=== PATIENT | female | born 1945 | race Caucasian/White ===

== ENCOUNTER 2018-01-14 09:28 | Emergency (ER) | payer OTHER ==
[2018-01-14 09:39] VITALS: BMI 28.1
--- NOTE | 2018-01-14 10:01 | PDOC ---
History of Present Illness - General History Source: Patient, Old Records, Primary Care Provider Exam Limitations: No Limitations - History of Present Illness Initial Comments: 01/14/18 10:46 The patient is a 72 ear old female with history of hypertension, hyperlipidemia , sent to the ED by her PCP for CT of the head r/o vertebral artery dissection. Per the patient's PCP, the patient had an MRA that demonstrated some concerning findings. She was sent for a head CT for further evaluation. Today, the patient denies any physical complaint. She denies headache, blurred vision, or dizziness. No nausea, vomiting, or diarrhea. PCP: Dr. James Reed <Candy Jaffe - Last Filed: 01/14/18 16:54> <Prasad Chery - Last Filed: 01/14/18 17:17> - General Chief Complaint: Revisit,Radiology Variance Stated Complaint: ADMIT, TESTING (PCP SENT) Time Seen by Provider: 01/14/18 10:01 Past History <Candy Jaffe - Last Filed: 01/14/18 16:54> - Past Medical History Cancer: Yes (LUNG) COPD: No - Suicide/Smoking/Psychosocial Hx Smoking History: Current some day smoker Have you smoked in the past 12 months: Yes Information on smoking cessation initiated: No <Prasad Chery - Last Filed: 01/14/18 17:17> - Past Medical History Allergies/Adverse Reactions: Allergies Allergy/AdvReac Type Severity Reaction Status Date / Time No Known Allergies Allergy Verified 01/14/18 09:34 Home Medications: Ambulatory Orders Albuterol Sulfate [Proair Hfa] 8.5 gm IH BID 01/14/18 Amlodipine Besylate 5 mg PO DAILY 01/14/18 Aspirin 81 mg PO DAILY 01/14/18 Atorvastatin Ca [Lipitor] 20 mg PO HS 01/14/18 Levothyroxine [Synthroid -] 50 mcg PO DAILY 01/14/18 Losartan Potassium 100 mg PO DAILY 01/14/18 Metoprolol Succinate [Toprol Xl] 50 mg PO DAILY 01/14/18 Review of Systems - Review of Systems Able to Perform ROS?: Yes Comments:: 01/14/18 11:10 CONSTITUTIONAL: Well-appearing; well-nourished; in no apparent distress HEAD: Normocephalic; atraumatic EYES: PERRL; EOM intact ENMT: External appears normal; normal oropharynx NECK: Supple; non-tender; no cervical lymphadenopathy CARD: Normal S1, S2; no murmurs, rubs, or gallops RESP: Normal chest excursion with respiration; breath sounds clear and equal bilaterally; no wheezes, rhonchi, or rales ABD: Soft, non-distended; non-tender; no palpable organomegaly, no palpable hernias EXT: Normal ROM in all four extremities; non-tender to palpation; distal pulses intact SKIN: Warm, dry, no rash NEURO: No focal neurological deficiencies. <Candy Jaffe - Last Filed: 01/14/18 16:54> *Physical Exam - Vital Signs Last Vital Signs Temp Pulse Resp BP Pulse Ox 98 F 100 H 19 135/52 98 01/14/18 09:34 01/14/18 09:34 01/14/18 09:34 01/14/18 09:34 01/14/18 09:34 <Candy Jaffe - Last Filed: 01/14/18 16:54> - Vital Signs Last Vital Signs Temp Pulse Resp BP Pulse Ox 98 F 100 H 19 135/52 98 01/14/18 09:34 01/14/18 09:34 01/14/18 09:34 01/14/18 09:34 01/14/18 09:34 - Physical Exam Comments: 01/14/18 16:51 EXAMINATION CONSTITUTIONAL: Patient is awake and alert; well-nourished, in no apparent distress HEAD: Normocephalic; atraumatic EYES: PERRL; EOM intact ENMT: External appears normal; normal oropharynx NECK: Supple; non-tender; no cervical lymphadenopathy CARD: Normal S1, S2; no murmurs, rubs, or gallops RESP: Normal chest excursion with respiration; breath sounds clear and equal bilaterally; no wheezes, rhonchi, or rales ABD: Soft, non-distended; non-tender; no palpable organomegaly, no palpable hernias EXT: Normal ROM in all four extremities; non-tender to palpation; distal pulses intact SKIN: Warm, dry, no rash NEURO: Alert and oriented to self only; cranial nerves II through XII grossly intact; no pronation drift; motor is 554; gait is stable. <Prasad Chery - Last Filed: 01/14/18 17:17> Heart Score/ECG Review #1 01/14/18 13:06 EKG obtained 12:28. Normal sinus rhythm at 82 bpm. T wave abnormality, consider inferior ischemia. Abnormal EKG. <Candy Jaffe - Last Filed: 01/14/18 16:54> ED Treatment Course - LABORATORY CBC & Chemistry Diagram: 01/14/18 11:00 01/14/18 11:00 <Candy Jaffe - Last Filed: 01/14/18 16:54> - LABORATORY CBC & Chemistry Diagram: 01/14/18 11:00 01/14/18 11:00 <Prasad Chery - Last Filed: 01/14/18 17:17> Medical Decision Making - Medical Decision Making 01/14/18 16:52 Patient is 72-year-old female who was referred to the ER by neurology for possible vertebral artery dissection that may have been identified on a previous MRA. In the ER, patient is asymptomatic. A discussed the case with neurology who suspect the finding may be an artifact. If the CT is negative for vertebral or basilar artery insufficiency or dissection, Patient can be discharged with outpatient follow-up. 01/14/18 17:10 Brain and neck CTA revealed no evidence of vertebral basilar dissection or significant stenosis. Right apical pleural nodule is noted. Patient's calcium is within normal limit. Patient's been advised of the findings and will be discharged to follow-up as an outpatient. <Prasad Chery - Last Filed: 01/14/18 17:17> *DC/Admit/Observation/Transfer - Attestations Scribe Attestion: 01/14/18 11:10 Documentation prepared by Candy Jaffe, acting as bilingual medical receptionist for Prasad Chery MD. <Candy Jaffe - Last Filed: 01/14/18 16:54> <Prasad Chery - Last Filed: 01/14/18 17:17> Diagnosis at time of Disposition: Dizziness - Discharge Dispostion Disposition: HOME Condition at time of disposition: Stable - Referrals Referrals: James Reed [Non Staff, Medical] - - Patient Instructions Printed Discharge Instructions: DI for Dizziness-Nonvertigo Additional Instructions: your Calcium is 9.4. your ct shows a right lung nodule which requires outpatient follow up.
[2018-01-14 11:12] LABS: BASO % 0.6 % (0-2.0); EOS % 3.3 % (0-4.5); HEMOGLOBIN 12.4 GM/dL (10.7-15.3); LYMPH % 23.1 % (8-40); MCH 29.5 pg (25.7-33.7); MCHC 32.5 g/dl (32.0-36.0); MEAN CELL VOLUME 90.6 fl (80-96); MEAN PLT VOLUME 8.3 fl (7.5-11.1); MONO % 7.6 % (3.8-10.2); NEUT % 65.4 % (42.8-82.8); PLATELET COUNT 255 K/MM3 (134-434); RBC 4.19 M/mm3 (3.60-5.2); RDW 12.3 % (11.6-15.6); WHITE BLOOD COUNT 11.6 K/mm3 (4.0-10.0)
[2018-01-14 11:24] LABS: INR 1.11 (0.82-1.09); PROTHROMBIN TIME (PATIENT) 12.5 SEC (9.98-11.88)
[2018-01-14 11:37] LABS: ALBUMIN 4.1 g/dl (3.4-5.0); ANION GAP 7 (8-16); BILIRUBIN,TOTAL 0.6 mg/dL (0.2-1.0); BLOOD UREA NITROGEN 17 mg/dL (7-18); CALCIUM 9.4 mg/dL (8.5-10.1); CHLORIDE 108 mmol/L (98-107); CO2 22 mmol/L (21-32); CREATININE 0.8 mg/dL (0.55-1.02); GLUCOSE,RANDOM 103 mg/dL (74-106); POTASSIUM 4.3 mmol/L (3.5-5.1); SGOT/AST 15 U/L (15-37); SGPT/ALT 21 U/L (12-78); SODIUM 137 mmol/L (136-145); TOT PROT 7.3 g/dl (6.4-8.2)
[2018-01-14 11:46] LABS: ALK PHOS 73 U/L (45-117)
[2018-01-14 12:01] LABS: URINE APPEARANCE TURBID; URINE BILIRUBIN NEGATIVE (NEGATIVE); URINE BLOOD NEGATIVE (NEGATIVE); URINE COLOR AMBER; URINE GLUCOSE (UA) NEGATIVE (NEGATIVE); URINE KETONE TRACE (NEGATIVE); URINE LEUK ESTERASE TRACE (NEGATIVE); URINE NITRITE NEGATIVE (NEGATIVE); URINE UROBILINOGEN 4.0 E.U/dl mg/dL (0.2-1.0)
[2018-01-14 12:03] LABS: URINE PROTEIN 1+ (NEGATIVE)
[2018-01-14 12:40] LABS: EPI CELLS RARE /HPF (FEW); URINE HYALINE CAST 12 /lpf; URINE MUCUS RARE
[2018-01-14 16:52] VITALS: BP 139/45; PULSE 79; TEMP 98.2
--- NOTE | 2018-01-15 11:43 | EKG ---
Test Reason : Blood Pressure : / mmHG Vent. Rate : 081 BPM Atrial Rate : 081 BPM P-R Int : 120 ms QRS Dur : 096 ms QT Int : 350 ms P-R-T Axes : 057 061 -55 degrees QTc Int : 406 ms POOR DATA QUALITY, INTERPRETATION MAY BE ADVERSELY AFFECTED NORMAL SINUS RHYTHM T WAVE ABNORMALITY, CONSIDER INFERIOR ISCHEMIA ABNORMAL ECG NO PREVIOUS ECGS AVAILABLE Confirmed by LISANDRA WONG, LAURIE ([id number]) on 01/15/2018 11:42:27 AM Referred By: Confirmed By:LAURIE FRY MD
== END 2018-01-14 18:04 | disposition home or self-care (01) ==
LOC: JER 09:28
DX: R42 Dizziness and giddiness (principal); F17.210 Nicotine dependence, cigarettes, uncomplicated; I10 Essential (primary) hypertension; E78.5 Hyperlipidemia, unspecified; Z85.118 Personal history of other malignant neoplasm of bronchus and lung
CPT/HCPCS: 36415; 70496-TC; 70498-TC; 71046-TC-FY; 80053; 81003; 81015; 82330; 83970; 84443; 85025; 85610; 93005; 93010; 99282-25

== ENCOUNTER 2020-08-18 04:32 | Day surgery (SDC) | payer OTHER ==
[2020-08-17 11:59] VITALS: BMI 41.2
--- OUTSIDE RECORDS SUMMARY | 2020-08-18 05:20 | XMS ---
:1945 Author Organization [facility] Care Team Providers Name Role Phone [facility]9 Unavailable Unavailable Johnny Kraus Unavailable [phone] Menla, Gordy Unavailable Unavailable Menla, Gordy Unavailable Unavailable Menla, Gordy Unavailable Unavailable Menla, Gordy Unavailable Unavailable Menla, Gordy Unavailable Unavailable Menla, Gordy Unavailable Unavailable JAMES REED Unavailable Unavailable Sterling, Chelle BACK GRAY CLOTH WASHER Unavailable Unavailable Sterling, Chelle BACK GRAY CLOTH WASHER Unavailable Unavailable Sterling, Chelle BACK GRAY CLOTH WASHER Unavailable Unavailable Sterling, Chelle BACK GRAY CLOTH WASHER Unavailable Unavailable Johnna, Ammir Unavailable [phone] Johnna, Ammir Unavailable [phone] Johnna, Ammir Unavailable [phone] Johnna, Ammir Unavailable [phone] Johnna, Ammir Unavailable [phone] Johnna, Ammir Unavailable [phone] Johnna, Ammir Unavailable [phone] Johnna, Ammir Unavailable [phone] Johnna, Ammir Unavailable [phone] Johnna, Ammir Unavailable [phone] Johnna, Ammir Unavailable [phone] Johnna, Ammir Unavailable [phone] Johnna, Ammir Unavailable [phone] Johnna, Ammir Unavailable [phone] Johnna, Ammir Unavailable [phone] Johnna, Ammir Unavailable [phone] Reed, James Unavailable Unavailable Reed, James Unavailable Unavailable Reed, James Unavailable Unavailable Reed, James Unavailable Unavailable Reed, James Unavailable Unavailable Reed, James Unavailable Unavailable Reed, James Unavailable Unavailable Reed, James Unavailable Unavailable Reed, James Unavailable Unavailable Reed, James Unavailable Unavailable Reed, James Unavailable Unavailable Trace-Perla, Yaneth Unavailable [phone] Trace-Perla, Yaneth Unavailable [phone] TRACE-PERLA XENA, XENA Unavailable Unavailable Re-disclosure Warning The records that you are about to access may contain information from federally- assisted alcohol or drug abuse programs. If such information is present, then the following federally mandated warning applies: This information has been disclosed to you from records protected by federal confidentiality rules (42 CFR part 2). The federal rules prohibit you from making any further disclosure of this information unless further disclosure is expressly permitted by the written consent of the person to whom it pertains or as otherwise permitted by 42 CFR part 2. A general authorization for the release of medical or other information is NOT sufficient for this purpose. The Federal rules restrict any use of the information to criminally investigate or prosecute any alcohol or drug abuse patient.The records that you are about to access may contain highly sensitive health information, the redisclosure of which is protected by Article 27-F of the [facility] Public Health law. If you continue you may haveaccess to information: Regarding HIV / AIDS; Provided by facilities licensed or operated by the [facility] Office of Mental Health; or Provided by the [facility] Office for People With Developmental Disabilities. If such information is present, then the following [facility] mandated warning applies: This information has been disclosed to you from confidential records which are protected by state law. State law prohibits you from making any further disclosure of this information without the specific written consent of the person to whom it pertains, or as otherwise permitted by law. Any unauthorized further disclosure in violation of state law may result in a fine or mcfp sentence or both. A general authorization for the release of medical or other information is NOT sufficient authorization for further disclosure. Allergies and Adverse Reactions Type Description Substance Reaction Status Data Source(s ) Propensity to Propensity to Propensity to NEXTG EN ( adverse reactions adverse reactions adverse reactions [facility] Medical (disorder) (disorder) (disorder) Center) Family History Family Member Family Member Family Member Date of Description Data Source(s) Name Gender Status Status Unknown Female Problem 09/23/2014 NEXTGEN ([facility] (finding) 12:00:[address] [facility] Center) Encounters Encounter Providers Location Date Indications Data Source(s ) Attender: Mental Health 07/29/2020 NEXTGEN ([facility] 02:48:00 PM [facility]) 07/29/2020 02:48:00 PM EDT Attender: James 07/18/2020 MEDGEN ([place] [facility] 12:00:00 AM Medical Servi ce) EDT Office Attender: James Reed 07/18/2020 12:00:00 AM EDT MEDGEN ([facility]) Office Attender: James Reed 07/18/2020 12:00:00 AM EDT MEDGEN ([facility] [place] [facility]) Office Attender: James Reed 07/18/2020 12:00:00 AM EDT MEDGEN ([facility]) Office Attender: James Reed 07/18/2020 12:00:00 AM EDT MEDGEN ([facility]) Office Attender: James Reed 07/18/2020 12:00:00 AM EDT MEDGEN ([facility]) Office Attender: James Reed 07/18/2020 12:00:00 AM EDT MEDGEN ([facility]) Office Attender: James Reed 07/18/2020 12:00:00 AM EDT MEDGEN ([facility]) Office Attender: James Reed 07/18/2020 12:00:00 AM EDT MEDGEN ([facility]) Office Attender: James Reed 07/18/2020 12:00:00 AM EDT MEDGEN ([facility]) Office Attender: James Reed 07/18/2020 12:00:00 AM EDT MEDGEN ([facility]) Office Outpatient Attender: JAMES Salguero 07/15/2020 [facility] WANDERLAdmitter: 09:47:00 AM EDT [facility] JAMES Barrioser: JAMES REED Attender: [facility] 07/07/2020 NE XTGEN ([facility] 01:37:00 PM EDT - Leigh sephs 07/07/2020 Medical 01:37:00 PM EDT Center) OutpatientOFFICE/ Attender: [facility] 07/07/2020 NEXTGEN ([facility] 01:10[facility] PM EDT - Roseline EST 07/07/2020 Medical 01:10:00 PM EDT Center) Outpatient Attender: JAMES Salguero 06/29/2020 [facility] Sandeepitter: 02:00:00 PM EDT [facility] JAMES Barrioser: JAMES REED Attender: Chelle Katz 06/29/2020 [facility]ENT[facility] FRIAS [employer] 12:00:00 AM EDT ([facility]) Office Attender: Chelle Katz NP 06/29/2020 12:00:00 AM EDT MEDGEN ([facility]) Office Attender: Chelle Katz NP 06/29/2020 12:00:00 AM EDT MEDGEN ([facility]) Office Attender: Chelle Katz NP 06/29/2020 12:00:00 AM EDT MEDGEN ([facility]) Office Attender: Chelle Katz NP 06/29/2020 12:00:00 AM EDT MEDGEN ([facility]) Office Attender: Chelle Katz NP 06/29/2020 12:00:00 AM EDT MEDGEN ([facility]) Office Attender: Chelle Katz NP 06/29/2020 12:00:00 AM EDT MEDGEN ([facility]) Office Attender: Chelle Katz NP 06/29/2020 12:00:00 AM EDT MEDGEN ([facility]) Office Attender: Chelle Katz NP 06/29/2020 12:00:00 AM EDT MEDGEN ([facility]) Office Attender: Chelle Katz NP 06/29/2020 12:00:00 AM EDT MEDGEN ([facility]) Office Attender: Chelle Katz NP 06/29/2020 12:00:00 AM EDT MEDGEN ([facility]) Office Attender: James Reed 06/27/2020 12:00:00 AM EDT MEDGEN ([facility]) Office Attender: James Reed 06/27/2020 12:00:00 AM EDT MEDGEN ([facility]) Office Attender: James Reed 06/27/2020 12:00:00 AM EDT MEDGEN ([facility]) Office Attender: James Reed 06/27/2020 12:00:00 AM EDT MEDGEN ([facility]) Office Attender: James Reed 06/27/2020 12:00:00 AM EDT MEDGEN ([facility]) Office Attender: James Reed 06/27/2020 12:00:00 AM EDT MEDGEN ([facility]) Office Attender: James Reed 06/27/2020 12:00:00 AM EDT MEDGEN ([facility]) Office Attender: James Reed 06/27/2020 12:00:00 AM EDT MEDGEN ([facility]) Office Attender: James Reed 06/27/2020 12:00:00 AM EDT MEDGEN ([facility]) Office Attender: James Reed 06/27/2020 12:00:00 AM EDT MEDGEN ([facility]) Office Attender: James Reed 06/27/2020 12:00:00 AM EDT MEDGEN ([facility]) Office Attender: James Reed 06/14/2020 12:00:00 AM EDT MEDGEN ([facility]) Office Attender: James Reed 06/14/2020 12:00:00 AM EDT MEDGEN ([facility]) Office Attender: James Reed 06/14/2020 12:00:00 AM EDT MEDGEN ([facility]) Office Attender: James Reed 06/14/2020 12:00:00 AM EDT MEDGEN ([facility]) Office Attender: James Reed 06/14/2020 12:00:00 AM EDT MEDGEN ([facility]) Office Attender: James Reed 06/14/2020 12:00:00 AM EDT MEDGEN ([facility]) Office Attender: James Reed 06/14/2020 12:00:00 AM EDT MEDGEN ([facility]) Office Attender: James Reed 06/14/2020 12:00:00 AM EDT MEDGEN ([facility]) Office Attender: James Reed 06/14/2020 12:00:00 AM EDT MEDGEN ([facility]) Office Attender: James Reed 06/14/2020 12:00:00 AM EDT MEDGEN ([facility]) Office OutpatientOFFICE/OUTPATIENT Attender: Yaneth Mental 06/09/2020 NEXTGEN VISIT, EST [facility]29[facility] 06/09/2020 Medical 10:29:00 AM Center) EDT OutpatientOFFICE/OUTPATIENT Attender: Yaneth Mental 05/12/2020 NEXTGEN VISIT, EST [facility] 11:22:00 AM [facility] 05/12/2020 Medical 11:22:00 AM Center) EDT OutpatientOFFICE/OUTPATIENT Attender: Yaneth Mental 04/13/2020 NEXTGEN VISIT, EST [facility] 01:11:00 PM [facility] 04/13/2020 Medical 01:11:00 PM Center) EDT OutpatientOFFICE/OUTPATIENT Attender: Yaneth Mental 03/15/2020 NEXTGEN VISIT, EST [facility] 03:08:00 PM ([facility] EDT [facility] 03/15/2020 Medical 03:08:00 PM Center) EDT OutpatientOFFICE/OUTPATIENT Attender: Yaneth Mental 02/11/2020 NEXTGEN VISIT, EST [facility] 09:08:00 AM ([facility] EDT [facility] 02/11/2020 Medical 09:08:00 AM Center) EDT Attender: Yaneth Mental 01/14/2020 NEXTG EN [facility] 12:33:00 PM ([facility] 01/14/2020 Medical 12:33:00 PM Center) EST Outpatient Attender: HV9 01/04/2020 [facility] 01:01:46 PM ([facility]) Patient admitted. OutpatientOFFICE/OUTPATIENT Attender: Mental 12/17/2019 NEXTGEN VISIT, [facility] 11:03:00 AM ([facility] 12/17/2019 Medical 11:03:00 AM Center) EST Outpatient Attender: XENA Salguero 11/19/2019 [facility] 10:05:00 AM Roseline MCCALLUMAdmitter: [facility] XENA OutpatientOFFICE/OUTPATIENT Attender: Mental 11/19/2019 NEXTGEN VISIT, [facility] 10:03:00 AM ([facility] 11/19/2019 Medical 10:03:00 AM Center) EST OutpatientOFFICE/OUTPATIENT Attender: Mental 10/15/2019 NEXTGEN VISIT, [facility] 10:10:00 AM ([facility] 10/15/2019 Medical 10:10:00 AM Center) EST Outpatient Attender: JAMES Salguero 10/07/2019 [facility] JENNIFFERdmitter: 09:06:00 AM [facility] [place] JAMES REED OutpatientOFFICE/OUTPATIENT Attender: Mental 09/16/2019 NEXTGEN VISIT, [facility] 03:29:00 PM ([facility] 09/16/2019 Medical 03:29:00 PM Center) EDT OutpatientOFFICE/OUTPATIENT Attender: Mental 08/19/2019 NEXTGEN VISIT, [facility] 10:40:00 AM ([facility] 08/19/2019 Medical 10:40:00 AM Center) EDT OutpatientOFFICE/OUTPATIENT Attender: Mental 07/22/2019 NEXTGEN VISIT, [facility] 10:05:00 AM ([facility] 07/22/2019 Medical 10:05:00 AM Center) EDT OutpatientOFFICE/OUTPATIENT Attender: Mental 06/15/2019 NEXTGEN VISIT, [facility] 10:35:00 [facility] 06/15/2019 Medical 10:35:00 AM Center) EDT OutpatientOFFICE/OUTPATIENT Attender: Mental 05/18/2019 NEXTGEN VISIT, [facility] 10:22:00 AM [facility] 05/18/2019 Medical 10:22:00 AM Center) EDT OutpatientOFFICE/OUTPATIENT Attender: Mental 04/19/2019 NEXTGEN VISIT, [facility] 11:20:00 AM [facility] 04/19/2019 Medical 11:20:00 AM Center) EDT OutpatientOFFICE/OUTPATIENT Attender: Mental 03/22/2019 NEXTGEN VISIT, [facility] 10:45:00 AM ([facility] 03/22/2019 Medical 10:45:00 AM Center) EDT Outpatient Attender: JAMES Salguero 03/16/2019 [facility] 11:23:00 AM Roseline MENG [facility] Medical VESTAeferrer: Rena REED OutpatientOFFICE/OUTPATIENT Attender: Mental 02/22/2019 NEXTGEN VISIT, [facility] 09:44:00 AM ([facility] 02/22/2019 Medical 09:44:00 AM Center) EDT Outpatient 02/15/2019 LUNG CA [facility] 10:27:00 AM [facility] DIABETIC [facility] LUNG CA NOT DIABETIC OutpatientOFFICE/OUTPATIENT Attender: Yaneth [facility] 01/21/2019 NEXTGEN VISIT, [facility] 01:39:00 PM ([facility] 01/21/2019 Medical 01:39:00 PM Center) EST Outpatient Attender: JAMES Salguero 01/15/2019 [facility] [place]: 11:45:00 AM Roseline MANCIA Medical Kanwalerrer: Rena REED Outpatient Attender: JAMES Salguero 01/14/2019 [facility]: 09:31:00 AM Roseline MANCIA Medical DEVONTEALIDOeferrer: Rena REED OutpatientOFFICE/OUTPATIENT Attender: Yaneth Hayes 12/23/2018 NEXTGEN VISIT, EST [facility] 11:34:00 AM ([facility] 12/23/2018 Medical 11:34:00 AM Center) EST Outpatient Attender: XENA Salguero 12/23/2018 [facility] 10:05:00 AM Roseline MCCALLUMAdmitter: [facility] XENA Attender: Yaneth [facility] 04:[facility] PM ([facility] 11/24/2018 Medical 04:30:00 PM Center) EST Attender: Yaneth [facility]11[facility] 08:05:00 AM ([facility] 12/11/2017 Medical 08:05:00 AM Center) EST Attender: Gordy [address] [place] [address] 04/12/2015 NEXTGEN Menla 02:24:00 PM ([facility] 04/12/2015 Medical 02:24:00 PM Center) EDT OutpatientOFFICE/OUTPATIENT Attender: Johnny[address] 02/27/2015 NEXTGEN VISIT, EST [place] 08:56:00 AM [facility] - Roseline Ammir Johnna 02/27/2015 Medical 08:56:00 AM Center) EDT OutpatientOFFICE/OUTPATIENT Attender: [address] 12/27/2014 NEXTGEN VISIT, EST [place] 10:17:00 AM ( EfraAttender: EST - Roseline Ammir Johnna 12/27/2014 Medical 10:17:00 AM Center) EST OutpatientOFFICE/OUTPATIENT Attender: [address] 12/01/2014 NEXTGEN VISIT, EST [place] 11:12:00 AM ([facility] EfraAttender: EST - Roseline Ammir Johnna 12/01/2014 Medical 11:12:00 AM Center) EST OutpatientOFFICE/OUTPATIENT Attender: [address] 10/21/2014 NEXTGEN VISIT, EST [place] 09:24:00 AM ( EfraAttender: EST - Roseline Ammir Johnna 10/21/2014 Medical 09:24:00 AM Center) EST OutpatientOFFICE/OUTPATIENT Attender: [address] 10/07/2014 NEXTGEN VISIT, EST [place] 09:43:00 AM ([facility]us[facility]ender: EST - Roseline Jonesr Johnna 10/07/2014 Medical 09:43:00 AM Center) EST OutpatientOFFICE/OUTPATIENT Attender: Johnny [facility] 09/23/2014 NEXTGEN VISIT, EST [place] 03:49:00 PM ([facility] KrausAttender: EST - Roseline Jonesr Johnna 09/23/2014 Medical 03:49:00 PM Center) EST OutpatientOFFICE/OUTPATIENT Attender: Johnny [facility] 09/08/2014 NEXTGEN VISIT, NEW [place] 04:23:00 PM ([facility]us[facility]ender: EDT - Roseline Jonesr Johnna 09/08/2014 Medical 04:23:00 PM Center) EDT Immunizations Vaccine Date Status Description Data Source(s) IIV3 07/30/2019 completed MEDGEN ([place] [facility] 12:00:00 AM EDT Medical Serv ice) IIV3 07/30/2019 completed MEDGEN ([place] 12:00:00 AM EDT Medical Serv ice) IIV3 07/30/2019 completed MEDGEN ([place] 12:00:00 AM EDT Medical Serv ice) IIV3 07/30/2019 completed MEDGEN ([place] 12:00:00 AM EDT Medical Serv ice) Pneumococcal conjugate 07/03/2018 completed MEDGE N ([facility] PCV 13 12:00:00 AM EDT Medical Serv ice) Pneumococcal conjugate 07/03/2018 completed MEDGE N ([place] PCV 13 12:00:00 AM EDT Medical Serv ice) Pneumococcal conjugate 07/03/2018 completed MEDGE N ([place] PCV 13 12:00:00 AM EDT Medical Serv ice) Pneumococcal conjugate 07/03/2018 completed MEDGE N ([place] PCV 13 12:00:00 AM EDT Medical Serv ice) Tdap 09/08/2014 completed Tdap NEXTGEN ([facility] 12:00:00 AM EDT [facility]) Source: New Immunization Record pneumococcal 09/08/2014 completed Pneumo (2 yrs or NEXTGEN (Sa int polysaccharide PPV23 12:00:00 AM EDT older)(PPV) Leonel [facility]) Source: New Immunization Record Medications Medication Brand Start Product Dose Route Administrative Pharmacy St at Indications Reaction Description Data Name Date Form Instructions Instructions Source(s) Clonazepam Klonop ORAL active clonazep am NEXTGEN 0.5 MG Oral in 0.5 2019 {tabl 0.5 MG Ora l ([facility] Tablet mg 12:00: et} Tablet Roseline [K[facility]] [facility] [place] 0.5 mg tablet 24 HR Seroqu 07/29/ active 24 HR NEXTGEN quetiapine el XR 2020 quetiapine (S aint 200 MG 200 mg 12:00: 200 MG Roseline Extended tablet 00 AM Extended Medi taiwo Release ,exten EDT Release Oral Ce nter) Oral Tablet ded Tablet [Seroquel] releas [Seroquel] Seroquel XR e 200 mg tablet,exte nded release Escitalopra Lexapr ORAL active escital opram NEXTGEN m 10 MG o 10 2019 {tabl 10 MG Oral (Noel t Oral Tablet mg 12:00: et} Tablet Leonel phs [Lexapro] tablet 00 AM [Lexapro] Hi dical [facility] [place] mg tablet 24 HR Seroqu 07/07/ complet 24 HR NEXTGE N quetiapine el XR 2019 ed quetiapine (S aint 200 MG 200 mg 12:00: 200 MG Roseline Extended tablet 00 AM Extended Medi taiwo Release ,exten EDT Release Oral Ce nter) Oral Tablet ded Tablet [Seroquel] releas [Seroquel] Seroquel XR e 200 mg tablet,exte nded release Clonazepam Klonop ORAL complet clonaze terrie NEXTGEN 0.5 MG Oral in 0.5 2019 {tabl ed 0.5 MG Ora l ([facility] Tablet mg 12:00: et} Tablet Roseline [Klonopin] tablet 00 [facility] [place] 0.5 mg tablet Escitalopra Lexapr ORAL complet escita lopram NEXTGEN m 10 MG o 10 2019 {tabl ed 10 MG Oral (Noel t Oral Tablet mg 12:00: et} Tablet Leonel phs [Lexapro] tablet 00 AM [Lexapro] Hi dical [facility] [place] mg tablet 200 ACTUAT VENTOL 06/27/ 1 complet VENT RODOLFO HFA MEDGEN Albuterol IN 2019 ed ([facility] 0.09 HFA:74 12:00: Medical MG/ACTUAT 5679 00 AM Service) Metered EDT Dose Inhaler VENTOLIN HFA:[id number] BEVESPI 06/27/ AEROSOL 1 complet [facility] AEROSPHERE: 2020 ed AEROSPHERE ( roadway [id number] 12:00: Medical 00 AM Service) EDT BEVESPI 06/27/ AEROSOL 1 complet [facility] AEROSPHERE: 2020 ed AEROSPHERE ( roadway [id number] 12:00: Medical 00 AM Service) EDT 200 ACTUAT VENTOL 06/27/ AEROSOL 1 complet VENT RODOLFO HFA MEDGEN Albuterol IN 2020 ed ([facility] 0.09 HFA:74 12:00: Medical MG/ACTUAT 5679 00 AM Service) Metered EDT Dose Inhaler VENTOLIN [id number]:[id number] 200 ACTUAT VENTOL 06/27/ AEROSOL 1 complet VENT RODOLFO HFA MEDGEN Albuterol IN 2020 ed ([facility] 0.09 HFA:74 12:00: Medical MG/ACTUAT 5679 00 AM Service) Metered EDT Dose Inhaler VENTOLIN HFA:[id number] BEVESPI 06/27/ AEROSOL 1 complet [facility] AEROSPHERE: 2020 ed AEROSPHERE ( roadway [id number] 12:00: Medical 00 AM Service) EDT Cholecalcif VITAMI 06/14/ CAPSULE 4 complet VIT MONET D3 MEDGEN tye 90713 N 2019 ed ([place] UNT Oral D3:705 12:00: Medical Capsule 728 00 AM Service) VITAMIN EDT D3:990120 pregabalin LYRICA 06/14/ CAPSULE 90 complet LYRI CA MEDGEN 50 MG Oral :19289 2020 ed ([place] Capsule 8 12:00: Medical LYRICA:4834 00 AM Service ) 48 EDT pregabalin LYRICA 06/14/ CAPSULE 90 complet LYRI CA MEDGEN 50 MG Oral :43701 2020 ed ([place] Capsule 8 12:00: Medical LYRICA:4834 00 AM Service ) 48 EDT Cholecalcif VITAMI 06/14/ CAPSULE 4 complet VIT MONET D3 MEDGEN tye 88634 N 2020 ed ([place] UNT Oral D3:705 12:00: Medical Capsule 728 00 AM Service) VITAMIN EDT D3:944720 pregabalin LYRICA 06/14/ CAPSULE 90 complet LYRI CA MEDGEN 50 MG Oral :98414 2019 ed ([place] Capsule 8 12:00: Medical LYRICA:4834 00 AM Service ) 48 EDT Cholecalcif VITAMI 06/14/ CAPSULE 4 complet VIT MONET D3 MEDGEN tye 19575 N 2020 ed ([place] UNT Oral D3:705 12:00: Medical Capsule 728 00 AM Service) VITAMIN EDT D3:820377 pregabalin LYRICA 06/14/ CAPSULE 90 complet LYRI CA MEDGEN 50 MG Oral :75263 2019 ed ([place] Capsule 8 12:00: Medical LYRICA:4834 00 AM Service ) 48 EDT Cholecalcif VITAMI 06/14/ CAPSULE 4 complet VIT MONET D3 MEDGEN tye 69415 N 2019 ed ([facility] UNT Oral D3:705 12:00: Medical Capsule 728 00 AM Service) VITAMIN EDT D3:861137 Clonazepam Klonop ORAL complet clonaze terrie NEXTGEN 0.5 MG Oral in 0.5 2019 {tabl ed 0.5 MG Ora l ([facility] Tablet mg 12:00: et} Tablet Roseline [Klonopin] tablet 00 AM [Klonopin] [facility] Klonopin EDT Center) 0.5 mg tablet 24 HR Seroqu 06/09/ complet 24 HR NEXTGE N quetiapine el XR 2019 ed quetiapine (S aint 200 MG 200 mg 12:00: 200 MG Roseline Extended tablet 00 AM Extended Medi taiwo Release ,exten EDT Release Oral Ce nter) Oral Tablet ded Tablet [Seroquel] releas [Seroquel] Seroquel XR e 200 mg tablet,exte nded release Escitalopra Lexapr ORAL complet escita lopram NEXTGEN m 10 MG o 10 2019 {tabl ed 10 MG Oral (Noel t Oral Tablet mg 12:00: et} Tablet Leonel phs [Lexapro] tablet 00 AM [Lexapro] Hi dical Lexapro 10 EDT Center) mg tablet Escitalopra Lexapr ORAL complet Escita lopram NEXTGEN m 10 MG o 10 2019 {tbl} ed 10 MG Oral (Noel t Oral Tablet mg 12:00: Tablet Leonel phs [Lexapro] tablet 00 AM [Lexapro] Hi dical Lexapro 10 EDT Center) mg tablet 24 HR Seroqu 05/12/ complet 24 HR NEXTGE N quetiapine el XR 2019 ed quetiapine (S aint 200 MG 200 mg 12:00: 200 MG Roseline Extended tablet 00 AM Extended Medi taiwo Release ,exten EDT Release Oral Ce nter) Oral Tablet ded Tablet [Seroquel] releas [Seroquel] Seroquel XR e 200 mg tablet,exte nded release Clonazepam Klonop ORAL complet Clonaze terrie NEXTGEN 0.5 MG Oral in 0.5 2020 {tbl} ed 0.5 MG Ora l ([facility] Tablet mg 12:00: Tablet Roseline [Klonopin] tablet 00 AM [Klonopin] [facility] Klonopin EDT Center) 0.5 mg tablet Levothyroxi SYNTHR 04/18/ TABLET 90 complet SYNT HROID MEDGEN ne Sodium OID:96 2019 ed ([place] 0.05 MG 6247 12:00: Medical Oral Tablet 00 AM Service ) [Synthroid] EDT SYNTHROID:9 58972 Cyproheptad CYPROH 04/18/ TABLET 120 complet CYPR OHEPTADI MEDGEN ine EPTADI 2019 ed NE ([facility] hydrochlori NE:866 12:00: Medi taiwo de 4 MG 144 00 AM Service) Oral Tablet EDT CYPROHEPTAD INE:355825 Aspirin 81 ASPIRI 04/18/ DELAYED 90 complet ASPI RIN EC MEDGEN MG Delayed N EC 2020 RELEASE ed LO-DOSE ([place] Release LO-DOS 12:00: TABLET Medica l Oral Tablet E:3084 00 AM Servi ce) ASPIRIN EC 16 EDT LO-DOSE:308 416 Cyproheptad CYPROH 04/18/ TABLET 120 complet CYPR OHEPTADI MEDGEN ine EPTADI 2019 ed NE ([place] hydrochlori NE:866 12:00: Medi taiwo de 4 MG 144 00 AM Service) Oral Tablet EDT CYPROHEPTAD INE:[id number] Losartan LOSART 04/18/ TABLET 90 complet LOSARTA N MEDGEN Potassium AN:979 2019 ed ([place] 100 MG Oral 480 12:00: Medica l Tablet 00 AM Service) LOSARTAN:97 EDT 9480 Albuterol DUONEB 06/02/ SOLUTION 2 complet DUON EB MEDGEN 0.833 MG/ML :70205 2019 ed ([address] / 04 12:00: Medical Ipratropium 00 AM Service ) [place] EDT 0.167 MG/ML Inhalant Solution [DuoNeb] DUONEB:1437 704 200 ACTUAT PROAIR 06/02/ AEROSOL 1 complet PROA IR HFA MEDGEN Albuterol HFA:74 2019 ed ([place] 0.09 5679 12:00: Medical MG/ACTUAT 00 AM Service) Metered EDT Dose Inhaler PROAIR HFA:[id number] 24 HR METOPR 06/02/ TABLET, 90 complet METOPROLO L MEDGEN metoprolol OLOL 2019 EXTENDED ed SUCCINATE ER ([place] succinate SUCCIN 12:00: RELEASE Med ical 50 MG ATE 00 AM Service) Extended ER:866 EDT Release 436 Oral Tablet METOPROLOL SUCCINATE ER:[id number] Levothyroxi SYNTHR // TABLET 90 complet SYNT HROID MEDGEN ne Sodium OID:96 2019 ed ([place] 0.05 MG 6247 12:00: Medical Oral Tablet 00 AM Service ) [Synthroid] EDT SYNTHROID:9 25905 200 ACTUAT PROAIR 04/18/ AEROSOL 1 complet PROA IR HFA MEDGEN Albuterol HFA:74 2019 ed ([place] 0.09 5679 12:00: Medical MG/ACTUAT 00 AM Service) Metered EDT Dose Inhaler PROAIR HFA:[id number] Aspirin 81 ASPIRI 06// DELAYED 90 complet ASPI RIN EC MEDGEN MG Delayed N EC 2020 RELEASE ed LO-DOSE ([place] Release LO-DOS 12:00: TABLET Medica l Oral Tablet E:3084 00 AM Servi ce) ASPIRIN EC 16 EDT LO-DOSE:308 416 24 HR METOPR 06/02/ TABLET, 90 complet METOPROLO L MEDGEN metoprolol OLOL 2020 EXTENDED ed SUCCINATE ER ([place] succinate SUCCIN 12:00: RELEASE Med ical 50 MG ATE 00 AM Service) Extended ER:866 EDT Release 436 Oral Tablet METOPROLOL SUCCINATE ER:[id number] Losartan LOSART /02/ TABLET 90 complet LOSARTA N MEDGEN Potassium AN:979 2019 ed ([place] 100 MG Oral 480 12:00: Medica l Tablet 00 AM Service) LOSARTAN:97 EDT 9480 Losartan LOSART // TABLET 90 complet LOSARTA N MEDGEN Potassium AN:979 2019 ed ([place] 100 MG Oral 480 12:00: Medica l Tablet 00 AM Service) LOSARTAN:97 EDT 9480 24 HR METOPR 04/18/ TABLET, 90 complet METOPROLO L MEDGEN metoprolol OLOL 2019 EXTENDED ed SUCCINATE ER ([place] succinate SUCCIN 12:00: RELEASE Med ical 50 MG ATE 00 AM Service) Extended ER:866 EDT Release 436 Oral Tablet METOPROLOL SUCCINATE ER:[id number] Albuterol DUONEB 04/18/ SOLUTION 2 complet DUON EB MEDGEN 0.833 MG/ML :60897 2019 ed ( 12:00: Medical Ipratropium 00 AM Service ) [place] EDT 0.167 MG/ML Inhalant Solution [DuoNeb] DUONEB:1437 704 Aspirin 81 ASPIRI 04/18/ DELAYED 90 complet ASPI RIN EC MEDGEN MG Delayed N EC 2020 RELEASE ed LO-DOSE ([place] Release LO-DOS 12:00: TABLET Medica l Oral Tablet E:3084 00 AM Servi ce) ASPIRIN EC 16 EDT LO-DOSE:308 416 Cyproheptad CYPROH 04/18/ TABLET 120 complet CYPR OHEPTADI MEDGEN ine EPTADI 2019 ed NE ( hydrochlori NE:866 12:00: Medi taiwo de 4 MG 144 00 AM Service) Oral Tablet EDT CYPROHEPTAD INE:012827 Albuterol DUONEB 04/18/ SOLUTION 2 complet DUON EB MEDGEN 0.833 MG/ML :14467 2019 ed ( 12:00: Medical Ipratropium 00 AM Service ) [place] EDT 0.167 MG/ML Inhalant Solution [DuoNeb] DUONEB:1437 704 200 ACTUAT PROAIR 04/18/ AEROSOL 1 complet PROA IR HFA MEDGEN Albuterol HFA:74 2019 ed ( y 0.09 5679 12:00: Medical MG/ACTUAT 00 AM Service) Metered EDT Dose Inhaler PROAIR HFA:[id number] Levothyroxi SYNTHR 04/18/ TABLET 90 complet SYNT HROID MEDGEN ne Sodium OID:96 2019 ed ([place] 0.05 MG 6247 12:00: Medical Oral Tablet 00 AM Service ) [Synthroid] EDT SYNTHROID:9 19487 Losartan LOSART 04/18/ TABLET 90 complet LOSARTA N MEDGEN Potassium AN:979 2019 ed ([place] 100 MG Oral 480 12:00: Medica l Tablet 00 AM Service) LOSARTAN:97 EDT 9480 24 HR METOPR 04/18/ TABLET, 90 complet METOPROLO L MEDGEN metoprolol OLOL 2019 EXTENDED ed SUCCINATE ER ([place] succinate SUCCIN 12:00: RELEASE Med ical 50 MG ATE 00 AM Service) Extended ER:866 EDT Release 436 Oral Tablet METOPROLOL SUCCINATE ER:[id number] 200 ACTUAT PROAIR 04/18/ AEROSOL 1 complet PROA IR HFA MEDGEN Albuterol HFA:74 2019 ed ([place] 0.09 5679 12:00: Medical MG/ACTUAT 00 AM Service) Metered EDT Dose Inhaler PROAIR HFA:[id number] Levothyroxi SYNTHR 04/18/ TABLET 90 complet SYNT HROID MEDGEN ne Sodium OID:96 2019 ed ([place] 0.05 MG 6247 12:00: Medical Oral Tablet 00 AM Service ) [Synthroid] EDT SYNTHROID:9 16580 Albuterol DUONEB 04/18/ SOLUTION 2 complet DUON EB MEDGEN 0.833 MG/ML :04000 2019 ed ( 12:00: Medical Ipratropium 00 AM Service ) [place] EDT 0.167 MG/ML Inhalant Solution [DuoNeb] DUONEB:1437 704 Cyproheptad CYPROH 04/18/ TABLET 120 complet CYPR OHEPTADI MEDGEN ine EPTADI 2019 ed NE ([place] hydrochlori NE:866 12:00: Medi taiwo de 4 MG 144 00 AM Service) Oral Tablet EDT CYPROHEPTAD INE:810189 Aspirin 81 ASPIRI 04/18/ DELAYED 90 complet ASPI RIN EC MEDGEN MG Delayed N EC 2020 RELEASE ed LO-DOSE ([place] Release LO-DOS 12:00: TABLET Medica l Oral Tablet E:3084 00 AM Servi ce) ASPIRIN EC 16 EDT LO-DOSE:308 416 24 HR Seroqu 04/13/ complet 24 HR NEXTGE N quetiapine el XR 2019 ed quetiapine (S aint 200 MG 200 mg 12:00: 200 MG [place] Extended tablet 00 AM Extended Medi taiwo Release ,exten EDT Release Oral Ce nter) Oral Tablet ded Tablet [Seroquel] releas [Seroquel] Seroquel XR e 200 mg tablet,exte nded release Escitalopra Lexapr ORAL complet Escita lopram NEXTGEN m 10 MG o 10 2019 {tbl} ed 10 MG Oral (Noel t Oral Tablet mg 12:00: Tablet [facility] phs [Lexapro] tablet 00 AM [Lexapro] Hi dical Lexapro 10 EDT Center) mg tablet Clonazepam Klonop ORAL complet [place] NEXTGEN 0.5 MG Oral in 0.5 2019 {tbl} ed 0.5 MG Ora l ([facility] Tablet mg 12:00: Tablet [place] [Klonopin] tablet 00 AM [facility] [place]) 0.5 mg tablet Clonazepam Klonop ORAL complet [place] NEXTGEN 0.5 MG Oral in 0.5 2019 {tbl} ed 0.5 MG Ora l ([facility] Tablet mg 12:00: Tablet [place] [facility]] [facility] [place] tablet 24 HR Seroqu 03/15/ complet 24 HR NEXTGE N quetiapine el XR 2019 ed quetiapine (S aint 200 MG 200 mg 12:00: 200 MG [place] Extended tablet 00 AM Extended Medi taiwo Release ,exten EDT Release Oral Ce nter) Oral Tablet ded Tablet [Seroquel] releas [Seroquel] Seroquel XR e 200 mg tablet,exte nded release Escitalopra Lexapr ORAL complet Escita lopram NEXTGEN m 10 MG o 10 2019 {tbl} ed 10 MG Oral (Noel t Oral Tablet mg 12:00: Tablet Le[facility] phs [Lexapro] tablet 00 AM [Lexapro] Hi dical Lexapro 10 EDT Center) mg tablet 24 HR Seroqu 02/10/ complet 24 HR NEXTGE N quetiapine el XR 2019 ed quetiapine (S aint 200 MG 200 mg 12:00: 200 MG [place] Extended tablet 00 AM Extended Medi taiwo Release ,exten EDT Release Oral Ce nter) Oral Tablet ded Tablet [Seroquel] releas [Seroquel] Seroquel XR e 200 mg tablet,exte nded release Clonazepam Klonop ORAL complet [place] NEXTGEN 0.5 MG Oral in 0.5 2019 {tbl} ed 0.5 MG Ora l ([facility] Tablet mg 12:00: Tablet [place] [Klonopin] tablet [facility] [place].5 mg tablet Escitalopra Lexapr ORAL complet Escita lopram NEXTGEN m 10 MG o 10 2019 {tbl} ed 10 MG Oral (Noel t Oral Tablet mg 12:00: Tablet [facility] phs [Lexapro] tablet 00 AM [Lexapro] Hi dical Lexapro 10 EDT Center) mg tablet Clonazepam Klono ORAL complet [place] NEXTGEN 0.5 MG Oral in 0.5 2019 {tbl} ed 0.5 MG Ora l ([facility] Tablet mg 12:00: Tablet [place] [Klonopin] tablet 00 AM [[facility]) 0.5 mg tablet Escitalopra Lexapr ORAL complet Escita lopram NEXTGEN m 10 MG o 10 2019 {tbl} ed 10 MG Oral (Noel t Oral Tablet mg 12:00: Tablet Le[facility] phs [Lexapro] tablet 00 AM [Lexapro] Hi dical Lexapro [facility] Center) mg tablet 24 HR Seroqu 01/14/ complet 24 HR NEXTGE N quetiapine el XR 2019 ed quetiapine (S aint 200 MG 200 mg 12:00: 200 MG [place] Extended tablet 00 AM Extended Medi taiwo Release ,exten EST Release Oral Ce nter) Oral Tablet ded Tablet [Seroquel] releas [Seroquel] Seroquel XR e 200 mg tablet,exte nded release Escitalopra Lexapr ORAL complet Escita lopram NEXTGEN m 10 MG o 10 2019 {tbl} ed 10 MG Oral (Noel t Oral Tablet mg 12:00: Tablet [place] phs [Lexapro] tablet 00 AM [Lexapro] Hi dical Lexapro 10 EST Center) mg tablet 24 HR Seroqu 12/17/ complet 24 HR NEXTGE N quetiapine el XR 2019 ed quetiapine (S aint 200 MG 200 mg 12:00: 200 MG [place] Extended tablet 00 AM Extended Medi taiwo Release ,exten EST Release Oral Ce nter) Oral Tablet ded Tablet [Seroquel] releas [Seroquel] Seroquel XR e 200 mg tablet,exte nded release Clonazepam Klonop ORAL complet [place] NEXTGEN 0.5 MG Oral in 0.2019 {tbl} ed 0.5 MG Ora l ([facility] Tablet mg 12:00: Tablet [place] [Klonopin] tablet 00 AM [[facility]) 0.5 mg tablet Escitalopra Lexapr ORAL complet Escita lopram NEXTGEN m 10 MG o 2019 {tbl} ed 10 MG Oral (Noel t Oral Tablet mg 12:00: Tablet Leonel phs [Lexapro] tablet 00 AM [Lexapro] Hi dical Lexapro 10 [facility] Center) mg tablet 24 HR Seroqu 11/19/ complet 24 HR NEXTGE N quetiapine el XR 2019 ed quetiapine (S aint 200 MG 200 mg 12:00: 200 MG [place] Extended tablet 00 AM Extended Medi taiwo Release ,exten EST Release Oral Ce nter) Oral Tablet ded Tablet [Seroquel] releas [Seroquel] Seroquel XR e 200 mg tablet,exte nded release Clonazepam Klonop ORAL complet [place] NEXTGEN 0.5 MG Oral in 0.2019 {tbl} ed 0.5 MG Ora l ([facility] Tablet mg 12:00: Tablet [place] [Klonopin] tablet 00 AM [[facility]) 0.5 mg tablet Escitalopra Lexapr ORAL complet Escita lopram NEXTGEN m 10 MG o 10 2018 {tbl} ed 10 MG Oral (Noel t Oral Tablet mg 12:00: Tablet Leonel phs [Lexapro] tablet 00 AM [Lexapro] Hi dical Lexapro 10 EST Center) mg tablet Clonazepam Klonop ORAL complet [place] NEXTGEN 0.5 MG Oral in 0.2018 {tbl} ed 0.5 MG Ora l ([facility] Tablet mg 12:00: Tablet [place] [Klonopin] tablet 00 AM [[facility]) 0.5 mg tablet 24 HR Seroqu 10/15/ complet 24 HR NEXTGE N quetiapine el XR 2018 ed quetiapine (S aint 200 MG 200 mg 12:00: 200 MG [place] Extended tablet 00 AM Extended Medi taiwo Release ,exten EST Release Oral Ce nter) Oral Tablet ded Tablet [Seroquel] releas [Seroquel] Seroquel XR e 200 mg tablet,exte nded release Escitalopra Lexapr ORAL complet Escita lopram NEXTGEN m 10 MG o 2018 {tbl} ed 10 MG Oral (Noel t Oral Tablet mg 12:00: Tablet Leonel phs [Lexapro] tablet 00 AM [Lexapro] Hi dicok [facility] [place] mg tablet 24 HR Seroqu 09/16/ complet 24 HR NEXTGE N quetiapine el XR 2018 ed quetiapine (S aint 200 MG 200 mg 12:00: 200 MG [place] Extended tablet 00 AM Extended Medi taiwo Release ,exten EDT Release Oral Ce nter) Oral Tablet ded Tablet [Seroquel] releas [Seroquel] Seroquel XR e 200 mg tablet,exte nded release Clonazepam Klonop ORAL complet [place] NEXTGEN 0.5 MG Oral in 0.2018 {tbl} ed 0.5 MG Ora l ([facility] Tablet mg 12:00: Tablet [place] [Klonopin] tablet 00 [facility] [place] 0.5 mg tablet 24 HR Seroqu 08/19/ complet 24 HR NEXTGE N quetiapine el XR 2018 ed quetiapine (S aint 200 MG 200 mg 12:00: 200 MG [place] Extended tablet 00 AM Extended Medi taiwo Release ,exten EDT Release Oral Ce nter) Oral Tablet ded Tablet [Seroquel] releas [Seroquel] Seroquel XR e 200 mg tablet,exte nded release Escitalopra Lexapr ORAL complet Escita lopram NEXTGEN m 10 MG o 2018 {tbl} ed 10 MG Oral (Noel t Oral Tablet mg 12:00: Tablet Le[place] phs [Lexapro] tablet 00 AM [Lexapro] Hi dical Lexapro 10 EDT Center) mg tablet Clonazepam Klonop ORAL complet [place] NEXTGEN 0.5 MG Oral in 2018 {tbl} ed 0.5 MG Ora l ([facility] Tablet mg 12:00: Tablet [place] [Klonopin] tablet 00 AM [facility] [place] 0.5 mg tablet Clonazepam Klonop ORAL complet [place] NEXTGEN 0.5 MG Oral in 2018 {tbl} ed 0.5 MG Ora l ([facility] Tablet mg 12:00: Tablet [place] [Klonopin] tablet 00 AM [[facility]) 0.5 mg tablet 24 HR Seroqu 07/22/ complet 24 HR NEXTGE N quetiapine el XR 2018 ed quetiapine (S aint 200 MG 200 mg 12:00: 200 MG [place] Extended tablet 00 AM Extended Medi taiwo Release ,exten EDT Release Oral Ce nter) Oral Tablet ded Tablet [Seroquel] releas [Seroquel] Seroquel XR e 200 mg tablet,exte nded release Escitalopra Lexapr ORAL complet Escita lopram NEXTGEN m 10 MG o 2018 {tbl} ed 10 MG Oral (Noel t Oral Tablet mg 12:00: Tablet Le[facility] phs [Lexapro] tablet 00 AM [Lexapro] Hi dical Lexapro 10 EDT Center) mg tablet Clonazepam Klonop ORAL complet [place] NEXTGEN 0.5 MG Oral in 2018 {tbl} ed 0.5 MG Ora l ([facility] Tablet mg 12:00: Tablet [place] [Klonopin] tablet 00 AM [facility] [place] 0.5 mg tablet 24 HR Seroqu 06/15/ complet 24 HR NEXTGE N quetiapine el XR 2019 ed quetiapine (S aint 200 MG 200 mg 12:00: 200 MG [place] Extended tablet 00 AM Extended Medi taiwo Release ,exten EDT Release Oral Ce nter) Oral Tablet ded Tablet [Seroquel] releas [Seroquel] Seroquel XR e 200 mg tablet,exte nded release Escitalopra Lexapr ORAL complet Escita lopram NEXTGEN m 10 MG o 2018 {tbl} ed 10 MG Oral (Noel t Oral Tablet mg 12:00: Tablet Leonel phs [Lexapro] tablet 00 AM [Lexapro] Hi dical Lexapro 10 EDT Center) mg tablet Escitalopra Lexapr ORAL complet Escita lopram NEXTGEN m 10 MG o 2018 {tbl} ed 10 MG Oral (Noel t Oral Tablet mg 12:00: Tablet Leonel phs [Lexapro] tablet 00 AM [Lexapro] Hi dical Lexapro 10 EDT Center) mg tablet Clonazepam Klono ORAL complet [place] NEXTGEN 0.5 MG Oral in 0.2018 {tbl} ed 0.5 MG Ora l ([facility] Tablet mg 12:00: Tablet [place] [Klonopin] tablet 00 AM [[facility]) 0.5 mg tablet 24 HR Seroqu 05/18/ complet 24 HR NEXTGE N quetiapine el XR 2018 ed quetiapine (S aint 200 MG 200 mg 12:00: 200 MG [place] Extended tablet 00 AM Extended Medi taiwo Release ,exten EDT Release Oral Ce nter) Oral Tablet ded Tablet [Seroquel] releas [Seroquel] Seroquel XR e 200 mg tablet,exte nded release Clonazepam Klonop ORAL complet [place] NEXTGEN 0.5 MG Oral in 0.2018 {tbl} ed 0.5 MG Ora l ([facility] Tablet mg 12:00: Tablet [place] [Klonopin] tablet 00 AM [[facility]) 0.5 mg tablet 24 HR Seroqu 04/19/ complet 24 HR NEXTGE N quetiapine el XR 2019 ed quetiapine (S aint 200 MG 200 mg 12:00: 200 MG [place] Extended tablet 00 AM Extended Medi taiwo Release ,exten EDT Release Oral Ce nter) Oral Tablet ded Tablet [Seroquel] releas [Seroquel] Seroquel XR e 200 mg tablet,exte nded release Escitalopra Lexapr ORAL complet Escita lopram NEXTGEN m 10 MG o 2018 {tbl} ed 10 MG Oral (Noel t Oral Tablet mg 12:00: Tablet Leonel phs [Lexapro] tablet 00 AM [Lexapro] Hi dical Lexapro 10 EDT Center) mg tablet Escitalopra Lexapr ORAL active Escital opram NEXTGEN m 10 MG o 2018 {tbl} 10 MG Oral (Noel t Oral Tablet mg 12:00: Tablet Leonel phs [Lexapro] tablet 00 AM [Lexapro] Hi dical Lexapro 10 EDT Center) mg tablet 24 HR Seroqu 03/22/ active 24 HR NEXTGEN quetiapine el XR 2018 quetiapine (S aint 200 MG 200 mg 12:00: 200 MG [place] Extended tablet 00 AM Extended Medi taiwo Release ,exten EDT Release Oral Ce nter) Oral Tablet ded Tablet [Seroquel] releas [Seroquel] Seroquel XR e 200 mg tablet,exte nded release Clonazepam Klonop ORAL active Clonazep am NEXTGEN 0.5 MG Oral in 02018 {tbl} 0.5 MG Ora l ([facility] Tablet mg 12:00: Tablet Roseilne [Klonopin] tablet 00 AM [[facility]] [facility] [place]) 0.5 mg tablet Clonazepam Klonop ORAL complet [place] NEXTGEN 0.5 MG Oral in 0.2018 {tbl} ed 0.5 MG Ora l ([facility] Tablet mg 12:00: Tablet [place] [Klonopin] tablet 00 [facility] [place] 0.5 mg tablet Escitalopra Lexapr ORAL complet Escita lopram NEXTGEN m 10 MG o 2018 {tbl} ed 10 MG Oral (Noel t Oral Tablet mg 12:00: Tablet Leonel phs [Lexapro] tablet 00 AM [Lexapro] Hi dical Lexapro 10 EDT Center) mg tablet 24 HR Seroqu 02/22/ complet 24 HR NEXTGE N quetiapine el XR 2019 ed quetiapine (S aint 200 MG 200 mg 12:00: 200 MG [place] Extended tablet 00 AM Extended Medi taiwo Release ,exten EDT Release Oral Ce nter) Oral Tablet ded Tablet [Seroquel] releas [Seroquel] Seroquel XR e 200 mg tablet,exte nded release Escitalopra Lexapr ORAL complet Escita lopram NEXTGEN m 10 MG o 2018 {tbl} ed 10 MG Oral (Noel t Oral Tablet mg 12:00: Tablet Leonel phs [Lexapro] tablet 00 AM [Lexapro] Hi dical Lexapro 10 EST Center) mg tablet 24 HR Seroqu 01/21/ complet 24 HR NEXTGE N quetiapine el XR 2018 ed quetiapine (S aint 200 MG 200 mg 12:00: 200 MG [place] Extended tablet 00 AM Extended Medi taiwo Release ,exten EST Release Oral Ce nter) Oral Tablet ded Tablet [Seroquel] releas [Seroquel] Seroquel XR e 200 mg tablet,exte nded release Clonazepam Klonop ORAL complet [place] NEXTGEN 0.5 MG Oral in 0.2018 {tbl} ed 0.5 MG Ora l ([facility] Tablet mg 12:00: Tablet Roseline [Klonopin] tablet 00 AM [Klonopin] [facility] Center) 0.5 mg tablet 24 HR Seroqu 12/23/ complet 24 HR NEXTGE N quetiapine el XR 2019 ed quetiapine (S aint 200 MG 200 mg 12:00: 200 MG [place] Extended tablet 00 AM Extended Medi taiwo Release ,exten EST Release Oral Ce nter) Oral Tablet ded Tablet [Seroquel] releas [Seroquel] Seroquel XR e 200 mg tablet,exte nded release Clonazepam Klonop ORAL complet [place] NEXTGEN 0.5 MG Oral in 0.2018 {tbl} ed 0.5 MG Ora l ([facility] Tablet mg 12:00: Tablet [place]eline [Klonopin] tablet 00 AM [Klonopin] Medical Klonopin EST Center) 0.5 mg tablet Escitalopra Lexapr ORAL complet Escita lopram NEXTGEN m 10 MG o 10 2018 {tbl} ed 10 MG Oral (Noel t Oral Tablet mg 12:00: Tablet Leonel phs [Lexapro] tablet 00 AM [Lexapro] Me dical Lexapro 10 EST Center) mg tablet 24 HR Nicode .00 TRANSD complet 24 HR NEXT GEN Nicotine rm CQ 2014 patch ERMAL ed Nicotine (Neil nt 0.583 MG/HR 14 12:00: 0.583 MG/HR [place] Transdermal mg/24 00 AM Transdermal Medical Patch hr EDT System Center) [Nicoderm daily [Nicoderm C-Q] transd C-Q] Nicoderm CQ ermal 14 mg/24 hr patch daily transdermal patch 24 HR Seroqu .00 ORAL active 24 HR NEXTGEN quetiapine el XR 2014 {tbl} quetiapine ( [facility] 300 MG 300 mg 12:00: 300 MG [place] Extended tablet 00 AM Extended Medi taiwo Release ,exten EDT Release Oral Ce nter) Oral Tablet ded Tablet [Seroquel] releas [Seroquel] Seroquel XR e 300 mg tablet,exte nded release multivitami multiv complet take 1 NEXTGEN n tablet itamin 2014 ed tablet by (Neil nt 12:00: oral route Roseline 00 AM every day Medical EDT with food Center) Aspirin 81 Aspir- .00 ORAL complet take 1 NEXTGEN MG Delayed 81 81 2014 {tbl} ed tablet by (S aint Release mg 12:00: oral route Leonel phs Oral Tablet tablet 00 AM every day Medical Aspir-81 81 ,delay EDT Center ) mg ed tablet,cathleen releas yed release e Levothyroxi Synthr .00 ORAL complet Levoth yroxin NEXTGEN ne Sodium oid 50 2014 {tbl} ed e Sodium (Sa int 0.05 MG mcg 12:00: 0.05 MG Oral Leigh sephs Oral Tablet tablet 00 AM Tablet Med ical [Synthroid] EDT [Synthroid] C enter) Synthroid 50 mcg tablet Calcium 500 CALCIU 04/13/ 1 ORAL complet take 1 NEXTGEN + D 500 mg M 2014 {tbl} ed Tablet by (Sa int (1,250 [place] 12:00: Oral route 2 J osephs mg)-400 ATE/ 00 AM times every Me dical unit tablet TAMIN EDT day Center) D3 Amlodipine amlodi ORAL complet take 1 NEXTGEN 5 MG Oral pine 5 2014 {tbl} ed tablet by (S aint Tablet mg 12:00: oral route Siddhartha hs amlodipine tablet 00 AM every day M edical 5 mg tablet EDT Center) clopidogrel clopid ORAL complet take 1 NEXTGEN 75 MG Oral ogrel 2014 {tbl} ed tablet by (S aint Tablet 75 mg 12:00: oral route Leonel phs clopidogrel tablet 00 AM every day Medical 75 mg EDT Center) tablet Amoxicillin amoxic ORAL complet take 1 NEXTGEN 500 MG Oral illin 2014 {tbl} ed tablet by ( [facility] Tablet 500 mg 12:00: oral route Dylan ephs amoxicillin tablet 00 AM every 12 M edical 500 mg EST hours Center) tablet hydrochloro Hydroc ORAL complet take 1 NEXTGEN thiazide 25 hlorot 2014 {tbl} ed tablet by ([facility] mg tablet hiazid 12:00: oral route Roseline e 25 00 AM every day Medical MG EST Center) Oral Tablet Insurance Providers Payer name Policy Policy ID Covered Covered Policy Plan Info rmation type / constitution party ID constitution party's [place] Coverage relationship type to hoskins HIP [id number] SP [id number] MEDICARE [facility] MEDICAID [id number] SP [id number] MEDICARE [id number] SP [id number] [id number] [place] [id number] 1 [id number] PART B [place] MEDICAID OF [id number] 1 [id number] H/EMBLEM [id number] 01 [id number] W [id number] 01 [id number] [place] MED[place] [id number] 1 [id number] PART B [place] MEDICARE [id number] SP [id number] MEDICAID [id number] SP [id number] 01 [id number] MEDICARE [id number] M MEDICAID [id number] PT [id number] MEDICARE [id number] PT [id number] [id number] M [id number] 01 [id number] M Problems, Conditions, and Diagnoses Code Display Name Description Problem Type Effective Data Dates Source(s) J44.9 Chronic obstructive CHRONIC Problem 06/27/2020 MEDGE N pulmonary disease, OBSTRUCTIVE 12:00:00 AM ([place] unspecified PULMONARY DISEASE, EDT Medic al UNSPECIFIED Service) J44.9 Chronic obstructive CHRONIC Problem 06/27/2020 MEDGE N pulmonary disease, OBSTRUCTIVE 12:00:00 AM ([place] unspecified PULMONARY DISEASE, EDT Medic al UNSPECIFIED Service) J44.9 Chronic obstructive CHRONIC Problem 06/27/2020 MEDGE N pulmonary disease, OBSTRUCTIVE 12:00:00 AM ([place] unspecified PULMONARY DISEASE, EDT Medic al UNSPECIFIED Service) M79.10 MYALGIA, UNSPECIFIED MYALGIA, Problem 06/14/2020 MEDG EN SITE UNSPECIFIED SITE 12:00:00 AM ([place] EDT Medical Service) M79.10 MYALGIA, UNSPECIFIED MYALGIA, Problem 06/14/2020 MEDG EN SITE UNSPECIFIED SITE 12:00:00 AM ([place] EDT Medical Service) M79.10 MYALGIA, UNSPECIFIED MYALGIA, Problem 06/14/2020 MEDG EN SITE UNSPECIFIED SITE 12:00:00 AM ([place] EDT Medical Service) M79.10 MYALGIA, UNSPECIFIED MYALGIA, Problem 06/14/2020 MEDG EN SITE UNSPECIFIED SITE 12:00:00 AM ([place] EDT Medical Service) F32.1 Major depressive MAJOR DEPRESSIVE Problem 10/01/2019 ME DGEN disorder, single DISORDER, SINGLE 12:00:00 AM ( [place] episode, moderate EPISODE, MODERATE EST Medical Service) G62.9 Polyneuropathy, POLYNEUROPATHY, Problem 10/01/2019 MEDG EN unspecified UNSPECIFIED 12:00:00 AM ([place] EST Medical Service) F32.1 Major depressive MAJOR DEPRESSIVE Problem 10/01/2019 ME DGEN disorder, single DISORDER, SINGLE 12:00:00 AM ( [place] episode, moderate EPISODE, MODERATE EST Medical Service) G62.9 Polyneuropathy, POLYNEUROPATHY, Problem 10/01/2019 MEDG EN unspecified UNSPECIFIED 12:00:00 AM ([place] EST Medical Service) F32.1 Major depressive MAJOR DEPRESSIVE Problem 10/01/2019 ME DGEN disorder, single DISORDER, SINGLE 12:00:00 AM ( [place] episode, moderate EPISODE, MODERATE EST Medical Service) G62.9 Polyneuropathy, POLYNEUROPATHY, Problem 10/01/2019 MEDG EN unspecified UNSPECIFIED 12:00:00 AM ([place] EST Medical Service) F32.1 Major depressive MAJOR DEPRESSIVE Problem 10/01/2019 ME DGEN disorder, single DISORDER, SINGLE 12:00:00 AM ( [place] episode, moderate EPISODE, MODERATE EST Medical Service) G62.9 Polyneuropathy, POLYNEUROPATHY, Problem 10/01/2019 MEDG EN unspecified UNSPECIFIED 12:00:00 AM ([place] EST Medical Service) M25.50 Pain in unspecified PAIN IN Problem 03/15/2019 MEDGE N joint UNSPECIFIED JOINT 12:00:00 AM ([place] EDT Medical Service) M25.50 Pain in unspecified PAIN IN Problem 03/15/2019 MEDGE N joint UNSPECIFIED JOINT 12:00:00 AM ([facility] [address] EDT Medical Service) M25.50 Pain in unspecified PAIN IN Problem 03/15/2019 MEDGE N joint UNSPECIFIED JOINT 12:00:00 AM ([facility] EDT Medical Service) M25.50 Pain in unspecified PAIN IN Problem 03/15/2019 MEDGE N joint UNSPECIFIED JOINT 12:00:00 AM ([facility] [address] EDT Medical Service) F03.90 Unspecified dementia UNSPECIFIED Problem 12/07/2018 MED GEN without behavioral DEMENTIA WITHOUT 12:00:00 AM ([place] disturbance BEHAVIORAL EST Medical DISTURBANCE Service) F03.90 Unspecified dementia UNSPECIFIED Problem 12/07/2018 MED GEN without behavioral DEMENTIA WITHOUT 12:00:00 AM ([place] disturbance BEHAVIORAL EST Medical DISTURBANCE Service) F03.90 Unspecified dementia UNSPECIFIED Problem 12/07/2018 MED GEN without behavioral DEMENTIA WITHOUT 12:00:00 AM ([place] disturbance BEHAVIORAL EST Medical DISTURBANCE Service) F03.90 Unspecified dementia UNSPECIFIED Problem 12/07/2018 MED GEN without behavioral DEMENTIA WITHOUT 12:00:00 AM ([place] disturbance BEHAVIORAL EST Medical DISTURBANCE Service) C34.90 Malignant neoplasm MALIGNANT NEOPLASM Problem 8 MEDGEN of unspecified part OF UNSPECIFIED 12:00:00 AM ([place] of unspecified PART OF EST Medical bronchus or lung UNSPECIFIED Service ) BRONCHUS OR LUNG C34.90 Malignant neoplasm MALIGNANT NEOPLASM Problem 8 MEDGEN of unspecified part OF UNSPECIFIED 12:00:00 AM ([place] of unspecified PART OF EST Medical bronchus or lung UNSPECIFIED Service ) BRONCHUS OR LUNG C34.90 Malignant neoplasm MALIGNANT NEOPLASM Problem 8 MEDGEN of unspecified part OF UNSPECIFIED 12:00:00 AM ([place] of unspecified PART OF EST Medical bronchus or lung UNSPECIFIED Service ) BRONCHUS OR LUNG C34.90 Malignant neoplasm MALIGNANT NEOPLASM Problem 8 MEDGEN of unspecified part OF UNSPECIFIED 12:00:00 AM ([place] of unspecified PART OF EST Medical bronchus or lung UNSPECIFIED Service ) BRONCHUS OR LUNG R42 Dizziness and DIZZINESS AND Problem 01/02/2018 MEDGEN giddiness GIDDINESS 12:00:00 AM ([facility] Medical Service) E83.52 Hypercalcemia HYPERCALCEMIA Problem 01/02/2018 MEDGEN 12:00:00 AM ([facility] Medical Service) R42 Dizziness and DIZZINESS AND Problem 01/02/2018 MEDGEN giddiness GIDDINESS 12:00:00 AM ([facility] Medical Service) E83.52 Hypercalcemia HYPERCALCEMIA Problem 01/02/2018 MEDGEN 12:00:00 AM ([facility] Medical Service) R42 Dizziness and DIZZINESS AND Problem 01/02/2018 MEDGEN giddiness GIDDINESS 12:00:00 AM ([facility] Medical Service) E83.52 Hypercalcemia HYPERCALCEMIA Problem 01/02/2018 MEDGEN 12:00:00 AM ([facility] Medical Service) R42 Dizziness and DIZZINESS AND Problem 01/02/2018 MEDGEN giddiness GIDDINESS 12:00:00 AM ([facility] Medical Service) E83.52 Hypercalcemia HYPERCALCEMIA Problem 01/02/2018 MEDGEN 12:00:00 AM ([facility] Medical Service) M54.5 Low back pain LOW BACK PAIN Problem 12/24/2017 MEDGEN 12:00:00 AM ([facility] Medical Service) M54.5 Low back pain LOW BACK PAIN Problem 12/24/2017 MEDGEN 12:00:00 AM ([facility] Medical Service) M54.5 Low back pain LOW BACK PAIN Problem 12/24/2017 MEDGEN 12:00:00 AM ([facility] Medical Service) M54.5 Low back pain LOW BACK PAIN Problem 12/24/2017 MEDGEN 12:00:00 AM ([facility] Medical Service) I10 Essential (primary) ESSENTIAL Problem 12/12/2017 MEDGE N hypertension (PRIMARY) 12:00:00 AM ([place] [facility] Medical Service) E78.2 Mixed hyperlipidemia MIXED Problem 12/12/2017 MEDG EN HYPERLIPIDEMIA 12:00:00 AM ([facility] Medical Service) I10 Essential (primary) ESSENTIAL Problem 12/12/2017 MEDGE N hypertension (PRIMARY) 12:00:00 AM ([place] [facility] Medical Service) E78.2 Mixed hyperlipidemia MIXED Problem 12/12/2017 MEDG EN HYPERLIPIDEMIA 12:00:00 AM ([facility] Medical Service) I10 Essential (primary) ESSENTIAL Problem 12/12/2017 MEDGE N hypertension (PRIMARY) 12:00:00 AM ([place] [facility] Medical Service) E78.2 Mixed hyperlipidemia MIXED Problem 12/12/2017 MEDG EN HYPERLIPIDEMIA 12:00:00 AM ([facility] Medical Service) I10 Essential (primary) ESSENTIAL Problem 12/12/2017 MEDGE N hypertension (PRIMARY) 12:00:00 AM ([place] [facility] Medical Service) E78.2 Mixed hyperlipidemia MIXED Problem 12/12/2017 MEDG EN HYPERLIPIDEMIA 12:00:00 AM ([facility] Medical Service) N20.0 Calculus of kidney CALCULUS OF KIDNEY Diagnosis 0 [facility] 09:47:00 AM Medical EDT Center Z01.810 Encounter for ENCOUNTER FOR Diagnosis 07/15/2020 [facility] preprocedural PREPROCEDURAL 09:47:00 AM Medical cardiovascular CARDIOVASCULAR EDT Center examination EXAMINATION C64.9 Malignant neoplasm MALIGNANT NEOPLASM Diagnosis 0 [facility] of unspecified OF UNSP KIDNEY, 02:00:00 PM [facility]i [facility] kidney, except renal EXCEPT RENAL EDT Ce nter pelvis PELVIS F33.1 Major depressive MAJOR DEPRESSIVE Diagnosis 11/19/2019 [facility] [place] disorder, recurrent, DISORDER, 10:05:00 AM Med ical moderate RECURRENT, EST Center MODERATE R07.9 Chest pain, CHEST PAIN, Diagnosis 10/07/2019 [place] unspecified UNSPECIFIED 09:06:00 AM Medical EST Center M25.511 Pain in right PAIN IN RIGHT Diagnosis 03/16/2019 [facility] shoulder SHOULDER 11:23:00 AM Medical EDT Center N28.1 Cyst of kidney, N28.1 Diagnosis 02/15/2019 [place] acquired 10:27:00 AM Hospital EDT K80.20 Calculus of K80.20 Diagnosis 02/15/2019 [place] gallbladder without 10:27:00 AM Hosp ital cholecystitis EDT without obstruction I70.0 Atherosclerosis of I70.0 Diagnosis 02/15/2019 [place] aorta 10:27:00 AM Hospital EDT I31.3 Pericardial effusion I31.3 Diagnosis 02/15/2019 [place] (noninflammatory) 10:27:00 AM Hospit al EDT I25.10 Atherosclerotic I25.10 Diagnosis 02/15/2019 [place] [facility] heart disease of 10:27:00 AM [facility] [place] coronary EDT artery without angina pectoris R91.1 Solitary pulmonary R91.1 Diagnosis 02/15/2019 [place] nodule 10:27:00 AM Hospital EDT C34.90 Malignant neoplasm C34.90 Diagnosis 02/15/2019 [place] of unspecified part 10:27:00 AM Hosp ital of unspecified EDT bronchus or lung Z12.31 Encounter for ENCNTR SCREEN Diagnosis 01/15/2019 [facility] screening mammogram MAMMOGRAM FOR 11:45:00 AM M edical for malignant MALIGNANT NEOPLASM EST [facility] neoplasm of breast OF BREAST C34.90 Malignant neoplasm MALIGNANT NEOPLASM Diagnosis 9 [facility] of unspecified part OF UNSP PART OF 09:31:00 AM Medical of unspecified UNSP BRONCHUS OR EST Cent er bronchus or lung LUNG Diagnosis [facility] ([facility]) Diagnosis [facility] ([facility]) Diagnosis [facility] ([facility]) Surgeries/Procedures Procedure Description Date Indications Data Source(s) Documentation of current 07/18/2020 MED GEN ([place] medications (procedure) 12:00:00 AM EDT M edical Service) Documentation of current 07/18/2020 MED GEN ([place] medications (procedure) 12:00:00 AM EDT M edical Service) Documentation of current 07/18/2020 MED GEN ([place] medications (procedure) 12:00:00 AM EDT edical Service) OFFICE/OUTPATIENT VISIT, 07/07/2020 [facility] J[place]IC[place]EN ([facility] 12:00:00 AM EDT [facility] - 07/07/2020 Center) 12:00:00 AM EDT Documentation of current 06/27/2020 MED GEN ([place] medications (procedure) 12:00:00 AM EDT edical Service) Documentation of current 06/27/2020 MED GEN ([place] medications (procedure) 12:00:00 AM EDT edical Service) Documentation of current 06/27/2020 MED GEN ([place] medications (procedure) 12:00:00 AM EDT edical Service) Documentation of current 06/27/2020 MED GEN ([place] medications (procedure) 12:00:00 AM EDT edical Service) Documentation of current 06/27/2020 MED GEN ([place] medications (procedure) 12:00:00 AM EDT edical Service) Documentation of current 06/27/2020 MED GEN ([place] medications (procedure) 12:00:00 AM EDT edical Service) Documentation of current 06/27/2020 MED GEN ([place] medications (procedure) 12:00:00 AM EDT edical Service) Documentation of current 06/27/2020 MED GEN ([place] medications (procedure) 12:00:00 AM EDT edical Service) Documentation of current 06/27/2020 MED GEN ([place] medications (procedure) 12:00:00 AM EDT edical Service) Documentation of current 06/27/2020 MED GEN ([place] medications (procedure) 12:00:00 AM EDT edical Service) Documentation of current 06/27/2020 MED GEN ([place] medications (procedure) 12:00:00 AM EDT edical Service) Documentation of current 06/27/2020 MED GEN ([place] medications (procedure) 12:00:00 AM EDT edical Service) Documentation of current 06/27/2020 MED GEN ([place] medications (procedure) 12:00:00 AM EDT edical Service) Documentation of current 06/27/2020 MED GEN ([place] medications (procedure) 12:00:00 AM EDT edical Service) Documentation of current 06/27/2020 MED GEN ([place] medications (procedure) 12:00:00 AM EDT edical Service) Documentation of current 06/27/2020 MED GEN ([place] medications (procedure) 12:00:00 AM EDT edical Service) Documentation of current 06/27/2020 MED GEN ([place] medications (procedure) 12:00:00 AM EDT edical Service) Documentation of current 06/27/2020 MED GEN ([place] medications (procedure) 12:00:00 AM EDT edical Service) Documentation of current 06/27/2020 MED GEN ([place] medications (procedure) 12:00:00 AM EDT edical Service) Documentation of current 06/27/2020 MED GEN ([place] medications (procedure) 12:00:00 AM EDT edical Service) Documentation of current 06/27/2020 MED GEN ([place] medications (procedure) 12:00:00 AM EDT edical Service) Documentation of current 06/27/2020 MED GEN ([place] medications (procedure) 12:00:00 AM EDT edical Service) Documentation of current 06/14/2020 MED GEN ([place] medications (procedure) 12:00:00 AM EDT edical Service) Documentation of current 06/14/2020 MED GEN ([place] medications (procedure) 12:00:00 AM EDT edical Service) Documentation of current 06/14/2020 MED GEN ([place] medications (procedure) 12:00:00 AM EDT edical Service) Documentation of current 06/14/2020 MED GEN ([place] medications (procedure) 12:00:00 AM EDT edical Service) Documentation of current 06/14/2020 MED GEN ([place] medications (procedure) 12:00:00 AM EDT edical Service) Documentation of current 06/14/2020 MED GEN ([place] medications (procedure) 12:00:00 AM EDT edical Service) Documentation of current 06/14/2020 MED GEN ([place] medications (procedure) 12:00:00 AM EDT edical Service) Documentation of current 06/14/2020 MED GEN ([place] medications (procedure) 12:00:00 AM EDT edical Service) Documentation of current 06/14/2020 MED GEN ([place] medications (procedure) 12:00:00 AM EDT edical Service) Documentation of current 06/14/2020 MED GEN ([place] medications (procedure) 12:00:00 AM EDT edical Service) Documentation of current 06/14/2020 MED GEN ([place] medications (procedure) 12:00:00 AM EDT edical Service) Documentation of current 06/14/2020 MED GEN ([place] medications (procedure) 12:00:00 AM EDT edical Service) Documentation of current 06/14/2020 MED GEN ([place] medications (procedure) 12:00:00 AM EDT edical Service) Documentation of current 06/14/2020 MED GEN ([place] medications (procedure) 12:00:00 AM EDT edical Service) Documentation of current 06/14/2020 MED GEN ([place] medications (procedure) 12:00:00 AM EDT edical Service) Documentation of current 06/14/2020 MED GEN ([place] medications (procedure) 12:00:00 AM EDT edical Service) Documentation of current 06/14/2020 MED GEN ([place] medications (procedure) 12:00:00 AM EDT edical Service) Documentation of current 06/14/2020 MED GEN ([place] medications (procedure) 12:00:00 AM EDT edical Service) Documentation of current 06/14/2020 MED GEN ([place] medications (procedure) 12:00:00 AM EDT edical Service) Documentation of current 06/14/2020 MED GEN ([place] medications (procedure) 12:00:00 AM EDT edical Service) Documentation of current 06/14/2020 MED GEN ([place] medications (procedure) 12:00:00 AM EDT edical Service) Documentation of current 06/14/2020 MED GEN ([place] medications (procedure) 12:00:00 AM EDT edical Service) OFFICE/OUTPATIENT VISIT, 06/09/2020 N[facility] TGEN ([facility] 12:00:00 AM EDT [facility] - 06/09/2020 Center) 12:00:00 AM EDT OFFICE/OUTPATIENT VISIT, 05/12/2020 NEX TGEN ([facility] 12:00:00 AM EDT [facility] - 05/12/2020 [place]) 12:00:00 AM EDT Documentation of current 04/18/2020 MED GEN ([place] medications (procedure) 12:00:00 AM EDT edical Service) Documentation of current 04/18/2020 MED GEN ([place] medications (procedure) 12:00:00 AM EDT edical Service) Documentation of current 04/18/2020 MED GEN ([place] medications (procedure) 12:00:00 AM EDT edical Service) Documentation of current 04/18/2020 MED GEN ([place] medications (procedure) 12:00:00 AM EDT edical Service) Documentation of current 04/18/2020 MED GEN ([place] medications (procedure) 12:00:00 AM EDT edical Service) Documentation of current 04/18/2020 MED GEN ([place] medications (procedure) 12:00:00 AM EDT edical Service) Documentation of current 04/18/2020 MED GEN ([place] medications (procedure) 12:00:00 AM EDT edical Service) Documentation of current 04/18/2020 MED GEN ([place] medications (procedure) 12:00:00 AM EDT edical Service) Documentation of current 04/18/2020 MED GEN ([place] medications (procedure) 12:00:00 AM EDT edical Service) Documentation of current 04/18/2020 MED GEN ([place] medications (procedure) 12:00:00 AM EDT edical Service) Documentation of current 04/18/2020 MED GEN ([place] medications (procedure) 12:00:00 AM EDT edical Service) Documentation of current 04/18/2020 MED GEN ([place] medications (procedure) 12:00:00 AM EDT edical Service) Documentation of current 04/18/2020 MED GEN ([place] medications (procedure) 12:00:00 AM EDT edical Service) Documentation of current 04/18/2020 MED GEN ([place] medications (procedure) 12:00:00 AM EDT edical Service) Documentation of current 04/18/2020 MED GEN ([place] medications (procedure) 12:00:00 AM EDT edical Service) Documentation of current 04/18/2020 MED GEN ([place] medications (procedure) 12:00:00 AM EDT edical Service) Documentation of current 04/18/2020 MED GEN ([place] medications (procedure) 12:00:00 AM EDT edical Service) Documentation of current 04/18/2020 MED GEN ([place] medications (procedure) 12:00:00 AM EDT edical Service) Documentation of current 04/18/2020 MED GEN ([place] medications (procedure) 12:00:00 AM EDT edical Service) Documentation of current 04/18/2020 MED GEN ([place] medications (procedure) 12:00:00 AM EDT edical Service) Documentation of current 04/18/2020 MED GEN ([place] medications (procedure) 12:00:00 AM EDT edical Service) Documentation of current 04/18/2020 MED GEN ([place] medications (procedure) 12:00:00 AM EDT edical Service) Documentation of current 04/18/2020 MED GEN ([place] medications (procedure) 12:00:00 AM EDT edical Service) Documentation of current 04/18/2020 MED GEN ([place] medications (procedure) 12:00:00 AM EDT edical Service) Documentation of current 04/18/2020 MED GEN ([place] medications (procedure) 12:00:00 AM EDT edical Service) OFFICE/OUTPATIENT VISIT, 04/13/2020 [facility] TGEN ([facility] 12:00:00 AM EDT [facility] - 04/13/2020 Center) 12:00:00 AM EDT OFFICE/OUTPATIENT VISIT, 03/15/2020 [facility] TGEN ([facility] 12:00:00 AM EDT [facility] - 03/15/2020 Center) 12:00:00 AM EDT OFFICE/OUTPATIENT VISIT, 02/11/2020 NEX TGEN ([facility] 12:00:00 AM EDT [facility] - 02/11/2020 [place]) 12:00:00 AM EDT OFFICE/OUTPATIENT VISIT, 12/17/2019 NEX TGEN ([facility] 12:00:00 AM EST [facility] - 12/17/2019 Center) 12:00:00 AM EST Documentation of current 12/07/2019 MED GEN ([place] medications (procedure) 12:00:00 AM EST edical Service) Documentation of current 12/07/2019 MED GEN ([place] medications (procedure) 12:00:00 AM EST edical Service) Documentation of current 12/07/2019 MED GEN ([place] medications (procedure) 12:00:00 AM EST edical Service) Documentation of current 12/07/2019 MED GEN ([place] medications (procedure) 12:00:00 AM EST edical Service) Documentation of current 12/07/2019 MED GEN ([place] medications (procedure) 12:00:00 AM EST edical Service) Documentation of current 12/07/2019 MED GEN ([place] medications (procedure) 12:00:00 AM EST edical Service) Documentation of current 12/07/2019 MED GEN ([place] medications (procedure) 12:00:00 AM EST edical Service) Documentation of current 12/07/2019 MED GEN ([place] medications (procedure) 12:00:00 AM EST edical Service) Documentation of current 12/07/2019 MED GEN ([place] medications (procedure) 12:00:00 AM EST edical Service) Documentation of current 12/07/2019 MED GEN ([place] medications (procedure) 12:00:00 AM EST edical Service) Documentation of current 12/07/2019 MED GEN ([place] medications (procedure) 12:00:00 AM EST edical Service) Documentation of current 12/07/2019 MED GEN ([place] medications (procedure) 12:00:00 AM EST edical Service) Documentation of current 12/07/2019 MED GEN ([place] medications (procedure) 12:00:00 AM EST edical Service) Documentation of current 12/07/2019 MED GEN ([place] medications (procedure) 12:00:00 AM EST edical Service) Documentation of current 12/07/2019 MED GEN ([place] medications (procedure) 12:00:00 AM EST edical Service) Documentation of current 12/07/2019 MED GEN ([place] medications (procedure) 12:00:00 AM EST edical Service) OFFICE/OUTPATIENT VISIT, 11/19/2019 NEX TGEN ([facility] 12:00:00 AM [facility] - 11/19/2019 Center) 12:00:00 AM EST OFFICE/OUTPATIENT VISIT, 10/15/2019 NEX TGEN ([facility] 12:00:00 AM EST [place] [facility] - 10/15/2019 Center) 12:00:00 AM EST Documentation of current 10/01/2019 MED GEN ([place] medications (procedure) 12:00:00 AM EST edical Service) Documentation of current 10/01/2019 MED GEN ([place] medications (procedure) 12:00:00 AM EST edical Service) Documentation of current 10/01/2019 MED GEN ([place] medications (procedure) 12:00:00 AM EST edical Service) Documentation of current 10/01/2019 MED GEN ([place] medications (procedure) 12:00:00 AM EST edical Service) Documentation of current 10/01/2019 MED GEN ([place] medications (procedure) 12:00:00 AM EST edical Service) Documentation of current 10/01/2019 MED GEN ([place] medications (procedure) 12:00:00 AM EST edical Service) Documentation of current 10/01/2019 MED GEN ([place] medications (procedure) 12:00:00 AM EST edical Service) Documentation of current 10/01/2019 MED GEN ([place] medications (procedure) 12:00:00 AM EST edical Service) Documentation of current 10/01/2019 MED GEN ([place] medications (procedure) 12:00:00 AM EST edical Service) Documentation of current 10/01/2019 MED GEN ([place] medications (procedure) 12:00:00 AM EST edical Service) Documentation of current 10/01/2019 MED GEN ([place] medications (procedure) 12:00:00 AM EST edical Service) Documentation of current 10/01/2019 MED GEN ([place] medications (procedure) 12:00:00 AM EST edical Service) OFFICE/OUTPATIENT VISIT, 09/16/2019 N[facility] TGEN ([facility] 12:00:00 AM EDT [facility] - 09/16/2019 Center) 12:00:00 AM EDT OFFICE/OUTPATIENT VISIT, 08/19/2019 NEX TGEN ([facility] 12:00:00 AM EDT [facility] - 08/19/2019 Center) 12:00:00 AM EDT OFFICE/OUTPATIENT VISIT, 07/22/2019 NEX TGEN ([facility] 12:00:00 AM EDT [facility] - 07/22/2019 Center) 12:00:00 AM EDT OFFICE/OUTPATIENT VISIT, 06/15/2019 NEX TGEN ([facility] 12:00:00 AM EDT [facility] - 06/15/2019 [place]) 12:00:00 AM EDT OFFICE/OUTPATIENT VISIT, 05/18/2019 NEX TGEN ([facility] 12:00:00 AM EDT [facility] - 05/18/2019 Center) 12:00:00 AM EDT OFFICE/OUTPATIENT VISIT, 04/19/2019 NEX TGEN ([facility] 12:00:00 AM EDT [facility] - 04/19/2019 Center) 12:00:00 AM EDT OFFICE/OUTPATIENT VISIT, 03/22/2019 NEX TGEN ([facility] 12:00:00 AM EDT [facility] - 03/22/2019 [place]) 12:00:00 AM EDT Documentation of current 03/15/2019 MED GEN ([place] medications (procedure) 12:00:00 AM EDT edical Service) Documentation of current 03/15/2019 MED GEN ([place] medications (procedure) 12:00:00 AM EDT edical Service) Documentation of current 03/15/2019 MED GEN ([place] medications (procedure) 12:00:00 AM EDT edical Service) Documentation of current 03/15/2019 MED GEN ([place] medications (procedure) 12:00:00 AM EDT edical Service) Documentation of current 03/15/2019 MED GEN ([place] medications (procedure) 12:00:00 AM EDT edical Service) Documentation of current 03/15/2019 MED GEN ([place] medications (procedure) 12:00:00 AM EDT edical Service) Documentation of current 03/15/2019 MED GEN ([place] medications (procedure) 12:00:00 AM EDT edical Service) Documentation of current 03/15/2019 MED GEN ([place] medications (procedure) 12:00:00 AM EDT edical Service) Documentation of current 03/15/2019 MED GEN ([place] medications (procedure) 12:00:00 AM EDT edical Service) Documentation of current 03/15/2019 MED GEN ([place] medications (procedure) 12:00:00 AM EDT edical Service) Documentation of current 03/15/2019 MED GEN ([place] medications (procedure) 12:00:00 AM EDT edical Service) Documentation of current 03/15/2019 MED GEN ([place] medications (procedure) 12:00:00 AM EDT edical Service) Documentation of current 03/15/2019 MED GEN ([place] medications (procedure) 12:00:00 AM EDT edical Service) Documentation of current 03/15/2019 MED GEN ([place] medications (procedure) 12:00:00 AM EDT edical Service) Documentation of current 03/15/2019 MED GEN ([place] medications (procedure) 12:00:00 AM EDT edical Service) Documentation of current 03/15/2019 MED GEN ([place] medications (procedure) 12:00:00 AM EDT edical Service) OFFICE/OUTPATIENT VISIT, 02/22/2019 NEX TGEN ([facility] 12:00:00 AM EDT [facility] - 02/22/2019 Center) 12:00:00 AM EDT OFFICE/OUTPATIENT VISIT, 01/21/2019 NEX TGEN ([facility] 12:00:00 AM EST [facility] - 01/21/2019 Center) 12:00:00 AM EST Documentation of current 01/06/2019 MED GEN ([place] medications (procedure) 12:00:00 AM EST edical Service) Documentation of current 01/06/2019 MED GEN ([place] medications (procedure) 12:00:00 AM EST edical Service) Documentation of current 01/06/2019 MED GEN ([place] medications (procedure) 12:00:00 AM EST edical Service) Documentation of current 01/06/2019 MED GEN ([place] medications (procedure) 12:00:00 AM EST edical Service) Documentation of current 01/06/2019 MED GEN ([place] medications (procedure) 12:00:00 AM EST edical Service) Documentation of current 01/06/2019 MED GEN ([place] medications (procedure) 12:00:00 AM EST edical Service) Documentation of current 01/06/2019 MED GEN ([place] medications (procedure) 12:00:00 AM EST edical Service) Documentation of current 01/06/2019 MED GEN ([place] medications (procedure) 12:00:00 AM EST edical Service) Documentation of current 01/06/2019 MED GEN ([place] medications (procedure) 12:00:00 AM EST edical Service) Documentation of current 01/06/2019 MED GEN ([place] medications (procedure) 12:00:00 AM EST edical Service) Documentation of current 01/06/2019 MED GEN ([place] medications (procedure) 12:00:00 AM EST edical Service) Documentation of current 01/06/2019 MED GEN ([place] medications (procedure) 12:00:00 AM EST edical Service) OFFICE/OUTPATIENT VISIT, 12/23/2018 NEX TGEN ([facility] 12:00:00 AM [facility] - 12/23/2018 Center) 12:00:00 AM EST Documentation of current 12/07/2018 MED GEN ([place] medications (procedure) 12:00:00 AM EST edical Service) Documentation of current 12/07/2018 MED GEN ([place] medications (procedure) 12:00:00 AM EST edical Service) Documentation of current 12/07/2018 MED GEN ([place] medications (procedure) 12:00:00 AM EST edical Service) Documentation of current 12/07/2018 MED GEN ([place] medications (procedure) 12:00:00 AM EST edical Service) Documentation of current 07/03/2018 MED GEN ([place] medications (procedure) 12:00:00 AM EDT edical Service) Documentation of current 07/03/2018 MED GEN ([place] medications (procedure) 12:00:00 AM EDT edical Service) Documentation of current 07/03/2018 MED GEN ([facility] medications (procedure) 12:00:00 AM EDT edical Service) Documentation of current 07/03/2018 MED GEN ([place] medications (procedure) 12:00:00 AM EDT edical Service) Documentation of current 07/03/2018 MED GEN ([place] medications (procedure) 12:00:00 AM EDT edical Service) Documentation of current 07/03/2018 MED GEN ([place] medications (procedure) 12:00:00 AM EDT edical Service) Documentation of current 07/03/2018 MED GEN ([place] medications (procedure) 12:00:00 AM EDT edical Service) Documentation of current 07/03/2018 MED GEN ([place] medications (procedure) 12:00:00 AM EDT edical Service) Documentation of current 07/03/2018 MED GEN ([facility] medications (procedure) 12:00:00 AM EDT edical Service) Documentation of current 07/03/2018 MED GEN ([place] medications (procedure) 12:00:00 AM EDT edical Service) Documentation of current 07/03/2018 MED GEN ([facility] medications (procedure) 12:00:00 AM EDT edical Service) Documentation of current 07/03/2018 MED GEN ([place] medications (procedure) 12:00:00 AM EDT edical Service) Documentation of current 07/03/2018 MED GEN ([place] medications (procedure) 12:00:00 AM EDT edical Service) Documentation of current 07/03/2018 MED GEN ([facility] medications (procedure) 12:00:00 AM EDT edical Service) Documentation of current 07/03/2018 MED GEN ([place] medications (procedure) 12:00:00 AM EDT edical Service) Documentation of current 07/03/2018 MED GEN ([place] medications (procedure) 12:00:00 AM EDT edical Service) Documentation of current 07/03/2018 MED GEN ([place] medications (procedure) 12:00:00 AM EDT edical Service) Documentation of current 07/03/2018 MED GEN ([place] medications (procedure) 12:00:00 AM EDT edical Service) Documentation of current 07/03/2018 MED GEN ([facility] medications (procedure) 12:00:00 AM EDT edical Service) Documentation of current 07/03/2018 MED GEN ([place] medications (procedure) 12:00:00 AM EDT edical Service) Documentation of current 05/21/2018 MED GEN ([place] medications (procedure) 12:00:00 AM EDT edical Service) Documentation of current 05/21/2018 MED GEN ([facility] medications (procedure) 12:00:00 AM EDT edical Service) Documentation of current 05/21/2018 MED GEN ([facility] medications (procedure) 12:00:00 AM EDT edical Service) Documentation of current 05/21/2018 MED GEN ([place] medications (procedure) 12:00:00 AM EDT edical Service) Documentation of current 01/30/2018 MED GEN ([place] medications (procedure) 12:00:00 AM EDT edical Service) Documentation of current 01/30/2018 MED GEN ([place] medications (procedure) 12:00:00 AM EDT edical Service) Documentation of current 01/30/2018 MED GEN ([place] medications (procedure) 12:00:00 AM EDT edical Service) Documentation of current 01/30/2018 MED GEN ([facility] medications (procedure) 12:00:00 AM EDT edical Service) Documentation of current 01/30/2018 MED GEN ([facility] medications (procedure) 12:00:00 AM EDT edical Service) Documentation of current 01/30/2018 MED GEN ([place] medications (procedure) 12:00:00 AM EDT edical Service) Documentation of current 01/30/2018 MED GEN ([place] medications (procedure) 12:00:00 AM EDT edical Service) Documentation of current 01/30/2018 MED GEN ([place] medications (procedure) 12:00:00 AM EDT edical Service) Documentation of current 01/30/2018 MED GEN ([place] medications (procedure) 12:00:00 AM EDT edical Service) Documentation of current 01/30/2018 MED GEN ([place] medications (procedure) 12:00:00 AM EDT edical Service) Documentation of current 01/30/2018 MED GEN ([place] medications (procedure) 12:00:00 AM EDT edical Service) Documentation of current 01/30/2018 MED GEN ([place] medications (procedure) 12:00:00 AM EDT edical Service) OFFICE OUTPATIENT VISIT 15 01/23/2018 M EDGEN ([facility] MINUTES 12:00:00 AM EST Medical Serv ice) Medication Reconciliation 01/23/2018 ME DGEN ([place] (procedure) 12:00:00 AM EST Medical Serv ice) OFFICE OUTPATIENT VISIT 15 01/23/2018 M EDGEN ([place] MINUTES 12:00:00 AM EST Medical Serv ice) Medication Reconciliation 01/23/2018 ME DGEN ([facility] (procedure) 12:00:00 AM EST Medical Serv ice) OFFICE OUTPATIENT VISIT 15 01/23/2018 M EDGEN ([facility] MINUTES 12:00:00 AM EST Medical Serv ice) Medication Reconciliation 01/23/2018 ME DGEN ([place] (procedure) 12:00:00 AM EST Medical Serv ice) OFFICE OUTPATIENT VISIT 15 01/23/2018 M EDGEN ([facility] MINUTES 12:00:00 AM EST Medical Serv ice) Medication Reconciliation 01/23/2018 ME DGEN ([place] (procedure) 12:00:00 AM EST Medical Serv ice) COLLECTION VENOUS BLOOD 01/09/2018 MEDG EN ([place] VENIPUNCTURE 12:00:00 AM EST Medical Serv ice) COLLECTION VENOUS BLOOD 01/09/2018 MEDG EN ([place] VENIPUNCTURE 12:00:00 AM EST Medical Serv ice) COLLECTION VENOUS BLOOD 01/09/2018 MEDG EN ([place] VENIPUNCTURE 12:00:00 AM EST Medical Serv ice) COLLECTION VENOUS BLOOD 01/09/2018 MEDG EN ([place] VENIPUNCTURE 12:00:00 AM EST Medical Serv ice) Documentation of current 01/02/2018 MED GEN ([place] medications (procedure) 12:00:00 AM EST edical Service) Documentation of current 01/02/2018 MED GEN ([facility] medications (procedure) 12:00:00 AM EST edical Service) Documentation of current 01/02/2018 MED GEN ([place] medications (procedure) 12:00:00 AM EST edical Service) Documentation of current 01/02/2018 MED GEN ([place] medications (procedure) 12:00:00 AM [facility] edical Service) Documentation of current 01/02/2018 MED GEN ([place] medications (procedure) 12:00:00 AM [facility] edical Service) Documentation of current 01/02/2018 MED GEN ([place] medications (procedure) 12:00:00 AM [facility] edical Service) Documentation of current 01/02/2018 MED GEN ([place] medications (procedure) 12:00:00 AM [facility] edical Service) Documentation of current 01/02/2018 MED GEN ([place] medications (procedure) 12:00:00 AM [facility] edical Service) Documentation of current 01/02/2018 MED GEN ([place] medications (procedure) 12:00:00 AM [facility] edical Service) Documentation of current 01/02/2018 MED GEN ([place] medications (procedure) 12:00:00 AM [facility] edical Service) Documentation of current 01/02/2018 MED GEN ([place] medications (procedure) 12:00:00 AM EST edical Service) Documentation of current 01/02/2018 MED GEN ([place] medications (procedure) 12:00:00 AM EST edical Service) Documentation of current 01/02/2018 MED GEN ([place] medications (procedure) 12:00:00 AM EST edical Service) Documentation of current 01/02/2018 MED GEN ([place] medications (procedure) 12:00:00 AM [facility] edical Service) Documentation of current 01/02/2018 MED GEN ([place] medications (procedure) 12:00:00 AM EST edical Service) Documentation of current 01/02/2018 MED GEN ([place] medications (procedure) 12:00:00 AM EST edical Service) Documentation of current 01/02/2018 MED GEN ([place] medications (procedure) 12:00:00 AM EST edical Service) Documentation of current 01/02/2018 MED GEN ([place] medications (procedure) 12:00:00 AM EST edical Service) Documentation of current 01/02/2018 MED GEN ([place] medications (procedure) 12:00:00 AM EST edical Service) Documentation of current 01/02/2018 MED GEN ([place] medications (procedure) 12:00:00 AM EST edical Service) Documentation of current 01/02/2018 MED GEN ([place] medications (procedure) 12:00:00 AM EST edical Service) Documentation of current 01/02/2018 MED GEN ([place] medications (procedure) 12:00:00 AM EST edical Service) Documentation of current 01/02/2018 MED GEN ([place] medications (procedure) 12:00:00 AM EST edical Service) Documentation of current 01/02/2018 MED GEN ([place] medications (procedure) 12:00:00 AM EST edical Service) Documentation of current 01/02/2018 MED GEN ([place] medications (procedure) 12:00:00 AM EST edical Service) Documentation of current 01/02/2018 MED GEN ([place] medications (procedure) 12:00:00 AM EST edical Service) Documentation of current 01/02/2018 MED GEN ([place] medications (procedure) 12:00:00 AM EST edical Service) Documentation of current 01/02/2018 MED GEN ([place] medications (procedure) 12:00:00 AM EST edical Service) Documentation of current 01/02/2018 MED GEN ([place] medications (procedure) 12:00:00 AM EST edical Service) Documentation of current 01/02/2018 MED GEN ([place] medications (procedure) 12:00:00 AM EST edical Service) Documentation of current 01/02/2018 MED GEN ([place] medications (procedure) 12:00:00 AM EST edical Service) Documentation of current 01/02/2018 MED GEN ([place] medications (procedure) 12:00:00 AM EST edical Service) Documentation of current 01/02/2018 MED GEN ([place] medications (procedure) 12:00:00 AM EST edical Service) Documentation of current 01/02/2018 MED GEN ([place] medications (procedure) 12:00:00 AM EST edical Service) Documentation of current 01/02/2018 MED GEN ([place] medications (procedure) 12:00:00 AM EST edical Service) Documentation of current 01/02/2018 MED GEN ([place] medications (procedure) 12:00:00 AM EST edical Service) Documentation of current 01/02/2018 MED GEN ([place] medications (procedure) 12:00:00 AM EST edical Service) Documentation of current 01/02/2018 MED GEN ([place] medications (procedure) 12:00:00 AM EST edical Service) Documentation of current 01/02/2018 MED GEN ([place] medications (procedure) 12:00:00 AM EST edical Service) Documentation of current 01/02/2018 MED GEN ([place] medications (procedure) 12:00:00 AM EST edical Service) Documentation of current 01/02/2018 MED GEN ([place] medications (procedure) 12:00:00 AM EST edical Service) Documentation of current 01/02/2018 MED GEN ([place] medications (procedure) 12:00:00 AM EST edical Service) Documentation of current 01/02/2018 MED GEN ([place] medications (procedure) 12:00:00 AM EST edical Service) Documentation of current 01/02/2018 MED GEN ([place] medications (procedure) 12:00:00 AM EST edical Service) Documentation of current 01/02/2018 MED GEN ([place] medications (procedure) 12:00:00 AM EST edical Service) Documentation of current 01/02/2018 MED GEN ([place] medications (procedure) 12:00:00 AM EST edical Service) Documentation of current 01/02/2018 MED GEN ([place] medications (procedure) 12:00:00 AM EST edical Service) Documentation of current 01/02/2018 MED GEN ([place] medications (procedure) 12:00:00 AM EST edical Service) Documentation of current 01/02/2018 MED GEN ([place] medications (procedure) 12:00:00 AM EST edical Service) Documentation of current 01/02/2018 MED GEN ([place] medications (procedure) 12:00:00 AM EST edical Service) Documentation of current 01/02/2018 MED GEN ([place] medications (procedure) 12:00:00 AM EST edical Service) Documentation of current 01/02/2018 MED GEN ([place] medications (procedure) 12:00:00 AM EST edical Service) Documentation of current 01/02/2018 MED GEN ([place] medications (procedure) 12:00:00 AM EST edical Service) Documentation of current 01/02/2018 MED GEN ([place] medications (procedure) 12:00:00 AM EST edical Service) Documentation of current 01/02/2018 MED GEN ([place] medications (procedure) 12:00:00 AM EST edical Service) Documentation of current 01/02/2018 MED GEN ([place] medications (procedure) 12:00:00 AM EST edical Service) Documentation of current 12/24/2017 MED GEN ([place] medications (procedure) 12:00:00 AM EST edical Service) Documentation of current 12/24/2017 MED GEN ([place] medications (procedure) 12:00:00 AM EST edical Service) Documentation of current 12/24/2017 MED GEN ([place] medications (procedure) 12:00:00 AM EST edical Service) Documentation of current 12/24/2017 MED GEN ([place] medications (procedure) 12:00:00 AM EST edical Service) Documentation of current 12/24/2017 MED GEN ([place] medications (procedure) 12:00:00 AM EST edical Service) Documentation of current 12/24/2017 MED GEN ([place] medications (procedure) 12:00:00 AM EST edical Service) Documentation of current 12/24/2017 MED GEN ([place] medications (procedure) 12:00:00 AM EST edical Service) Documentation of current 12/24/2017 MED GEN ([place] medications (procedure) 12:00:00 AM EST edical Service) Documentation of current 12/24/2017 MED GEN ([place] medications (procedure) 12:00:00 AM EST edical Service) Documentation of current 12/24/2017 MED GEN ([place] medications (procedure) 12:00:00 AM EST edical Service) Documentation of current 12/24/2017 MED GEN ([place] medications (procedure) 12:00:00 AM EST edical Service) Documentation of current 12/24/2017 MED GEN ([place] medications (procedure) 12:00:00 AM EST edical Service) Documentation of current 12/24/2017 MED GEN ([place] medications (procedure) 12:00:00 AM EST edical Service) Documentation of current 12/24/2017 MED GEN ([place] medications (procedure) 12:00:00 AM EST edical Service) Documentation of current 12/24/2017 MED GEN ([place] medications (procedure) 12:00:00 AM EST edical Service) Documentation of current 12/24/2017 MED GEN ([place] medications (procedure) 12:00:00 AM EST edical Service) Documentation of current 12/24/2017 MED GEN ([place] medications (procedure) 12:00:00 AM EST edical Service) Documentation of current 12/24/2017 MED GEN ([place] medications (procedure) 12:00:00 AM EST edical Service) Documentation of current 12/24/2017 MED GEN ([place] medications (procedure) 12:00:00 AM EST edical Service) Documentation of current 12/24/2017 MED GEN ([place] medications (procedure) 12:00:00 AM EST edical Service) Documentation of current 12/12/2017 MED GEN ([place] medications (procedure) 12:00:00 AM EST edical Service) Documentation of current 12/12/2017 MED GEN ([place] medications (procedure) 12:00:00 AM EST edical Service) Documentation of current 12/12/2017 MED GEN ([place] medications (procedure) 12:00:00 AM EST edical Service) Documentation of current 12/12/2017 MED GEN ([facility] medications (procedure) 12:00:00 AM EST edical Service) Documentation of current 12/12/2017 MED GEN ([place] medications (procedure) 12:00:00 AM EST edical Service) Documentation of current 12/12/2017 MED GEN ([place] medications (procedure) 12:00:00 AM EST edical Service) Documentation of current 12/12/2017 MED GEN ([place] medications (procedure) 12:00:00 AM EST edical Service) Documentation of current 12/12/2017 MED GEN ([place] medications (procedure) 12:00:00 AM EST edical Service) Documentation of current 12/12/2017 MED GEN ([place] medications (procedure) 12:00:00 AM EST M edical Service) Documentation of current 12/12/2017 MED GEN ([place] medications (procedure) 12:00:00 AM EST M edical Service) Documentation of current 12/12/2017 MED GEN ([place] medications (procedure) 12:00:00 AM EST edical Service) Documentation of current 12/12/2017 MED GEN ([place] medications (procedure) 12:00:00 AM EST edical Service) OFFICE/OUTPATIENT VISIT, 02/27/2015 [facility] ([facility] 12:00:00 AM EDT [facility] - 02/27/2015 Center) 12:00:00 AM EDT OFFICE/OUTPATIENT VISIT, 12/27/2014 [facility] TG[facility] ([facility] EST 12:00:00 AM EST [facility] - 12/27/2014 Center) 12:00:00 AM EST OFFICE/OUTPATIENT VISIT, 12/01/2014 N[facility] TGEN ([facility] EST 12:00:00 AM EST [facility] - 12/01/2014 Center) 12:00:00 AM EST OFFICE/OUTPATIENT VISIT, 10/21/2014 NEX TGEN ([facility] EST 12:00:00 AM EST [facility] - 10/21/2014 Center) 12:00:00 AM EST OFFICE/OUTPATIENT VISIT, 10/07/2014 NEX TGEN ([facility] EST 12:00:00 AM EST [facility] - 10/07/2014 Center) 12:00:00 AM EST OFFICE/OUTPATIENT VISIT, 09/23/2014 [facility] TG[facility] ([facility] EST 12:00:00 AM EST [facility] - 09/23/2014 Center) 12:00:00 AM EST OFFICE/OUTPATIENT VISIT, 09/08/2014 NEX TGEN ([facility] NEW 12:00:00 AM EDT [facility] - 09/08/2014 Center) 12:00:00 AM EDT TDAP VACCINE >7 IM 09/08/2014 NEXTGEN ( [facility] 12:00:00 AM EDT [facility] - 09/08/2014 Center) 12:00:00 AM EDT IMMUNIZATION ADMIN 09/08/2014 NEXTGEN ( [facility] 12:00:00 AM EDT [facility] 09/08/2014 [place]) 12:00:00 AM EDT PNEUMOCOCCAL VACCINE 09/08/2014 NEXTGEN ([facility] 12:00:00 AM EDT [facility] 09/08/2014 [place]) 12:00:00 AM EDT IMMUNIZATION ADMIN, EACH 09/08/2014 NEX TGEN ([facility] ADD 12:00:00 AM EDT [facility] 09/08/2014 [place]) 12:00:00 AM EDT Results ID Date Data Source [id number] 08/13/2020 09:48:00 AM EDT [facility] Name Value Range Interpretation Description Data Sup porting Code Source(s) Document(s ) SARS [facility] coronavirus 2 RNA This lab was ordered by [facility] and reported by [facility]. ID Date Data Source [id number] 06/26/2020 12:00:00 AM EDT [facility] Name Value Range Interpretation Description Data Sup porting Code Source(s) Document(s ) SARS [facility] Coronavirus 2 This lab was ordered by [facility] and reported by [facility]. ID Date Data Source [id number] 04/20/2020 12:00:00 AM EDT [facility]GEN ([facility] Name Value Range Interpretation Description Data Sup porting Code Source(s) Document(s ) GLUCOSE 337 Above high normal MEDGEN NONFASTING,SERUM mg/dL ([place] [facility]) SODIUM, SERUM 139 Normal (applies MEDGEN mEq/L to non-numeric ([place] results) Medical Service) POTASSIUM, SERUM 5.3 Normal (applies MEDGEN mEq/L to non-numeric ([place] results) Medical Service) CHLORIDE, SERUM 101 Normal (applies MEDGEN mEq/L to non-numeric ([place] results) Medical Service) Anion gap in 16.3 Normal (applies MEDGEN Body fluid mEq/L to non-numeric ([place] results) Medical Service) Carbon dioxide 27 mEq/L Normal (applies MEDGEN [VFr/PPres] in to non-numeric ([place] [facility] [employer] results) Medical system Service) BLOOD UREA 19 mg/dL Normal (applies MEDGEN NITROGEN to non-numeric ([place] results) Medical Service) CREATININE, 1.00 Above high normal MEDGEN SERUM mg/dL ([place] [facility]) BUN/CREATININE 19.00 Normal (applies MEDGEN RATIO to non-numeric ([place] results) Medical Service) CALCIUM, SERUM 10.6 Normal (applies MEDGEN mg/dL to non-numeric ([place] results) Medical Service) TOTAL PROTEIN 7.0 g/dL Normal (applies MEDGEN to non-numeric ([place] results) Medical Service) Microalbumin 4.4 g/dL Normal (applies MEDGEN [Mass/time] in to non-numeric ([place] Urine collected results) Medical for unspecified Service) duration A/G RATIO 1.69 Normal (applies MEDGEN g/dl to non-numeric ([place] results) Medical Service) Globulin 2.6 gldl Normal (applies MEDGEN [Mass/time] in to non-numeric ([place] 24 hour Urine results) Medical Service) BILIRUBIN, TOTAL 0.4 Normal (applies MEDGEN mg/dL to non-numeric ([place] results) Medical Service) ALKALINE 79 U/L Normal (applies MEDGEN PHOSPHATASE, [facility] AST 21 U/L Normal (applies MEDGEN to non-numeric ([place] results) Medical Service) ALT (SGPT) 13 U/L Normal (applies MEDGEN to non-numeric ([place] results) Medical Service) EGFR NON AFR 57 Below low normal MEDGEN TURKMEN mL/min/1 ([place] .73m2 Medical Service) EGFR AFR 70 Normal (applies MEDGEN TURKMEN mL/min/1 to non-numeric ([place] .73m2 results) Medical Service) ID Date Data Source [id number] 04/20/2020 12:00:00 AM EDT MEDGEN ([facility] Medical Service) Name Value Range Interpretation Description Data Sup porting Code Source(s) Document(s ) WBC 8.1 Normal (applies MEDGEN 10(3)/uL to non-numeric ([place] results) Medical Service) RBC 4.1 Normal (applies MEDGEN 10(6)/uL to non-numeric ([place] results) Medical Service) Hemoglobin 11.1 g/dL Normal (applies MEDGEN [Mass/volume] to non-numeric ([place] in Mixed venous results) Medical blood by Service) Oximetry Hematocrit 36.8 % Normal (applies MEDGEN [Pure volume to non-numeric ([place] fraction] of results) Medical Blood by Service) Automated count MCV 89.1 fL Normal (applies MEDGEN to non-numeric ([place] results) Medical Service) MCH 27 pg Normal (applies MEDGEN to non-numeric ([place] results) Medical Service) RDWSD 39.5 fL Normal (applies MEDGEN to non-numeric ([place] results) Medical Service) MCHC 30 g/dL Below low normal MEDGEN ([facility] [facility] Service) RDWCV 12.4 % Normal (applies MEDGEN to non-numeric ([place] results) Medical Service) Platelet Count 266 Normal (applies MEDGEN 10(3)/uL to non-numeric ([place] results) Medical Service) Neutrophil Abs 5.20 Normal (applies MEDGEN 10(3)/uL to non-numeric ([place] results) Medical Service) MPV 10.7 fL Normal (applies MEDGEN to non-numeric ([place] results) Medical Service) Lymphocyte Abs 2.00 Normal (applies MEDGEN 10(3)/uL to non-numeric ([place] results) Medical Service) Monocyte Abs 0.54 Normal (applies MEDGEN 10(3)/uL to non-numeric ([place] results) Medical Service) Basophil Abs 0.07 Normal (applies MEDGEN 10(3)/uL to non-numeric ([place] results) Medical Service) Eosinophil Abs 0.28 Normal (applies MEDGEN 10(3)/uL to non-numeric ([place] results) Medical Service) Immature 0.05 Normal (applies MEDGEN Granulocyte Abs 10(3)/uL to non-numeric ([place] results) Medical Service) Neutrophil % 63.90 % Normal (applies MEDGEN to non-numeric ([place] results) Medical Service) Lymphocyte % 25 % Normal (applies MEDGEN to non-numeric ([place] results) Medical Service) Monocyte % 6.6 % Normal (applies MEDGEN to non-numeric ([place] results) Medical Service) Eosinophil % 3.4 % Normal (applies MEDGEN to non-numeric ([place] results) Medical Service) Basophil % 0.9 % Normal (applies MEDGEN to non-numeric ([place] results) Medical Service) Immature 0.60 % Normal (applies MEDGEN Granulocyte % to non-numeric ([place] results) Medical Service) NRBC % 0.0 % Normal (applies MEDGEN to non-numeric ([place] results) Medical Service) NRBC Abs 0.00 Normal (applies MEDGEN 10(3)/uL to non-numeric ([place] results) Medical Service) ID Date Data Source [id number] 04/20/2020 12:00:00 AM EDT MEDGEN ([employer] Medical Service) Name Value Range Interpretation Description Data Sup porting Code Source(s) Document(s ) Cholesterol 146 Normal (applies MEDGEN [Moles/volume] mg/dL to non-numeric ([place] in Pericardial results) Medical fluid Service) LDL CALCULATION 58.2 Normal (applies MEDGEN mg/dL to non-numeric ([place] results) Medical Service) CHOL/HDL RATIO 3.32 Normal (applies MEDGEN ratio to non-numeric ([place] results) Medical Service) HDL CHOLESTEROL 44 mg/dL Below low normal MEDGEN ([facility]) VLDL CALCULATION 43.8 Above high normal MEDGE N mg/dl ([place] [facility]) TRIGLYCERIDES 219 Above high normal MEDGEN mg/dL ([facility]) ID Date Data Source [id number] 04/20/2020 12:00:00 AM EDT MEDGEN ([facility] [employer] Medical Service) Name Value Range Interpretation Description Data Sup porting Code Source(s) Document(s ) FOLATE 13.1 ng/mL Normal (applies to MEDGEN SERUM non-numeric ([place] results) Medical Service) ID Date Data Source [id number] 04/20/2020 12:00:00 AM EDT MEDGEN ([facility]) Name Value Range Interpretation Description Data Sup porting Code Source(s) Document(s ) VITAMIN B12 401 pg/mL Normal (applies to MEDGEN non-numeric ([place] results) Medical Service) ID Date Data Source [id number] 04/20/2020 12:00:00 AM EDT MEDGEN ([facility] [employer] [facility]) Name Value Range Interpretation Description Data Sup porting Code Source(s) Document(s ) VITAMIN D 15.09 Below low normal MEDGEN 25-HYDROXY ng/mL ([facility]) ID Date Data Source [id number] 04/20/2020 12:00:00 AM EDT MEDGEN ([facility] [employer] [facility]) Name Value Range Interpretation Description Data Sup porting Code Source(s) Document(s ) TSH,3RD 5.28 Normal (applies to MEDGEN GENERATION uIU/mL non-numeric ([place] results) Medical Service) T4 TOTAL 7.3 ug/dL Normal (applies to MEDGEN THYROXINE non-numeric ([place] [place] results[place] [facility] Service) T3 TOTAL 118 ng/dL Normal (applies to [facility] non-numeric ([place] results) Medical Service) ID Date Data Source [id number] 04/20/2020 12:00:00 AM EDT MED[facility] ([employer] [facility]) Name Value Range Interpretation Code Description Data Supporting Source(s) Document(s ) SARS-CoV- 3.80 AU/mL Normal (applies to MEDGEN 2 IGG QNT non-numeric ([place] results) Medical Service) SARS-CoV- NEGATIVE Normal (applies to MEDGEN 2 IGG non-numeric ([place] results) Medical Service) ID Date Data Source [id number] 04/20/2020 12:00:00 AM EDT [facility] ([employer] [facility]) Name Value Range Interpretation Description Data Sup porting Code Source(s) Document(s ) Cholesterol 146 Normal (applies MEDGEN [Moles/volume] mg/dL to non-numeric ([place] in Pericardial results) Medical fluid Service) LDL CALCULATION 58.2 Normal (applies [facility]GEN mg/dL to non-numeric ([place] results) Medical Service) HDL CHOLESTEROL 44 mg/dL Below low normal MED[facility] ([place] [facility]) CHOL/HDL RATIO 3.32 Normal (applies MEDGEN ratio to non-numeric ([place] results) Medical Service) VLDL CALCULATION 43.8 Above high normal MEDGE N mg/dl ([place] [facility]) TRIGLYCERIDES 219 Above high normal [facility] mg/dL ([place] [facility]) ID Date Data Source [id number] 04/20/2020 12:00:00 AM EDT [facility] ([employer] [facility]) Name Value Range Interpretation Description Data Sup porting Code Source(s) Document(s ) FOLATE 13.1 ng/mL Normal (applies to [facility]GEN SERUM non-numeric ([place] results) Medical Service) ID Date Data Source [id number] 04/20/2020 12:00:00 AM EDT [facility] ([employer] [facility]) Name Value Range Interpretation Description Data Sup porting Code Source(s) Document(s ) VITAMIN B12 401 pg/mL Normal (applies to MEDGEN non-numeric ([place] results) Medical Service) ID Date Data Source [id number] 04/20/2020 12:00:00 AM EDT [facility] ([employer] [facility]) Name Value Range Interpretation Description Data Sup porting Code Source(s) Document(s ) VITAMIN D 15.09 Below low normal MEDGEN 25-HYDROXY ng/mL ([facility]) ID Date Data Source [id number] 04/20/2020 12:00:00 AM EDT [facility] ([employer] [facility]) Name Value Range Interpretation Description Data Sup porting Code Source(s) Document(s ) T4 TOTAL 7.3 ug/dL Normal (applies to [facility]GEN THYROXINE non-numeric ([place] results) Medical Service) TSH,3RD 5.28 Normal (applies to [facility] GENERATION uIU/mL non-numeric ([place] results) Medical Service) T3 TOTAL 118 ng/dL Normal (applies to [facility] non-numeric ([place] results) Medical Service) ID Date Data Source [id number] 04/20/2020 12:00:00 AM EDT [facility] ([employer] [facility]) Name Value Range Interpretation Code Description Data Supporting Source(s) Document(s ) SARS-CoV- 3.80 AU/mL Normal (applies to [facility] 2 IGG QNT non-numeric ([place] results) Medical Service) SARS-CoV- NEGATIVE Normal (applies to MEDGEN 2 IGG non-numeric ([place] results) Medical Service) ID Date Data Source [id number] 04/20/2020 12:00:00 AM EDT [facility] ([employer] [facility]) Name Value Range Interpretation Description Data Sup porting Code Source(s) Document(s ) VITAMIN B12 401 pg/mL Normal (applies to MEDGEN non-numeric ([place] results) Medical Service) ID Date Data Source [id number] 04/20/2020 12:00:00 AM EDT [facility] ([employer] [facility]) Name Value Range Interpretation Description Data Sup porting Code Source(s) Document(s ) VITAMIN D 15.09 Below low normal [facility] 25-HYDROXY ng/mL ([facility]) ID Date Data Source [id number] 04/20/2020 12:00:00 AM EDT [facility] ([employer] [facility]) Name Value Range Interpretation Description Data Sup porting Code Source(s) Document(s ) TSH,3RD 5.28 Normal (applies to [facility] GENERATION uIU/mL non-numeric ([place] results) Medical Service) T4 TOTAL 7.3 ug/dL Normal (applies to [facility] THYROXINE non-numeric ([place] results) Medical Service) T3 TOTAL 118 ng/dL Normal (applies to [facility] non-numeric ([place] results) Medical Service) ID Date Data Source [id number] 04/20/2020 12:00:00 AM EDT [facility] ([employer] [facility]) Name Value Range Interpretation Code Description Data Supporting Source(s) Document(s ) SARS-CoV- 3.80 AU/mL Normal (applies to MEDGEN 2 IGG QNT non-numeric ([place] results) Medical Service) SARS-CoV- NEGATIVE Normal (applies to MEDGEN 2 IGG non-numeric ([place] results) Medical Service) ID Date Data Source [id number] 04/20/2020 12:00:00 AM EDT [facility] ([facility]) Name Value Range Interpretation Description Data Sup porting Code Source(s) Document(s ) GLUCOSE 337 Above high normal MEDGEN NONFASTING,SERUM mg/dL ([place] [facility] Service) SODIUM, SERUM 139 Normal (applies MEDGEN mEq/L to non-numeric ([place] results) Medical Service) POTASSIUM, SERUM 5.3 Normal (applies MEDGEN mEq/L to non-numeric ([place] results) Medical Service) CHLORIDE, SERUM 101 Normal (applies [facility] mEq/L to non-numeric ([place] results) Medical Service) Carbon dioxide 27 mEq/L Normal (applies MEDGEN [VFr/PPres] in to non-numeric ([place] [employer] results) Medical system Service) Anion gap in 16.3 Normal (applies MEDGEN Body fluid mEq/L to non-numeric ([place] results) Medical Service) BLOOD UREA 19 mg/dL Normal (applies [facility] NITROGEN to non-numeric ([place] results) Medical Service) CREATININE, 1.00 Above high normal [facility] SERUM mg/dL ([place] [facility]) BUN/CREATININE 19.00 Normal (applies [facility]GEN RATIO to non-numeric ([place] results) Medical Service) CALCIUM, SERUM 10.6 Normal (applies [facility] mg/dL to non-numeric ([place] results) Medical Service) TOTAL PROTEIN 7.0 g/dL Normal (applies MEDGEN to non-numeric ([place] results) Medical Service) Microalbumin 4.4 g/dL Normal (applies MEDGEN [Mass/time] in to non-numeric ([place] Urine collected results) Medical for unspecified Service) duration Globulin 2.6 gldl Normal (applies MEDGEN [Mass/time] in to non-numeric ([place] 24 hour Urine results) Medical Service) A/G RATIO 1.69 Normal (applies MEDGEN g/dl to non-numeric ([place] results) Medical Service) BILIRUBIN, TOTAL 0.4 Normal (applies [facility] mg/dL to non-numeric ([place] results) Medical Service) ALT (SGPT) 13 U/L Normal (applies MEDGEN to non-numeric ([place] results) Medical Service) ALKALINE 79 U/L Normal (applies [facility] AST 21 U/L Normal (applies MEDGEN to non-numeric ([place] results) Medical Service) EGFR NON AFR 57 Below low normal MEDGEN TURKMEN mL/min/1 ([place] .73m2 Medical Service) EGFR AFR 70 Normal (applies MEDGEN TURKMEN mL/min/1 to non-numeric ([place] .73m2 results) Medical Service) ID Date Data Source [id number] 04/20/2020 12:00:00 AM EDT MED[facility] ([facility]) Name Value Range Interpretation Description Data Sup porting Code Source(s) Document(s ) WBC 8.1 Normal (applies MEDGEN 10(3)/uL to non-numeric ([place] results) Medical Service) Hemoglobin 11.1 g/dL Normal (applies MEDGEN [Mass/volume] to non-numeric ([place] in Mixed venous results) Medical blood by Service) Oximetry RBC 4.1 Normal (applies MEDGEN 10(6)/uL to non-numeric ([place] results) Medical Service) Hematocrit 36.8 % Normal (applies MEDGEN [Pure volume to non-numeric ([place] fraction] of results) Medical Blood by Service) Automated count MCV 89.1 fL Normal (applies MEDGEN to non-numeric ([place] results) Medical Service) MCH 27 pg Normal (applies MEDGEN to non-numeric ([place] results) Medical Service) MCHC 30 g/dL Below low normal MEDGEN ([place] [facility] Service) RDWSD 39.5 fL Normal (applies MEDGEN to non-numeric ([place] results) Medical Service) RDWCV 12.4 % Normal (applies MEDGEN to non-numeric ([place] results) Medical Service) Platelet Count 266 Normal (applies MEDGEN 10(3)/uL to non-numeric ([place] results) Medical Service) MPV 10.7 fL Normal (applies MEDGEN to non-numeric ([place] results) Medical Service) Lymphocyte Abs 2.00 Normal (applies MEDGEN 10(3)/uL to non-numeric ([place] results) Medical Service) Neutrophil Abs 5.20 Normal (applies MEDGEN 10(3)/uL to non-numeric ([place] results) Medical Service) Monocyte Abs 0.54 Normal (applies MEDGEN 10(3)/uL to non-numeric ([place] results) Medical Service) Eosinophil Abs 0.28 Normal (applies MEDGEN 10(3)/uL to non-numeric ([place] results) Medical Service) Basophil Abs 0.07 Normal (applies MEDGEN 10(3)/uL to non-numeric ([place] results) Medical Service) Immature 0.05 Normal (applies MEDGEN Granulocyte Abs 10(3)/uL to non-numeric ([place] results) Medical Service) Neutrophil % 63.90 % Normal (applies MEDGEN to non-numeric ([place] results) Medical Service) Lymphocyte % 25 % Normal (applies MEDGEN to non-numeric ([place] results) Medical Service) Monocyte % 6.6 % Normal (applies MEDGEN to non-numeric ([place] results) Medical Service) Eosinophil % 3.4 % Normal (applies MEDGEN to non-numeric ([place] results) Medical Service) Basophil % 0.9 % Normal (applies MEDGEN to non-numeric ([place] results) Medical Service) Immature 0.60 % Normal (applies MEDGEN Granulocyte % to non-numeric ([place] results) Medical Service) NRBC % 0.0 % Normal (applies MEDGEN to non-numeric ([place] results) Medical Service) NRBC Abs 0.00 Normal (applies MEDGEN 10(3)/uL to non-numeric ([place] results) Medical Service) ID Date Data Source [id number] 04/20/2020 12:00:00 AM EDT [facility] ([facility]) Name Value Range Interpretation Description Data Sup porting Code Source(s) Document(s ) Cholesterol 146 Normal (applies MEDGEN [Moles/volume] mg/dL to non-numeric ([place] in Pericardial results) Medical fluid Service) LDL CALCULATION 58.2 Normal (applies [facility]GEN mg/dL to non-numeric ([place] results) Medical Service) CHOL/HDL RATIO 3.32 Normal (applies MEDGEN ratio to non-numeric ([place] results) Medical Service) HDL CHOLESTEROL 44 mg/dL Below low normal [facility] ([place] [facility]) VLDL CALCULATION 43.8 Above high normal MEDGE N mg/dl ([place] [facility] Service) TRIGLYCERIDES 219 Above high normal [facility]GEN mg/dL ([place] [facility] Service) ID Date Data Source [id number] 04/20/2020 12:00:00 AM EDT [facility] ([facility]) Name Value Range Interpretation Description Data Sup porting Code Source(s) Document(s ) FOLATE 13.1 ng/mL Normal (applies to MEDGEN SERUM non-numeric ([place] results) Medical Service) ID Date Data Source [id number] 04/20/2020 12:00:00 AM EDT [facility] ([facility]) Name Value Range Interpretation Description Data Sup porting Code Source(s) Document(s ) GLUCOSE 337 Above high normal MEDGEN NONFASTING,SERUM mg/dL ([place] [facility] Service) SODIUM, SERUM 139 Normal (applies [facility]GEN mEq/L to non-numeric ([place] results) Medical Service) POTASSIUM, SERUM 5.3 Normal (applies [facility]GEN mEq/L to non-numeric ([place] results) Medical Service) CHLORIDE, SERUM 101 Normal (applies MEDGEN mEq/L to non-numeric ([place] results) Medical Service) Anion gap in 16.3 Normal (applies MEDGEN Body fluid mEq/L to non-numeric ([place] results) Medical Service) Carbon dioxide 27 mEq/L Normal (applies MEDGEN [VFr/PPres] in to non-numeric ([place] [employer] results) Medical system Service) BLOOD UREA 19 mg/dL Normal (applies [facility]GEN NITROGEN to non-numeric ([place] results) Medical Service) CREATININE, 1.00 Above high normal MEDGEN SERUM mg/dL ([place] [facility] Service) BUN/CREATININE 19.00 Normal (applies MEDGEN RATIO to non-numeric ([place] results) Medical Service) CALCIUM, SERUM 10.6 Normal (applies [facility]GEN mg/dL to non-numeric ([place] results) Medical Service) TOTAL PROTEIN 7.0 g/dL Normal (applies MEDGEN to non-numeric ([place] results) Medical Service) Microalbumin 4.4 g/dL Normal (applies MEDGEN [Mass/time] in to non-numeric ([place] Urine collected results) Medical for unspecified Service) duration Globulin 2.6 gldl Normal (applies MEDGEN [Mass/time] in to non-numeric ([place] 24 hour Urine results) Medical Service) A/G RATIO 1.69 Normal (applies MEDGEN g/dl to non-numeric ([place] results) Medical Service) BILIRUBIN, TOTAL 0.4 Normal (applies [facility]GEN mg/dL to non-numeric ([place] results) Medical Service) ALKALINE 79 U/L Normal (applies [facility] PHOSPHATASE, ALP to non-numeric ([place] results) [facility] Service) ALT (SGPT) 13 U/L Normal (applies MEDGEN to non-numeric ([place] results) Medical Service) AST 21 U/L Normal (applies MEDGEN to non-numeric ([place] results) Medical Service) EGFR AFR 70 Normal (applies MEDGEN TURKMEN mL/min/1 to non-numeric ([place] .73m2 results) Medical Service) EGFR NON AFR 57 Below low normal MEDGEN TURKMEN mL/min/1 ([place] .73m2 Medical Service) ID Date Data Source [id number] 04/20/2020 12:00:00 AM EDT MED[facility] ([facility] Service) Name Value Range Interpretation Description Data Sup porting Code Source(s) Document(s ) WBC 8.1 Normal (applies MEDGEN 10(3)/uL to non-numeric ([place] results) Medical Service) RBC 4.1 Normal (applies MEDGEN 10(6)/uL to non-numeric ([place] results) Medical Service) Hemoglobin 11.1 g/dL Normal (applies MEDGEN [Mass/volume] to non-numeric ([place] in Mixed venous results) Medical blood by Service) Oximetry Hematocrit 36.8 % Normal (applies MEDGEN [Pure volume to non-numeric ([place] fraction] of results) Medical Blood by Service) Automated count MCV 89.1 fL Normal (applies MEDGEN to non-numeric ([place] results) Medical Service) MCH 27 pg Normal (applies MEDGEN to non-numeric ([place] results) Medical Service) RDWSD 39.5 fL Normal (applies MEDGEN to non-numeric ([place] results) Medical Service) MCHC 30 g/dL Below low normal MEDGEN ([place] [facility] Service) RDWCV 12.4 % Normal (applies MEDGEN to non-numeric ([place] results) Medical Service) Platelet Count 266 Normal (applies MEDGEN 10(3)/uL to non-numeric ([place] results) Medical Service) MPV 10.7 fL Normal (applies MEDGEN to non-numeric ([place] results) Medical Service) Neutrophil Abs 5.20 Normal (applies MEDGEN 10(3)/uL to non-numeric ([place] results) Medical Service) Lymphocyte Abs 2.00 Normal (applies MEDGEN 10(3)/uL to non-numeric ([place] results) Medical Service) Monocyte Abs 0.54 Normal (applies MEDGEN 10(3)/uL to non-numeric ([place] results) Medical Service) Eosinophil Abs 0.28 Normal (applies MEDGEN 10(3)/uL to non-numeric ([place] results) Medical Service) Basophil Abs 0.07 Normal (applies MEDGEN 10(3)/uL to non-numeric ([place] results) Medical Service) Immature 0.05 Normal (applies MEDGEN Granulocyte Abs 10(3)/uL to non-numeric ([place] results) Medical Service) Neutrophil % 63.90 % Normal (applies MEDGEN to non-numeric ([place] results) Medical Service) Lymphocyte % 25 % Normal (applies MEDGEN to non-numeric ([place] results) Medical Service) Monocyte % 6.6 % Normal (applies MEDGEN to non-numeric ([place] results) Medical Service) Eosinophil % 3.4 % Normal (applies MEDGEN to non-numeric ([place] results) Medical Service) Immature 0.60 % Normal (applies MEDGEN Granulocyte % to non-numeric ([place] results) Medical Service) Basophil % 0.9 % Normal (applies MEDGEN to non-numeric ([place] results) Medical Service) NRBC % 0.0 % Normal (applies MEDGEN to non-numeric ([place] results) Medical Service) NRBC Abs 0.00 Normal (applies MEDGEN 10(3)/uL to non-numeric ([place] results) Medical Service) ID Date Data Source [id number] 04/20/2020 12:00:00 AM EDT [facility] ([facility]) Name Value Range Interpretation Description Data Sup porting Code Source(s) Document(s ) GLUCOSE 337 Above high normal MEDGEN NONFASTING,SERUM mg/dL ([place] [facility] Service) SODIUM, SERUM 139 Normal (applies MEDGEN mEq/L to non-numeric ([place] results) Medical Service) POTASSIUM, SERUM 5.3 Normal (applies MEDGEN mEq/L to non-numeric ([place] results) Medical Service) CHLORIDE, SERUM 101 Normal (applies MEDGEN mEq/L to non-numeric ([place] results) Medical Service) Anion gap in 16.3 Normal (applies MEDGEN Body fluid mEq/L to non-numeric ([place] results) Medical Service) Carbon dioxide 27 mEq/L Normal (applies MEDGEN [VFr/PPres] in to non-numeric ([place] [employer] results) Medical system Service) BLOOD UREA 19 mg/dL Normal (applies MEDGEN NITROGEN to non-numeric ([place] results) Medical Service) CREATININE, 1.00 Above high normal MEDGEN SERUM mg/dL ([place] [facility] Service) BUN/CREATININE 19.00 Normal (applies MEDGEN RATIO to non-numeric ([place] results) Medical Service) CALCIUM, SERUM 10.6 Normal (applies MEDGEN mg/dL to non-numeric ([place] results) Medical Service) TOTAL PROTEIN 7.0 g/dL Normal (applies MEDGEN to non-numeric ([place] results) Medical Service) Microalbumin 4.4 g/dL Normal (applies MEDGEN [Mass/time] in to non-numeric ([place] Urine collected results) Medical for unspecified Service) duration Globulin 2.6 gldl Normal (applies MEDGEN [Mass/time] in to non-numeric ([place] 24 hour Urine results) Medical Service) BILIRUBIN, TOTAL 0.4 Normal (applies MEDGEN mg/dL to non-numeric ([place] results) Medical Service) A/G RATIO 1.69 Normal (applies MEDGEN g/dl to non-numeric ([place] results) Medical Service) ALKALINE 79 U/L Normal (applies [facility] PHOSPHATASE, [facility]P [facility]) ALT (SGPT) 13 U/L Normal (applies MEDGEN to non-numeric ([place] results) Medical Service) AST 21 U/L Normal (applies MEDGEN to non-numeric ([place] results) Medical Service) EGFR NON AFR 57 Below low normal MEDGEN TURKMEN mL/min/1 ([place] .73m2 Medical Service) EGFR AFR 70 Normal (applies MEDGEN TURKMEN mL/min/1 to non-numeric ([place] .73m2 results) Medical Service) ID Date Data Source [id number] 04/20/2020 12:00:00 AM EDT MED[facility] ([facility]) Name Value Range Interpretation Description Data Sup porting Code Source(s) Document(s ) WBC 8.1 Normal (applies MEDGEN 10(3)/uL to non-numeric ([place] results) Medical Service) RBC 4.1 Normal (applies MEDGEN 10(6)/uL to non-numeric ([place] results) Medical Service) Hematocrit 36.8 % Normal (applies MEDGEN [Pure volume to non-numeric ([place] fraction] of results) Medical Blood by Service) Automated count Hemoglobin 11.1 g/dL Normal (applies MEDGEN [Mass/volume] to non-numeric ([place] in Mixed venous results) Medical blood by Service) Oximetry MCV 89.1 fL Normal (applies MEDGEN to non-numeric ([place] results) Medical Service) MCH 27 pg Normal (applies MEDGEN to non-numeric ([place] results) Medical Service) MCHC 30 g/dL Below low normal [facility] ([place] [facility] Service) RDWSD 39.5 fL Normal (applies MEDGEN to non-numeric ([place] results) Medical Service) RDWCV 12.4 % Normal (applies MEDGEN to non-numeric ([place] results) Medical Service) Platelet Count 266 Normal (applies MEDGEN 10(3)/uL to non-numeric ([place] results) Medical Service) MPV 10.7 fL Normal (applies MEDGEN to non-numeric ([place] results) Medical Service) Neutrophil Abs 5.20 Normal (applies MEDGEN 10(3)/uL to non-numeric ([place] results) Medical Service) Lymphocyte Abs 2.00 Normal (applies MEDGEN 10(3)/uL to non-numeric ([place] results) Medical Service) Monocyte Abs 0.54 Normal (applies MEDGEN 10(3)/uL to non-numeric ([place] results) Medical Service) Eosinophil Abs 0.28 Normal (applies MEDGEN 10(3)/uL to non-numeric ([place] results) Medical Service) Basophil Abs 0.07 Normal (applies MEDGEN 10(3)/uL to non-numeric ([place] results) Medical Service) Immature 0.05 Normal (applies MEDGEN Granulocyte Abs 10(3)/uL to non-numeric ([place] results) Medical Service) Neutrophil % 63.90 % Normal (applies MEDGEN to non-numeric ([place] results) Medical Service) Lymphocyte % 25 % Normal (applies MEDGEN to non-numeric ([place] results) Medical Service) Monocyte % 6.6 % Normal (applies MEDGEN to non-numeric ([place] results) Medical Service) Eosinophil % 3.4 % Normal (applies MEDGEN to non-numeric ([place] results) Medical Service) Immature 0.60 % Normal (applies MEDGEN Granulocyte % to non-numeric ([place] results) Medical Service) Basophil % 0.9 % Normal (applies MEDGEN to non-numeric ([place] results) Medical Service) NRBC % 0.0 % Normal (applies MEDGEN to non-numeric ([place] results) Medical Service) NRBC Abs 0.00 Normal (applies MEDGEN 10(3)/uL to non-numeric ([place] results) Medical Service) ID Date Data Source [id number] 04/20/2020 12:00:00 AM EDT [facility] ([facility]) Name Value Range Interpretation Description Data Sup porting Code Source(s) Document(s ) Cholesterol 146 Normal (applies MEDGEN [Moles/volume] mg/dL to non-numeric ([place] in Pericardial results) Medical fluid Service) LDL CALCULATION 58.2 Normal (applies MEDGEN mg/dL to non-numeric ([place] results) Medical Service) CHOL/HDL RATIO 3.32 Normal (applies MEDGEN ratio to non-numeric ([place] results) Medical Service) HDL CHOLESTEROL 44 mg/dL Below low normal [facility] ([place] [facility]) VLDL CALCULATION 43.8 Above high normal MEDGE N mg/dl ([place] [facility] Service) TRIGLYCERIDES 219 Above high normal [facility] mg/dL ([place] [facility]) ID Date Data Source [id number] 04/20/2020 12:00:00 AM EDT [facility] ([facility]) Name Value Range Interpretation Description Data Sup porting Code Source(s) Document(s ) FOLATE 13.1 ng/mL Normal (applies to MED[facility] SERUM non-numeric ([place] results) Medical Service) ID Date Data Source [id number] 04/20/2020 12:00:00 AM EDT [facility] ([facility]) Name Value Range Interpretation Description Data Sup porting Code Source(s) Document(s ) VITAMIN B12 401 pg/mL Normal (applies to MEDGEN non-numeric ([place] results) Medical Service) ID Date Data Source [id number] 04/20/2020 12:00:00 AM EDT [facility] ([facility]) Name Value Range Interpretation Description Data Sup porting Code Source(s) Document(s ) VITAMIN D 15.09 Below low normal [facility] 25-HYDROXY ng/mL ([place] [facility]) ID Date Data Source [id number] 04/20/2020 12:00:00 AM EDT [facility] ([facility]) Name Value Range Interpretation Description Data Sup porting Code Source(s) Document(s ) T4 TOTAL 7.3 ug/dL Normal (applies to [facility] THYROXINE non-numeric ([place] results) Medical Service) TSH,3RD 5.28 Normal (applies to [facility] GENERATION uIU/mL non-numeric ([place] results) Medical Service) T3 TOTAL 118 ng/dL Normal (applies to MEDGEN non-numeric ([place] results) Medical Service) ID Date Data Source [id number] 04/20/2020 12:00:00 AM EDT [facility] ([facility]) Name Value Range Interpretation Code Description Data Supporting Source(s) Document(s ) SARS-CoV- NEGATIVE Normal (applies to MEDGEN 2 IGG non-numeric ([place] results) Medical Service) SARS-CoV- 3.80 AU/mL Normal (applies to MEDGEN 2 IGG QNT non-numeric ([place] results) Medical Service) ID Date Data Source [id number] 12/07/2019 12:00:00 AM EST MED[facility] ([employer] [facility]) Name Value Range Interpretation Description Data Sup porting Code Source(s) Document(s ) WBC 8.1 Normal (applies MEDGEN 10(3)/uL to non-numeric ([place] results) Medical Service) RBC 3.8 Normal (applies MEDGEN 10(6)/uL to non-numeric ([place] results) Medical Service) Hemoglobin 11.6 g/dL Normal (applies MEDGEN [Mass/volume] to non-numeric ([place] in Mixed venous results) Medical blood by Service) Oximetry MCV 92.7 fL Normal (applies MEDGEN to non-numeric ([place] results) Medical Service) Hematocrit 35.5 % Normal (applies MEDGEN [Pure volume to non-numeric ([place] fraction] of results) Medical Blood by Service) Automated count MCH 30 pg Normal (applies MEDGEN to non-numeric ([place] results) Medical Service) MCHC 33 g/dL Normal (applies MEDGEN to non-numeric ([place] results) Medical Service) RDWSD 40.2 fL Normal (applies MEDGEN to non-numeric ([place] results) Medical Service) RDWCV 11.9 % Normal (applies MEDGEN to non-numeric ([place] results) Medical Service) Platelet Count 201 Normal (applies MEDGEN 10(3)/uL to non-numeric ([place] results) Medical Service) MPV 11.4 fL Normal (applies MEDGEN to non-numeric ([place] results) Medical Service) Lymphocyte Abs 1.60 Normal (applies MEDGEN 10(3)/uL to non-numeric ([place] results) Medical Service) Neutrophil Abs 5.73 Normal (applies MEDGEN 10(3)/uL to non-numeric ([place] results) Medical Service) Monocyte Abs 0.60 Normal (applies MEDGEN 10(3)/uL to non-numeric ([place] results) Medical Service) Eosinophil Abs 0.11 Normal (applies MEDGEN 10(3)/uL to non-numeric ([place] results) Medical Service) Immature 0.05 Normal (applies MEDGEN Granulocyte Abs 10(3)/uL to non-numeric ([place] results) Medical Service) Basophil Abs 0.04 Normal (applies MEDGEN 10(3)/uL to non-numeric ([place] results) Medical Service) Neutrophil % 70.40 % Normal (applies MEDGEN to non-numeric ([place] results) Medical Service) Lymphocyte % 20 % Normal (applies MEDGEN to non-numeric ([place] results) Medical Service) Monocyte % 7.4 % Normal (applies MEDGEN to non-numeric ([place] results) Medical Service) Eosinophil % 1.4 % Normal (applies MEDGEN to non-numeric ([place] results) Medical Service) Immature 0.60 % Normal (applies MEDGEN Granulocyte % to non-numeric ([place] results) Medical Service) Basophil % 0.5 % Normal (applies MEDGEN to non-numeric ([place] results) Medical Service) NRBC % 0.0 % Normal (applies MEDGEN to non-numeric ([place] results) Medical Service) NRBC Abs 0.00 Normal (applies MEDGEN 10(3)/uL to non-numeric ([place] results) Medical Service) ID Date Data Source [id number] 12/07/2019 12:00:00 AM EST MEDGEN ([employer] Medical Service) Name Value Range Interpretation Description Data Sup porting Code Source(s) Document(s ) GLUCOSE UA NEGATIVE Normal (applies MEDGEN to non-numeric ([place] results) Medical Service) BILIRUBIN, TOTAL NEGATIVE Normal (applies MEDGEN to non-numeric ([place] results) Medical Service) Ketones NEGATIVE Normal (applies MEDGEN [Presence] in to non-numeric ([place] Blood by Tablet results) Medical Service) Specific gravity 1.014 SG Normal (applies MEDGEN of Pericardial units to non-numeric ([place] fluid by results) Medical Refractometry Service) Blood [Presence] NEGATIVE Normal (applies MEDGEN in Urine by to non-numeric ([place] Visual results) Medical Service) pH of Lower 6 Ph units Normal (applies MEDGEN respiratory to non-numeric ([place] specimen results) Medical Service) Protein NEGATIVE Normal (applies [facility]) specimen Urobilinogen 0-2.0 Normal (applies MEDGEN [Presence] in to non-numeric ([place] Urine by results) Medical Automated test Service) strip Leukocyte SMALL Abnormal MEDGEN esterase (applies to ([place] [Presence] in non-numeric Medical Body fluid by results) Service) Automated test strip Nitrite NEGATIVE Normal (applies MEDGEN [Presence] in to non-numeric ([place] Urine by Test results) Medical strip Service) Color of YELLOW Normal (applies MEDGEN Peritoneal to non-numeric ([place] dialysis fluid results) Medical Service) TRANSPARENCY TURBID Abnormal MEDGEN (applies to ([place] non-numeric Medical results) Service) WBC`S 0-5 Normal (applies MEDGEN to non-numeric ([place] results) Medical Service) Bacteria FEW Abnormal MEDGEN [Presence] in (applies to ([place] Prostatic fluid non-numeric Medical by Light results) Service) microscopy SQUAMOUS FEW Normal (applies MEDGEN EPITHELIAL to non-numeric ([place] results) Medical Service) MUCOUS FEW Normal (applies MEDGEN to non-numeric ([place] results) Medical Service) Uric Acid MANY Abnormal MEDGEN Crystal (applies to ([place] non-numeric Medical results) Service) ID Date Data Source [id number] 12/07/2019 12:00:00 AM EST MEDGEN ([facility] Service) Name Value Range Interpretation Description Data Sup porting Code Source(s) Document(s ) Cholesterol 151 Normal (applies MEDGEN [Moles/volume] mg/dL to non-numeric ([place] in Pericardial results) Medical fluid Service) LDL CALCULATION 30.6 Normal (applies MEDGEN mg/dL to non-numeric ([place] results) Medical Service) CHOL/HDL RATIO 2.56 Normal (applies MEDGEN ratio to non-numeric ([place] results) Medical Service) HDL CHOLESTEROL 59 mg/dL Normal (applies MEDGEN to non-numeric ([place] results) Medical Service) VLDL CALCULATION 61.4 Above high normal MEDGE N mg/dl ([place] Medical Service) TRIGLYCERIDES 307 Above high normal MEDGEN mg/dL ([place] Medical Service) ID Date Data Source [id number] 12/07/2019 12:00:00 AM EST MEDGEN ([facility] [employer] [facility]) Name Value Range Interpretation Description Data Sup porting Code Source(s) Document(s ) FOLATE 22.2 ng/mL Normal (applies to MEDGEN SERUM non-numeric ([place] results) Medical Service) ID Date Data Source [id number] 12/07/2019 12:00:00 AM EST MEDGEN ([facility] [employer] Medical Service) Name Value Range Interpretation Description Data Sup porting Code Source(s) Document(s ) MICROALBUMIN 1.3 Normal (applies MEDGEN URINE mg/dL to non-numeric ([place] results) Medical Service) ID Date Data Source [id number] 12/07/2019 12:00:00 AM EST MEDGEN ([employer] [facility]) Name Value Range Interpretation Description Data Sup porting Code Source(s) Document(s ) VITAMIN B12 542 pg/mL Normal (applies to MEDGEN non-numeric ([place] results) Medical Service) ID Date Data Source [id number] 12/07/2019 12:00:00 AM EST MEDGEN ([employer] Medical Service) Name Value Range Interpretation Description Data Sup porting Code Source(s) Document(s ) VITAMIN D 16.24 Below low normal MEDGEN 25-HYDROXY ng/mL ([place] Medical Service) ID Date Data Source [id number] 12/07/2019 12:00:00 AM EST MEDGEN ([employer] Medical Service) Name Value Range Interpretation Description Data Sup porting Code Source(s) Document(s ) TSH,3RD 4.67 Normal (applies to MEDGEN GENERATION uIU/mL non-numeric ([place] results) Medical Service) T4 TOTAL 5.2 ug/dL Normal (applies to MEDGEN THYROXINE non-numeric ([place] results) Medical Service) T3 TOTAL 76 ng/dL Normal (applies to MEDGEN non-numeric ([place] results) Medical Service) ID Date Data Source [id number] 12/07/2019 12:00:00 AM EST MEDGEN ([employer] Medical Service) Name Value Range Interpretation Description Data Sup porting Code Source(s) Document(s ) ORGANISM Normal (applies MEDGEN to non-numeric ([place] results) Medical Service) Comment Normal (applies MEDGEN [Interpretation] to non-numeric ([facility] Left eye Narrative results) Medical Ophthalmometer Service) ID Date Data Source [id number] 12/07/2019 12:00:00 AM EST MEDGEN ([facility] Medical [facility]) Name Value Range Interpretation Description Data Sup porting Code Source(s) Document(s ) GLUCOSE 116 Normal (applies MEDGEN NONFASTING,SERUM mg/dL to non-numeric ([facility] y results) Medical Service) SODIUM, SERUM 142 Normal (applies MEDGEN mEq/L to non-numeric ([place] results) Medical Service) POTASSIUM, SERUM 4.2 Normal (applies MEDGEN mEq/L to non-numeric ([place] results) Medical Service) Carbon dioxide 25 mEq/L Normal (applies MEDGEN [VFr/PPres] in to non-numeric ([place] [employer] results) Medical system Service) CHLORIDE, SERUM 106 Normal (applies MEDGEN mEq/L to non-numeric ([place] results) Medical Service) Anion gap in 15.2 Normal (applies MEDGEN Body fluid mEq/L to non-numeric ([place] results) Medical Service) BLOOD UREA 20 mg/dL Normal (applies MEDGEN NITROGEN to non-numeric ([place] results) Medical Service) CREATININE, 0.90 Normal (applies MEDGEN SERUM mg/dL to non-numeric ([place] results) Medical Service) CALCIUM, SERUM 9.8 Normal (applies MEDGEN mg/dL to non-numeric ([place] results) Medical Service) TOTAL PROTEIN 6.6 g/dL Normal (applies MEDGEN to non-numeric ([place] results) Medical Service) Microalbumin 4.4 g/dL Normal (applies MEDGEN [Mass/time] in to non-numeric ([place] Urine collected results) Medical for unspecified Service) duration Globulin 2.2 gldl Normal (applies MEDGEN [Mass/time] in to non-numeric ([place] 24 hour Urine results) Medical Service) A/G RATIO 2.00 Normal (applies MEDGEN g/dl to non-numeric ([place] results) Medical Service) BILIRUBIN, TOTAL 0.3 Normal (applies MEDGEN mg/dL to non-numeric ([place] results) Medical Service) ALKALINE 134 U/L Above high normal MEDGEN PHOSPHATASE, ALP ([place] Medical Service) AST 41 U/L Above high normal MEDGEN ([place] Medical Service) ALT (SGPT) 53 U/L Above high normal MEDGEN ([place] Medical Service) EGFR NON AFR 65 Normal (applies MEDGEN TURKMEN mL/min/1 to non-numeric ([place] .73m2 results) Medical Service) EGFR AFR 78 Normal (applies MEDGEN TURKMEN mL/min/1 to non-numeric ([place] .73m2 results) Medical Service) ID Date Data Source [id number] 12/07/2019 12:00:00 AM EST MEDGEN ([employer] Medical Service) Name Value Range Interpretation Description Data Sup porting Code Source(s) Document(s ) Hemoglobin A1c 5.5 % Normal (applies to MEDGEN in Blood non-numeric ([place] results) Medical Service) ID Date Data Source [id number] 12/07/2019 12:00:00 AM EST MEDGEN ([employer] Medical Service) Name Value Range Interpretation Code Description Data Supporting Source(s) Document(s ) GLYCOMARK 15.73 Normal (applies to MEDGEN ug/mL non-numeric ([place] results) Medical Service) ID Date Data Source [id number] 12/07/2019 12:00:00 AM EST MEDGEN ([employer] Medical Service) Name Value Range Interpretation Description Data Sup porting Code Source(s) Document(s ) Hemoglobin A1c 5.5 % Normal (applies to MEDGEN in Blood non-numeric ([place] results) Medical Service) ID Date Data Source [id number] 12/07/2019 12:00:00 AM EST MEDGEN ([employer] Medical Service) Name Value Range Interpretation Code Description Data Supporting Source(s) Document(s ) GLYCOMARK 15.73 Normal (applies to MEDGEN ug/mL non-numeric ([place] results) Medical Service) ID Date Data Source [id number] 12/07/2019 12:00:00 AM EST MEDGEN ([employer] Medical Service) Name Value Range Interpretation Description Data Sup porting Code Source(s) Document(s ) WBC 8.1 Normal (applies MEDGEN 10(3)/uL to non-numeric ([place] results) Medical Service) RBC 3.8 Normal (applies MEDGEN 10(6)/uL to non-numeric ([place] results) Medical Service) Hemoglobin 11.6 g/dL Normal (applies MEDGEN [Mass/volume] to non-numeric ([place] in Mixed venous results) Medical blood by Service) Oximetry MCV 92.7 fL Normal (applies MEDGEN to non-numeric ([place] results) Medical Service) Hematocrit 35.5 % Normal (applies MEDGEN [Pure volume to non-numeric ([place] fraction] of results) Medical Blood by Service) Automated count MCH 30 pg Normal (applies MEDGEN to non-numeric ([place] results) Medical Service) MCHC 33 g/dL Normal (applies MEDGEN to non-numeric ([place] results) Medical Service) RDWSD 40.2 fL Normal (applies MEDGEN to non-numeric ([place] results) Medical Service) RDWCV 11.9 % Normal (applies MEDGEN to non-numeric ([place] results) Medical Service) Platelet Count 201 Normal (applies MEDGEN 10(3)/uL to non-numeric ([place] results) Medical Service) MPV 11.4 fL Normal (applies MEDGEN to non-numeric ([place] results) Medical Service) Neutrophil Abs 5.73 Normal (applies MEDGEN 10(3)/uL to non-numeric ([place] results) Medical Service) Lymphocyte Abs 1.60 Normal (applies MEDGEN 10(3)/uL to non-numeric ([place] results) Medical Service) Monocyte Abs 0.60 Normal (applies MEDGEN 10(3)/uL to non-numeric ([place] results) Medical Service) Eosinophil Abs 0.11 Normal (applies MEDGEN 10(3)/uL to non-numeric ([place] results) Medical Service) Basophil Abs 0.04 Normal (applies MEDGEN 10(3)/uL to non-numeric ([place] results) Medical Service) Immature 0.05 Normal (applies MEDGEN Granulocyte Abs 10(3)/uL to non-numeric ([place] results) Medical Service) Neutrophil % 70.40 % Normal (applies MEDGEN to non-numeric ([place] results) Medical Service) Lymphocyte % 20 % Normal (applies MEDGEN to non-numeric ([place] results) Medical Service) Monocyte % 7.4 % Normal (applies MEDGEN to non-numeric ([place] results) Medical Service) Eosinophil % 1.4 % Normal (applies MEDGEN to non-numeric ([place] results) Medical Service) Basophil % 0.5 % Normal (applies MEDGEN to non-numeric ([place] results) Medical Service) Immature 0.60 % Normal (applies MEDGEN Granulocyte % to non-numeric ([place] results) Medical Service) NRBC % 0.0 % Normal (applies MEDGEN to non-numeric ([place] results) Medical Service) NRBC Abs 0.00 Normal (applies MEDGEN 10(3)/uL to non-numeric ([place] results) Medical Service) ID Date Data Source [id number] 12/07/2019 12:00:00 AM EST MEDGEN ([facility] Medical Service) Name Value Range Interpretation Description Data Sup porting Code Source(s) Document(s ) GLUCOSE UA NEGATIVE Normal (applies MEDGEN to non-numeric ([place] results) Medical Service) BILIRUBIN, TOTAL NEGATIVE Normal (applies MEDGEN to non-numeric ([place] results) Medical Service) Ketones NEGATIVE Normal (applies MEDGEN [Presence] in to non-numeric ([place] Blood by Tablet results) Medical Service) Specific gravity 1.014 SG Normal (applies MEDGEN of Pericardial units to non-numeric ([place] fluid by results) Medical Refractometry Service) Blood [Presence] NEGATIVE Normal (applies MEDGEN in Urine by to non-numeric ([place] Visual results) Medical Service) pH of Lower 6 Ph units Normal (applies MEDGEN respiratory to non-numeric ([place] specimen results) Medical Service) Protein NEGATIVE Normal (applies MEDGEN [Mass/volume] in to non-numeric ([place] results) Medical respiratory Service) specimen Nitrite NEGATIVE Normal (applies MEDGEN [Presence] in to non-numeric ([place] Urine by Test results) Medical strip Service) Urobilinogen 0-2.0 Normal (applies MEDGEN [Presence] in to non-numeric ([place] Urine by results) Medical Automated test Service) strip Leukocyte SMALL Abnormal MEDGEN esterase (applies to ([place] [Presence] in non-numeric Medical Body fluid by results) Service) Automated test strip Color of YELLOW Normal (applies MEDGEN Peritoneal to non-numeric ([place] dialysis fluid results) Medical Service) TRANSPARENCY TURBID Abnormal MEDGEN (applies to ([place] non-numeric Medical results) Service) WBC`S 0-5 Normal (applies MEDGEN to non-numeric ([place] results) Medical Service) Bacteria FEW Abnormal MEDGEN [Presence] in (applies to ([place] Prostatic fluid non-numeric Medical by Light results) Service) microscopy SQUAMOUS FEW Normal (applies MEDGEN EPITHELIAL to non-numeric ([place] results) Medical Service) MUCOUS FEW Normal (applies MEDGEN to non-numeric ([place] results) Medical Service) Uric Acid MANY Abnormal MEDGEN Crystal (applies to ([place] non-numeric Medical results) Service) ID Date Data Source [id number] 12/07/2019 12:00:00 AM EST MEDGEN ([employer] Medical [facility]) Name Value Range Interpretation Description Data Sup porting Code Source(s) Document(s ) Cholesterol 151 Normal (applies MEDGEN [Moles/volume] mg/dL to non-numeric ([place] in Pericardial results) Medical fluid Service) LDL CALCULATION 30.6 Normal (applies MEDGEN mg/dL to non-numeric ([place] results) Medical Service) CHOL/HDL RATIO 2.56 Normal (applies MEDGEN ratio to non-numeric ([place] results) Medical Service) HDL CHOLESTEROL 59 mg/dL Normal (applies MEDGEN to non-numeric ([place] results) Medical Service) VLDL CALCULATION 61.4 Above high normal MEDGE N mg/dl ([place] Medical Service) TRIGLYCERIDES 307 Above high normal MEDGEN mg/dL ([place] Medical Service) ID Date Data Source [id number] 12/07/2019 12:00:00 AM EST MEDGEN ([employer] Medical Service) Name Value Range Interpretation Description Data Sup porting Code Source(s) Document(s ) FOLATE 22.2 ng/mL Normal (applies to MEDGEN SERUM non-numeric ([place] results) Medical Service) ID Date Data Source [id number] 12/07/2019 12:00:00 AM EST MEDGEN ([employer] Medical Service) Name Value Range Interpretation Description Data Sup porting Code Source(s) Document(s ) MICROALBUMIN 1.3 Normal (applies MEDGEN URINE mg/dL to non-numeric ([place] results) Medical Service) ID Date Data Source [id number] 12/07/2019 12:00:00 AM EST MEDGEN ([employer] Medical Service) Name Value Range Interpretation Description Data Sup porting Code Source(s) Document(s ) VITAMIN B12 542 pg/mL Normal (applies to MEDGEN non-numeric ([place] results) Medical Service) ID Date Data Source [id number] 12/07/2019 12:00:00 AM EST MEDGEN ([employer] Medical [facility]) Name Value Range Interpretation Description Data Sup porting Code Source(s) Document(s ) VITAMIN D 16.24 Below low normal MEDGEN 25-HYDROXY ng/mL ([place] Medical Service) ID Date Data Source [id number] 12/07/2019 12:00:00 AM EST MEDGEN ([employer] Medical Service) Name Value Range Interpretation Description Data Sup porting Code Source(s) Document(s ) TSH,3RD 4.67 Normal (applies to MEDGEN GENERATION uIU/mL non-numeric ([place] results) Medical Service) T4 TOTAL 5.2 ug/dL Normal (applies to MEDGEN THYROXINE non-numeric ([place] results) Medical Service) T3 TOTAL 76 ng/dL Normal (applies to MEDGEN non-numeric ([place] results) Medical Service) ID Date Data Source [id number] 12/07/2019 12:00:00 AM EST MEDGEN ([employer] Medical Service) Name Value Range Interpretation Description Data Sup porting Code Source(s) Document(s ) ORGANISM Normal (applies MEDGEN to non-numeric ([place] results) Medical Service) Comment Normal (applies MEDGEN [Interpretation] to non-numeric ([place] Left eye Narrative results) Medical Ophthalmometer Service) ID Date Data Source [id number] 12/07/2019 12:00:00 AM EST MEDGEN ([employer] Medical Service) Name Value Range Interpretation Description Data Sup porting Code Source(s) Document(s ) GLUCOSE UA NEGATIVE Normal (applies MEDGEN to non-numeric ([place] results) Medical Service) BILIRUBIN, TOTAL NEGATIVE Normal (applies MEDGEN to non-numeric ([place] results) Medical Service) Ketones NEGATIVE Normal (applies MEDGEN [Presence] in to non-numeric ([place] Blood by Tablet results) Medical Service) Specific gravity 1.014 SG Normal (applies MEDGEN of Pericardial units to non-numeric ([place] fluid by results) Medical Refractometry Service) Blood [Presence] NEGATIVE Normal (applies MEDGEN in Urine by to non-numeric ([place] Visual results) Medical Service) pH of Lower 6 Ph units Normal (applies MEDGEN respiratory to non-numeric ([place] specimen results) Medical Service) Protein NEGATIVE Normal (applies MEDGEN [Mass/volume] in to non-numeric ([place] Lower results) Medical respiratory Service) specimen Urobilinogen 0-2.0 Normal (applies MEDGEN [Presence] in to non-numeric ([place] Urine by results) Medical Automated test Service) strip Leukocyte SMALL Abnormal MEDGEN esterase (applies to ([place] [Presence] in non-numeric Medical Body fluid by results) Service) Automated test strip Nitrite NEGATIVE Normal (applies MEDGEN [Presence] in to non-numeric ([place] Urine by Test results) Medical strip Service) Color of YELLOW Normal (applies MEDGEN Peritoneal to non-numeric ([place] dialysis fluid results) Medical Service) WBC`S 0-5 Normal (applies MEDGEN to non-numeric ([place] results) Medical Service) TRANSPARENCY TURBID Abnormal MEDGEN (applies to ([place] non-numeric Medical results) Service) Bacteria FEW Abnormal MEDGEN [Presence] in (applies to ([place] Prostatic fluid non-numeric Medical by Light results) Service) microscopy SQUAMOUS FEW Normal (applies MEDGEN EPITHELIAL to non-numeric ([place] results) Medical Service) MUCOUS FEW Normal (applies MEDGEN to non-numeric ([place] results) Medical Service) Uric Acid MANY Abnormal MEDGEN Crystal (applies to ([place] non-numeric Medical results) Service) ID Date Data Source [id number] 12/07/2019 12:00:00 AM EST MEDGEN ([employer] Medical Service) Name Value Range Interpretation Description Data Sup porting Code Source(s) Document(s ) Cholesterol 151 Normal (applies MEDGEN [Moles/volume] mg/dL to non-numeric ([place] in Pericardial results) Medical fluid Service) LDL CALCULATION 30.6 Normal (applies MEDGEN mg/dL to non-numeric ([place] results) Medical Service) CHOL/HDL RATIO 2.56 Normal (applies MEDGEN ratio to non-numeric ([place] results) Medical Service) HDL CHOLESTEROL 59 mg/dL Normal (applies MEDGEN to non-numeric ([place] results) Medical Service) VLDL CALCULATION 61.4 Above high normal MEDGE N mg/dl ([place] Medical Service) TRIGLYCERIDES 307 Above high normal MEDGEN mg/dL ([place] Medical Service) ID Date Data Source [id number] 12/07/2019 12:00:00 AM EST MEDGEN ([employer] Medical Service) Name Value Range Interpretation Description Data Sup porting Code Source(s) Document(s ) FOLATE 22.2 ng/mL Normal (applies to MEDGEN SERUM non-numeric ([place] results) Medical Service) ID Date Data Source [id number] 12/07/2019 12:00:00 AM EST MEDGEN ([employer] Medical Service) Name Value Range Interpretation Description Data Sup porting Code Source(s) Document(s ) MICROALBUMIN 1.3 Normal (applies MEDGEN URINE mg/dL to non-numeric ([place] results) Medical Service) ID Date Data Source [id number] 12/07/2019 12:00:00 AM EST MEDGEN ([facility] [employer] [facility]) Name Value Range Interpretation Description Data Sup porting Code Source(s) Document(s ) VITAMIN B12 542 pg/mL Normal (applies to MEDGEN non-numeric ([place] results) Medical Service) ID Date Data Source [id number] 12/07/2019 12:00:00 AM EST MEDGEN ([facility] [employer] [facility]) Name Value Range Interpretation Description Data Sup porting Code Source(s) Document(s ) VITAMIN D 16.24 Below low normal MEDGEN 25-HYDROXY ng/mL ([place] Medical Service) ID Date Data Source [id number] 12/07/2019 12:00:00 AM EST MEDGEN ([facility] [employer] [facility]) Name Value Range Interpretation Description Data Sup porting Code Source(s) Document(s ) TSH,3RD 4.67 Normal (applies to MEDGEN GENERATION uIU/mL non-numeric ([place] results) Medical Service) T4 TOTAL 5.2 ug/dL Normal (applies to MEDGEN THYROXINE non-numeric ([place] results) Medical Service) T3 TOTAL 76 ng/dL Normal (applies to MEDGEN non-numeric ([place] results) Medical Service) ID Date Data Source [id number] 12/07/2019 12:00:00 AM EST MEDGEN ([facility] [employer] [facility]) Name Value Range Interpretation Code Description Data Nakia rce(s) Supporting Document(s ) ID Date Data Source [id number] 12/07/2019 12:00:00 AM EST MEDGEN ([facility] [employer] [facility]) Name Value Range Interpretation Description Data Sup porting Code Source(s) Document(s ) GLUCOSE 116 Normal (applies MEDGEN NONFASTING,SERUM mg/dL [facility]) SODIUM, SERUM 142 Normal (applies MEDGEN mEq/L to non-numeric ([place] results) Medical Service) POTASSIUM, SERUM 4.2 Normal (applies MEDGEN mEq/L to non-numeric ([place] results) Medical Service) CHLORIDE, SERUM 106 Normal (applies MEDGEN mEq/L to non-numeric ([place] results) Medical Service) Carbon dioxide 25 mEq/L Normal (applies MEDGEN [VFr/PPres] in to non-numeric ([place] Gas [employer] results) Medical system Service) Anion gap in 15.2 Normal (applies MEDGEN Body fluid mEq/L to non-numeric ([place] results) Medical Service) BLOOD UREA 20 mg/dL Normal (applies MEDGEN NITROGEN to non-numeric ([place] results) Medical Service) CREATININE, 0.90 Normal (applies MEDGEN SERUM mg/dL to non-numeric ([place] results) Medical Service) CALCIUM, SERUM 9.8 Normal (applies MEDGEN mg/dL to non-numeric ([place] results) Medical Service) TOTAL PROTEIN 6.6 g/dL Normal (applies MEDGEN to non-numeric ([place] results) Medical Service) Microalbumin 4.4 g/dL Normal (applies MEDGEN [Mass/time] in to non-numeric ([place] Urine collected results) Medical for unspecified Service) duration Globulin 2.2 gldl Normal (applies MEDGEN [Mass/time] in to non-numeric ([place] 24 hour Urine results) Medical Service) BILIRUBIN, TOTAL 0.3 Normal (applies MEDGEN mg/dL to non-numeric ([place] results) Medical Service) A/G RATIO 2.00 Normal (applies MEDGEN g/dl to non-numeric ([place] results) Medical Service) ALKALINE 134 U/L Above high normal MEDGEN PHOSPHATASE, ALP ([place] [facility]) ALT (SGPT) 53 U/L Above high normal MEDGEN ([place] [facility]) AST 41 U/L Above high normal MEDGEN ([place] [facility]) EGFR NON AFR 65 Normal (applies MEDGEN TURKMEN mL/min/1 to non-numeric ([place] .73m2 results) Medical Service) EGFR AFR 78 Normal (applies MEDGEN TURKMEN mL/min/1 to non-numeric ([place] .73m2 results) Medical Service) ID Date Data Source [id number] 12/07/2019 12:00:00 AM EST MEDGEN ([employer] [facility] Service) Name Value Range Interpretation Description Data Sup porting Code Source(s) Document(s ) Hemoglobin A1c 5.5 % Normal (applies to MEDGEN in Blood non-numeric ([place] results) Medical Service) ID Date Data Source [id number] 12/07/2019 12:00:00 AM EST MEDGEN ([employer] [facility]) Name Value Range Interpretation Code Description Data Supporting Source(s) Document(s ) GLYCOMARK 15.73 Normal (applies to [facility]GEN ug/mL non-numeric ([place] results) Medical Service) ID Date Data Source [id number] 12/07/2019 12:00:00 AM EST [facility] ([facility]) Name Value Range Interpretation Description Data Sup porting Code Source(s) Document(s ) RBC 3.8 Normal (applies MEDGEN 10(6)/uL to non-numeric ([place] results) Medical Service) WBC 8.1 Normal (applies MEDGEN 10(3)/uL to non-numeric ([place] results) Medical Service) Hemoglobin 11.6 g/dL Normal (applies [facility]GEN [Mass/volume] to non-numeric ([place] in Mixed venous results) Medical blood by Service) Oximetry Hematocrit 35.5 % Normal (applies MEDGEN [Pure volume to non-numeric ([place] fraction] of results) Medical Blood by Service) Automated count MCV 92.7 fL Normal (applies MEDGEN to non-numeric ([place] results) Medical Service) MCH 30 pg Normal (applies MEDGEN to non-numeric ([place] results) Medical Service) MCHC 33 g/dL Normal (applies MEDGEN to non-numeric ([place] results) Medical Service) RDWSD 40.2 fL Normal (applies MEDGEN to non-numeric ([place] results) Medical Service) RDWCV 11.9 % Normal (applies MEDGEN to non-numeric ([place] results) Medical Service) Platelet Count 201 Normal (applies MEDGEN 10(3)/uL to non-numeric ([place] results) Medical Service) MPV 11.4 fL Normal (applies MEDGEN to non-numeric ([place] results) Medical Service) Lymphocyte Abs 1.60 Normal (applies MEDGEN 10(3)/uL to non-numeric ([place] results) Medical Service) Neutrophil Abs 5.73 Normal (applies MEDGEN 10(3)/uL to non-numeric ([place] results) Medical Service) Monocyte Abs 0.60 Normal (applies [facility]GEN 10(3)/uL to non-numeric ([place] results) Medical Service) Eosinophil Abs 0.11 Normal (applies [facility]GEN 10(3)/uL to non-numeric ([place] results) Medical Service) Basophil Abs 0.04 Normal (applies MEDGEN 10(3)/uL to non-numeric ([place] results) Medical Service) Immature 0.05 Normal (applies MEDGEN Granulocyte Abs 10(3)/uL to non-numeric ([place] results) Medical Service) Neutrophil % 70.40 % Normal (applies MEDGEN to non-numeric ([place] results) Medical Service) Lymphocyte % 20 % Normal (applies [facility]GEN to non-numeric ([place] results) Medical Service) Monocyte % 7.4 % Normal (applies [facility]GEN to non-numeric ([place] results) Medical Service) Eosinophil % 1.4 % Normal (applies MEDGEN to non-numeric ([place] results) Medical Service) Basophil % 0.5 % Normal (applies MEDGEN to non-numeric ([place] results) Medical Service) Immature 0.60 % Normal (applies MEDGEN Granulocyte % to non-numeric ([place] results) Medical Service) NRBC % 0.0 % Normal (applies MEDGEN to non-numeric ([place] results) Medical Service) NRBC Abs 0.00 Normal (applies MEDGEN 10(3)/uL to non-numeric ([place] results) Medical Service) ID Date Data Source [id number] 12/07/2019 12:00:00 AM EST [facility] ([facility]) Name Value Range Interpretation Description Data Sup porting Code Source(s) Document(s ) GLUCOSE UA NEGATIVE Normal (applies MEDGEN to non-numeric ([place] results) Medical Service) BILIRUBIN, TOTAL NEGATIVE Normal (applies MEDGEN to non-numeric ([place] results) Medical Service) Ketones NEGATIVE Normal (applies MEDGEN [Presence] in to non-numeric ([place] Blood by Tablet results) Medical Service) Specific gravity 1.014 SG Normal (applies MEDGEN of Pericardial units to non-numeric ([place] fluid by results) Medical Refractometry Service) pH of Lower 6 Ph units Normal (applies MEDGEN respiratory to non-numeric ([place] specimen results) Medical Service) Blood [Presence] NEGATIVE Normal (applies MEDGEN in Urine by to non-numeric ([place] Visual results) Medical Service) Protein NEGATIVE Normal (applies [facility]GEN [Mass/volume] in to non-numeric ([place] Lower results) Medical respiratory Service) specimen Urobilinogen 0-2.0 Normal (applies MEDGEN [Presence] in to non-numeric ([place] Urine by results) Medical Automated test Service) strip Nitrite NEGATIVE Normal (applies MEDGEN [Presence] in to non-numeric ([place] Urine by Test results) Medical strip Service) Leukocyte SMALL Abnormal MEDGEN esterase (applies to ([place] [Presence] in non-numeric Medical Body fluid by results) Service) Automated test strip Color of YELLOW Normal (applies MEDGEN Peritoneal to non-numeric ([place] dialysis fluid results) Medical Service) TRANSPARENCY TURBID Abnormal MEDGEN (applies to ([place] non-numeric Medical results) Service) WBC`S 0-5 Normal (applies MEDGEN to non-numeric ([place] results) Medical Service) Bacteria FEW Abnormal MEDGEN [Presence] in (applies to ([place] Prostatic fluid non-numeric Medical by Light results) Service) microscopy SQUAMOUS FEW Normal (applies MEDGEN EPITHELIAL to non-numeric ([place] results) Medical Service) MUCOUS FEW Normal (applies MEDGEN to non-numeric ([place] results) Medical Service) Uric Acid MANY Abnormal MEDGEN Crystal (applies to ([place] non-numeric Medical results) Service) ID Date Data Source [id number] 12/07/2019 12:00:00 AM EST [facility]GEN ([employer] [facility]) Name Value Range Interpretation Description Data Sup porting Code Source(s) Document(s ) Cholesterol 151 Normal (applies MEDGEN [Moles/volume] mg/dL to non-numeric ([place] in Pericardial results) Medical fluid Service) LDL CALCULATION 30.6 Normal (applies MEDGEN mg/dL to non-numeric ([place] results) Medical Service) CHOL/HDL RATIO 2.56 Normal (applies MEDGEN ratio to non-numeric ([place] results) Medical Service) HDL CHOLESTEROL 59 mg/dL Normal (applies MEDGEN to non-numeric ([place] results) Medical Service) VLDL CALCULATION 61.4 Above high normal MEDGE N mg/dl ([place] [facility]) TRIGLYCERIDES 307 Above high normal MEDGEN mg/dL ([place] [facility]) ID Date Data Source [id number] 12/07/2019 12:00:00 AM EST MEDGEN ([employer] [facility]) Name Value Range Interpretation Description Data Sup porting Code Source(s) Document(s ) FOLATE 22.2 ng/mL Normal (applies to MEDGEN SERUM non-numeric ([place] results) Medical Service) ID Date Data Source [id number] 12/07/2019 12:00:00 AM EST MEDGEN ([employer] [facility]) Name Value Range Interpretation Description Data Sup porting Code Source(s) Document(s ) MICROALBUMIN 1.3 Normal (applies MEDGEN URINE mg/dL to non-numeric ([place] results) Medical Service) ID Date Data Source [id number] 12/07/2019 12:00:00 AM EST MEDGEN ([employer] [facility]) Name Value Range Interpretation Description Data Sup porting Code Source(s) Document(s ) VITAMIN B12 542 pg/mL Normal (applies to MEDGEN non-numeric ([place] results) Medical Service) ID Date Data Source [id number] 12/07/2019 12:00:00 AM EST MEDGEN ([facility] [employer] Medical Service) Name Value Range Interpretation Description Data Sup porting Code Source(s) Document(s ) VITAMIN D 16.24 Below low normal MEDGEN 25-HYDROXY ng/mL ([place] [facility] Service) ID Date Data Source [id number] 12/07/2019 12:00:00 AM EST MEDGEN ([employer] [facility]) Name Value Range Interpretation Description Data Sup porting Code Source(s) Document(s ) TSH,3RD 4.67 Normal (applies to MEDGEN GENERATION uIU/mL non-numeric ([place] results) Medical Service) T4 TOTAL 5.2 ug/dL Normal (applies to MEDGEN THYROXINE non-numeric ([place] results) Medical Service) T3 TOTAL 76 ng/dL Normal (applies to MEDGEN non-numeric ([place] results) Medical Service) ID Date Data Source [id number] 12/07/2019 12:00:00 AM EST MEDGEN ([employer] [facility]) Name Value Range Interpretation Description Data Sup porting Code Source(s) Document(s ) ORGANISM Normal (applies MEDGEN to non-numeric ([place] results) Medical Service) Comment Normal (applies [facility]Interpretation[facility] Medical Ophthalmometer Service) ID Date Data Source [id number] 12/07/2019 12:00:00 AM EST MEDGEN ([employer] [facility]) Name Value Range Interpretation Description Data Sup porting Code Source(s) Document(s ) GLUCOSE 116 Normal (applies MEDGEN NONFASTING,SERUM mg/dL to non-numeric ([place] results) Medical Service) SODIUM, SERUM 142 Normal (applies MEDGEN mEq/L to non-numeric ([place] results) Medical Service) POTASSIUM, SERUM 4.2 Normal (applies MEDGEN mEq/L to non-numeric ([place] results) Medical Service) CHLORIDE, SERUM 106 Normal (applies MEDGEN mEq/L to non-numeric ([place] results) Medical Service) Carbon dioxide 25 mEq/L Normal (applies MEDGEN [VFr/PPres] in to non-numeric ([place] [employer] results) Medical system Service) Anion gap in 15.2 Normal (applies MEDGEN Body fluid mEq/L to non-numeric ([place] results) Medical Service) BLOOD UREA 20 mg/dL Normal (applies MEDGEN NITROGEN to non-numeric ([place] results) Medical Service) CREATININE, 0.90 Normal (applies MEDGEN SERUM mg/dL to non-numeric ([place] results) Medical Service) CALCIUM, SERUM 9.8 Normal (applies [facility]GEN mg/dL to non-numeric ([place] results) Medical Service) TOTAL PROTEIN 6.6 g/dL Normal (applies MEDGEN to non-numeric ([place] results) Medical Service) Microalbumin 4.4 g/dL Normal (applies MEDGEN [Mass/time] in to non-numeric ([place] Urine collected results) Medical for unspecified Service) duration Globulin 2.2 gldl Normal (applies MEDGEN [Mass/time] in to non-numeric ([place] 24 hour Urine results) Medical Service) A/G RATIO 2.00 Normal (applies MEDGEN g/dl to non-numeric ([place] results) Medical Service) BILIRUBIN, TOTAL 0.3 Normal (applies MEDGEN mg/dL to non-numeric ([place] results) Medical Service) ALT (SGPT) 53 U/L Above high normal MEDGEN ([place] [facility] Service) ALKALINE 134 U/L Above high normal MEDGEN PHOSPHATASE, ALP ([place] [employer] [facility]) AST 41 U/L Above high normal MEDGEN ([place] [facility] Service) EGFR NON AFR 65 Normal (applies MEDGEN TURKMEN mL/min/1 to non-numeric ([place] .73m2 results) Medical Service) EGFR AFR 78 Normal (applies MEDGEN TURKMEN mL/min/1 to non-numeric ([place] .73m2 results) Medical Service) ID Date Data Source [id number] 12/07/2019 12:00:00 AM EST MEDGEN ([facility] [employer] [facility]) Name Value Range Interpretation Description Data Sup porting Code Source(s) Document(s ) GLUCOSE 116 Normal (applies MEDGEN NONFASTING,SERUM mg/dL to non-numeric ([facility] y results) Medical Service) SODIUM, SERUM 142 Normal (applies MEDGEN mEq/L to non-numeric ([place] results) Medical Service) POTASSIUM, SERUM 4.2 Normal (applies MEDGEN mEq/L to non-numeric ([place] results) Medical Service) CHLORIDE, SERUM 106 Normal (applies MEDGEN mEq/L to non-numeric ([place] results) Medical Service) Carbon dioxide 25 mEq/L Normal (applies MEDGEN [VFr/PPres] in to non-numeric ([place] [employer] results) Medical system Service) Anion gap in 15.2 Normal (applies MEDGEN Body fluid mEq/L to non-numeric ([place] results) Medical Service) BLOOD UREA 20 mg/dL Normal (applies MEDGEN NITROGEN to non-numeric ([place] results) Medical Service) CREATININE, 0.90 Normal (applies MEDGEN SERUM mg/dL to non-numeric ([place] results) Medical Service) CALCIUM, SERUM 9.8 Normal (applies MEDGEN mg/dL to non-numeric ([place] results) Medical Service) TOTAL PROTEIN 6.6 g/dL Normal (applies MEDGEN to non-numeric ([place] results) Medical Service) Microalbumin 4.4 g/dL Normal (applies MEDGEN [Mass/time] in to non-numeric ([place] Urine collected results) Medical for unspecified Service) duration Globulin 2.2 gldl Normal (applies MEDGEN [Mass/time] in to non-numeric ([place] 24 hour Urine results) Medical Service) A/G RATIO 2.00 Normal (applies MEDGEN g/dl to non-numeric ([place] results) Medical Service) BILIRUBIN, TOTAL 0.3 Normal (applies MEDGEN mg/dL to non-numeric ([place] results) Medical Service) ALKALINE 134 U/L Above high normal MEDGEN PHOSPHATASE, ALP ([place] [facility] Service) ALT (SGPT) 53 U/L Above high normal MEDGEN ([place] [facility]) AST 41 U/L Above high normal MEDGEN ([place] [facility]) EGFR NON AFR 65 Normal (applies MEDGEN TURKMEN mL/min/1 to non-numeric ([place] .73m2 results) Medical Service) EGFR AFR 78 Normal (applies MEDGEN TURKMEN mL/min/1 to non-numeric ([place] .73m2 results) Medical Service) ID Date Data Source [id number] 12/07/2019 12:00:00 AM EST MEDGEN ([employer] [facility] Service) Name Value Range Interpretation Description Data Sup porting Code Source(s) Document(s ) Hemoglobin A1c 5.5 % Normal (applies to MEDGEN in Blood non-numeric ([place] results) Medical Service) ID Date Data Source [id number] 12/07/2019 12:00:00 AM EST [facility] ([facility]) Name Value Range Interpretation Code Description Data Supporting Source(s) Document(s ) GLYCOMARK 15.73 Normal (applies to MEDGEN ug/mL non-numeric ([place] results) Medical Service) ID Date Data Source [id number] 12/07/2019 12:00:00 AM EST [facility] ([facility]) Name Value Range Interpretation Description Data Sup porting Code Source(s) Document(s ) WBC 8.1 Normal (applies MEDGEN 10(3)/uL to non-numeric ([place] results) Medical Service) RBC 3.8 Normal (applies MEDGEN 10(6)/uL to non-numeric ([place] results) Medical Service) Hematocrit 35.5 % Normal (applies MEDGEN [Pure volume to non-numeric ([place] fraction] of results) Medical Blood by Service) Automated count Hemoglobin 11.6 g/dL Normal (applies MEDGEN [Mass/volume] to non-numeric ([place] in Mixed venous results) Medical blood by Service) Oximetry MCV 92.7 fL Normal (applies MEDGEN to non-numeric ([place] results) Medical Service) MCH 30 pg Normal (applies MEDGEN to non-numeric ([place] results) Medical Service) MCHC 33 g/dL Normal (applies MEDGEN to non-numeric ([place] results) Medical Service) RDWSD 40.2 fL Normal (applies MEDGEN to non-numeric ([place] results) Medical Service) RDWCV 11.9 % Normal (applies MEDGEN to non-numeric ([place] results) Medical Service) Platelet Count 201 Normal (applies MEDGEN 10(3)/uL to non-numeric ([place] results) Medical Service) MPV 11.4 fL Normal (applies MEDGEN to non-numeric ([place] results) Medical Service) Neutrophil Abs 5.73 Normal (applies MEDGEN 10(3)/uL to non-numeric ([place] results) Medical Service) Lymphocyte Abs 1.60 Normal (applies MEDGEN 10(3)/uL to non-numeric ([place] results) Medical Service) Monocyte Abs 0.60 Normal (applies MEDGEN 10(3)/uL to non-numeric ([place] results) Medical Service) Eosinophil Abs 0.11 Normal (applies MEDGEN 10(3)/uL to non-numeric ([place] results) Medical Service) Basophil Abs 0.04 Normal (applies MEDGEN 10(3)/uL to non-numeric ([place] results) Medical Service) Immature 0.05 Normal (applies MEDGEN Granulocyte Abs 10(3)/uL to non-numeric ([place] results) Medical Service) Neutrophil % 70.40 % Normal (applies MEDGEN to non-numeric ([place] results) Medical Service) Lymphocyte % 20 % Normal (applies MEDGEN to non-numeric ([place] results) Medical Service) Monocyte % 7.4 % Normal (applies MEDGEN to non-numeric ([place] results) Medical Service) Eosinophil % 1.4 % Normal (applies MEDGEN to non-numeric ([place] results) Medical Service) Basophil % 0.5 % Normal (applies MEDGEN to non-numeric ([place] results) Medical Service) Immature 0.60 % Normal (applies MEDGEN Granulocyte % to non-numeric ([place] results) Medical Service) NRBC % 0.0 % Normal (applies MEDGEN to non-numeric ([place] results) Medical Service) NRBC Abs 0.00 Normal (applies MEDGEN 10(3)/uL to non-numeric ([place] results) Medical Service) ID Date Data Source [id number] 07/30/2019 12:00:00 AM EDT [facility] ([facility]) Name Value Range Interpretation Description Data Sup porting Code Source(s) Document(s ) GLUCOSE UA NEGATIVE Normal (applies MEDGEN to non-numeric ([place] results) Medical Service) BILIRUBIN, TOTAL NEGATIVE Normal (applies MEDGEN to non-numeric ([place] results) Medical Service) Ketones NEGATIVE Normal (applies MEDGEN [Presence] in to non-numeric ([place] Blood by Tablet results) Medical Service) Specific gravity 1.009 SG Normal (applies MEDGEN of Pericardial units to non-numeric ([place] fluid by results) Medical Refractometry Service) Blood [Presence] NEGATIVE Normal (applies MEDGEN in Urine by to non-numeric ([place] Visual results) Medical Service) Protein NEGATIVE Normal (applies [facility] [Mass/volume] [facility] Medical respiratory Service) specimen pH of Lower 6 Ph units Normal (applies MEDGEN respiratory to non-numeric ([place] specimen results) Medical Service) Urobilinogen 0-2.0 Normal (applies MEDGEN [Presence] in to non-numeric ([place] Urine by results) Medical Automated test Service) strip Nitrite NEGATIVE Normal (applies MEDGEN [Presence] in to non-numeric ([place] Urine by Test results) Medical strip Service) Color of YELLOW Normal (applies MEDGEN Peritoneal to non-numeric ([place] dialysis fluid results) Medical Service) Leukocyte NEGATIVE Normal (applies MEDGEN esterase to non-numeric ([place] [Presence] in results) Medical Body fluid by Service) Automated test strip TRANSPARENCY CLEAR Normal (applies MEDGEN to non-numeric ([place] results) Medical Service) ID Date Data Source [id number] 07/30/2019 12:00:00 AM EDT MEDGEN ([facility] Medical [facility]) Name Value Range Interpretation Description Data Sup porting Code Source(s) Document(s ) GLUCOSE 98 mg/dL Normal (applies MEDGEN NONFASTING,SERUM to non-numeric ([facility] y results) Medical Service) SODIUM, SERUM 137 Normal (applies MEDGEN mEq/L to non-numeric ([place] results) Medical Service) POTASSIUM, SERUM 4.7 Normal (applies MEDGEN mEq/L to non-numeric ([place] results) Medical Service) CHLORIDE, SERUM 105 Normal (applies MEDGEN mEq/L to non-numeric ([place] results) Medical Service) Carbon dioxide 26 mEq/L Normal (applies MEDGEN [VFr/PPres] in to non-numeric ([place] Gas [employer] results) Medical system Service) Anion gap in 10.7 Normal (applies MEDGEN Body fluid mEq/L to non-numeric ([place] results) Medical Service) BLOOD UREA 19 mg/dL Normal (applies MEDGEN NITROGEN to non-numeric ([place] results) Medical Service) CREATININE, 0.80 Normal (applies MEDGEN SERUM mg/dL to non-numeric ([place] results) Medical Service) CALCIUM, SERUM 9.8 Normal (applies MEDGEN mg/dL to non-numeric ([place] results) Medical Service) TOTAL PROTEIN 7.0 g/dL Normal (applies MEDGEN to non-numeric ([place] results) Medical Service) Globulin 2.2 gldl Normal (applies MEDGEN [Mass/time] in to non-numeric ([place] 24 hour Urine results) Medical Service) Microalbumin 4.8 g/dL Normal (applies MEDGEN [Mass/time] in to non-numeric ([place] Urine collected results) Medical for unspecified Service) duration A/G RATIO 2.18 Above high normal MEDGEN g/dl ([place] Medical Service) BILIRUBIN, TOTAL 0.5 Normal (applies MEDGEN mg/dL to non-numeric ([place] results) Medical Service) ALKALINE 128 U/L Normal (applies MEDGEN PHOSPHATASE, ALP to non-numeric ([place] results) Medical Service) AST 40 U/L Above high normal MEDGEN ([place] [facility] Service) ALT (SGPT) 28 U/L Normal (applies MEDGEN to non-numeric ([place] results) Medical Service) EGFR NON AFR 74 Normal (applies MEDGEN TURKMEN mL/min/1 to non-numeric ([place] .73m2 results) Medical Service) EGFR AFR 90 Normal (applies MEDGEN TURKMEN mL/min/1 to non-numeric ([place] .73m2 results) Medical Service) ID Date Data Source [id number] 07/30/2019 12:00:00 AM EDT [facility] ([facility]) Name Value Range Interpretation Description Data Sup porting Code Source(s) Document(s ) Cholesterol 150 Normal (applies MEDGEN [Moles/volume] mg/dL to non-numeric ([place] in Pericardial results) Medical fluid Service) LDL CALCULATION 27.2 Normal (applies MEDGEN mg/dL to non-numeric ([place] results) Medical Service) CHOL/HDL RATIO 2.34 Normal (applies MEDGEN ratio to non-numeric ([place] results) Medical Service) HDL CHOLESTEROL 64 mg/dL Normal (applies MEDGEN to non-numeric ([place] results) Medical Service) VLDL CALCULATION 58.8 Above high normal MEDGE N mg/dl ([place] [facility] Service) TRIGLYCERIDES 294 Above high normal MEDGEN mg/dL ([place] [facility] Service) ID Date Data Source [id number] 07/30/2019 12:00:00 AM EDT MEDGEN ([employer] [facility] Service) Name Value Range Interpretation Description Data Sup porting Code Source(s) Document(s ) FOLATE 4.8 ng/mL Below low normal MEDGEN SERUM ([place] [facility] Service) ID Date Data Source [id number] 07/30/2019 12:00:00 AM EDT MEDGEN ([employer] [facility] Service) Name Value Range Interpretation Description Data Sup porting Code Source(s) Document(s ) MICROALBUMIN 0.3 Normal (applies MEDGEN URINE mg/dL to non-numeric ([place] results) Medical Service) ID Date Data Source [id number] 07/30/2019 12:00:00 AM EDT MEDGEN ([employer] Medical [facility]) Name Value Range Interpretation Description Data Sup porting Code Source(s) Document(s ) VITAMIN B12 615 pg/mL Normal (applies to MEDGEN non-numeric ([place] results) Medical Service) ID Date Data Source [id number] 07/30/2019 12:00:00 AM EDT MEDGEN ([employer] Medical Service) Name Value Range Interpretation Description Data Sup porting Code Source(s) Document(s ) VITAMIN D 6.17 Below low normal MEDGEN 25-HYDROXY ng/mL ([place] Medical Service) ID Date Data Source [id number] 07/30/2019 12:00:00 AM EDT MEDGEN ([employer] [facility] Service) Name Value Range Interpretation Description Data Sup porting Code Source(s) Document(s ) TSH,3RD 2.72 Normal (applies to MEDGEN GENERATION uIU/mL non-numeric ([place] results) Medical Service) T4 TOTAL 5 ug/dL Normal (applies to MEDGEN THYROXINE non-numeric ([place] results) Medical Service) T3 TOTAL 71 ng/dL Normal (applies to MEDGEN non-numeric ([place] results) Medical Service) ID Date Data Source [id number] 07/30/2019 12:00:00 AM EDT MEDGEN ([employer] [facility] Service) Name Value Range Interpretation Description Data Sup porting Code Source(s) Document(s ) Cholesterol 150 Normal (applies MEDGEN [Moles/volume] mg/dL to non-numeric ([place] in Pericardial results) Medical fluid Service) LDL CALCULATION 27.2 Normal (applies MEDGEN mg/dL to non-numeric ([place] results) Medical Service) CHOL/HDL RATIO 2.34 Normal (applies MEDGEN ratio to non-numeric ([place] results) Medical Service) HDL CHOLESTEROL 64 mg/dL Normal (applies MEDGEN to non-numeric ([place] results) Medical Service) VLDL CALCULATION 58.8 Above high normal MEDGE N mg/dl ([facility]) TRIGLYCERIDES 294 Above high normal MEDGEN mg/dL ([facility]) ID Date Data Source [id number] 07/30/2019 12:00:00 AM EDT MEDGEN ([employer] [facility]) Name Value Range Interpretation Description Data Sup porting Code Source(s) Document(s ) FOLATE 4.8 ng/mL Below low normal MEDGEN SERUM ([place] [facility]) ID Date Data Source [id number] 07/30/2019 12:00:00 AM EDT MEDGEN ([employer] [facility]) Name Value Range Interpretation Description Data Sup porting Code Source(s) Document(s ) MICROALBUMIN 0.3 Normal (applies MEDGEN URINE mg/dL to non-numeric ([facility] results) [facility] Service) ID Date Data Source [id number] 07/30/2019 12:00:00 AM EDT MEDGEN ([facility]) Name Value Range Interpretation Description Data Sup porting Code Source(s) Document(s ) VITAMIN B12 615 pg/mL Normal (applies to MEDGEN non-numeric ([place] results) Medical Service) ID Date Data Source [id number] 07/30/2019 12:00:00 AM EDT MEDGEN ([facility]) Name Value Range Interpretation Description Data Sup porting Code Source(s) Document(s ) Hemoglobin A1c 5.4 % Normal (applies to MEDGEN in Blood non-numeric ([place] results) Medical Service) ID Date Data Source [id number] 07/30/2019 12:00:00 AM EDT MEDGEN ([facility] [employer]) Name Value Range Interpretation Code Description Data Supporting Source(s) Document(s ) GLYCOMARK 14.95 Normal (applies to MEDGEN ug/mL non-numeric ([place] results) Medical Service) ID Date Data Source [id number] 07/30/2019 12:00:00 AM EDT MEDGEN ([facility] [employer]) Name Value Range Interpretation Description Data Sup porting Code Source(s) Document(s ) WBC 8.0 Normal (applies MEDGEN 10(3)/uL to non-numeric ([facility] results) [facility] Service) RBC 4.1 Normal (applies MEDGEN 10(6)/uL to non-numeric ([place] results) Medical Service) Hemoglobin 12.3 g/dL Normal (applies MEDGEN [Mass/volume] to non-numeric ([facility] in Mixed venous results) Medical blood by Service) Oximetry Hematocrit 37.2 % Normal (applies MEDGEN [Pure volume to non-numeric ([facility] fraction] of results) Medical Blood by Service) Automated count MCH 30 pg Normal (applies MEDGEN to non-numeric ([facility] results) Medical Service) MCV 90.3 fL Normal (applies MEDGEN to non-numeric ([facility] results) [facility] Service) MCHC 33 g/dL Normal (applies MEDGEN to non-numeric ([facility] results) [facility] Service) RDWSD 39.4 fL Normal (applies MEDGEN to non-numeric ([facility] results) [facility] Service) RDWCV 12.2 % Normal (applies MEDGEN to non-numeric ([place] results) Medical Service) Platelet Count 206 Normal (applies MEDGEN 10(3)/uL to non-numeric ([facility] results) [facility] Service) MPV 10.1 fL Normal (applies MEDGEN to non-numeric ([place] results) Medical Service) Neutrophil Abs 5.10 Normal (applies MEDGEN 10(3)/uL to non-numeric ([place] results) Medical Service) Lymphocyte Abs 2.23 Normal (applies MEDGEN 10(3)/uL to non-numeric ([facility] results) [facility] Service) Monocyte Abs 0.53 Normal (applies MEDGEN 10(3)/uL to non-numeric ([place] results) Medical Service) Eosinophil Abs 0.08 Normal (applies MEDGEN 10(3)/uL to non-numeric ([place] results) Medical Service) Basophil Abs 0.04 Normal (applies MEDGEN 10(3)/uL to non-numeric ([place] results) [facility] Service) Immature 0.03 Normal (applies MEDGEN Granulocyte Abs 10(3)/uL to non-numeric ([place] results) Medical Service) Neutrophil % 64.00 % Normal (applies MEDGEN to non-numeric ([place] results) Medical Service) Lymphocyte % 28 % Normal (applies MEDGEN to non-numeric ([place] results) Medical Service) Eosinophil % 1.0 % Normal (applies MEDGEN to non-numeric ([place] results) [facility] Service) Monocyte % 6.6 % Normal (applies MEDGEN to non-numeric ([facility] results) Medical Service) Basophil % 0.5 % Normal (applies MEDGEN to non-numeric ([place] results) Medical Service) Immature 0.40 % Normal (applies MEDGEN Granulocyte % to non-numeric ([place] results) Medical Service) NRBC Abs 0.01 Normal (applies MEDGEN 10(3)/uL to non-numeric ([place] results) Medical Service) NRBC % 0.1 % Normal (applies MEDGEN to non-numeric ([facility] results) [facility]) ID Date Data Source [id number] 07/30/2019 12:00:00 AM EDT MEDGEN ([employer] [facility]) Name Value Range Interpretation Description Data Sup porting Code Source(s) Document(s ) Hemoglobin A1c 5.4 % Normal (applies to MEDGEN in Blood non-numeric ([place] results) Medical Service) ID Date Data Source [id number] 07/30/2019 12:00:00 AM EDT MEDGEN ([facility]) Name Value Range Interpretation Code Description Data Supporting Source(s) Document(s ) GLYCOMARK 14.95 Normal (applies to MEDGEN ug/mL non-numeric ([facility] results) [facility] Service) ID Date Data Source [id number] 07/30/2019 12:00:00 AM EDT MEDGEN ([facility]) Name Value Range Interpretation Description Data Sup porting Code Source(s) Document(s ) WBC 8.0 Normal (applies MEDGEN 10(3)/uL to non-numeric ([place] results) Medical Service) Hemoglobin 12.3 g/dL Normal (applies MEDGEN [Mass/volume] to non-numeric ([place] in Mixed venous results) Medical blood by Service) Oximetry RBC 4.1 Normal (applies MEDGEN 10(6)/uL to non-numeric ([facility] results) [facility] Service) Hematocrit 37.2 % Normal (applies MEDGEN [Pure volume to non-numeric ([place] fraction] of results) Medical Blood by Service) Automated count MCV 90.3 fL Normal (applies MEDGEN to non-numeric ([facility] results) Medical Service) MCH 30 pg Normal (applies MEDGEN to non-numeric ([facility] results) [facility] Service) MCHC 33 g/dL Normal (applies MEDGEN to non-numeric ([place] results) Medical Service) RDWSD 39.4 fL Normal (applies MEDGEN to non-numeric ([place] results) Medical Service) RDWCV 12.2 % Normal (applies MEDGEN to non-numeric ([place] results) [facility] Service) Platelet Count 206 Normal (applies MEDGEN 10(3)/uL to non-numeric ([place] results) Medical Service) MPV 10.1 fL Normal (applies MEDGEN to non-numeric ([place] results) Medical Service) Neutrophil Abs 5.10 Normal (applies MEDGEN 10(3)/uL to non-numeric ([place] results) Medical Service) Lymphocyte Abs 2.23 Normal (applies MEDGEN 10(3)/uL to non-numeric ([place] results) Medical Service) Eosinophil Abs 0.08 Normal (applies MEDGEN 10(3)/uL to non-numeric ([place] results) Medical Service) Monocyte Abs 0.53 Normal (applies MEDGEN 10(3)/uL to non-numeric ([place] results) Medical Service) Basophil Abs 0.04 Normal (applies MEDGEN 10(3)/uL to non-numeric ([place] results) Medical Service) Immature 0.03 Normal (applies MEDGEN Granulocyte Abs 10(3)/uL to non-numeric ([place] results) Medical Service) Neutrophil % 64.00 % Normal (applies MEDGEN to non-numeric ([place] results) Medical Service) Lymphocyte % 28 % Normal (applies MEDGEN to non-numeric ([facility] results) [facility] Service) Monocyte % 6.6 % Normal (applies MEDGEN to non-numeric ([place] results) Medical Service) Eosinophil % 1.0 % Normal (applies MEDGEN to non-numeric ([facility] results) [facility] Service) Basophil % 0.5 % Normal (applies MEDGEN to non-numeric ([place] results) Medical Service) Immature 0.40 % Normal (applies MEDGEN Granulocyte % to non-numeric ([place] results) Medical Service) NRBC % 0.1 % Normal (applies MEDGEN to non-numeric ([place] results) [facility] Service) NRBC Abs 0.01 Normal (applies MEDGEN 10(3)/uL to non-numeric ([place] results) Medical Service) ID Date Data Source [id number] 07/30/2019 12:00:00 AM EDT MEDGEN ([facility]) Name Value Range Interpretation Description Data Sup porting Code Source(s) Document(s ) GLUCOSE UA NEGATIVE Normal (applies MEDGEN to non-numeric ([place] results) Medical Service) BILIRUBIN, TOTAL NEGATIVE Normal (applies MEDGEN to non-numeric ([place] results) [facility] Service) Ketones NEGATIVE Normal (applies MEDGEN [Presence] in to non-numeric ([place] Blood by Tablet results) Medical Service) Specific gravity 1.009 SG Normal (applies MEDGEN of Pericardial units to non-numeric ([place] fluid by results) Medical Refractometry Service) pH of Lower 6 Ph units Normal (applies MEDGEN respiratory to non-numeric ([facility] specimen results) Medical Service) Blood [Presence] NEGATIVE Normal (applies MEDGEN in Urine by to non-numeric ([place] Visual results) Medical Service) Protein NEGATIVE Normal (applies MEDGEN [Mass/volume] in to non-numeric ([place] [facility] Lower results) Medical respiratory Service) specimen Urobilinogen 0-2.0 Normal (applies MEDGEN [Presence] in to non-numeric ([place] Urine by results) Medical Automated test Service) strip Leukocyte NEGATIVE Normal (applies MEDGEN esterase to non-numeric ([facility] [Presence] in results) Medical Body fluid by Service) Automated test strip Nitrite NEGATIVE Normal (applies MEDGEN [Presence] in to non-numeric ([place] Urine by Test results) Medical strip Service) Color of YELLOW Normal (applies MEDGEN Peritoneal to non-numeric ([place] dialysis fluid results) Medical Service) TRANSPARENCY CLEAR Normal (applies MEDGEN to non-numeric ([place] results) Medical Service) ID Date Data Source [id number] 07/30/2019 12:00:00 AM EDT MEDGEN ([facility]) Name Value Range Interpretation Description Data Sup porting Code Source(s) Document(s ) GLUCOSE 98 mg/dL Normal (applies MEDGEN NONFASTING,SERUM to non-numeric ([facility] y results) Medical Service) SODIUM, SERUM 137 Normal (applies MEDGEN mEq/L to non-numeric ([place] results) Medical Service) CHLORIDE, SERUM 105 Normal (applies MEDGEN mEq/L to non-numeric ([place] results) Medical Service) POTASSIUM, SERUM 4.7 Normal (applies MEDGEN mEq/L to non-numeric ([place] results) Medical Service) Carbon dioxide 26 mEq/L Normal (applies MEDGEN [VFr/PPres] in to non-numeric ([place] [employer] results) Medical system Service) Anion gap in 10.7 Normal (applies MEDGEN Body fluid mEq/L to non-numeric ([place] results) Medical Service) BLOOD UREA 19 mg/dL Normal (applies MEDGEN NITROGEN to non-numeric ([place] results) Medical Service) CREATININE, 0.80 Normal (applies MEDGEN SERUM mg/dL to non-numeric ([facility] results) Medical Service) CALCIUM, SERUM 9.8 Normal (applies MEDGEN mg/dL to non-numeric ([place] results) Medical Service) TOTAL PROTEIN 7.0 g/dL Normal (applies MEDGEN to non-numeric ([place] results) Medical Service) Microalbumin 4.8 g/dL Normal (applies MEDGEN [Mass/time] in to non-numeric ([place] Urine collected results) Medical for unspecified Service) duration A/G RATIO 2.18 Above high normal MEDGEN g/dl ([place] [facility]) Globulin 2.2 gldl Normal (applies MEDGEN [Mass/time] in to non-numeric ([place] 24 hour Urine results) Medical Service) BILIRUBIN, TOTAL 0.5 Normal (applies MEDGEN mg/dL to non-numeric ([facility] results) Medical Service) ALKALINE 128 U/L Normal (applies MEDGEN PHOSPHATASE, ALP [facility] AST 40 U/L Above high normal MEDGEN ([place] [facility]) ALT (SGPT) 28 U/L Normal (applies MEDGEN to non-numeric ([place] results) Medical Service) EGFR NON AFR 74 Normal (applies MEDGEN TURKMEN mL/min/1 to non-numeric ([facility] .73m2 results) Medical Service) EGFR AFR 90 Normal (applies MEDGEN TURKMEN mL/min/1 to non-numeric ([place] .73m2 results) Medical Service) ID Date Data Source [id number] 07/30/2019 12:00:00 AM EDT MEDGEN ([facility]) Name Value Range Interpretation Description Data Sup porting Code Source(s) Document(s ) Cholesterol 150 Normal (applies MEDGEN [Moles/volume] mg/dL to non-numeric ([place] in Pericardial results) Medical fluid Service) LDL CALCULATION 27.2 Normal (applies MEDGEN mg/dL to non-numeric ([place] results) Medical Service) CHOL/HDL RATIO 2.34 Normal (applies MEDGEN ratio to non-numeric ([place] results) Medical Service) HDL CHOLESTEROL 64 mg/dL Normal (applies MEDGEN to non-numeric ([place] results) Medical Service) TRIGLYCERIDES 294 Above high normal MEDGEN mg/dL ([place] [facility]) VLDL CALCULATION 58.8 Above high normal MEDGE N mg/dl ([place] [facility]) ID Date Data Source [id number] 07/30/2019 12:00:00 AM EDT MEDGEN ([employer] [facility]) Name Value Range Interpretation Description Data Sup porting Code Source(s) Document(s ) Hemoglobin A1c 5.4 % Normal (applies to MEDGEN in Blood non-numeric ([place] results) Medical Service) ID Date Data Source [id number] 07/30/2019 12:00:00 AM EDT MEDGEN ([employer] [facility]) Name Value Range Interpretation Code Description Data Supporting Source(s) Document(s ) GLYCOMARK 14.95 Normal (applies to MEDGEN ug/mL non-numeric ([place] results) Medical Service) ID Date Data Source [id number] 07/30/2019 12:00:00 AM EDT MEDGEN ([facility]) Name Value Range Interpretation Description Data Sup porting Code Source(s) Document(s ) WBC 8.0 Normal (applies MEDGEN 10(3)/uL to non-numeric ([place] results) Medical Service) RBC 4.1 Normal (applies MEDGEN 10(6)/uL to non-numeric ([place] results) Medical Service) Hemoglobin 12.3 g/dL Normal (applies MEDGEN [Mass/volume] to non-numeric ([place] in Mixed venous results) Medical blood by Service) Oximetry MCV 90.3 fL Normal (applies MEDGEN to non-numeric ([place] results) Medical Service) Hematocrit 37.2 % Normal (applies MEDGEN [Pure volume to non-numeric ([place] fraction] of results) Medical Blood by Service) Automated count MCH 30 pg Normal (applies MEDGEN to non-numeric ([place] results) Medical Service) MCHC 33 g/dL Normal (applies MEDGEN to non-numeric ([place] results) Medical Service) RDWSD 39.4 fL Normal (applies MEDGEN to non-numeric ([place] results) Medical Service) RDWCV 12.2 % Normal (applies MEDGEN to non-numeric ([place] results) Medical Service) MPV 10.1 fL Normal (applies MEDGEN to non-numeric ([place] results) Medical Service) Platelet Count 206 Normal (applies MEDGEN 10(3)/uL to non-numeric ([place] results) Medical Service) Neutrophil Abs 5.10 Normal (applies MEDGEN 10(3)/uL to non-numeric ([place] results) Medical Service) Lymphocyte Abs 2.23 Normal (applies MEDGEN 10(3)/uL to non-numeric ([place] results) Medical Service) Monocyte Abs 0.53 Normal (applies MEDGEN 10(3)/uL to non-numeric ([place] results) Medical Service) Eosinophil Abs 0.08 Normal (applies MEDGEN 10(3)/uL to non-numeric ([place] results) Medical Service) Basophil Abs 0.04 Normal (applies MEDGEN 10(3)/uL to non-numeric ([place] results) Medical Service) Neutrophil % 64.00 % Normal (applies MEDGEN to non-numeric ([place] results) Medical Service) Immature 0.03 Normal (applies MEDGEN Granulocyte Abs 10(3)/uL to non-numeric ([place] results) Medical Service) Lymphocyte % 28 % Normal (applies MEDGEN to non-numeric ([place] results) Medical Service) Eosinophil % 1.0 % Normal (applies MEDGEN to non-numeric ([place] results) Medical Service) Monocyte % 6.6 % Normal (applies MEDGEN to non-numeric ([place] results) Medical Service) Basophil % 0.5 % Normal (applies MEDGEN to non-numeric ([place] results) Medical Service) NRBC % 0.1 % Normal (applies MEDGEN to non-numeric ([place] results) Medical Service) Immature 0.40 % Normal (applies MEDGEN Granulocyte % to non-numeric ([place] results) Medical Service) NRBC Abs 0.01 Normal (applies MEDGEN 10(3)/uL to non-numeric ([place] results) Medical Service) ID Date Data Source [id number] 07/30/2019 12:00:00 AM EDT MEDGEN ([facility] Service) Name Value Range Interpretation Description Data Sup porting Code Source(s) Document(s ) GLUCOSE UA NEGATIVE Normal (applies MEDGEN to non-numeric ([place] results) Medical Service) BILIRUBIN, TOTAL NEGATIVE Normal (applies MEDGEN to non-numeric ([place] results) Medical Service) Ketones NEGATIVE Normal (applies MEDGEN [Presence] in to non-numeric ([place] Blood by Tablet results) Medical Service) Specific gravity 1.009 SG Normal (applies MEDGEN of Pericardial units to non-numeric ([place] fluid by results) Medical Refractometry Service) Blood [Presence] NEGATIVE Normal (applies MEDGEN in Urine by to non-numeric ([place] Visual results) Medical Service) pH of Lower 6 Ph units Normal (applies MEDGEN respiratory to non-numeric ([place] specimen results) Medical Service) Protein NEGATIVE Normal (applies MEDGEN [facility]volume[facility]) specimen Urobilinogen 0-2.0 Normal (applies MEDGEN [Presence] in to non-numeric ([place] Urine by results) Medical Automated test Service) strip Nitrite NEGATIVE Normal (applies MEDGEN [Presence] in to non-numeric ([place] Urine by Test results) Medical strip Service) Leukocyte NEGATIVE Normal (applies MEDGEN esterase to non-numeric ([place] [Presence] in results) Medical Body fluid by Service) Automated test strip TRANSPARENCY CLEAR Normal (applies MEDGEN to non-numeric ([place] results) Medical Service) Color of YELLOW Normal (applies MEDGEN Peritoneal to non-numeric ([place] dialysis fluid results) Medical Service) ID Date Data Source [id number] 07/30/2019 12:00:00 AM EDT MEDGEN ([facility]) Name Value Range Interpretation Description Data Sup porting Code Source(s) Document(s ) GLUCOSE 98 mg/dL Normal (applies MEDGEN NONFASTING,SERUM to non-numeric ([facility] y results) Medical Service) SODIUM, SERUM 137 Normal (applies MEDGEN mEq/L to non-numeric ([place] results) Medical Service) POTASSIUM, SERUM 4.7 Normal (applies MEDGEN mEq/L to non-numeric ([place] results) Medical Service) CHLORIDE, SERUM 105 Normal (applies MEDGEN mEq/L to non-numeric ([place] results) Medical Service) Carbon dioxide 26 mEq/L Normal (applies MEDGEN [VFr/PPres] in to non-numeric ([place] [facility] [employer] results) Medical system Service) Anion gap in 10.7 Normal (applies MEDGEN Body fluid mEq/L to non-numeric ([place] results) Medical Service) CREATININE, 0.80 Normal (applies MEDGEN SERUM mg/dL to non-numeric ([place] results) Medical Service) BLOOD UREA 19 mg/dL Normal (applies MEDGEN NITROGEN to non-numeric ([place] results) Medical Service) CALCIUM, SERUM 9.8 Normal (applies MEDGEN mg/dL to non-numeric ([place] results) Medical Service) Microalbumin 4.8 g/dL Normal (applies MEDGEN [Mass/time] in to non-numeric ([place] Urine collected results) Medical for unspecified Service) duration TOTAL PROTEIN 7.0 g/dL Normal (applies MEDGEN to non-numeric ([place] results) Medical Service) Globulin 2.2 gldl Normal (applies MEDGEN [Mass/time] in to non-numeric ([place] 24 hour Urine results) Medical Service) BILIRUBIN, TOTAL 0.5 Normal (applies MEDGEN mg/dL to non-numeric ([place] results) Medical Service) A/G RATIO 2.18 Above high normal MEDGEN g/dl ([place] [facility]) ALKALINE 128 U/L Normal (applies MEDGEN PHOSPHATASE, ALP to non-numeric ([place] [facility] results) Medical Service) ALT (SGPT) 28 U/L Normal (applies MEDGEN to non-numeric ([place] results) Medical Service) AST 40 U/L Above high normal MEDGEN ([place] [facility]) EGFR NON AFR 74 Normal (applies MEDGEN TURKMEN mL/min/1 to non-numeric ([place] .73m2 results) Medical Service) EGFR AFR 90 Normal (applies MEDGEN TURKMEN mL/min/1 to non-numeric ([place] .73m2 results) Medical Service) ID Date Data Source [id number] 07/30/2019 12:00:00 AM EDT MEDGEN ([facility]) Name Value Range Interpretation Description Data Sup porting Code Source(s) Document(s ) Cholesterol 150 Normal (applies MEDGEN [Moles/volume] mg/dL to non-numeric ([place] in Pericardial results) Medical fluid Service) LDL CALCULATION 27.2 Normal (applies MEDGEN mg/dL to non-numeric ([place] results) Medical Service) HDL CHOLESTEROL 64 mg/dL Normal (applies MEDGEN to non-numeric ([place] results) Medical Service) CHOL/HDL RATIO 2.34 Normal (applies MEDGEN ratio to non-numeric ([place] results) Medical Service) VLDL CALCULATION 58.8 Above high normal MEDGE N mg/dl ([place] [facility]) TRIGLYCERIDES 294 Above high normal MEDGEN mg/dL ([place] [facility]) ID Date Data Source [id number] 07/30/2019 12:00:00 AM EDT MEDGEN ([employer] [facility]) Name Value Range Interpretation Description Data Sup porting Code Source(s) Document(s ) FOLATE 4.8 ng/mL Below low normal MEDGEN SERUM ([facility]) ID Date Data Source [id number] 07/30/2019 12:00:00 AM EDT MEDGEN ([employer] [facility]) Name Value Range Interpretation Description Data Sup porting Code Source(s) Document(s ) MICROALBUMIN 0.3 Normal (applies MEDGEN URINE mg/dL to non-numeric ([place] results) Medical Service) ID Date Data Source [id number] 07/30/2019 12:00:00 AM EDT MEDGEN ([employer] [facility]) Name Value Range Interpretation Description Data Sup porting Code Source(s) Document(s ) VITAMIN B12 615 pg/mL Normal (applies to MEDGEN non-numeric ([place] results) Medical Service) ID Date Data Source [id number] 07/30/2019 12:00:00 AM EDT MEDGEN ([employer] [facility]) Name Value Range Interpretation Description Data Sup porting Code Source(s) Document(s ) VITAMIN D 6.17 Below low normal MEDGEN 25-HYDROXY ng/mL ([facility]) ID Date Data Source [id number] 07/30/2019 12:00:00 AM EDT MEDGEN ([employer] [facility]) Name Value Range Interpretation Description Data Sup porting Code Source(s) Document(s ) TSH,3RD 2.72 Normal (applies to MEDGEN GENERATION uIU/mL non-numeric ([place] results) Medical Service) T4 TOTAL 5 ug/dL Normal (applies to MEDGEN THYROXINE non-numeric ([place] results) Medical Service) T3 TOTAL 71 ng/dL Normal (applies to MEDGEN non-numeric ([place] results) Medical Service) ID Date Data Source [id number] 07/30/2019 12:00:00 AM EDT MEDGEN ([employer] [facility]) Name Value Range Interpretation Description Data Sup porting Code Source(s) Document(s ) VITAMIN D 6.17 Below low normal MEDGEN 25-HYDROXY ng/mL ([facility]) ID Date Data Source [id number] 07/30/2019 12:00:00 AM EDT MEDGEN ([employer] [facility]) Name Value Range Interpretation Description Data Sup porting Code Source(s) Document(s ) TSH,3RD 2.72 Normal (applies to MEDGEN GENERATION uIU/mL non-numeric ([place] results) Medical Service) T4 TOTAL 5 ug/dL Normal (applies to MEDGEN THYROXINE non-numeric ([place] results) Medical Service) T3 TOTAL 71 ng/dL Normal (applies to MEDGEN non-numeric ([place] results) Medical Service) ID Date Data Source [id number] 07/30/2019 12:00:00 AM EDT MEDGEN ([employer] [facility]) Name Value Range Interpretation Description Data Sup porting Code Source(s) Document(s ) Hemoglobin A1c 5.4 % Normal (applies to MEDGEN in Blood non-numeric ([place] results) Medical Service) ID Date Data Source [id number] 07/30/2019 12:00:00 AM EDT MEDGEN ([employer] [facility]) Name Value Range Interpretation Code Description Data Supporting Source(s) Document(s ) GLYCOMARK 14.95 Normal (applies to MEDGEN ug/mL non-numeric ([place] results) Medical Service) ID Date Data Source [id number] 07/30/2019 12:00:00 AM EDT MEDGEN ([facility] Medical Service) Name Value Range Interpretation Description Data Sup porting Code Source(s) Document(s ) WBC 8.0 Normal (applies MEDGEN 10(3)/uL to non-numeric ([place] results) Medical Service) RBC 4.1 Normal (applies MEDGEN 10(6)/uL to non-numeric ([place] results) Medical Service) Hemoglobin 12.3 g/dL Normal (applies MEDGEN [Mass/volume] to non-numeric ([place] in Mixed venous results) Medical blood by Service) Oximetry Hematocrit 37.2 % Normal (applies MEDGEN [Pure volume to non-numeric ([place] fraction] of results) Medical Blood by Service) Automated count MCV 90.3 fL Normal (applies MEDGEN to non-numeric ([place] results) Medical Service) MCH 30 pg Normal (applies MEDGEN to non-numeric ([place] results) Medical Service) MCHC 33 g/dL Normal (applies MEDGEN to non-numeric ([place] results) Medical Service) RDWSD 39.4 fL Normal (applies MEDGEN to non-numeric ([place] results) Medical Service) RDWCV 12.2 % Normal (applies MEDGEN to non-numeric ([place] results) Medical Service) Platelet Count 206 Normal (applies MEDGEN 10(3)/uL to non-numeric ([place] results) Medical Service) MPV 10.1 fL Normal (applies MEDGEN to non-numeric ([place] results) Medical Service) Neutrophil Abs 5.10 Normal (applies MEDGEN 10(3)/uL to non-numeric ([place] results) Medical Service) Lymphocyte Abs 2.23 Normal (applies MEDGEN 10(3)/uL to non-numeric ([place] results) Medical Service) Monocyte Abs 0.53 Normal (applies MEDGEN 10(3)/uL to non-numeric ([place] results) Medical Service) Eosinophil Abs 0.08 Normal (applies MEDGEN 10(3)/uL to non-numeric ([place] results) Medical Service) Basophil Abs 0.04 Normal (applies MEDGEN 10(3)/uL to non-numeric ([place] results) Medical Service) Immature 0.03 Normal (applies MEDGEN Granulocyte Abs 10(3)/uL to non-numeric ([place] results) Medical Service) Neutrophil % 64.00 % Normal (applies MEDGEN to non-numeric ([place] results) Medical Service) Lymphocyte % 28 % Normal (applies MEDGEN to non-numeric ([place] results) Medical Service) Monocyte % 6.6 % Normal (applies MEDGEN to non-numeric ([place] results) Medical Service) Eosinophil % 1.0 % Normal (applies MEDGEN to non-numeric ([place] results) Medical Service) Basophil % 0.5 % Normal (applies MEDGEN to non-numeric ([place] results) Medical Service) NRBC % 0.1 % Normal (applies MEDGEN to non-numeric ([place] results) Medical Service) Immature 0.40 % Normal (applies MEDGEN Granulocyte % to non-numeric ([place] results) Medical Service) NRBC Abs 0.01 Normal (applies MEDGEN 10(3)/uL to non-numeric ([place] results) Medical Service) ID Date Data Source [id number] 07/30/2019 12:00:00 AM EDT MEDGEN ([facility]) Name Value Range Interpretation Description Data Sup porting Code Source(s) Document(s ) GLUCOSE UA NEGATIVE Normal (applies MEDGEN to non-numeric ([place] results) Medical Service) BILIRUBIN, TOTAL NEGATIVE Normal (applies MEDGEN to non-numeric ([place] results) Medical Service) Ketones NEGATIVE Normal (applies MEDGEN [Presence] in to non-numeric ([place] Blood by Tablet results) Medical Service) Specific gravity 1.009 SG Normal (applies MEDGEN of Pericardial units to non-numeric ([place] fluid by results) Medical Refractometry Service) pH of Lower 6 Ph units Normal (applies MEDGEN respiratory to non-numeric ([place] specimen results) Medical Service) Blood [Presence] NEGATIVE Normal (applies MEDGEN in Urine by to non-numeric ([place] Visual results) Medical Service) Protein NEGATIVE Normal ([facility]lies [facility]) specimen Urobilinogen 0-2.0 Normal (applies MEDGEN [Presence] in to non-numeric ([place] Urine by results) Medical Automated test Service) strip Nitrite NEGATIVE Normal (applies MEDGEN [Presence] in to non-numeric ([place] Urine by Test results) Medical strip Service) Leukocyte NEGATIVE Normal (applies MEDGEN esterase to non-numeric ([place] [Presence] in results) Medical Body fluid by Service) Automated test strip Color of YELLOW Normal (applies MEDGEN Peritoneal to non-numeric ([place] dialysis fluid results) Medical Service) TRANSPARENCY CLEAR Normal (applies MEDGEN to non-numeric ([place] results) Medical Service) ID Date Data Source [id number] 07/30/2019 12:00:00 AM EDT MEDGEN ([facility]) Name Value Range Interpretation Description Data Sup porting Code Source(s) Document(s ) SODIUM, SERUM 137 Normal (applies MEDGEN mEq/L to non-numeric ([place] results) Medical Service) GLUCOSE 98 mg/dL Normal (applies MEDGEN NONFASTING,SERUM to non-numeric ([facility] y results) Medical Service) POTASSIUM, SERUM 4.7 Normal (applies MEDGEN mEq/L to non-numeric ([place] results) Medical Service) CHLORIDE, SERUM 105 Normal (applies MEDGEN mEq/L to non-numeric ([place] results) Medical Service) Carbon dioxide 26 mEq/L Normal (applies MEDGEN [VFr/PPres] in to non-numeric ([place] [employer] results) Medical system Service) Anion gap in 10.7 Normal (applies MEDGEN Body fluid mEq/L to non-numeric ([place] results) Medical Service) BLOOD UREA 19 mg/dL Normal (applies MEDGEN NITROGEN to non-numeric ([place] results) Medical Service) CREATININE, 0.80 Normal (applies MEDGEN SERUM mg/dL to non-numeric ([place] results) Medical Service) CALCIUM, SERUM 9.8 Normal (applies MEDGEN mg/dL to non-numeric ([place] results) Medical Service) TOTAL PROTEIN 7.0 g/dL Normal (applies MEDGEN to non-numeric ([place] results) Medical Service) Globulin 2.2 gldl Normal (applies MEDGEN [Mass/time] in to non-numeric ([place] 24 hour Urine results) Medical Service) Microalbumin 4.8 g/dL Normal (applies MEDGEN [Mass/time] in to non-numeric ([place] Urine collected results) Medical for unspecified Service) duration A/G RATIO 2.18 Above high normal MEDGEN g/dl ([place] Medical Service) BILIRUBIN, TOTAL 0.5 Normal (applies MEDGEN mg/dL to non-numeric ([place] results) Medical Service) ALKALINE 128 U/L Normal (applies MEDGEN PHOSPHATASE, ALP to non-numeric ([facility] results) Medical Service) ALT (SGPT) 28 U/L Normal (applies MEDGEN to non-numeric ([place] results) Medical Service) AST 40 U/L Above high normal MEDGEN ([employer] Medical Service) EGFR NON AFR 74 Normal (applies MEDGEN TURKMEN mL/min/1 to non-numeric ([place] .73m2 results) Medical Service) EGFR AFR 90 Normal (applies MEDGEN TURKMEN mL/min/1 to non-numeric ([place] .73m2 results) Medical Service) ID Date Data Source [id number] 07/30/2019 12:00:00 AM EDT MEDGEN ([employer] [facility]) Name Value Range Interpretation Description Data Sup porting Code Source(s) Document(s ) FOLATE 4.8 ng/mL Below low normal MEDGEN SERUM ([employer] [facility]) ID Date Data Source [id number] 07/30/2019 12:00:00 AM EDT MEDGEN ([employer] [facility]) Name Value Range Interpretation Description Data Sup porting Code Source(s) Document(s ) MICROALBUMIN 0.3 Normal (applies MEDGEN URINE mg/dL to non-numeric ([place] results) Medical Service) ID Date Data Source [id number] 07/30/2019 12:00:00 AM EDT MEDGEN ([employer] [facility]) Name Value Range Interpretation Description Data Sup porting Code Source(s) Document(s ) VITAMIN B12 615 pg/mL Normal (applies to MEDGEN non-numeric ([place] results) Medical Service) ID Date Data Source [id number] 07/30/2019 12:00:00 AM EDT MEDGEN ([employer] [facility]) Name Value Range Interpretation Description Data Sup porting Code Source(s) Document(s ) VITAMIN D 6.17 Below low normal MEDGEN 25-HYDROXY ng/mL ([employer] [facility]) ID Date Data Source [id number] 07/30/2019 12:00:00 AM EDT MEDGEN [employer] [facility]) Name Value Range Interpretation Description Data Sup porting Code Source(s) Document(s ) TSH,3RD 2.72 Normal (applies to MEDGEN GENERATION uIU/mL non-numeric ([place] results) Medical Service) T3 TOTAL 71 ng/dL Normal (applies to MEDGEN non-numeric ([place] results) Medical Service) T4 TOTAL 5 ug/dL Normal (applies to MEDGEN THYROXINE non-numeric ([place] results) Medical Service) ID Date Data Source [id number] 12/07/2018 12:00:00 AM EST MEDGEN ([facility]) Name Value Range Interpretation Description Data Sup porting Code Source(s) Document(s ) TSH,3RD 2.50 Normal (applies to MEDGEN GENERATION uIU/mL non-numeric ([place] results) Medical Service) T3 TOTAL 101 ng/dL Normal (applies to MEDGEN non-numeric ([place] results) Medical Service) T4 TOTAL 6.9 ug/dL Normal (applies to MEDGEN THYROXINE non-numeric ([place] results) Medical Service) ID Date Data Source [id number] 12/07/2018 12:00:00 AM EST MEDGEN ([facility]) Name Value Range Interpretation Description Data Sup porting Code Source(s) Document(s ) GLUCOSE UA NEGATIVE Normal (applies MEDGEN to non-numeric ([place] results) Medical Service) BILIRUBIN, TOTAL NEGATIVE Normal (applies MEDGEN to non-numeric ([place] results) Medical Service) Ketones NEGATIVE Normal (applies MEDGEN [Presence] in to non-numeric ([place] Blood by Tablet results) Medical Service) Specific gravity 1.015 SG Normal (applies MEDGEN of Pericardial units to non-numeric ([place] fluid by results) Medical Refractometry Service) Blood [Presence] NEGATIVE Normal (applies MEDGEN in Urine by to non-numeric ([place] Visual results) Medical Service) pH of Lower 6.0 Ph Normal (applies MEDGEN respiratory units to non-numeric ([place] specimen results) Medical Service) Protein NEGATIVE Normal (applies MEDGEN [Mass/volume] in to non-numeric ([place] [facility] Lower results) Medical respiratory Service) specimen Urobilinogen 0.2^E.U./dL Normal (applies MEDGEN [Presence] in to non-numeric ([place] Urine by results) Medical Automated test Service) strip Nitrite NEGATIVE Normal (applies MEDGEN [Presence] in to non-numeric ([place] Urine by Test results) Medical strip Service) Color of YELLOW Normal (applies MEDGEN Peritoneal to non-numeric ([place] dialysis fluid results) Medical Service) Leukocyte NEGATIVE Normal (applies MEDGEN esterase to non-numeric ([place] [Presence] in results) Medical Body fluid by Service) Automated test strip TRANSPARENCY TURBID Normal (applies MEDGEN to non-numeric ([place] results) Medical Service) ID Date Data Source [id number] 12/07/2018 12:00:00 AM EST MEDGEN ([facility] [employer] Medical Service) Name Value Range Interpretation Description Data Sup porting Code Source(s) Document(s ) Eosinophil Abs 0.21 Normal (applies to MEDGEN 10(3)/uL non-numeric ([place] results) Medical Service) ID Date Data Source [id number] 12/07/2018 12:00:00 AM EST MEDGEN ([facility] [employer] Medical Service) Name Value Range Interpretation Description Data Sup porting Code Source(s) Document(s ) Hemoglobin A1c 5.4 % Normal (applies to MEDGEN in Blood non-numeric ([place] results) Medical Service) ID Date Data Source [id number] 12/07/2018 12:00:00 AM EST MEDGEN ([facility] [employer] Medical Service) Name Value Range Interpretation Code Description Data Supporting Source(s) Document(s ) GLYCOMARK 17.51 Normal (applies to MEDGEN ug/mL non-numeric ([place] results) Medical Service) ID Date Data Source [id number] 12/07/2018 12:00:00 AM EST MEDGEN ([facility] [employer] Medical Service) Name Value Range Interpretation Description Data Sup porting Code Source(s) Document(s ) WBC 7.7 Normal (applies MEDGEN 10(3)/uL to non-numeric ([place] results) Medical Service) RBC 4.7 Normal (applies MEDGEN 10(6)/uL to non-numeric ([place] results) Medical Service) Hemoglobin 14.0 g/dL Normal (applies MEDGEN [Mass/volume] to non-numeric ([place] in Mixed venous results) Medical blood by Service) Oximetry Hematocrit 41.0 % Normal (applies MEDGEN [Pure volume to non-numeric ([place] fraction] of results) Medical Blood by Service) Automated count MCV 86.5 fL Normal (applies MEDGEN to non-numeric ([place] results) Medical Service) MCH 30 pg Normal (applies MEDGEN to non-numeric ([place] results) Medical Service) MCHC 34 g/dL Normal (applies MEDGEN to non-numeric ([place] results) Medical Service) RDWSD 38.8 fL Normal (applies MEDGEN to non-numeric ([place] results) Medical Service) RDWCV 12.4 % Normal (applies MEDGEN to non-numeric ([place] results) Medical Service) Platelet Count 255 Normal (applies MEDGEN 10(3)/uL to non-numeric ([place] results) Medical Service) MPV 10.8 fL Normal (applies MEDGEN to non-numeric ([place] results) Medical Service) Neutrophil Abs 4.81 Normal (applies MEDGEN 10(3)/uL to non-numeric ([place] results) Medical Service) Lymphocyte Abs 2.01 Normal (applies MEDGEN 10(3)/uL to non-numeric ([place] results) Medical Service) Monocyte Abs 0.54 Normal (applies MEDGEN 10(3)/uL to non-numeric ([place] results) Medical Service) Immature 0.09 Above high normal MEDGEN Granulocyte Abs 10(3)/uL ([place] Medical Service) Neutrophil % 62.60 % Normal (applies MEDGEN to non-numeric ([place] results) Medical Service) Lymphocyte % 26 % Normal (applies MEDGEN to non-numeric ([place] results) Medical Service) Eosinophil % 2.7 % Normal (applies MEDGEN to non-numeric ([place] results) Medical Service) Monocyte % 7.0 % Normal (applies MEDGEN to non-numeric ([place] results) Medical Service) Basophil % 0.4 % Normal (applies MEDGEN to non-numeric ([place] results) Medical Service) Immature 1.20 % Above high normal MEDGEN Granulocyte % ([place] Medical Service) ID Date Data Source [id number] 12/07/2018 12:00:00 AM EST MEDGEN ([facility] Medical Service) Name Value Range Interpretation Description Data Sup porting Code Source(s) Document(s ) SODIUM, SERUM 146 Normal (applies MEDGEN mEq/L to non-numeric ([place] results) Medical Service) GLUCOSE 113 Normal (applies MEDGEN NONFASTING,SERUM mg/dL to non-numeric ([facility] y results) Medical Service) POTASSIUM, SERUM 4.9 Normal (applies MEDGEN mEq/L to non-numeric ([place] results) Medical Service) CHLORIDE, SERUM 107 Normal (applies MEDGEN mEq/L to non-numeric ([place] results) Medical Service) Carbon dioxide 27 mEq/L Normal (applies MEDGEN [VFr/PPres] in to non-numeric ([place] [employer] results) Medical system Service) BLOOD UREA 13 mg/dL Normal (applies MEDGEN NITROGEN to non-numeric ([place] results) Medical Service) Anion gap in 17 mEq/L Above high normal MEDGEN Body fluid ([place] Medical Service) CREATININE, 0.80 Normal (applies MEDGEN SERUM mg/dL to non-numeric ([place] results) Medical Service) CALCIUM, SERUM 10.3 Normal (applies MEDGEN mg/dL to non-numeric ([place] results) Medical Service) TOTAL PROTEIN 8.0 g/dL Normal (applies MEDGEN to non-numeric ([place] results) Medical Service) Microalbumin 5.0 g/dL Above high normal MEDGEN [Mass/time] in ([place] Urine collected Medical for unspecified Service) duration Globulin 3.0 gldl Normal (applies MEDGEN [Mass/time] in to non-numeric ([place] 24 hour Urine results) Medical Service) A/G RATIO 1.67 Normal (applies MEDGEN g/dl to non-numeric ([place] results) Medical Service) BILIRUBIN, TOTAL 0.6 Normal (applies MEDGEN mg/dL to non-numeric ([place] results) Medical Service) ALT (SGPT) 39 U/L Normal (applies MEDGEN to non-numeric ([place] results) Medical Service) ALKALINE 116 U/L Normal (applies MEDGEN PHOSPHATASE, ALP to non-numeric ([facility] results) Medical Service) AST 41 U/L Above high normal MEDGEN ([place] Medical Service) EGFR NON AFR 75 Above high normal MEDGEN TURKMEN mL/min/1 ([place] .73m2 Medical Service) EGFR AFR 90 Above high normal MEDGEN TURKMEN mL/min/1 ([place] .73m2 Medical Service) ID Date Data Source [id number] 12/07/2018 12:00:00 AM EST MEDGEN ([facility]) Name Value Range Interpretation Description Data Sup porting Code Source(s) Document(s ) TSH,3RD 2.50 Normal (applies to MEDGEN GENERATION uIU/mL non-numeric ([place] results) Medical Service) T4 TOTAL 6.9 ug/dL Normal (applies to MEDGEN THYROXINE non-numeric ([place] results) Medical Service) T3 TOTAL 101 ng/dL Normal (applies to MEDGEN non-numeric ([place] results) Medical Service) ID Date Data Source [id number] 12/07/2018 12:00:00 AM EST MEDGEN ([facility] [employer] [facility]) Name Value Range Interpretation Description Data Sup porting Code Source(s) Document(s ) GLUCOSE UA NEGATIVE Normal (applies MEDGEN to non-numeric ([place] results) Medical Service) BILIRUBIN, TOTAL NEGATIVE Normal (applies MEDGEN to non-numeric ([place] results) Medical Service) Ketones NEGATIVE Normal (applies MEDGEN [Presence] in to non-numeric ([place] Blood by Tablet results) Medical Service) Specific gravity 1.015 SG Normal (applies MEDGEN of Pericardial units to non-numeric ([place] fluid by results) Medical Refractometry Service) Blood [Presence] NEGATIVE Normal (applies MEDGEN in Urine by to non-numeric ([place] Visual results) Medical Service) pH of Lower 6.0 Ph Normal (applies MEDGEN respiratory units to non-numeric ([place] specimen results) Medical Service) Protein NEGATIVE Normal (applies MEDGEN [Mass/volume] in [facility] Medical respiratory Service) specimen Urobilinogen 0.2^E.U./dL Normal (applies MEDGEN [Presence] in to non-numeric ([place] Urine by results) Medical Automated test Service) strip Nitrite NEGATIVE Normal (applies MEDGEN [Presence] in to non-numeric ([place] Urine by Test results) Medical strip Service) Color of YELLOW Normal (applies MEDGEN Peritoneal to non-numeric ([place] dialysis fluid results) Medical Service) Leukocyte NEGATIVE Normal (applies MEDGEN esterase to non-numeric ([place] [Presence] in results) Medical Body fluid by Service) Automated test strip TRANSPARENCY TURBID Normal (applies MEDGEN to non-numeric ([place] results) Medical Service) ID Date Data Source [id number] 12/07/2018 12:00:00 AM EST MEDGEN ([employer] [facility]) Name Value Range Interpretation Description Data Sup porting Code Source(s) Document(s ) Eosinophil Abs 0.21 Normal (applies to MEDGEN 10(3)/uL non-numeric ([place] results) Medical Service) ID Date Data Source [id number] 12/07/2018 12:00:00 AM EST MEDGEN ([employer]) Name Value Range Interpretation Description Data Sup porting Code Source(s) Document(s ) Hemoglobin A1c 5.4 % Normal (applies to MEDGEN in Blood non-numeric ([place] results) Medical Service) ID Date Data Source [id number] 12/07/2018 12:00:00 AM EST MEDGEN ([employer]) Name Value Range Interpretation Code Description Data Supporting Source(s) Document(s ) GLYCOMARK 17.51 Normal (applies to MEDGEN ug/mL non-numeric ([place] results) Medical Service) ID Date Data Source [id number] 12/07/2018 12:00:00 AM EST MEDGEN ([facility] Medical Service) Name Value Range Interpretation Description Data Sup porting Code Source(s) Document(s ) WBC 7.7 Normal (applies MEDGEN 10(3)/uL to non-numeric ([place] results) Medical Service) RBC 4.7 Normal (applies MEDGEN 10(6)/uL to non-numeric ([place] results) Medical Service) Hemoglobin 14.0 g/dL Normal (applies MEDGEN [Mass/volume] to non-numeric ([place] in Mixed venous results) Medical blood by Service) Oximetry Hematocrit 41.0 % Normal (applies MEDGEN [Pure volume to non-numeric ([place] fraction] of results) Medical Blood by Service) Automated count MCV 86.5 fL Normal (applies MEDGEN to non-numeric ([place] results) Medical Service) MCH 30 pg Normal (applies MEDGEN to non-numeric ([place] results) Medical Service) MCHC 34 g/dL Normal (applies MEDGEN to non-numeric ([place] results) Medical Service) RDWSD 38.8 fL Normal (applies MEDGEN to non-numeric ([place] results) Medical Service) RDWCV 12.4 % Normal (applies MEDGEN to non-numeric ([place] results) Medical Service) MPV 10.8 fL Normal (applies MEDGEN to non-numeric ([place] results) Medical Service) Platelet Count 255 Normal (applies MEDGEN 10(3)/uL to non-numeric ([place] results) Medical Service) Neutrophil Abs 4.81 Normal (applies MEDGEN 10(3)/uL to non-numeric ([place] results) Medical Service) Lymphocyte Abs 2.01 Normal (applies MEDGEN 10(3)/uL to non-numeric ([place] results) Medical Service) Monocyte Abs 0.54 Normal (applies MEDGEN 10(3)/uL to non-numeric ([place] results) Medical Service) Immature 0.09 Above high normal MEDGEN Granulocyte Abs 10(3)/uL ([place] Medical Service) Neutrophil % 62.60 % Normal (applies MEDGEN to non-numeric ([place] results) Medical Service) Lymphocyte % 26 % Normal (applies MEDGEN to non-numeric ([place] results) Medical Service) Monocyte % 7.0 % Normal (applies MEDGEN to non-numeric ([place] results) Medical Service) Eosinophil % 2.7 % Normal (applies MEDGEN to non-numeric ([place] results) Medical Service) Basophil % 0.4 % Normal (applies MEDGEN to non-numeric ([place] results) Medical Service) Immature 1.20 % Above high normal MEDGEN Granulocyte % ([place] Medical Service) ID Date Data Source [id number] 12/07/2018 12:00:00 AM EST MEDGEN ([facility]) Name Value Range Interpretation Description Data Sup porting Code Source(s) Document(s ) GLUCOSE 113 Normal (applies MEDGEN NONFASTING,SERUM mg/dL to non-numeric ([facility] y results) Medical Service) SODIUM, SERUM 146 Normal (applies MEDGEN mEq/L to non-numeric ([place] results) Medical Service) POTASSIUM, SERUM 4.9 Normal (applies MEDGEN mEq/L to non-numeric ([place] results) Medical Service) CHLORIDE, SERUM 107 Normal (applies MEDGEN mEq/L to non-numeric ([place] results) Medical Service) Carbon dioxide 27 mEq/L Normal (applies MEDGEN [VFr/PPres] in to non-numeric ([place] [employer] results) Medical system Service) Anion gap in 17 mEq/L Above high normal MEDGEN Body fluid ([place] Medical Service) BLOOD UREA 13 mg/dL Normal (applies MEDGEN NITROGEN to non-numeric ([place] results) Medical Service) CREATININE, 0.80 Normal (applies MEDGEN SERUM mg/dL to non-numeric ([place] results) Medical Service) CALCIUM, SERUM 10.3 Normal (applies MEDGEN mg/dL to non-numeric ([place] results) Medical Service) TOTAL PROTEIN 8.0 g/dL Normal (applies MEDGEN to non-numeric ([place] results) Medical Service) Microalbumin 5.0 g/dL Above high normal MEDGEN [Mass/time] in ([place] Urine collected Medical for unspecified Service) duration Globulin 3.0 gldl Normal (applies MEDGEN [Mass/time] in to non-numeric ([place] 24 hour Urine results) Medical Service) A/G RATIO 1.67 Normal (applies MEDGEN g/dl to non-numeric ([place] results) Medical Service) BILIRUBIN, TOTAL 0.6 Normal (applies MEDGEN mg/dL to non-numeric ([place] results) Medical Service) ALKALINE 116 U/L Normal (applies MEDGEN PHOSPHATASE, ALP to non-numeric ([facility] y results) Medical Service) ALT (SGPT) 39 U/L Normal (applies MEDGEN to non-numeric ([place] results) Medical Service) AST 41 U/L Above high normal MEDGEN ([place] Medical Service) EGFR NON AFR 75 Above high normal MEDGEN TURKMEN mL/min/1 ([place] .73m2 Medical Service) EGFR AFR 90 Above high normal MEDGEN TURKMEN mL/min/1 ([place] .73 Medical Service) ID Date Data Source [id number] 12/07/2018 12:00:00 AM EST MEDGEN ([facility]) Name Value Range Interpretation Description Data Sup porting Code Source(s) Document(s ) Cholesterol 238 Above high normal MEDGEN [Moles/volume] mg/dL ([place] in Pericardial Medical fluid Service) CHOL/HDL RATIO 4.49 Normal (applies MEDGEN ratio to non-numeric ([place] results) Medical Service) LDL CALCULATION 83.4 Normal (applies MEDGEN mg/dL to non-numeric ([place] results) Medical Service) HDL CHOLESTEROL 53 mg/dL Above high normal MEDGEN ([place] Medical Service) VLDL CALCULATION 101.6 Above high normal MEDGE N mg/dl ([place] Medical Service) TRIGLYCERIDES 508 Above high normal MEDGEN mg/dL ([place] Medical Service) ID Date Data Source [id number] 12/07/2018 12:00:00 AM EST MEDGEN ([facility]) Name Value Range Interpretation Description Data Sup porting Code Source(s) Document(s ) FOLATE 7.5 ng/mL Above high normal MEDGEN SERUM ([place] Medical Service) ID Date Data Source [id number] 12/07/2018 12:00:00 AM EST MEDGEN ([facility]) Name Value Range Interpretation Code Description Data Nakia rce(s) Supporting Document(s ) VITAMIN B12 481 Normal (applies to MEDGEN non-numeric ([place] results) Medical Service) ID Date Data Source [id number] 12/07/2018 12:00:00 AM EST MEDGEN ([facility]) Name Value Range Interpretation Description Data Sup porting Code Source(s) Document(s ) VITAMIN D 16.15 Below low normal MEDGEN 25-HYDROXY ng/mL ([place] [facility]) ID Date Data Source [id number] 12/07/2018 12:00:00 AM EST MEDGEN ([facility]) Name Value Range Interpretation Description Data Sup porting Code Source(s) Document(s ) Cholesterol 238 Above high normal MEDGEN [Moles/volume] mg/dL ([place] in Pericardial Medical fluid Service) LDL CALCULATION 83.4 Normal (applies MEDGEN mg/dL to non-numeric ([place] results) Medical Service) CHOL/HDL RATIO 4.49 Normal (applies MEDGEN ratio to non-numeric ([place] results) Medical Service) VLDL CALCULATION 101.6 Above high normal MEDGE N mg/dl ([place] [facility]) HDL CHOLESTEROL 53 mg/dL Above high normal MEDGEN ([place] [facility]) TRIGLYCERIDES 508 Above high normal MEDGEN mg/dL ([place] [facility]) ID Date Data Source [id number] 12/07/2018 12:00:00 AM EST MEDGEN ([facility]) Name Value Range Interpretation Description Data Sup porting Code Source(s) Document(s ) FOLATE 7.5 ng/mL Above high normal MEDGEN SERUM ([place] [facility]) ID Date Data Source [id number] 12/07/2018 12:00:00 AM EST MEDGEN ([facility]) Name Value Range Interpretation Code Description Data Nakia rce(s) Supporting Document(s ) VITAMIN B12 481 Normal (applies to MEDGEN non-numeric ([place] results) Medical Service) ID Date Data Source [id number] 12/07/2018 12:00:00 AM EST MEDGEN ([facility] [employer] [facility]) Name Value Range Interpretation Description Data Sup porting Code Source(s) Document(s ) VITAMIN D 16.15 Below low normal MEDGEN 25-HYDROXY ng/mL ([facility]) ID Date Data Source [id number] 12/07/2018 12:00:00 AM EST MEDGEN ([facility]) Name Value Range Interpretation Description Data Sup porting Code Source(s) Document(s ) GLUCOSE UA NEGATIVE Normal (applies MEDGEN to non-numeric ([place] results) Medical Service) BILIRUBIN, TOTAL NEGATIVE Normal (applies MEDGEN to non-numeric ([place] results) Medical Service) Ketones NEGATIVE Normal (applies MEDGEN [Presence] in to non-numeric ([place] Blood by Tablet results) Medical Service) Specific gravity 1.015 SG Normal (applies MEDGEN of Pericardial units to non-numeric ([place] fluid by results) Medical Refractometry Service) Blood [Presence] NEGATIVE Normal (applies MEDGEN in Urine by to non-numeric ([place] Visual results) Medical Service) pH of Lower 6.0 Ph Normal (applies MEDGEN respiratory units to non-numeric ([place] specimen results) Medical Service) Protein NEGATIVE Normal (applies MEDGEN [Mass/volume] in to non-numeric ([place] [facility] Lower results) Medical respiratory Service) specimen Nitrite NEGATIVE Normal (applies MEDGEN [Presence] in to non-numeric ([place] Urine by Test results) Medical strip Service) Urobilinogen 0.2^E.U./dL Normal (applies MEDGEN [Presence] in to non-numeric ([place] Urine by results) Medical Automated test Service) strip Leukocyte NEGATIVE Normal (applies MEDGEN esterase to non-numeric ([place] [Presence] in results) Medical Body fluid by Service) Automated test strip Color of YELLOW Normal (applies MEDGEN Peritoneal to non-numeric ([place] dialysis fluid results) Medical Service) TRANSPARENCY TURBID Normal (applies MEDGEN to non-numeric ([place] results) Medical Service) ID Date Data Source [id number] 12/07/2018 12:00:00 AM EST MEDGEN ([employer] [facility]) Name Value Range Interpretation Description Data Sup porting Code Source(s) Document(s ) Eosinophil Abs 0.21 Normal (applies to MEDGEN 10(3)/uL non-numeric ([place] results) Medical Service) ID Date Data Source [id number] 12/07/2018 12:00:00 AM EST MEDGEN ([employer] [facility]) Name Value Range Interpretation Description Data Sup porting Code Source(s) Document(s ) Hemoglobin A1c 5.4 % Normal (applies to MEDGEN in Blood non-numeric ([place] results) Medical Service) ID Date Data Source [id number] 12/07/2018 12:00:00 AM EST MEDGEN ([employer] [facility]) Name Value Range Interpretation Code Description Data Supporting Source(s) Document(s ) GLYCOMARK 17.51 Normal (applies to MEDGEN ug/mL non-numeric ([place] results) Medical Service) ID Date Data Source [id number] 12/07/2018 12:00:00 AM EST MEDGEN ([employer] [facility]) Name Value Range Interpretation Description Data Sup porting Code Source(s) Document(s ) WBC 7.7 Normal (applies MEDGEN 10(3)/uL to non-numeric ([place] results) Medical Service) RBC 4.7 Normal (applies MEDGEN 10(6)/uL to non-numeric ([place] results) Medical Service) Hemoglobin 14.0 g/dL Normal (applies MEDGEN [Mass/volume] to non-numeric ([place] in Mixed venous results) Medical blood by Service) Oximetry Hematocrit 41.0 % Normal (applies MEDGEN [Pure volume to non-numeric ([place] fraction] of results) Medical Blood by Service) Automated count MCV 86.5 fL Normal (applies MEDGEN to non-numeric ([place] results) Medical Service) MCH 30 pg Normal (applies MEDGEN to non-numeric ([place] results) Medical Service) MCHC 34 g/dL Normal (applies MEDGEN to non-numeric ([place] results) Medical Service) RDWSD 38.8 fL Normal (applies MEDGEN to non-numeric ([place] results) Medical Service) RDWCV 12.4 % Normal (applies MEDGEN to non-numeric ([place] results) Medical Service) Platelet Count 255 Normal (applies MEDGEN 10(3)/uL to non-numeric ([place] results) Medical Service) MPV 10.8 fL Normal (applies MEDGEN to non-numeric ([place] results) Medical Service) Neutrophil Abs 4.81 Normal (applies MEDGEN 10(3)/uL to non-numeric ([place] results) Medical Service) Lymphocyte Abs 2.01 Normal (applies MEDGEN 10(3)/uL to non-numeric ([place] results) Medical Service) Monocyte Abs 0.54 Normal (applies MEDGEN 10(3)/uL to non-numeric ([place] results) Medical Service) Immature 0.09 Above high normal MEDGEN Granulocyte Abs 10(3)/uL ([facility] [facility]) Neutrophil % 62.60 % Normal (applies MEDGEN to non-numeric ([place] results) Medical Service) Lymphocyte % 26 % Normal (applies MEDGEN to non-numeric ([place] results) Medical Service) Monocyte % 7.0 % Normal (applies MEDGEN to non-numeric ([place] results) Medical Service) Eosinophil % 2.7 % Normal (applies MEDGEN to non-numeric ([place] results) Medical Service) Basophil % 0.4 % Normal (applies MEDGEN to non-numeric ([place] results) Medical Service) Immature 1.20 % Above high normal MEDGEN Granulocyte % ([place] [facility]) ID Date Data Source [id number] 12/07/2018 12:00:00 AM EST MEDGEN ([facility]) Name Value Range Interpretation Description Data Sup porting Code Source(s) Document(s ) GLUCOSE 113 Normal (applies MEDGEN NONFASTING,SERUM mg/dL to non-numeric ([facility] y results) Medical Service) SODIUM, SERUM 146 Normal (applies MEDGEN mEq/L to non-numeric ([place] results) Medical Service) POTASSIUM, SERUM 4.9 Normal (applies MEDGEN mEq/L to non-numeric ([place] results) Medical Service) CHLORIDE, SERUM 107 Normal (applies MEDGEN mEq/L to non-numeric ([place] results) Medical Service) Carbon dioxide 27 mEq/L Normal (applies MEDGEN [VFr/PPres] in to non-numeric ([place] [employer] results) Medical system Service) Anion gap in 17 mEq/L Above high normal MEDGEN Body fluid ([place] [facility]) BLOOD UREA 13 mg/dL Normal (applies MEDGEN NITROGEN to non-numeric ([place] results) Medical Service) CREATININE, 0.80 Normal (applies MEDGEN SERUM mg/dL to non-numeric ([place] results) Medical Service) CALCIUM, SERUM 10.3 Normal (applies MEDGEN mg/dL to non-numeric ([place] results) Medical Service) TOTAL PROTEIN 8.0 g/dL Normal (applies MEDGEN to non-numeric ([place] results) Medical Service) Microalbumin 5.0 g/dL Above high normal MEDGEN [Mass/time] in ([place] Urine collected Medical for unspecified Service) duration Globulin 3.0 gldl Normal (applies MEDGEN [Mass/time] in to non-numeric ([place] 24 hour Urine results) Medical Service) A/G RATIO 1.67 Normal (applies MEDGEN g/dl to non-numeric ([place] results) Medical Service) BILIRUBIN, TOTAL 0.6 Normal (applies MEDGEN mg/dL to non-numeric ([place] results) Medical Service) ALKALINE 116 U/L Normal (applies MEDGEN PHOSPHATASE, ALP to non-numeric ([facility] y results) Medical Service) ALT (SGPT) 39 U/L Normal (applies MEDGEN to non-numeric ([place] results) Medical Service) AST 41 U/L Above high normal MEDGEN ([place] [facility]) EGFR NON AFR 75 Above high normal MEDGEN TURKMEN mL/min/1 ([place] .73m2 Medical Service) EGFR AFR 90 Above high normal MEDGEN TURKMEN mL/min/1 ([place] .73m2 Medical Service) ID Date Data Source [id number] 12/07/2018 12:00:00 AM EST MEDGEN ([facility]) Name Value Range Interpretation Description Data Sup porting Code Source(s) Document(s ) Cholesterol 238 Above high normal MEDGEN [Moles/volume] mg/dL ([place] in Pericardial Medical fluid Service) LDL CALCULATION 83.4 Normal (applies MEDGEN mg/dL to non-numeric ([place] results) Medical Service) CHOL/HDL RATIO 4.49 Normal (applies MEDGEN ratio to non-numeric ([place] results) Medical Service) HDL CHOLESTEROL 53 mg/dL Above high normal MEDGEN ([place] [facility]) VLDL CALCULATION 101.6 Above high normal MEDGE N mg/dl ([place] [facility]) TRIGLYCERIDES 508 Above high normal MEDGEN mg/dL ([place] [facility]) ID Date Data Source [id number] 12/07/2018 12:00:00 AM EST MEDGEN ([facility]) Name Value Range Interpretation Description Data Sup porting Code Source(s) Document(s ) FOLATE 7.5 ng/mL Above high normal MEDGEN SERUM ([place] [facility]) ID Date Data Source [id number] 12/07/2018 12:00:00 AM EST MEDGEN ([facility]) Name Value Range Interpretation Code Description Data Nakia rce(s) Supporting Document(s ) VITAMIN B12 481 Normal (applies to MEDGEN non-numeric ([place] results) Medical Service) ID Date Data Source [id number] 12/07/2018 12:00:00 AM EST MEDGEN ([facility] [employer] [facility]) Name Value Range Interpretation Description Data Sup porting Code Source(s) Document(s ) VITAMIN D 16.15 Below low normal MEDGEN 25-HYDROXY ng/mL ([place] [facility]) ID Date Data Source [id number] 12/07/2018 12:00:00 AM EST MEDGEN ([employer] [facility]) Name Value Range Interpretation Code Description Data Nakia rce(s) Supporting Document(s ) VITAMIN B12 481 Normal (applies to MEDGEN non-numeric ([place] results) Medical Service) ID Date Data Source [id number] 12/07/2018 12:00:00 AM EST MEDGEN ([facility] [employer] [facility]) Name Value Range Interpretation Description Data Sup porting Code Source(s) Document(s ) VITAMIN D 16.15 Below low normal MEDGEN 25-HYDROXY ng/mL ([place] [facility]) ID Date Data Source [id number] 12/07/2018 12:00:00 AM EST MEDGEN ([facility] [employer] [facility]) Name Value Range Interpretation Description Data Sup porting Code Source(s) Document(s ) TSH,3RD 2.50 Normal (applies to MEDGEN GENERATION uIU/mL non-numeric ([place] results) Medical Service) T3 TOTAL 101 ng/dL Normal (applies to MEDGEN non-numeric ([place] results) Medical Service) T4 TOTAL 6.9 ug/dL Normal (applies to MEDGEN THYROXINE non-numeric ([place] results) Medical Service) ID Date Data Source [id number] 12/07/2018 12:00:00 AM EST MEDGEN ([facility] [employer] [facility]) Name Value Range Interpretation Description Data Sup porting Code Source(s) Document(s ) GLUCOSE UA NEGATIVE Normal (applies MEDGEN to non-numeric ([place] results) Medical Service) Ketones NEGATIVE Normal (applies MEDGEN [Presence] in to non-numeric ([place] Blood by Tablet results) Medical Service) BILIRUBIN, TOTAL NEGATIVE Normal (applies MEDGEN to non-numeric ([place] results) Medical Service) Specific gravity 1.015 SG Normal (applies MEDGEN of Pericardial units to non-numeric ([place] fluid by results) Medical Refractometry Service) pH of Lower 6.0 Ph Normal (applies MEDGEN respiratory units to non-numeric ([place] specimen results) Medical Service) Blood [Presence] NEGATIVE Normal (applies MEDGEN in Urine by to non-numeric ([place] Visual results) Medical Service) Protein NEGATIVE Normal (applies MEDGEN [Mass/volume] in to non-numeric ([place] [facility] Lower results) Medical respiratory Service) specimen Urobilinogen 0.2^E.U./dL Normal (applies MEDGEN [Presence] in to non-numeric ([place] Urine by results) Medical Automated test Service) strip Leukocyte NEGATIVE Normal (applies MEDGEN esterase to non-numeric ([place] [Presence] in results) Medical Body fluid by Service) Automated test strip Nitrite NEGATIVE Normal (applies MEDGEN [Presence] in to non-numeric ([place] Urine by Test results) Medical strip Service) Color of YELLOW Normal (applies MEDGEN Peritoneal to non-numeric ([place] dialysis fluid results) Medical Service) TRANSPARENCY TURBID Normal (applies MEDGEN to non-numeric ([place] results) Medical Service) ID Date Data Source [id number] 12/07/2018 12:00:00 AM EST MEDGEN ([facility] Service) Name Value Range Interpretation Description Data Sup porting Code Source(s) Document(s ) Eosinophil Abs 0.21 Normal (applies to MEDGEN 10(3)/uL non-numeric ([place] results) Medical Service) ID Date Data Source [id number] 12/07/2018 12:00:00 AM EST MEDGEN ([facility] Service) Name Value Range Interpretation Description Data Sup porting Code Source(s) Document(s ) Hemoglobin A1c 5.4 % Normal (applies to MEDGEN in Blood non-numeric ([place] results) Medical Service) ID Date Data Source [id number] 12/07/2018 12:00:00 AM EST MEDGEN ([facility] Service) Name Value Range Interpretation Code Description Data Supporting Source(s) Document(s ) GLYCOMARK 17.51 Normal (applies to MEDGEN ug/mL non-numeric ([place] results) Medical Service) ID Date Data Source [id number] 12/07/2018 12:00:00 AM EST MEDGEN ([facility] Service) Name Value Range Interpretation Description Data Sup porting Code Source(s) Document(s ) TSH,3RD 2.50 Normal (applies to MEDGEN GENERATION uIU/mL non-numeric ([place] results) Medical Service) T4 TOTAL 6.9 ug/dL Normal (applies to MEDGEN THYROXINE non-numeric ([place] results) Medical Service) T3 TOTAL 101 ng/dL Normal (applies to MEDGEN non-numeric ([place] results) Medical Service) ID Date Data Source [id number] 12/07/2018 12:00:00 AM EST MEDGEN ([facility] Service) Name Value Range Interpretation Description Data Sup porting Code Source(s) Document(s ) WBC 7.7 Normal (applies MEDGEN 10(3)/uL to non-numeric ([place] results) Medical Service) RBC 4.7 Normal (applies MEDGEN 10(6)/uL to non-numeric ([place] results) Medical Service) Hemoglobin 14.0 g/dL Normal (applies MEDGEN [Mass/volume] to non-numeric ([place] in Mixed venous results) Medical blood by Service) Oximetry Hematocrit 41.0 % Normal (applies MEDGEN [Pure volume to non-numeric ([place] fraction] of results) Medical Blood by Service) Automated count MCV 86.5 fL Normal (applies MEDGEN to non-numeric ([place] results) Medical Service) MCH 30 pg Normal (applies MEDGEN to non-numeric ([place] results) Medical Service) MCHC 34 g/dL Normal (applies MEDGEN to non-numeric ([place] results) Medical Service) RDWSD 38.8 fL Normal (applies MEDGEN to non-numeric ([place] results) Medical Service) RDWCV 12.4 % Normal (applies MEDGEN to non-numeric ([place] results) Medical Service) Platelet Count 255 Normal (applies MEDGEN 10(3)/uL to non-numeric ([place] results) Medical Service) MPV 10.8 fL Normal (applies MEDGEN to non-numeric ([place] results) Medical Service) Neutrophil Abs 4.81 Normal (applies MEDGEN 10(3)/uL to non-numeric ([place] results) Medical Service) Lymphocyte Abs 2.01 Normal (applies MEDGEN 10(3)/uL to non-numeric ([place] results) Medical Service) Monocyte Abs 0.54 Normal (applies MEDGEN 10(3)/uL to non-numeric ([place] results) Medical Service) Immature 0.09 Above high normal MEDGEN Granulocyte Abs 10(3)/uL ([place] [facility]) Neutrophil % 62.60 % Normal (applies MEDGEN to non-numeric ([place] results) Medical Service) Monocyte % 7.0 % Normal (applies MEDGEN to non-numeric ([place] results) Medical Service) Lymphocyte % 26 % Normal (applies MEDGEN to non-numeric ([place] results) Medical Service) Eosinophil % 2.7 % Normal (applies MEDGEN to non-numeric ([place] results) Medical Service) Basophil % 0.4 % Normal (applies MEDGEN to non-numeric ([place] results) Medical Service) Immature 1.20 % Above high normal MEDGEN Granulocyte % ([place] [facility]) ID Date Data Source [id number] 12/07/2018 12:00:00 AM EST MEDGEN ([facility]) Name Value Range Interpretation Description Data Sup porting Code Source(s) Document(s ) GLUCOSE 113 Normal (applies MEDGEN NONFASTING,SERUM mg/dL to non-numeric ([facility] y results) Medical Service) SODIUM, SERUM 146 Normal (applies MEDGEN mEq/L to non-numeric ([place] results) Medical Service) POTASSIUM, SERUM 4.9 Normal (applies MEDGEN mEq/L to non-numeric ([place] results) Medical Service) CHLORIDE, SERUM 107 Normal (applies MEDGEN mEq/L to non-numeric ([place] results) Medical Service) Carbon dioxide 27 mEq/L Normal (applies MEDGEN [VFr/PPres] in to non-numeric ([place] [employer] results) Medical system Service) Anion gap in 17 mEq/L Above high normal MEDGEN Body fluid ([place] [facility]) BLOOD UREA 13 mg/dL Normal (applies MEDGEN NITROGEN to non-numeric ([place] results) Medical Service) CALCIUM, SERUM 10.3 Normal (applies MEDGEN mg/dL to non-numeric ([place] results) Medical Service) CREATININE, 0.80 Normal (applies MEDGEN SERUM mg/dL to non-numeric ([place] results) Medical Service) TOTAL PROTEIN 8.0 g/dL Normal (applies MEDGEN to non-numeric ([place] results) Medical Service) Microalbumin 5.0 g/dL Above high normal MEDGEN [Mass/time] in ([place] Urine collected Medical for unspecified Service) duration Globulin 3.0 gldl Normal (applies MEDGEN [Mass/time] in to non-numeric ([place] 24 hour Urine results) Medical Service) A/G RATIO 1.67 Normal (applies MEDGEN g/dl to non-numeric ([place] results) Medical Service) BILIRUBIN, TOTAL 0.6 Normal (applies MEDGEN mg/dL to non-numeric ([place] results) Medical Service) ALKALINE 116 U/L Normal (applies MEDGEN PHOSPHATASE, ALP to non-numeric ([facility] results) Medical Service) ALT (SGPT) 39 U/L Normal (applies MEDGEN to non-numeric ([place] results) Medical Service) AST 41 U/L Above high normal MEDGEN ([place] [facility]) EGFR NON AFR 75 Above high normal MEDGEN TURKMEN mL/min/1 ([place] .73m2 Medical Service) EGFR AFR 90 Above high normal MEDGEN TURKMEN mL/min/1 ([place] .73m2 Medical Service) ID Date Data Source [id number] 12/07/2018 12:00:00 AM EST MEDGEN ([facility]) Name Value Range Interpretation Description Data Sup porting Code Source(s) Document(s ) Cholesterol 238 Above high normal MEDGEN [Moles/volume] mg/dL ([place] in Pericardial Medical fluid Service) LDL CALCULATION 83.4 Normal (applies MEDGEN mg/dL to non-numeric ([place] results) Medical Service) CHOL/HDL RATIO 4.49 Normal (applies MEDGEN ratio to non-numeric ([place] results) Medical Service) HDL CHOLESTEROL 53 mg/dL Above high normal MEDGEN ([place] [facility]) TRIGLYCERIDES 508 Above high normal MEDGEN mg/dL ([place] [facility]) VLDL CALCULATION 101.6 Above high normal MEDGE N mg/dl ([place] [facility]) ID Date Data Source [id number] 12/07/2018 12:00:00 AM EST MEDGEN ([facility]) Name Value Range Interpretation Description Data Sup porting Code Source(s) Document(s ) FOLATE 7.5 ng/mL Above high normal MEDGEN SERUM ([place] [facility]) ID Date Data Source [id number] 05/22/2018 12:00:00 AM EDT MEDGEN ([facility] Medical Service) Name Value Range Interpretation Description Data Sup porting Code Source(s) Document(s ) WBC 9.2 Normal (applies to MEDGEN 10(3)/uL non-numeric ([place] results) Medical Service) RBC 4.3 Normal (applies to MEDGEN 10(6)/uL non-numeric ([place] results) Medical Service) Hematocrit 38.4 % Normal (applies to MEDGEN [Pure volume non-numeric ([place] fraction] of results) Medical Blood by Service) Automated count Hemoglobin 12.5 g/dL Normal (applies to MEDGEN [Mass/volume] non-numeric ([place] in Mixed results) Medical venous blood Service) by Oximetry MCV 89.1 fL Normal (applies to MEDGEN non-numeric ([place] results) Medical Service) MCH 29 pg Normal (applies to MEDGEN non-numeric ([place] results) Medical Service) RDWSD 37.8 fL Normal (applies to MEDGEN non-numeric ([place] results) Medical Service) MCHC 33 g/dL Normal (applies to MEDGEN non-numeric ([place] results) Medical Service) RDWCV 11.7 % Normal (applies to MEDGEN non-numeric ([place] results) Medical Service) PLT 240 Normal (applies to MEDGEN 10(3)/uL non-numeric ([place] results) Medical Service) MPV 10.2 fL Normal (applies to MEDGEN non-numeric ([place] results) Medical Service) LY# 2.32 Normal (applies to MEDGEN 10(3)/uL non-numeric ([place] results) Medical Service) NE# 5.86 Normal (applies to MEDGEN 10(3)/uL non-numeric ([place] results) Medical Service) MO# 0.55 Normal (applies to MEDGEN 10(3)/uL non-numeric ([place] results) Medical Service) EO# 0.31 Normal (applies to MEDGEN 10(3)/uL non-numeric ([place] results) Medical Service) IG# 0.05 Above high normal MEDGEN 10(3)/uL ([place] [facility]) NE% 64.00 % Normal (applies to MEDGEN non-numeric ([place] results) Medical Service) LY% 25 % Normal (applies to MEDGEN non-numeric ([place] results) Medical Service) MO% 6.0 % Normal (applies to MEDGEN non-numeric ([place] results) Medical Service) EO% 3.4 % Normal (applies to MEDGEN non-numeric ([place] results) Medical Service) BA% 0.8 % Normal (applies to MEDGEN non-numeric ([place] results) Medical Service) IG% 0.50 % Normal (applies to MEDGEN non-numeric ([place] results) Medical Service) ID Date Data Source [id number] 05/22/2018 12:00:00 AM EDT MEDGEN ([facility]) Name Value Range Interpretation Description Data Sup porting Code Source(s) Document(s ) GLUCOSE 124 Normal (applies MEDGEN NONFASTING,SERUM mg/dL to non-numeric ([place] [facility] results) Medical Service) SODIUM, SERUM 141 Normal (applies MEDGEN mEq/L to non-numeric ([place] results) Medical Service) POTASSIUM, SERUM 4.7 Normal (applies MEDGEN mEq/L to non-numeric ([place] results) Medical Service) CHLORIDE, SERUM 104 Normal (applies MEDGEN mEq/L to non-numeric ([place] results) Medical Service) Carbon dioxide 26 mEq/L Normal (applies MEDGEN [VFr/PPres] in to non-numeric ([place] [employer] results) Medical system Service) Anion gap in 15.7 Normal (applies MEDGEN Body fluid mEq/L to non-numeric ([place] results) Medical Service) BLOOD UREA 17 mg/dL Normal (applies MEDGEN NITROGEN to non-numeric ([place] results) Medical Service) CREATININE, 1.00 Above high normal MEDGEN SERUM mg/dL ([place] [facility] Service) CALCIUM, SERUM 10.1 Normal (applies MEDGEN mg/dL to non-numeric ([place] results) Medical Service) BUN/CREATININE 17.00 Normal (applies MEDGEN RATIO to non-numeric ([place] results) Medical Service) TOTAL PROTEIN 7.1 g/dL Normal (applies MEDGEN to non-numeric ([place] results) Medical Service) Microalbumin 4.7 g/dL Normal (applies MEDGEN [Mass/time] in to non-numeric ([place] Urine collected results) Medical for unspecified Service) duration Globulin 2.4 gldl Normal (applies MEDGEN [Mass/time] in to non-numeric ([place] 24 hour Urine results) Medical Service) A/G RATIO 1.96 Normal (applies MEDGEN g/dl to non-numeric ([place] results) Medical Service) BILIRUBIN, TOTAL 0.4 Normal (applies MEDGEN mg/dL to non-numeric ([place] results) Medical Service) ALKALINE 92 U/L Normal (applies [facility] PHOSPHATASE, ALP [facility]) ALT (SGPT) 20 U/L Normal (applies MEDGEN to non-numeric ([place] results) Medical Service) AST 23 U/L Normal (applies MEDGEN to non-numeric ([place] results) Medical Service) EGFR NON AFR 58 Above high normal MEDGEN TURKMEN mL/min/1 ([place] .73m2 Medical Service) EGFR AFR 70 Above high normal MEDGEN TURKMEN mL/min/1 ([place] .73m2 Medical Service) ID Date Data Source [id number] 05/22/2018 12:00:00 AM EDT MEDGEN ([facility]) Name Value Range Interpretation Description Data Sup porting Code Source(s) Document(s ) Cholesterol 137 Normal (applies MEDGEN [Moles/volume] mg/dL to non-numeric ([place] in Pericardial results) Medical fluid Service) LDL CALCULATION 34.0 Normal (applies MEDGEN mg/dL to non-numeric ([place] results) Medical Service) CHOL/HDL RATIO 3.43 Normal (applies MEDGEN ratio to non-numeric ([place] results) Medical Service) HDL CHOLESTEROL 40 mg/dL Above high normal MEDGEN ([place] Medical Service) VLDL CALCULATION 63.0 Above high normal MED[facility] N mg/dl ([facility]) TRIGLYCERIDES 315 Above high normal MEDGEN mg/dL ([place] [employer] [facility]) ID Date Data Source [id number] 05/22/2018 12:00:00 AM EDT MEDGEN ([employer] [facility]) Name Value Range Interpretation Description Data Sup porting Code Source(s) Document(s ) FOLATE 5.9 ng/mL Above high normal MEDGEN SERUM ([facility] [facility]) ID Date Data Source [id number] 05/22/2018 12:00:00 AM EDT MEDGEN ([employer] [facility]) Name Value Range Interpretation Description Data Sup porting Code Source(s) Document(s ) VITAMIN B12 383 pg/mL Normal (applies to MEDGEN non-numeric ([place] results) Medical Service) ID Date Data Source [id number] 05/22/2018 12:00:00 AM EDT MEDGEN ([employer] [facility]) Name Value Range Interpretation Description Data Sup porting Code Source(s) Document(s ) VITAMIN D 14.38 Below low normal MEDGEN 25-HYDROXY ng/mL ([employer] [facility]) ID Date Data Source [id number] 05/22/2018 12:00:00 AM EDT MEDGEN ([employer] [facility]) Name Value Range Interpretation Description Data Sup porting Code Source(s) Document(s ) ORGANISM Normal (applies MEDGEN to non-numeric ([place] results) Medical Service) Comment Normal (applies MEDGEN [Interpretation] to non-numeric ([facility] y Left eye Narrative results) Medical Ophthalmometer Service) ID Date Data Source [id number] 05/22/2018 12:00:00 AM EDT MEDGEN ([employer] [facility]) Name Value Range Interpretation Description Data Sup porting Code Source(s) Document(s ) TSH,3RD 2.45 Normal (applies to MEDGEN GENERATION uIU/mL non-numeric ([place] results) Medical Service) T4 TOTAL 6.5 ug/dL Normal (applies to MEDGEN THYROXINE non-numeric ([place] results) Medical Service) T3 TOTAL 83 ng/dL Normal (applies to MEDGEN non-numeric ([place] results) Medical Service) ID Date Data Source [id number] 05/22/2018 12:00:00 AM EDT MEDGEN ([facility] [employer] [facility]) Name Value Range Interpretation Description Data Sup porting Code Source(s) Document(s ) GLUCOSE UA NEGATIVE Normal (applies MEDGEN to non-numeric ([place] results) Medical Service) BILIRUBIN, TOTAL NEGATIVE Normal (applies MEDGEN to non-numeric ([place] results) Medical Service) Ketones NEGATIVE Normal (applies MEDGEN [Presence] in to non-numeric ([place] Blood by Tablet results) Medical Service) Specific gravity 1.025 SG Normal (applies MEDGEN of Pericardial units to non-numeric ([place] fluid by results) Medical Refractometry Service) Blood [Presence] NEGATIVE Normal (applies MEDGEN in Urine by to non-numeric ([place] Visual results) Medical Service) pH of Lower 5.5 Ph Normal (applies MEDGEN respiratory units to non-numeric ([place] specimen results) Medical Service) Protein TRACE Normal (applies [facility] [Mass/volume] in to [facility]-numeric [facility] Medical respiratory Service) specimen Nitrite NEGATIVE Normal (applies MEDGEN [Presence] in to non-numeric ([place] Urine by Test results) Medical strip Service) Urobilinogen 0.2^E.U./dL Normal (applies MEDGEN [Presence] in to non-numeric ([place] Urine by results) Medical Automated test Service) strip Leukocyte MODERATE Normal (applies MEDGEN esterase to non-numeric ([place] [Presence] in results) Medical Body fluid by Service) Automated test strip Color of YELLOW Normal (applies MEDGEN Peritoneal to non-numeric ([place] dialysis fluid results) Medical Service) TRANSPARENCY CLEAR Normal (applies MEDGEN to non-numeric ([place] results) Medical Service) WBC`S 11-20 Normal (applies MEDGEN to non-numeric ([place] results) Medical Service) ID Date Data Source [id number] 05/22/2018 12:00:00 AM EDT MEDGEN ([employer] [facility]) Name Value Range Interpretation Description Data Sup porting Code Source(s) Document(s ) Hemoglobin A1c 5.7 % Above high normal MEDGEN in Blood ([facility] Medical Service) ID Date Data Source [id number] 05/22/2018 12:00:00 AM EDT MEDGEN ([employer] [facility]) Name Value Range Interpretation Code Description Data Supporting Source(s) Document(s ) GLYCOMARK 16.08 Normal (applies to MEDGEN ug/mL non-numeric ([place] results) Medical Service) ID Date Data Source [id number] 05/22/2018 12:00:00 AM EDT MEDGEN ([facility] [facility] Service) Name Value Range Interpretation Description Data Sup porting Code Source(s) Document(s ) WBC 9.2 Normal (applies to MEDGEN 10(3)/uL non-numeric ([place] results) Medical Service) RBC 4.3 Normal (applies to MEDGEN 10(6)/uL non-numeric ([place] results) Medical Service) Hemoglobin 12.5 g/dL Normal (applies to MEDGEN [Mass/volume] non-numeric ([place] in Mixed results) Medical venous blood Service) by Oximetry Hematocrit 38.4 % Normal (applies to MEDGEN [Pure volume non-numeric ([place] fraction] of results) Medical Blood by Service) Automated count MCV 89.1 fL Normal (applies to MEDGEN non-numeric ([place] results) Medical Service) MCH 29 pg Normal (applies to MEDGEN non-numeric ([place] results) Medical Service) MCHC 33 g/dL Normal (applies to MEDGEN non-numeric ([place] results) Medical Service) RDWCV 11.7 % Normal (applies to MEDGEN non-numeric ([place] results) Medical Service) RDWSD 37.8 fL Normal (applies to MEDGEN non-numeric ([place] results) Medical Service) PLT 240 Normal (applies to MEDGEN 10(3)/uL non-numeric ([place] results) Medical Service) MPV 10.2 fL Normal (applies to MEDGEN non-numeric ([place] results) Medical Service) NE# 5.86 Normal (applies to MEDGEN 10(3)/uL non-numeric ([place] results) Medical Service) LY# 2.32 Normal (applies to MEDGEN 10(3)/uL non-numeric ([place] results) Medical Service) MO# 0.55 Normal (applies to MEDGEN 10(3)/uL non-numeric ([place] results) Medical Service) IG# 0.05 Above high normal MEDGEN 10(3)/uL ([facility] Medical Service) EO# 0.31 Normal (applies to MEDGEN 10(3)/uL non-numeric ([place] results) Medical Service) NE% 64.00 % Normal (applies to MEDGEN non-numeric ([place] results) Medical Service) LY% 25 % Normal (applies to MEDGEN non-numeric ([place] results) Medical Service) MO% 6.0 % Normal (applies to MEDGEN non-numeric ([place] results) Medical Service) EO% 3.4 % Normal (applies to MEDGEN non-numeric ([place] results) Medical Service) BA% 0.8 % Normal (applies to MEDGEN non-numeric ([place] results) Medical Service) IG% 0.50 % Normal (applies to MEDGEN non-numeric ([place] results) Medical Service) ID Date Data Source [id number] 05/22/2018 12:00:00 AM EDT MEDGEN ([facility]) Name Value Range Interpretation Description Data Sup porting Code Source(s) Document(s ) GLUCOSE 124 Normal (applies MEDGEN NONFASTING,SERUM mg/dL to non-numeric ([facility] y results) Medical Service) POTASSIUM, SERUM 4.7 Normal (applies MEDGEN mEq/L to non-numeric ([place] results) Medical Service) SODIUM, SERUM 141 Normal (applies MEDGEN mEq/L to non-numeric ([place] results) Medical Service) CHLORIDE, SERUM 104 Normal (applies MEDGEN mEq/L to non-numeric ([place] results) Medical Service) Carbon dioxide 26 mEq/L Normal (applies MEDGEN [VFr/PPres] in to non-numeric ([place] [employer] results) Medical system Service) Anion gap in 15.7 Normal (applies MEDGEN Body fluid mEq/L to non-numeric ([place] results) Medical Service) BLOOD UREA 17 mg/dL Normal (applies MEDGEN NITROGEN to non-numeric ([place] results) Medical Service) CREATININE, 1.00 Above high normal MEDGEN SERUM mg/dL ([place] Medical Service) BUN/CREATININE 17.00 Normal (applies MEDGEN RATIO to non-numeric ([place] results) Medical Service) CALCIUM, SERUM 10.1 Normal (applies MEDGEN mg/dL to non-numeric ([place] results) Medical Service) TOTAL PROTEIN 7.1 g/dL Normal (applies MEDGEN to non-numeric ([place] results) Medical Service) Microalbumin 4.7 g/dL Normal (applies MEDGEN [Mass/time] in to non-numeric ([place] Urine collected results) Medical for unspecified Service) duration Globulin 2.4 gldl Normal (applies MEDGEN [Mass/time] in to non-numeric ([place] 24 hour Urine results) Medical Service) A/G RATIO 1.96 Normal (applies MEDGEN g/dl to non-numeric ([place] results) Medical Service) BILIRUBIN, TOTAL 0.4 Normal (applies MEDGEN mg/dL to non-numeric ([place] results) Medical Service) ALKALINE 92 U/L Normal (applies [facility] PHOSPHATASE, ALP to non-numeric [facility] Service) ALT (SGPT) 20 U/L Normal (applies MEDGEN to non-numeric ([place] results) Medical Service) AST 23 U/L Normal (applies MEDGEN to non-numeric ([place] results) Medical Service) EGFR NON AFR 58 Above high normal MEDGEN TURKMEN mL/min/1 ([place] .73m2 Medical Service) EGFR AFR 70 Above high normal MEDGEN TURKMEN mL/min/1 ([place] [address] Medical Service) ID Date Data Source [id number] 05/22/2018 12:00:00 AM EDT MEDGEN ([facility] [facility]) Name Value Range Interpretation Description Data Sup porting Code Source(s) Document(s ) TSH,3RD 2.45 Normal (applies to MEDGEN GENERATION uIU/mL non-numeric ([place] results) Medical Service) T4 TOTAL 6.5 ug/dL Normal (applies to MEDGEN THYROXINE non-numeric ([place] results) Medical Service) T3 TOTAL 83 ng/dL Normal (applies to MEDGEN non-numeric ([place] results) Medical Service) ID Date Data Source [id number] 05/22/2018 12:00:00 AM EDT MEDGEN ([facility] [facility]) Name Value Range Interpretation Description Data Sup porting Code Source(s) Document(s ) BILIRUBIN, TOTAL NEGATIVE Normal (applies MEDGEN to non-numeric ([place] results) Medical Service) GLUCOSE UA NEGATIVE Normal (applies MEDGEN to non-numeric ([place] results) Medical Service) Ketones NEGATIVE Normal (applies MEDGEN [Presence] in to non-numeric ([place] Blood by Tablet results) Medical Service) Specific gravity 1.025 SG Normal (applies MEDGEN of Pericardial units to non-numeric ([place] fluid by results) Medical Refractometry Service) Blood [Presence] NEGATIVE Normal (applies MEDGEN in Urine by to non-numeric ([place] Visual results) Medical Service) Protein TRACE Normal (applies MEDGEN [Mass/volume] in to non-numeric ([place] [facility] Lower results) Medical respiratory Service) specimen pH of Lower 5.5 Ph Normal (applies MEDGEN respiratory units to non-numeric ([place] specimen results) Medical Service) Urobilinogen 0.2^E.U./dL Normal (applies MEDGEN [Presence] in to non-numeric ([place] Urine by results) Medical Automated test Service) strip Nitrite NEGATIVE Normal (applies MEDGEN [Presence] in to non-numeric ([place] Urine by Test results) Medical strip Service) Color of YELLOW Normal (applies MEDGEN Peritoneal to non-numeric ([place] dialysis fluid results) Medical Service) Leukocyte MODERATE Normal (applies MEDGEN esterase to non-numeric ([place] [Presence] in results) Medical Body fluid by Service) Automated test strip TRANSPARENCY CLEAR Normal (applies MEDGEN to non-numeric ([place] results) Medical Service) WBC`S 11-20 Normal (applies MEDGEN to non-numeric ([place] results) Medical Service) ID Date Data Source [id number] 05/22/2018 12:00:00 AM EDT MEDGEN ([employer] Service) Name Value Range Interpretation Description Data Sup porting Code Source(s) Document(s ) Hemoglobin A1c 5.7 % Above high normal MEDGEN in Blood ([employer] Service) ID Date Data Source [id number] 05/22/2018 12:00:00 AM EDT MEDGEN ([employer] Service) Name Value Range Interpretation Code Description Data Supporting Source(s) Document(s ) GLYCOMARK 16.08 Normal (applies to MEDGEN ug/mL non-numeric ([place] results) Medical Service) ID Date Data Source [id number] 05/22/2018 12:00:00 AM EDT MEDGEN ([employer] Service) Name Value Range Interpretation Description Data Sup porting Code Source(s) Document(s ) FOLATE 5.9 ng/mL Above high normal MEDGEN SERUM ([employer] Service) ID Date Data Source [id number] 05/22/2018 12:00:00 AM EDT MEDGEN ([employer] Service) Name Value Range Interpretation Description Data Sup porting Code Source(s) Document(s ) VITAMIN B12 383 pg/mL Normal (applies to MEDGEN non-numeric ([place] results) Medical Service) ID Date Data Source [id number] 05/22/2018 12:00:00 AM EDT MEDGEN ([employer] Service) Name Value Range Interpretation Description Data Sup porting Code Source(s) Document(s ) VITAMIN D 14.38 Below low normal MEDGEN 25-HYDROXY ng/mL ([place] Medical Service) ID Date Data Source [id number] 05/22/2018 12:00:00 AM EDT MEDGEN ([employer] Medical Service) Name Value Range Interpretation Description Data Sup porting Code Source(s) Document(s ) ORGANISM Normal (applies MEDGEN to non-numeric ([place] results) Medical Service) Comment Normal (applies MEDGEN [Interpretation] to non-numeric ([place] [facility] Left eye Narrative results) Medical Ophthalmometer Service) ID Date Data Source [id number] 05/22/2018 12:00:00 AM EDT MEDGEN ([employer] Medical Service) Name Value Range Interpretation Description Data Sup porting Code Source(s) Document(s ) TSH,3RD 2.45 Normal (applies to MEDGEN GENERATION uIU/mL non-numeric ([place] results) Medical Service) T4 TOTAL 6.5 ug/dL Normal (applies to MEDGEN THYROXINE non-numeric ([place] results) Medical Service) T3 TOTAL 83 ng/dL Normal (applies to MEDGEN non-numeric ([place] results) Medical Service) ID Date Data Source [id number] 05/22/2018 12:00:00 AM EDT MEDGEN ([employer] Medical Service) Name Value Range Interpretation Description Data Sup porting Code Source(s) Document(s ) GLUCOSE UA NEGATIVE Normal (applies MEDGEN to non-numeric ([place] results) Medical Service) BILIRUBIN, TOTAL NEGATIVE Normal (applies MEDGEN to non-numeric ([place] results) Medical Service) Ketones NEGATIVE Normal (applies MEDGEN [Presence] in to non-numeric ([place] Blood by Tablet results) Medical Service) Specific gravity 1.025 SG Normal (applies MEDGEN of Pericardial units to non-numeric ([place] fluid by results) Medical Refractometry Service) Blood [Presence] NEGATIVE Normal (applies MEDGEN in Urine by to non-numeric ([place] Visual results) Medical Service) pH of Lower 5.5 Ph Normal (applies MEDGEN respiratory units to non-numeric ([place] specimen results) Medical Service) Protein TRACE Normal (applies MEDGEN [Mass/volume] in to non-numeric ([place] [facility] Lower results) Medical respiratory Service) specimen Urobilinogen 0.2^E.U./dL Normal (applies MEDGEN [Presence] in to non-numeric ([place] Urine by results) Medical Automated test Service) strip Nitrite NEGATIVE Normal (applies MEDGEN [Presence] in to non-numeric ([place] Urine by Test results) Medical strip Service) Leukocyte MODERATE Normal (applies MEDGEN esterase to non-numeric ([place] [Presence] in results) Medical Body fluid by Service) Automated test strip Color of YELLOW Normal (applies MEDGEN Peritoneal to non-numeric ([place] dialysis fluid results) Medical Service) TRANSPARENCY CLEAR Normal (applies MEDGEN to non-numeric ([place] results) Medical Service) WBC`S 11-20 Normal (applies MEDGEN to non-numeric ([place] results) Medical Service) ID Date Data Source [id number] 05/22/2018 12:00:00 AM EDT MEDGEN ([facility] Medical Service) Name Value Range Interpretation Description Data Sup porting Code Source(s) Document(s ) Hemoglobin A1c 5.7 % Above high normal MEDGEN in Blood ([place] Medical Service) ID Date Data Source [id number] 05/22/2018 12:00:00 AM EDT MEDGEN ([facility] Medical Service) Name Value Range Interpretation Code Description Data Supporting Source(s) Document(s ) GLYCOMARK 16.08 Normal (applies to MEDGEN ug/mL non-numeric ([place] results) Medical Service) ID Date Data Source [id number] 05/22/2018 12:00:00 AM EDT MEDGEN ([facility] Medical Service) Name Value Range Interpretation Description Data Sup porting Code Source(s) Document(s ) WBC 9.2 Normal (applies to MEDGEN 10(3)/uL non-numeric ([place] results) Medical Service) RBC 4.3 Normal (applies to MEDGEN 10(6)/uL non-numeric ([place] results) Medical Service) Hemoglobin 12.5 g/dL Normal (applies to MEDGEN [Mass/volume] non-numeric ([place] in Mixed results) Medical venous blood Service) by Oximetry Hematocrit 38.4 % Normal (applies to MEDGEN [Pure volume non-numeric ([place] fraction] of results) Medical Blood by Service) Automated count MCV 89.1 fL Normal (applies to MEDGEN non-numeric ([place] results) Medical Service) MCH 29 pg Normal (applies to MEDGEN non-numeric ([place] results) Medical Service) RDWSD 37.8 fL Normal (applies to MEDGEN non-numeric ([place] results) Medical Service) MCHC 33 g/dL Normal (applies to MEDGEN non-numeric ([place] results) Medical Service) RDWCV 11.7 % Normal (applies to MEDGEN non-numeric ([place] results) Medical Service) PLT 240 Normal (applies to MEDGEN 10(3)/uL non-numeric ([place] results) Medical Service) MPV 10.2 fL Normal (applies to MEDGEN non-numeric ([place] results) Medical Service) NE# 5.86 Normal (applies to MEDGEN 10(3)/uL non-numeric ([place] results) Medical Service) LY# 2.32 Normal (applies to MEDGEN 10(3)/uL non-numeric ([place] results) Medical Service) MO# 0.55 Normal (applies to MEDGEN 10(3)/uL non-numeric ([place] results) Medical Service) EO# 0.31 Normal (applies to MEDGEN 10(3)/uL non-numeric ([place] results) Medical Service) IG# 0.05 Above high normal MEDGEN 10(3)/uL ([place] Medical Service) NE% 64.00 % Normal (applies to MEDGEN non-numeric ([place] results) Medical Service) LY% 25 % Normal (applies to MEDGEN non-numeric ([place] results) Medical Service) MO% 6.0 % Normal (applies to MEDGEN non-numeric ([place] results) Medical Service) EO% 3.4 % Normal (applies to MEDGEN non-numeric ([place] results) Medical Service) BA% 0.8 % Normal (applies to MEDGEN non-numeric ([place] results) Medical Service) IG% 0.50 % Normal (applies to MEDGEN non-numeric ([place] results) Medical Service) ID Date Data Source [id number] 05/22/2018 12:00:00 AM EDT MEDGEN ([facility] Medical Service) Name Value Range Interpretation Description Data Sup porting Code Source(s) Document(s ) GLUCOSE 124 Normal (applies MEDGEN NONFASTING,SERUM mg/dL to non-numeric ([place] results) Medical Service) SODIUM, SERUM 141 Normal (applies MEDGEN mEq/L to non-numeric ([place] results) Medical Service) POTASSIUM, SERUM 4.7 Normal (applies MEDGEN mEq/L to non-numeric ([place] results) Medical Service) CHLORIDE, SERUM 104 Normal (applies MEDGEN mEq/L to non-numeric ([place] results) Medical Service) Carbon dioxide 26 mEq/L Normal (applies MEDGEN [VFr/PPres] in to non-numeric ([place] [employer] results) Medical system Service) Anion gap in 15.7 Normal (applies MEDGEN Body fluid mEq/L to non-numeric ([place] results) Medical Service) BLOOD UREA 17 mg/dL Normal (applies MEDGEN NITROGEN to non-numeric ([place] results) Medical Service) CREATININE, 1.00 Above high normal MEDGEN SERUM mg/dL ([place] Medical Service) BUN/CREATININE 17.00 Normal (applies MEDGEN RATIO to non-numeric ([place] results) Medical Service) CALCIUM, SERUM 10.1 Normal (applies MEDGEN mg/dL to non-numeric ([place] results) Medical Service) TOTAL PROTEIN 7.1 g/dL Normal (applies MEDGEN to non-numeric ([place] results) Medical Service) Microalbumin 4.7 g/dL Normal (applies MEDGEN [Mass/time] in to non-numeric ([place] Urine collected results) Medical for unspecified Service) duration Globulin 2.4 gldl Normal (applies MEDGEN [Mass/time] in to non-numeric ([place] 24 hour Urine results) Medical Service) A/G RATIO 1.96 Normal (applies MEDGEN g/dl to non-numeric ([place] results) Medical Service) BILIRUBIN, TOTAL 0.4 Normal (applies MEDGEN mg/dL to non-numeric ([place] results) Medical Service) ALKALINE 92 U/L Normal (applies [facility] PHOSPHATASE, ALP [facility]) ALT (SGPT) 20 U/L Normal (applies MEDGEN to non-numeric ([place] results) Medical Service) AST 23 U/L Normal (applies MEDGEN to non-numeric ([place] results) Medical Service) EGFR NON AFR 58 Above high normal MEDGEN TURKMEN mL/min/1 ([place] .73m2 Medical Service) EGFR AFR 70 Above high normal MEDGEN TURKMEN mL/min/1 ([place] .73m2 Medical Service) ID Date Data Source [id number] 05/22/2018 12:00:00 AM EDT MEDGEN ([facility]) Name Value Range Interpretation Description Data Sup porting Code Source(s) Document(s ) Cholesterol 137 Normal (applies MEDGEN [Moles/volume] mg/dL to non-numeric ([place] in Pericardial results) Medical fluid Service) LDL CALCULATION 34.0 Normal (applies MEDGEN mg/dL to non-numeric ([place] results) Medical Service) CHOL/HDL RATIO 3.43 Normal (applies MEDGEN ratio to non-numeric ([place] results) Medical Service) HDL CHOLESTEROL 40 mg/dL Above high normal MEDGEN ([place] Medical Service) VLDL CALCULATION 63.0 Above high normal MEDGE N mg/dl ([place] Medical Service) TRIGLYCERIDES 315 Above high normal MEDGEN mg/dL ([place] Medical Service) ID Date Data Source [id number] 05/22/2018 12:00:00 AM EDT MEDGEN ([facility] [facility]) Name Value Range Interpretation Description Data Sup porting Code Source(s) Document(s ) TSH,3RD 2.45 Normal (applies to MEDGEN GENERATION uIU/mL non-numeric ([place] results) Medical Service) T4 TOTAL 6.5 ug/dL Normal (applies to MEDGEN THYROXINE non-numeric ([place] results) Medical Service) T3 TOTAL 83 ng/dL Normal (applies to MEDGEN non-numeric ([place] results) Medical Service) ID Date Data Source [id number] 05/22/2018 12:00:00 AM EDT MEDGEN ([facility] [facility]) Name Value Range Interpretation Description Data Sup porting Code Source(s) Document(s ) GLUCOSE UA NEGATIVE Normal (applies MEDGEN to non-numeric ([place] results) Medical Service) BILIRUBIN, TOTAL NEGATIVE Normal (applies MEDGEN to non-numeric ([place] results) Medical Service) Ketones NEGATIVE Normal (applies MEDGEN [Presence] in to non-numeric ([place] Blood by Tablet results) Medical Service) Blood [Presence] NEGATIVE Normal (applies MEDGEN in Urine by to non-numeric ([place] Visual results) Medical Service) Specific gravity 1.025 SG Normal (applies MEDGEN of Pericardial units to non-numeric ([place] fluid by results) Medical Refractometry Service) pH of Lower 5.5 Ph Normal (applies MEDGEN respiratory units to non-numeric ([place] specimen results) Medical Service) Protein TRACE Normal (applies [facility]) specimen Urobilinogen 0.2^E.U./dL Normal (applies MEDGEN [Presence] in to non-numeric ([place] Urine by results) Medical Automated test Service) strip Nitrite NEGATIVE Normal (applies MEDGEN [Presence] in to non-numeric ([place] Urine by Test results) Medical strip Service) Color of YELLOW Normal (applies MEDGEN Peritoneal to non-numeric ([place] dialysis fluid results) Medical Service) Leukocyte MODERATE Normal (applies MEDGEN esterase to non-numeric ([place] [Presence] in results) Medical Body fluid by Service) Automated test strip TRANSPARENCY CLEAR Normal (applies MEDGEN to non-numeric ([place] results) Medical Service) WBC`S 11-20 Normal (applies MEDGEN to non-numeric ([place] results) Medical Service) ID Date Data Source [id number] 05/22/2018 12:00:00 AM EDT MEDGEN ([facility] Medical Service) Name Value Range Interpretation Description Data Sup porting Code Source(s) Document(s ) Hemoglobin A1c 5.7 % Above high normal MEDGEN in Blood ([place] Medical Service) ID Date Data Source [id number] 05/22/2018 12:00:00 AM EDT MEDGEN ([facility] Medical Service) Name Value Range Interpretation Code Description Data Supporting Source(s) Document(s ) GLYCOMARK 16.08 Normal (applies to MEDGEN ug/mL non-numeric ([place] results) Medical Service) ID Date Data Source [id number] 05/22/2018 12:00:00 AM EDT MEDGEN ([facility] Medical Service) Name Value Range Interpretation Description Data Sup porting Code Source(s) Document(s ) WBC 9.2 Normal (applies to MEDGEN 10(3)/uL non-numeric ([place] results) Medical Service) RBC 4.3 Normal (applies to MEDGEN 10(6)/uL non-numeric ([place] results) Medical Service) Hemoglobin 12.5 g/dL Normal (applies to MEDGEN [Mass/volume] non-numeric ([place] in Mixed results) Medical venous blood Service) by Oximetry Hematocrit 38.4 % Normal (applies to MEDGEN [Pure volume non-numeric ([place] fraction] of results) Medical Blood by Service) Automated count MCV 89.1 fL Normal (applies to MEDGEN non-numeric ([place] results) Medical Service) MCH 29 pg Normal (applies to MEDGEN non-numeric ([place] results) Medical Service) MCHC 33 g/dL Normal (applies to MEDGEN non-numeric ([place] results) Medical Service) RDWSD 37.8 fL Normal (applies to MEDGEN non-numeric ([place] results) Medical Service) RDWCV 11.7 % Normal (applies to MEDGEN non-numeric ([place] results) Medical Service) MPV 10.2 fL Normal (applies to MEDGEN non-numeric ([place] results) Medical Service) PLT 240 Normal (applies to MEDGEN 10(3)/uL non-numeric ([place] results) Medical Service) NE# 5.86 Normal (applies to MEDGEN 10(3)/uL non-numeric ([place] results) Medical Service) LY# 2.32 Normal (applies to MEDGEN 10(3)/uL non-numeric ([place] results) Medical Service) MO# 0.55 Normal (applies to MEDGEN 10(3)/uL non-numeric ([place] results) Medical Service) EO# 0.31 Normal (applies to MEDGEN 10(3)/uL non-numeric ([place] results) Medical Service) IG# 0.05 Above high normal MEDGEN 10(3)/uL ([place] Medical Service) LY% 25 % Normal (applies to MEDGEN non-numeric ([place] results) Medical Service) NE% 64.00 % Normal (applies to MEDGEN non-numeric ([place] results) Medical Service) MO% 6.0 % Normal (applies to MEDGEN non-numeric ([place] results) Medical Service) EO% 3.4 % Normal (applies to MEDGEN non-numeric ([place] results) Medical Service) BA% 0.8 % Normal (applies to MEDGEN non-numeric ([place] results) Medical Service) IG% 0.50 % Normal (applies to MEDGEN non-numeric ([place] results) Medical Service) ID Date Data Source [id number] 05/22/2018 12:00:00 AM EDT MEDGEN ([facility] Service) Name Value Range Interpretation Description Data Sup porting Code Source(s) Document(s ) GLUCOSE 124 Normal (applies MEDGEN NONFASTING,SERUM mg/dL to non-numeric ([place] [facility] results) Medical Service) SODIUM, SERUM 141 Normal (applies MEDGEN mEq/L to non-numeric ([place] results) Medical Service) POTASSIUM, SERUM 4.7 Normal (applies MEDGEN mEq/L to non-numeric ([place] results) Medical Service) CHLORIDE, SERUM 104 Normal (applies MEDGEN mEq/L to non-numeric ([place] results) Medical Service) Carbon dioxide 26 mEq/L Normal (applies MEDGEN [VFr/PPres] in to non-numeric ([place] [employer] results) Medical system Service) Anion gap in 15.7 Normal (applies MEDGEN Body fluid mEq/L to non-numeric ([place] results) Medical Service) BLOOD UREA 17 mg/dL Normal (applies MEDGEN NITROGEN to non-numeric ([place] results) Medical Service) CREATININE, 1.00 Above high normal MEDGEN SERUM mg/dL ([place] Medical Service) BUN/CREATININE 17.00 Normal (applies MEDGEN RATIO to non-numeric ([place] results) Medical Service) CALCIUM, SERUM 10.1 Normal (applies MEDGEN mg/dL to non-numeric ([place] results) Medical Service) TOTAL PROTEIN 7.1 g/dL Normal (applies MEDGEN to non-numeric ([place] results) Medical Service) Microalbumin 4.7 g/dL Normal (applies MEDGEN [Mass/time] in to non-numeric ([place] Urine collected results) Medical for unspecified Service) duration Globulin 2.4 gldl Normal (applies MEDGEN [Mass/time] in to non-numeric ([place] 24 hour Urine results) Medical Service) A/G RATIO 1.96 Normal (applies MEDGEN g/dl to non-numeric ([place] results) Medical Service) ALKALINE 92 U/L Normal (applies MEDGEN PHOSPHATASE, ALP [facility]) BILIRUBIN, TOTAL 0.4 Normal (applies MEDGEN mg/dL to non-numeric ([place] results) Medical Service) ALT (SGPT) 20 U/L Normal (applies MEDGEN to non-numeric ([place] results) Medical Service) EGFR NON AFR 58 Above high normal MEDGEN TURKMEN mL/min/1 ([place] .73m2 Medical Service) AST 23 U/L Normal (applies MEDGEN to non-numeric ([place] results) Medical Service) EGFR AFR 70 Above high normal MEDGEN TURKMEN mL/min/1 ([place] .73m2 Medical Service) ID Date Data Source [id number] 05/22/2018 12:00:00 AM EDT MEDGEN ([facility] Medical [facility]) Name Value Range Interpretation Description Data Sup porting Code Source(s) Document(s ) Cholesterol 137 Normal (applies MEDGEN [Moles/volume] mg/dL to non-numeric ([place] in Pericardial results) Medical fluid Service) LDL CALCULATION 34.0 Normal (applies MEDGEN mg/dL to non-numeric ([place] results) Medical Service) CHOL/HDL RATIO 3.43 Normal (applies MEDGEN ratio to non-numeric ([place] results) Medical Service) HDL CHOLESTEROL 40 mg/dL Above high normal MEDGEN ([place] Medical Service) TRIGLYCERIDES 315 Above high normal MEDGEN mg/dL ([place] Medical Service) VLDL CALCULATION 63.0 Above high normal MEDGE N mg/dl ([place] Medical Service) ID Date Data Source [id number] 05/22/2018 12:00:00 AM EDT MEDGEN ([facility] Medical [facility]) Name Value Range Interpretation Description Data Sup porting Code Source(s) Document(s ) FOLATE 5.9 ng/mL Above high normal MEDGEN SERUM ([place] Medical Service) ID Date Data Source [id number] 05/22/2018 12:00:00 AM EDT MEDGEN ([facility] [employer] Medical Service) Name Value Range Interpretation Description Data Sup porting Code Source(s) Document(s ) VITAMIN B12 383 pg/mL Normal (applies to MEDGEN non-numeric ([place] results) Medical Service) ID Date Data Source [id number] 05/22/2018 12:00:00 AM EDT MEDGEN ([facility] [employer] Medical Service) Name Value Range Interpretation Description Data Sup porting Code Source(s) Document(s ) VITAMIN D 14.38 Below low normal MEDGEN 25-HYDROXY ng/mL ([place] Medical Service) ID Date Data Source [id number] 05/22/2018 12:00:00 AM EDT MEDGEN ([facility] Medical Service) Name Value Range Interpretation Code Description Data Nakia rce(s) Supporting Document(s ) ID Date Data Source [id number] 05/22/2018 12:00:00 AM EDT MEDGEN ([facility] [employer] Medical Service) Name Value Range Interpretation Description Data Sup porting Code Source(s) Document(s ) Cholesterol 137 Normal (applies MEDGEN [Moles/volume] mg/dL to non-numeric ([place] in Pericardial results) Medical fluid Service) LDL CALCULATION 34.0 Normal (applies MEDGEN mg/dL to non-numeric ([place] results) Medical Service) CHOL/HDL RATIO 3.43 Normal (applies MEDGEN ratio to non-numeric ([place] results) Medical Service) HDL CHOLESTEROL 40 mg/dL Above high normal MEDGEN ([place] [employer] [facility]) VLDL CALCULATION 63.0 Above high normal MEDGE N mg/dl ([place] [employer] [facility]) TRIGLYCERIDES 315 Above high normal MEDGEN mg/dL ([place] [employer] [facility]) ID Date Data Source [id number] 05/22/2018 12:00:00 AM EDT MEDGEN ([facility] [employer] [facility]) Name Value Range Interpretation Description Data Sup porting Code Source(s) Document(s ) FOLATE 5.9 ng/mL Above high normal MEDGEN SERUM ([place] [employer] [facility]) ID Date Data Source [id number] 05/22/2018 12:00:00 AM EDT MEDGEN ([facility] [employer] [facility]) Name Value Range Interpretation Description Data Sup porting Code Source(s) Document(s ) VITAMIN B12 383 pg/mL Normal (applies to MEDGEN non-numeric ([place] results) Medical Service) ID Date Data Source [id number] 05/22/2018 12:00:00 AM EDT MEDGEN ([facility] [employer] [facility]) Name Value Range Interpretation Description Data Sup porting Code Source(s) Document(s ) VITAMIN D 14.38 Below low normal MEDGEN 25-HYDROXY ng/mL ([place] [employer] [facility]) ID Date Data Source [id number] 05/22/2018 12:00:00 AM EDT MEDGEN ([facility] [employer] [facility]) Name Value Range Interpretation Description Data Sup porting Code Source(s) Document(s ) ORGANISM Normal (applies MEDGEN to non-numeric ([place] results) Medical Service) Comment Normal (applies MEDGEN [Interpretation] to non-numeric ([facility] y Left eye Narrative results) Medical Ophthalmometer Service) ID Date Data Source [id number] 01/02/2018 12:00:00 AM EST MEDGEN ([facility] [employer] [facility]) Name Value Range Interpretation Description Data Sup porting Code Source(s) Document(s ) Hemoglobin A1c 6.0 % Above high normal MEDGEN in Blood ([place] [employer] [facility]) ID Date Data Source [id number] 01/02/2018 12:00:00 AM EST MEDGEN ([facility] [employer] [facility]) Name Value Range Interpretation Code Description Data Supporting Source(s) Document(s ) GLYCOMARK 17.59 Normal (applies to MEDGEN ug/mL non-numeric ([place] results) Medical Service) ID Date Data Source [id number] 01/02/2018 12:00:00 AM EST MEDGEN ([facility] [employer] [facility]) Name Value Range Interpretation Description Data Sup porting Code Source(s) Document(s ) FOLATE 13.5 ng/mL Above high normal MEDGEN SERUM ([employer] [facility]) ID Date Data Source [id number] 01/02/2018 12:00:00 AM EST MEDGEN ([facility] [employer] [facility]) Name Value Range Interpretation Description Data Sup porting Code Source(s) Document(s ) VITAMIN B12 1253 Above high normal MEDGEN pg/mL ([employer] [facility]) ID Date Data Source [id number] 01/02/2018 12:00:00 AM EST MEDGEN ([facility] [employer] [facility]) Name Value Range Interpretation Code Description Data Nakia rce(s) Supporting Document(s ) VITAMIN D <4.20 Below low normal MEDGEN 25-HYDROXY ([facility]) ID Date Data Source [id number] 01/02/2018 12:00:00 AM EST MEDGEN ([facility] [employer] [facility]) Name Value Range Interpretation Description Data Sup porting Code Source(s) Document(s ) Hemoglobin A1c 6.0 % Above high normal MEDGEN in Blood ([facility]) ID Date Data Source [id number] 01/02/2018 12:00:00 AM EST MEDGEN ([facility] [employer] [facility]) Name Value Range Interpretation Code Description Data Supporting Source(s) Document(s ) GLYCOMARK 17.59 Normal (applies to MEDGEN ug/mL non-numeric ([facility] Service) ID Date Data Source [id number] 01/02/2018 12:00:00 AM EST MEDGEN ([facility] [employer] [facility]) Name Value Range Interpretation Description Data Sup porting Code Source(s) Document(s ) FOLATE 13.5 ng/mL Above high normal [facility] SERUM ([place]) ID Date Data Source [id number] 01/02/2018 12:00:00 AM EST MEDGEN ([employer] [facility]) Name Value Range Interpretation Description Data Sup porting Code Source(s) Document(s ) VITAMIN B12 1253 Above high normal MEDGEN pg/mL ([facility]) ID Date Data Source [id number] 01/02/2018 12:00:00 AM EST MEDGEN ([employer] [facility]) Name Value Range Interpretation Code Description Data Nakia rce(s) Supporting Document(s ) VITAMIN D <4.20 Below low normal MEDGEN 25-HYDROXY ([employer] [facility]) ID Date Data Source [id number] 01/02/2018 12:00:00 AM EST MEDGEN ([employer] [facility]) Name Value Range Interpretation Description Data Sup porting Code Source(s) Document(s ) Hemoglobin A1c 6.0 % Above high normal [facility] in Blood ([place]) ID Date Data Source [id number] 01/02/2018 12:00:00 AM EST MEDGEN ([employer] [facility]) Name Value Range Interpretation Code Description Data Supporting Source(s) Document(s ) GLYCOMARK 17.59 Normal (applies to MEDGEN ug/mL non-numeric ([place] results) Medical Service) ID Date Data Source [id number] 01/02/2018 12:00:00 AM EST MEDGEN ([employer] [facility]) Name Value Range Interpretation Description Data Sup porting Code Source(s) Document(s ) FOLATE 13.5 ng/mL Above high normal MEDGEN SERUM ([employer] [facility]) ID Date Data Source [id number] 01/02/2018 12:00:00 AM EST MEDGEN ([employer] [facility]) Name Value Range Interpretation Description Data Sup porting Code Source(s) Document(s ) VITAMIN B12 1253 Above high normal MEDGEN pg/mL ([employer] [facility]) ID Date Data Source [id number] 01/02/2018 12:00:00 AM EST MEDGEN ([employer] [facility]) Name Value Range Interpretation Code Description Data Nakia rce(s) Supporting Document(s ) VITAMIN D <4.20 Below low normal MEDGEN 25-HYDROXY ([employer] [facility]) ID Date Data Source [id number] 01/02/2018 12:00:00 AM EST MEDGEN ([employer] [facility]) Name Value Range Interpretation Description Data Sup porting Code Source(s) Document(s ) Hemoglobin A1c 6.0 % Above high normal MEDGEN in Blood ([employer] [facility]) ID Date Data Source [id number] 01/02/2018 12:00:00 AM EST MEDGEN ([employer] [facility]) Name Value Range Interpretation Code Description Data Supporting Source(s) Document(s ) GLYCOMARK 17.59 Normal (applies to MEDGEN ug/mL non-numeric ([place] results) Medical Service) ID Date Data Source [id number] 01/02/2018 12:00:00 AM EST MEDGEN ([employer] [facility]) Name Value Range Interpretation Description Data Sup porting Code Source(s) Document(s ) FOLATE 13.5 ng/mL Above high normal MEDGEN SERUM ([facility]) ID Date Data Source [id number] 01/02/2018 12:00:00 AM EST MEDGEN ([employer] [facility]) Name Value Range Interpretation Description Data Sup porting Code Source(s) Document(s ) VITAMIN B12 1253 Above high normal [facility] pg/mL ([place]) ID Date Data Source [id number] 01/02/2018 12:00:00 AM EST MEDGEN ([employer] [facility]) Name Value Range Interpretation Code Description Data Nakia rce(s) Supporting Document(s ) VITAMIN D <4.20 Below low normal MEDGEN 25-HYDROXY ([facility]) ID Date Data Source [id number] 12/12/2017 12:00:00 AM EST [facility]GEN ([facility] [employer] [facility]) Name Value Range Interpretation Description Data Sup porting Code Source(s) Document(s ) HEPATITIS NONREACTIVE Normal (applies MEDGEN A(IGM) to non-numeric ([place] results) Medical Service) ID Date Data Source [id number] 12/12/2017 12:00:00 AM EST MEDGEN ([employer] [facility]) Name Value Range Interpretation Description Data Sup porting Code Source(s) Document(s ) HEPATITIS A REACTIVE Normal (applies to MEDGEN AB non-numeric ([place] results) Medical Service) ID Date Data Source [id number] 12/12/2017 12:00:00 AM EST MEDGEN ([employer] [facility]) Name Value Range Interpretation Description Data Sup porting Code Source(s) Document(s ) HEPATITIS BS NONREACTIVE Normal (applies MEDGEN AG SCREEN to non-numeric ([place] results) Medical Service) ID Date Data Source [id number] 12/12/2017 12:00:00 AM EST MEDGEN ([employer] [facility]) Name Value Range Interpretation Code Description Data Nakia rce(s) Supporting Document(s ) HBeAB NEGATIVE Normal (applies to MEDGEN non-numeric results) ([facility]) ID Date Data Source [id number] 12/12/2017 12:00:00 AM EST MEDGEN ([facility] [employer] [facility]) Name Value Range Interpretation Description Data Sup porting Code Source(s) Document(s ) HEPATITIS C NONREACTIVE Normal (applies MEDGEN AB QL to non-numeric ([place] results) Medical Service) ID Date Data Source [id number] 12/12/2017 12:00:00 AM EST MEDGEN ([facility]) Name Value Range Interpretation Description Data Sup porting Code Source(s) Document(s ) HEPATITIS B NONREACTIVE Normal (applies MEDGEN CORE AB QL to non-numeric ([place] results) Medical Service) ID Date Data Source [id number] 12/12/2017 12:00:00 AM EST MEDGEN ([facility]) Name Value Range Interpretation Description Data Sup porting Code Source(s) Document(s ) HEPATITIS B <3.10 Normal (applies to MEDGEN SURFACE AB (NONREACT non-numeric ([place] ZIA) results) Medical Service) ID Date Data Source [id number] 12/12/2017 12:00:00 AM EST MEDGEN ([facility]) Name Value Range Interpretation Description Data Sup porting Code Source(s) Document(s ) HEPATITIS BE NONREACTIVE Normal (applies MEDGEN AG to non-numeric ([place] results) Medical Service) ID Date Data Source [id number] 12/12/2017 12:00:00 AM EST MEDGEN ([facility]) Name Value Range Interpretation Description Data Sup porting Code Source(s) Document(s ) GLUCOSE 136 Above high normal MEDGEN NONFASTING,SERUM mg/dL ([place] Medical Service) SODIUM, SERUM 142 Normal (applies MEDGEN mEq/L to non-numeric ([place] results) Medical Service) CHLORIDE, SERUM 106 Normal (applies MEDGEN mEq/L to non-numeric ([place] results) Medical Service) POTASSIUM, SERUM 4.1 Normal (applies MEDGEN mEq/L to non-numeric ([place] results) Medical Service) Carbon dioxide 22 mEq/L Normal (applies MEDGEN [VFr/PPres] in to non-numeric ([place] [employer] results) Medical system Service) Anion gap in 18.1 Above high normal MEDGEN Body fluid mEq/L ([place] Medical Service) CREATININE, 1.00 Above high normal MEDGEN SERUM mg/dL ([place] Medical Service) BLOOD UREA 17 mg/dL Normal (applies MEDGEN NITROGEN to non-numeric ([place] results) Medical Service) BUN/CREATININE 17.00 Normal (applies MEDGEN RATIO to non-numeric ([place] results) Medical Service) CALCIUM, SERUM 11.7 Above high normal MEDGEN mg/dL ([place] Medical Service) Microalbumin 5.0 g/dL Above high normal MEDGEN [Mass/time] in ([place] Urine collected Medical for unspecified Service) duration TOTAL PROTEIN 7.6 g/dL Normal (applies MEDGEN to non-numeric ([place] results) Medical Service) Globulin 2.6 gldl Normal (applies MEDGEN [Mass/time] in to non-numeric ([place] 24 hour Urine results) Medical Service) A/G RATIO 1.92 Normal (applies MEDGEN g/dl to non-numeric ([place] results) Medical Service) BILIRUBIN, TOTAL 0.6 Normal (applies MEDGEN mg/dL to non-numeric ([place] results) Medical Service) ALT (SGPT) 16 U/L Normal (applies MEDGEN to non-numeric ([place] results) Medical Service) ALKALINE 66 U/L Normal (applies MEDGEN PHOSPHATASE, ALP to non-numeric ([facility] y results) Medical Service) AST 20 U/L Normal (applies MEDGEN to non-numeric ([place] results) Medical Service) EGFR NON AFR 58 Above high normal MEDGEN TURKMEN mL/min/1 ([place] .73m2 Medical Service) EGFR AFR 70 Above high normal MEDGEN TURKMEN mL/min/1 ([place] .73 Medical Service) ID Date Data Source [id number] 12/12/2017 12:00:00 AM EST MEDGEN ([facility] Medical Service) Name Value Range Interpretation Description Data Sup porting Code Source(s) Document(s ) Cholesterol 218 Above high normal MEDGEN [Moles/volume] mg/dL ([place] in Pericardial Medical fluid Service) CHOL/HDL RATIO 4.95 Normal (applies MEDGEN ratio to non-numeric ([place] results) Medical Service) LDL CALCULATION 105.8 Normal (applies MEDGEN mg/dL to non-numeric ([place] results) Medical Service) HDL CHOLESTEROL 44 mg/dL Above high normal MEDGEN ([place] Medical Service) VLDL CALCULATION 68.2 Above high normal MEDGE N mg/dl ([place] Medical Service) TRIGLYCERIDES 341 Above high normal MEDGEN mg/dL ([place] Medical Service) ID Date Data Source [id number] 12/12/2017 12:00:00 AM EST MEDGEN ([facility] Medical Service) Name Value Range Interpretation Description Data Sup porting Code Source(s) Document(s ) GLUCOSE UA NEGATIVE Normal (applies MEDGEN to non-numeric ([place] results) Medical Service) BILIRUBIN, TOTAL NEGATIVE Normal (applies MEDGEN to non-numeric ([place] results) Medical Service) Ketones NEGATIVE Normal (applies MEDGEN [Presence] in to non-numeric ([place] Blood by Tablet results) Medical Service) Specific gravity 1.017 SG Normal (applies MEDGEN of Pericardial units to non-numeric ([place] fluid by results) Medical Refractometry Service) Blood [Presence] NEGATIVE Normal (applies MEDGEN in Urine by to non-numeric ([place] Visual results) Medical Service) pH of Lower 5 Ph units Normal (applies MEDGEN respiratory to non-numeric ([place] specimen results) Medical Service) Protein NEGATIVE Normal (applies MEDGEN [Mass/volume] in to non-numeric ([place] [facility] Lower results) Medical respiratory Service) specimen Urobilinogen 0-2.0 Normal (applies MEDGEN [Presence] in to non-numeric ([place] Urine by results) Medical Automated test Service) strip Nitrite NEGATIVE Normal (applies MEDGEN [Presence] in to non-numeric ([place] Urine by Test results) Medical strip Service) Leukocyte MODERATE Normal (applies MEDGEN esterase to non-numeric ([place] [Presence] in results) Medical Body fluid by Service) Automated test strip Color of YELLOW Normal (applies MEDGEN Peritoneal to non-numeric ([place] dialysis fluid results) Medical Service) TRANSPARENCY CLEAR Normal (applies MEDGEN to non-numeric ([place] results) Medical Service) WBC`S 21-50 Normal (applies MEDGEN to non-numeric ([place] results) Medical Service) SQUMAOUS FEW Normal (applies MEDGEN EPITHELIAL to non-numeric ([place] results) Medical Service) MUCOUS FEW Normal (applies MEDGEN to non-numeric ([place] results) Medical Service) Hyaline Cast 0-2 Normal (applies MEDGEN to non-numeric ([place] results) Medical Service) ID Date Data Source [id number] 12/12/2017 12:00:00 AM EST MEDGEN ([employer] Medical Service) Name Value Range Interpretation Description Data Sup porting Code Source(s) Document(s ) ORGANISM Abnormal (applies MEDGEN to non-numeric ([place] results) Medical Service) Comment Normal (applies MEDGEN [Interpretation] to non-numeric ([place] Left eye Narrative results) Medical Ophthalmometer Service) ID Date Data Source [id number] 12/12/2017 12:00:00 AM EST MEDGEN ([employer] [facility] Service) Name Value Range Interpretation Description Data Sup porting Code Source(s) Document(s ) ORGANISM Abnormal (applies MEDGEN to non-numeric ([place] results) Medical Service) Comment Normal ([facility] Medical Ophthalmometer Service) ID Date Data Source [id number] 12/12/2017 12:00:00 AM EST MEDGEN ([employer] [facility]) Name Value Range Interpretation Description Data Sup porting Code Source(s) Document(s ) HEPATITIS NONREACTIVE Normal (applies MEDGEN A(IGM) to non-numeric ([place] results) Medical Service) ID Date Data Source [id number] 12/12/2017 12:00:00 AM EST MEDGEN ([employer] [facility]) Name Value Range Interpretation Description Data Sup porting Code Source(s) Document(s ) HEPATITIS A REACTIVE Normal (applies to MEDGEN AB non-numeric ([place] results) Medical Service) ID Date Data Source [id number] 12/12/2017 12:00:00 AM EST MEDGEN ([employer] [facility]) Name Value Range Interpretation Description Data Sup porting Code Source(s) Document(s ) HEPATITIS BS NONREACTIVE Normal (applies MEDGEN AG SCREEN to non-numeric ([place] results) Medical Service) ID Date Data Source [id number] 12/12/2017 12:00:00 AM EST MEDGEN ([employer] [facility]) Name Value Range Interpretation Code Description Data Nakia rce(s) Supporting Document(s ) HBeAB NEGATIVE Normal (applies to MEDGEN non-numeric results) ([place] Medical Service) ID Date Data Source [id number] 12/12/2017 12:00:00 AM EST MEDGEN [employer] [facility]) Name Value Range Interpretation Description Data Sup porting Code Source(s) Document(s ) HEPATITIS C NONREACTIVE Normal (applies MEDGEN AB QL to non-numeric ([place] results) Medical Service) ID Date Data Source [id number] 12/12/2017 12:00:00 AM EST MEDGEN ([employer] Service) Name Value Range Interpretation Description Data Sup porting Code Source(s) Document(s ) HEPATITIS B NONREACTIVE Normal (applies MEDGEN CORE AB QL to non-numeric ([place] results) Medical Service) ID Date Data Source [id number] 12/12/2017 12:00:00 AM EST MEDGEN ([employer] [facility]) Name Value Range Interpretation Description Data Sup porting Code Source(s) Document(s ) HEPATITIS B <3.10 Normal (applies to MEDGEN SURFACE AB (NONREACT non-numeric ([place] [facility]) results) Medical Service) ID Date Data Source [id number] 12/12/2017 12:00:00 AM EST MEDGEN ([facility] Medical [facility]) Name Value Range Interpretation Description Data Sup porting Code Source(s) Document(s ) HEPATITIS BE NONREACTIVE Normal (applies MEDGEN AG to non-numeric ([place] results) Medical Service) ID Date Data Source [id number] 12/12/2017 12:00:00 AM EST MEDGEN ([facility] Medical [facility]) Name Value Range Interpretation Description Data Sup porting Code Source(s) Document(s ) GLUCOSE 136 Above high normal MEDGEN NONFASTING,SERUM mg/dL ([place] Medical Service) SODIUM, SERUM 142 Normal (applies MEDGEN mEq/L to non-numeric ([place] results) Medical Service) POTASSIUM, SERUM 4.1 Normal (applies MEDGEN mEq/L to non-numeric ([place] results) Medical Service) CHLORIDE, SERUM 106 Normal (applies MEDGEN mEq/L to non-numeric ([place] results) Medical Service) Carbon dioxide 22 mEq/L Normal (applies MEDGEN [VFr/PPres] in to non-numeric ([place] [employer] results) Medical system Service) Anion gap in 18.1 Above high normal MEDGEN Body fluid mEq/L ([place] Medical Service) BLOOD UREA 17 mg/dL Normal (applies MEDGEN NITROGEN to non-numeric ([place] results) Medical Service) BUN/CREATININE 17.00 Normal (applies MEDGEN RATIO to non-numeric ([place] results) Medical Service) CREATININE, 1.00 Above high normal MEDGEN SERUM mg/dL ([place] Medical Service) CALCIUM, SERUM 11.7 Above high normal MEDGEN mg/dL ([place] Medical Service) TOTAL PROTEIN 7.6 g/dL Normal (applies MEDGEN to non-numeric ([place] results) Medical Service) Microalbumin 5.0 g/dL Above high normal MEDGEN [Mass/time] in ([place] Urine collected Medical for unspecified Service) duration Globulin 2.6 gldl Normal (applies MEDGEN [Mass/time] in to non-numeric ([place] 24 hour Urine results) Medical Service) A/G RATIO 1.92 Normal (applies MEDGEN g/dl to non-numeric ([place] results) Medical Service) BILIRUBIN, TOTAL 0.6 Normal (applies MEDGEN mg/dL to non-numeric ([place] results) Medical Service) ALKALINE 66 U/L Normal (applies MEDGEN PHOSPHATASE, ALP [facility]) ALT (SGPT) 16 U/L Normal (applies MEDGEN to non-numeric ([place] results) Medical Service) AST 20 U/L Normal (applies MEDGEN to non-numeric ([place] results) Medical Service) EGFR NON AFR 58 Above high normal MEDGEN TURKMEN mL/min/1 ([place] .73m2 Medical Service) EGFR AFR 70 Above high normal MEDGEN TURKMEN mL/min/1 ([place] .73m2 Medical Service) ID Date Data Source [id number] 12/12/2017 12:00:00 AM EST MEDGEN ([facility] Medical Service) Name Value Range Interpretation Description Data Sup porting Code Source(s) Document(s ) Cholesterol 218 Above high normal MEDGEN [Moles/volume] mg/dL ([place] in Pericardial Medical fluid Service) LDL CALCULATION 105.8 Normal (applies MEDGEN mg/dL to non-numeric ([place] results) Medical Service) CHOL/HDL RATIO 4.95 Normal (applies MEDGEN ratio to non-numeric ([place] results) Medical Service) HDL CHOLESTEROL 44 mg/dL Above high normal MEDGEN ([place] Medical Service) VLDL CALCULATION 68.2 Above high normal MEDGE N mg/dl ([place] Medical Service) TRIGLYCERIDES 341 Above high normal MEDGEN mg/dL ([place] Medical Service) ID Date Data Source [id number] 12/12/2017 12:00:00 AM EST MEDGEN ([facility] Medical [facility]) Name Value Range Interpretation Description Data Sup porting Code Source(s) Document(s ) GLUCOSE UA NEGATIVE Normal (applies MEDGEN to non-numeric ([place] results) Medical Service) BILIRUBIN, TOTAL NEGATIVE Normal (applies MEDGEN to non-numeric ([place] results) Medical Service) Ketones NEGATIVE Normal (applies MEDGEN [Presence] in to non-numeric ([place] Blood by Tablet results) Medical Service) Specific gravity 1.017 SG Normal (applies MEDGEN of Pericardial units to non-numeric ([place] fluid by results) Medical Refractometry Service) Blood [Presence] NEGATIVE Normal (applies MEDGEN in Urine by to non-numeric ([place] Visual results) Medical Service) pH of Lower 5 Ph units Normal (applies MEDGEN respiratory to non-numeric ([place] specimen results) Medical Service) Protein NEGATIVE Normal (applies MEDGEN [Mass/volume] in to non-numeric ([place] Lower results) Medical respiratory Service) specimen Urobilinogen 0-2.0 Normal (applies MEDGEN [Presence] in to non-numeric ([place] Urine by results) Medical Automated test Service) strip Nitrite NEGATIVE Normal (applies MEDGEN [Presence] in to non-numeric ([place] Urine by Test results) Medical strip Service) Leukocyte MODERATE Normal (applies MEDGEN esterase to non-numeric ([place] [Presence] in results) Medical Body fluid by Service) Automated test strip Color of YELLOW Normal (applies MEDGEN Peritoneal to non-numeric ([place] dialysis fluid results) Medical Service) TRANSPARENCY CLEAR Normal (applies MEDGEN to non-numeric ([place] results) Medical Service) WBC`S 21-50 Normal (applies MEDGEN to non-numeric ([place] results) Medical Service) SQUMAOUS FEW Normal (applies MEDGEN EPITHELIAL to non-numeric ([place] results) Medical Service) MUCOUS FEW Normal (applies MEDGEN to non-numeric ([place] results) Medical Service) Hyaline Cast 0-2 Normal (applies MEDGEN to non-numeric ([place] results) Medical Service) ID Date Data Source [id number] 12/12/2017 12:00:00 AM EST MEDGEN ([employer] [facility] Service) Name Value Range Interpretation Description Data Sup porting Code Source(s) Document(s ) ORGANISM Abnormal (applies MEDGEN to non-numeric ([place] results) Medical Service) Comment Normal (applies MEDGEN [Interpretation] to non-numeric ([place] Left eye Narrative results) Medical Ophthalmometer Service) ID Date Data Source [id number] 12/12/2017 12:00:00 AM EST MEDGEN ([employer] [facility]) Name Value Range Interpretation Description Data Sup porting Code Source(s) Document(s ) HEPATITIS NONREACTIVE Normal (applies MEDGEN A(IGM) to non-numeric ([place] results) Medical Service) ID Date Data Source [id number] 12/12/2017 12:00:00 AM EST MEDGEN ([employer] [facility]) Name Value Range Interpretation Code Description Data Nakia rce(s) Supporting Document(s ) ID Date Data Source [id number] 12/12/2017 12:00:00 AM EST MEDGEN ([employer] [facility]) Name Value Range Interpretation Description Data Sup porting Code Source(s) Document(s ) HEPATITIS NONREACTIVE Normal (applies MEDGEN A(IGM) to non-numeric ([place] results) Medical Service) ID Date Data Source [id number] 12/12/2017 12:00:00 AM EST MEDGEN ([facility]) Name Value Range Interpretation Description Data Sup porting Code Source(s) Document(s ) HEPATITIS A REACTIVE Normal (applies to MEDGEN AB non-numeric ([place] results) Medical Service) ID Date Data Source [id number] 12/12/2017 12:00:00 AM EST MEDGEN ([facility]) Name Value Range Interpretation Description Data Sup porting Code Source(s) Document(s ) HEPATITIS BS NONREACTIVE Normal (applies MEDGEN AG SCREEN to non-numeric ([place] results) Medical Service) ID Date Data Source [id number] 12/12/2017 12:00:00 AM EST MEDGEN ([facility] [employer] [facility]) Name Value Range Interpretation Code Description Data Nakia rce(s) Supporting Document(s ) HBeAB NEGATIVE Normal (applies to MEDGEN non-numeric results) ([place] Medical Service) ID Date Data Source [id number] 12/12/2017 12:00:00 AM EST MEDGEN ([facility] [employer] [facility]) Name Value Range Interpretation Description Data Sup porting Code Source(s) Document(s ) HEPATITIS C NONREACTIVE Normal (applies MEDGEN AB QL to non-numeric ([place] results) Medical Service) ID Date Data Source [id number] 12/12/2017 12:00:00 AM EST MEDGEN ([facility] [employer] Medical Service) Name Value Range Interpretation Description Data Sup porting Code Source(s) Document(s ) HEPATITIS B NONREACTIVE Normal (applies MEDGEN CORE AB QL to non-numeric ([place] results) Medical Service) ID Date Data Source [id number] 12/12/2017 12:00:00 AM EST MEDGEN ([facility]) Name Value Range Interpretation Description Data Sup porting Code Source(s) Document(s ) HEPATITIS B <3.10 Normal (applies to MEDGEN SURFACE AB (NONREACT non-numeric ([place] [facility]) results) Medical Service) ID Date Data Source [id number] 12/12/2017 12:00:00 AM EST MEDGEN ([facility] [employer] [facility]) Name Value Range Interpretation Description Data Sup porting Code Source(s) Document(s ) HEPATITIS A REACTIVE Normal (applies to MEDGEN AB non-numeric ([place] results) Medical Service) ID Date Data Source [id number] 12/12/2017 12:00:00 AM EST MEDGEN ([employer] Medical [facility]) Name Value Range Interpretation Description Data Sup porting Code Source(s) Document(s ) HEPATITIS BS NONREACTIVE Normal (applies MEDGEN AG SCREEN to non-numeric ([place] results) Medical Service) ID Date Data Source [id number] 12/12/2017 12:00:00 AM EST MEDGEN ([employer] [facility]) Name Value Range Interpretation Code Description Data Nakia rce(s) Supporting Document(s ) HBeAB NEGATIVE Normal (applies to MEDGEN non-numeric results) ([place] Medical Service) ID Date Data Source [id number] 12/12/2017 12:00:00 AM EST MEDGEN ([facility] [employer] Medical [facility]) Name Value Range Interpretation Description Data Sup porting Code Source(s) Document(s ) HEPATITIS C NONREACTIVE Normal (applies MEDGEN AB QL to non-numeric ([place] results) Medical Service) ID Date Data Source [id number] 12/12/2017 12:00:00 AM EST MEDGEN ([employer] [facility]) Name Value Range Interpretation Description Data Sup porting Code Source(s) Document(s ) HEPATITIS B NONREACTIVE Normal (applies MEDGEN CORE AB QL to non-numeric ([place] results) Medical Service) ID Date Data Source [id number] 12/12/2017 12:00:00 AM EST MEDGEN ([facility] [employer] Medical [facility]) Name Value Range Interpretation Description Data Sup porting Code Source(s) Document(s ) HEPATITIS B <3.10 Normal (applies to MEDGEN SURFACE AB (NONREACT non-numeric ([place] [facility]) results) Medical Service) ID Date Data Source [id number] 12/12/2017 12:00:00 AM EST MEDGEN ([facility] [employer] [facility]) Name Value Range Interpretation Description Data Sup porting Code Source(s) Document(s ) HEPATITIS BE NONREACTIVE Normal (applies MEDGEN AG to non-numeric ([place] results) Medical Service) ID Date Data Source [id number] 12/12/2017 12:00:00 AM EST MEDGEN ([facility] [employer] [facility]) Name Value Range Interpretation Description Data Sup porting Code Source(s) Document(s ) GLUCOSE 136 Above high normal MEDGEN NONFASTING,SERUM mg/dL ([place] Medical Service) SODIUM, SERUM 142 Normal (applies MEDGEN mEq/L to non-numeric ([place] results) Medical Service) POTASSIUM, SERUM 4.1 Normal (applies MEDGEN mEq/L to non-numeric ([place] results) Medical Service) CHLORIDE, SERUM 106 Normal (applies MEDGEN mEq/L to non-numeric ([place] results) Medical Service) Carbon dioxide 22 mEq/L Normal (applies MEDGEN [VFr/PPres] in to non-numeric ([place] [employer] results) Medical system Service) Anion gap in 18.1 Above high normal MEDGEN Body fluid mEq/L ([place] Medical Service) BLOOD UREA 17 mg/dL Normal (applies MEDGEN NITROGEN to non-numeric ([place] results) Medical Service) CREATININE, 1.00 Above high normal MEDGEN SERUM mg/dL ([place] Medical Service) BUN/CREATININE 17.00 Normal (applies MEDGEN RATIO to non-numeric ([place] results) Medical Service) CALCIUM, SERUM 11.7 Above high normal MEDGEN mg/dL ([place] Medical Service) TOTAL PROTEIN 7.6 g/dL Normal (applies MEDGEN to non-numeric ([place] results) Medical Service) Microalbumin 5.0 g/dL Above high normal MEDGEN [Mass/time] in ([place] Urine collected Medical for unspecified Service) duration Globulin 2.6 gldl Normal (applies MEDGEN [Mass/time] in to non-numeric ([place] 24 hour Urine results) Medical Service) A/G RATIO 1.92 Normal (applies MEDGEN g/dl to non-numeric ([place] results) Medical Service) BILIRUBIN, TOTAL 0.6 Normal (applies MEDGEN mg/dL to non-numeric ([place] results) Medical Service) ALT (SGPT) 16 U/L Normal (applies MEDGEN to non-numeric ([place] results) Medical Service) ALKALINE 66 U/L Normal (applies MEDGEN PHOSPHATASE, ALP to non-numeric ([facility] results) Medical Service) AST 20 U/L Normal (applies MEDGEN to non-numeric ([place] results) Medical Service) EGFR NON AFR 58 Above high normal MEDGEN TURKMEN mL/min/1 ([place] .73m2 Medical Service) EGFR AFR 70 Above high normal MEDGEN TURKMEN mL/min/1 ([place] .73m2 Medical Service) ID Date Data Source [id number] 12/12/2017 12:00:00 AM EST MEDGEN ([facility] [employer] [facility]) Name Value Range Interpretation Description Data Sup porting Code Source(s) Document(s ) Cholesterol 218 Above high normal MEDGEN [Moles/volume] mg/dL ([place] in Pericardial Medical fluid Service) LDL CALCULATION 105.8 Normal (applies MEDGEN mg/dL to non-numeric ([place] results) Medical Service) CHOL/HDL RATIO 4.95 Normal (applies MEDGEN ratio to non-numeric ([place] results) Medical Service) HDL CHOLESTEROL 44 mg/dL Above high normal MEDGEN ([place] Medical Service) VLDL CALCULATION 68.2 Above high normal MEDGE N mg/dl ([place] Medical Service) TRIGLYCERIDES 341 Above high normal MEDGEN mg/dL ([place] Medical Service) ID Date Data Source [id number] 12/12/2017 12:00:00 AM EST MEDGEN ([facility]) Name Value Range Interpretation Description Data Sup porting Code Source(s) Document(s ) GLUCOSE UA NEGATIVE Normal (applies MEDGEN to non-numeric ([place] results) Medical Service) Ketones NEGATIVE Normal (applies MEDGEN [Presence] in to non-numeric ([place] Blood by Tablet results) Medical Service) BILIRUBIN, TOTAL NEGATIVE Normal (applies MEDGEN to non-numeric ([place] results) Medical Service) Specific gravity 1.017 SG Normal (applies MEDGEN of Pericardial units to non-numeric ([place] fluid by results) Medical Refractometry Service) Blood [Presence] NEGATIVE Normal (applies MEDGEN in Urine by to non-numeric ([place] Visual results) Medical Service) pH of Lower 5 Ph units Normal (applies MEDGEN respiratory to non-numeric ([place] specimen results) Medical Service) Protein NEGATIVE Normal (applies MEDGEN [Mass/volume] [facility] Medical respiratory Service) specimen Urobilinogen 0-2.0 Normal (applies MEDGEN [Presence] in to non-numeric ([place] Urine by results) Medical Automated test Service) strip Leukocyte MODERATE Normal (applies MEDGEN esterase to non-numeric ([place] [Presence] in results) Medical Body fluid by Service) Automated test strip Nitrite NEGATIVE Normal (applies MEDGEN [Presence] in to non-numeric ([place] Urine by Test results) Medical strip Service) Color of YELLOW Normal (applies MEDGEN Peritoneal to non-numeric ([place] dialysis fluid results) Medical Service) TRANSPARENCY CLEAR Normal (applies MEDGEN to non-numeric ([place] results) Medical Service) WBC`S 21-50 Normal (applies MEDGEN to non-numeric ([place] results) Medical Service) SQUMAOUS FEW Normal (applies MEDGEN EPITHELIAL to non-numeric ([place] results) Medical Service) MUCOUS FEW Normal (applies MEDGEN to non-numeric ([place] results) Medical Service) Hyaline Cast 0-2 Normal (applies MEDGEN to non-numeric ([place] results) Medical Service) ID Date Data Source [id number] 12/12/2017 12:00:00 AM EST MEDGEN ([facility]) Name Value Range Interpretation Description Data Sup porting Code Source(s) Document(s ) HEPATITIS BE NONREACTIVE Normal (applies MEDGEN AG to non-numeric ([place] results) Medical Service) ID Date Data Source [id number] 12/12/2017 12:00:00 AM EST MEDGEN ([facility] Medical [facility]) Name Value Range Interpretation Description Data Sup porting Code Source(s) Document(s ) SODIUM, SERUM 142 Normal (applies MEDGEN mEq/L to non-numeric ([place] results) Medical Service) GLUCOSE 136 Above high normal MEDGEN NONFASTING,SERUM mg/dL ([place] Medical Service) POTASSIUM, SERUM 4.1 Normal (applies MEDGEN mEq/L to non-numeric ([place] results) Medical Service) CHLORIDE, SERUM 106 Normal (applies MEDGEN mEq/L to non-numeric ([place] results) Medical Service) Anion gap in 18.1 Above high normal MEDGEN Body fluid mEq/L ([place] Medical Service) Carbon dioxide 22 mEq/L Normal (applies MEDGEN [VFr/PPres] in to non-numeric ([place] [employer] results) Medical system Service) BLOOD UREA 17 mg/dL Normal (applies MEDGEN NITROGEN to non-numeric ([place] results) Medical Service) CREATININE, 1.00 Above high normal MEDGEN SERUM mg/dL ([place] Medical [facility]) BUN/CREATININE 17.00 Normal (applies MEDGEN RATIO to non-numeric ([place] results) Medical Service) CALCIUM, SERUM 11.7 Above high normal MEDGEN mg/dL ([place] Medical Service) Microalbumin 5.0 g/dL Above high normal MEDGEN [Mass/time] in ([place] Urine collected Medical for unspecified Service) duration TOTAL PROTEIN 7.6 g/dL Normal (applies MEDGEN to non-numeric ([place] results) Medical Service) Globulin 2.6 gldl Normal (applies MEDGEN [Mass/time] in to non-numeric ([place] 24 hour Urine results) Medical Service) A/G RATIO 1.92 Normal (applies MEDGEN g/dl to non-numeric ([place] results) Medical Service) BILIRUBIN, TOTAL 0.6 Normal (applies MEDGEN mg/dL to non-numeric ([place] results) Medical Service) ALKALINE 66 U/L Normal (applies MEDGEN PHOSPHATASE, ALP [facility]) ALT (SGPT) 16 U/L Normal (applies MEDGEN to non-numeric ([place] results) Medical Service) AST 20 U/L Normal (applies MEDGEN to non-numeric ([place] results) Medical Service) EGFR NON AFR 58 Above high normal MEDGEN TURKMEN mL/min/1 ([place] .73m2 Medical Service) EGFR AFR 70 Above high normal MEDGEN TURKMEN mL/min/1 ([place] .73m2 Medical Service) ID Date Data Source [id number] 12/12/2017 12:00:00 AM EST MEDGEN ([facility] Medical Service) Name Value Range Interpretation Description Data Sup porting Code Source(s) Document(s ) Cholesterol 218 Above high normal MEDGEN [Moles/volume] mg/dL ([place] in Pericardial Medical fluid Service) LDL CALCULATION 105.8 Normal (applies MEDGEN mg/dL to non-numeric ([place] results) Medical Service) CHOL/HDL RATIO 4.95 Normal (applies MEDGEN ratio to non-numeric ([place] results) Medical Service) HDL CHOLESTEROL 44 mg/dL Above high normal MEDGEN ([place] Medical Service) VLDL CALCULATION 68.2 Above high normal MEDGE N mg/dl ([place] Medical Service) TRIGLYCERIDES 341 Above high normal MEDGEN mg/dL ([place] Medical Service) ID Date Data Source [id number] 12/12/2017 12:00:00 AM EST MEDGEN ([facility]) Name Value Range Interpretation Description Data Sup porting Code Source(s) Document(s ) GLUCOSE UA NEGATIVE Normal (applies MEDGEN to non-numeric ([place] results) Medical Service) BILIRUBIN, TOTAL NEGATIVE Normal (applies MEDGEN to non-numeric ([place] results) Medical Service) Ketones NEGATIVE Normal (applies MEDGEN [Presence] in to non-numeric ([place] Blood by Tablet results) Medical Service) Specific gravity 1.017 SG Normal (applies MEDGEN of Pericardial units to non-numeric ([place] fluid by results) Medical Refractometry Service) Blood [Presence] NEGATIVE Normal (applies MEDGEN in Urine by to non-numeric ([place] Visual results) Medical Service) pH of Lower 5 Ph units Normal (applies MEDGEN respiratory to non-numeric ([place] specimen results) Medical Service) Protein NEGATIVE Normal (applies MEDGEN [Mass/volume] in to non-numeric ([place] Lower results) Medical respiratory Service) specimen Urobilinogen 0-2.0 Normal (applies MEDGEN [Presence] in to non-numeric ([place] Urine by results) Medical Automated test Service) strip Nitrite NEGATIVE Normal (applies MEDGEN [Presence] in to non-numeric ([place] Urine by Test results) Medical strip Service) Leukocyte MODERATE Normal (applies MEDGEN esterase to non-numeric ([place] [Presence] in results) Medical Body fluid by Service) Automated test strip TRANSPARENCY CLEAR Normal (applies MEDGEN to non-numeric ([place] results) Medical Service) Color of YELLOW Normal (applies MEDGEN Peritoneal to non-numeric ([facility] fluid results) [facility] Service) WBC`S 21-50 Normal (applies MEDGEN to non-numeric ([facility] results) [facility]) SQUMAOUS FEW Normal (applies MEDGEN EPITHELIAL to non-numeric ([facility] results) [facility]) MUCOUS FEW Normal (applies MEDGEN to non-numeric ([place] results) Medical Service) Hyaline Cast 0-2 Normal (applies MEDGEN to non-numeric ([facility] results) [facility]) Procedure Social History Code Duration Value Status Description Data Source(s ) Caffeine Use 07/29/2020 completed NEXTGEN ([facility] Details 12:00:00 AM [facility]) Smoking 07/29/2020 Unknown if completed Unknown if ever NEXTGEN ( [facility] 12:[facility]:00 AM ever smoked smoked [facility]) Smoking 07/18/2020 Former smoker completed Former smoker MEDGEN 12:00:00 AM ([facility]) Smoking 07/18/2020 non smoker , completed non smoker , non MEDGEN 12:00:00 AM non dirnker , dirnker , not ([facility] Smoking 06/29/2020 Former smoker completed Former smoker MEDGEN 12:00:00 AM ([facility]) Smoking 06/29/2020 non smoker , completed non smoker , non MEDGEN 12:00:00 AM non dirnker , dirnker , not ([facility] Smoking 06/27/2020 Former smoker completed Former smoker MEDGEN 12:00:00 AM ([place] [facility]) Smoking 06/27/2020 non smoker , completed non smoker , non MEDGEN 12:00:00 AM non dirnker , dirnker , not [facility] Smoking 06/14/2020 Former smoker completed Former smoker MEDGEN 12:00:00 AM ([place] [facility]) Smoking 06/14/2020 non smoker , completed non smoker , non MEDGEN 12:00:00 AM non dirnker , dirnker , not [facility] Caffeine Use 06/09/2020 completed NEXTGEN ([facility] nt Details 12:00:00 AM [facility]) Alcohol Use completed NEXTGEN ([facility]) Smoking Unknown if completed Unknown if ever [facility] ever smoked smoked [facility] Vital Signs ID Date Data Source UNK Name Value Range Interpretation Code Description Data Source(s) Body height 62 in 62 in MEDGEN ([facility]) Body weight 149 lb 149 lb MEDGEN ([facility]) Systolic blood 130 mm[Hg] 130 mm[Hg] MEDGEN ([facility]) Diastolic blood 80 mm[Hg] 80 mm[Hg] MEDGEN ([facility]) Body mass index 27.2 kg/m2 27.2 kg/m2 MEDGEN ([facility] (BMI) [Ratio] Medical Ser vice) Systolic blood 130 mm[Hg] 130 mm[Hg] MEDGEN ([facility]) Diastolic blood 80 mm[Hg] 80 mm[Hg] MEDGEN ([facility]) Systolic blood 130 mm[Hg] 130 mm[Hg] MEDGEN ([facility]) Diastolic blood 80 mm[Hg] 80 mm[Hg] MEDGEN ([facility]) Body height 64 in 64 in MEDGEN ([facility]) Body weight 148 lb 148 lb MEDGEN ([facility]) Systolic blood 120 mm[Hg] 120 mm[Hg] MEDGEN ([facility]) Diastolic blood 60 mm[Hg] 60 mm[Hg] MEDGEN ([facility]) Body mass index 25.4 kg/m2 25.4 kg/m2 MEDGEN ([facility] (BMI) [Ratio] Medical Ser vice) Respiratory rate 16 /min 16 /min MEDGEN ( [place] [facility]) Heart rate 72 /min 72 /min MEDGEN ([facility]) Body height 64 in 64 in MEDGEN ([facility]) Body weight 148 lb 148 lb MEDGEN ([facility]) Systolic blood 120 mm[Hg] 120 mm[Hg] MEDGEN ([facility]) Diastolic blood 60 mm[Hg] 60 mm[Hg] MEDGEN ([facility]) Body mass index 25.4 kg/m2 25.4 kg/m2 MEDGEN ([facility] (BMI) [Ratio] Medical Ser vice) Respiratory rate 16 /min 16 /min MEDGEN ( [place] [facility]) Heart rate 72 /min 72 /min MEDGEN ([facility]) Body height 64 in 64 in MEDGEN ([facility]) Body weight 148 lb 148 lb MEDGEN ([facility]) Systolic blood 120 mm[Hg] 120 mm[Hg] MEDGEN ([facility]) Diastolic blood 60 mm[Hg] 60 mm[Hg] MEDGEN ([facility]) Body mass index 25.4 kg/m2 25.4 kg/m2 MEDGEN ([facility] (BMI) [Ratio] Medical Ser vice) Respiratory rate 16 /min 16 /min MEDGEN ( [facility]) Heart rate 72 /min 72 /min MEDGEN ([facility]) Body height 64 in 64 in MEDGEN ([facility]) Body weight 148 lb 148 lb MEDGEN ([facility]) Systolic blood 120 mm[Hg] 120 mm[Hg] MEDGEN ([facility]) Diastolic blood 70 mm[Hg] 70 mm[Hg] MEDGEN ([facility]) Body mass index 25.4 kg/m2 25.4 kg/m2 MEDGEN ([facility] (BMI) [Ratio] Medical Ser vice) Respiratory rate 16 /min 16 /min MEDGEN ( [facility]) Heart rate 72 /min 72 /min MEDGEN ([facility] Body height 64 in 64 in [facility]GEN ([facility]) Body weight 148 lb 148 lb [facility] ([facility]) Systolic blood 120 mm[Hg] 120 mm[Hg] MEDGEN ([facility]) Diastolic blood 70 mm[Hg] 70 mm[Hg] MEDGEN ([facility]) Body mass index 25.4 kg/m2 25.4 kg/m2 MEDGEN ([facility] (BMI) [Ratio] Medical Ser vice) Respiratory rate 16 /min 16 /min MEDGEN ( [facility]) Heart rate 72 /min 72 /min MEDGEN ([facility]) Diastolic blood 70 mm[Hg] 70 mm[Hg] MEDGEN ([facility]) Body mass index 25.4 kg/m2 25.4 kg/m2 MEDGEN ([facility] (BMI) [Ratio] Medical Ser vice) Respiratory rate 16 /min 16 /min MEDGEN ( [place] [facility]) Heart rate 72 /min 72 /min MEDGEN ([facility]) Body height 64 in 64 in MEDGEN ([facility]) Body weight 148 lb 148 lb [facility] ([facility]) Systolic blood 120 mm[Hg] 120 mm[Hg] MEDGEN ([facility]) Body height 64 in 64 in [facility]GEN ([facility]) Body weight 148 lb 148 lb MED[facility] ([facility]) Systolic blood 120 mm[Hg] 120 mm[Hg] MEDGEN ([facility]) Diastolic blood 70 mm[Hg] 70 mm[Hg] MEDGEN ([facility]) Body mass index 25.4 kg/m2 25.4 kg/m2 MEDGEN ([facility] (BMI) [Ratio] Medical Ser vice) Respiratory rate 16 /min 16 /min MEDGEN ( [facility]) Heart rate 72 /min 72 /min MEDGEN ([facility]) Body height 64 in 64 in MEDGEN ([facility]) Body weight 148 lb 148 lb MEDGEN ([facility]) Systolic blood 130 mm[Hg] 130 mm[Hg] MEDGEN ([facility]) Diastolic blood 80 mm[Hg] 80 mm[Hg] MEDGEN ([facility]) Body mass index 25.4 kg/m2 25.4 kg/m2 MEDGEN ([facility] (BMI) [Ratio] Medical Ser vice) Respiratory rate 16 /min 16 /min MEDGEN ( [facility]) Heart rate 72 /min 72 /min [facility] ([facility] Body height 64 in 64 in MEDGEN ([facility]) Body weight 148 lb 148 lb MEDGEN ([facility]) Systolic blood 130 mm[Hg] 130 mm[Hg] MEDGEN ([facility]) Diastolic blood 80 mm[Hg] 80 mm[Hg] MEDGEN ([facility]) Body mass index 25.4 kg/m2 25.4 kg/m2 MEDGEN ([facility] (BMI) [Ratio] Medical Ser vice) Respiratory rate 16 /min 16 /min MEDGEN ( [facility]) Heart rate 72 /min 72 /min [facility]GEN ([facility] Body height 64 in 64 in MEDGEN ([facility]) Body weight 148 lb 148 lb MEDGEN ([facility]) Systolic blood 130 mm[Hg] 130 mm[Hg] MEDGEN ([facility]) Diastolic blood 80 mm[Hg] 80 mm[Hg] MEDGEN ([facility]) Body mass index 25.4 kg/m2 25.4 kg/m2 MEDGEN ([facility] (BMI) [Ratio] Medical Ser vice) Respiratory rate 16 /min 16 /min MEDGEN ( [facility]) Heart rate 72 /min 72 /min MEDGEN ([facility] Serv[facility]) Body height 64 in 64 in MEDGEN ([facility]) Body weight 148 lb 148 lb MED[facility] ([facility]) Systolic blood 130 mm[Hg] 130 mm[Hg] MEDGEN ([facility]) Diastolic blood 80 mm[Hg] 80 mm[Hg] MEDGEN ([facility]) Body mass index 25.4 kg/m2 25.4 kg/m2 MEDGEN ([facility] (BMI) [Ratio] Medical Ser vice) Respiratory rate 16 /min 16 /min MEDGEN ( [place] [facility]) Heart rate 72 /min 72 /min MEDGEN ([facility]) Body height 64 in 64 in [facility] ([facility]) Body weight 120 lb 120 lb MED[facility] ([facility]) Systolic blood 122 mm[Hg] 122 mm[Hg] MEDGEN ([facility]) Diastolic blood 60 mm[Hg] 60 mm[Hg] MEDGEN ([facility]) Body mass index 20.6 kg/m2 20.6 kg/m2 MEDGEN ([facility] (BMI) [Ratio] Medical Ser vice) Heart rate 72 /min 72 /min [facility] ([facility]) Body height 64 in 64 in [facility] ([facility]) Body weight 120 lb 120 lb [facility] ([facility]) Systolic blood 122 mm[Hg] 122 mm[Hg] MEDGEN ([facility]) Diastolic blood 60 mm[Hg] 60 mm[Hg] MEDGEN ([facility]) Body mass index 20.6 kg/m2 20.6 kg/m2 MEDGEN ([facility] (BMI) [Ratio] Medical Ser vice) Heart rate 72 /min 72 /min MED[facility] ([facility]) Body height 64 in 64 in [facility] ([facility]) Body weight 120 lb 120 lb MED[facility] ([facility]) Systolic blood 122 mm[Hg] 122 mm[Hg] MEDGEN ([facility]) Diastolic blood 60 mm[Hg] 60 mm[Hg] MEDGEN ([facility]) Body mass index 20.6 kg/m2 20.6 kg/m2 MEDGEN ([facility] (BMI) [Ratio] Medical Ser vice) Heart rate 72 /min 72 /min MED[facility] ([facility]) Body height 64 in 64 in [facility] ([facility]) Body weight 120 lb 120 lb MED[facility] ([facility]) Systolic blood 122 mm[Hg] 122 mm[Hg] MEDGEN ([facility]) Diastolic blood 60 mm[Hg] 60 mm[Hg] MEDGEN ([facility]) Body mass index 20.6 kg/m2 20.6 kg/m2 MEDGEN ([facility] (BMI) [Ratio] Medical Ser vice) Heart rate 72 /min 72 /min MED[facility] ([facility]) Body height 64 in 64 in [facility] ([facility]) Body weight 115 lb 115 lb MED[facility] ([facility]) Systolic blood 136 mm[Hg] 136 mm[Hg] MEDGEN ([facility]) Diastolic blood 60 mm[Hg] 60 mm[Hg] MEDGEN ([facility]) Body mass index 19.7 kg/m2 19.7 kg/m2 MEDGEN ([facility] (BMI) [Ratio] Medical Ser vice) Heart rate 72 /min 72 /min MEDGEN ([facility]) Body height 64 in 64 in MEDGEN ([facility]) Body weight 115 lb 115 lb MEDGEN ([facility]) Systolic blood 136 mm[Hg] 136 mm[Hg] MEDGEN ([facility]) Diastolic blood 60 mm[Hg] 60 mm[Hg] MEDGEN ([facility]) Body mass index 19.7 kg/m2 19.7 kg/m2 MEDGEN ([facility] (BMI) [Ratio] Medical Ser vice) Heart rate 72 /min 72 /min MED[facility] ([facility]) Body height 64 in 64 in MEDGEN ([facility]) Body weight 115 lb 115 lb MEDGEN ([facility]) Systolic blood 136 mm[Hg] 136 mm[Hg] MEDGEN ([facility]) Diastolic blood 60 mm[Hg] 60 mm[Hg] MEDGEN ([facility]) Body mass index 19.7 kg/m2 19.7 kg/m2 MEDGEN ([facility] (BMI) [Ratio] Medical Ser vice) Heart rate 72 /min 72 /min MEDGEN ([facility]) Body height 64 in 64 in MEDGEN ([facility]) Body weight 115 lb 115 lb MEDGEN ([facility]) Systolic blood 136 mm[Hg] 136 mm[Hg] MEDGEN ([facility]) Diastolic blood 60 mm[Hg] 60 mm[Hg] MEDGEN ([facility]) Body mass index 19.7 kg/m2 19.7 kg/m2 MEDGEN ([facility] (BMI) [Ratio] Medical Ser vice) Heart rate 72 /min 72 /min MEDGEN ([facility] Body height 64 in 64 in MEDGEN ([facility]) Body weight 120 lb 120 lb MEDGEN ([facility]) Systolic blood 110 mm[Hg] 110 mm[Hg] MEDGEN ([facility]) Diastolic blood 60 mm[Hg] 60 mm[Hg] MEDGEN ([facility]) Body mass index 20.6 kg/m2 20.6 kg/m2 MEDGEN ([facility] (BMI) [Ratio] Medical Ser vice) Heart rate 72 /min 72 /min MEDGEN ([facility] Body height 64 in 64 in MEDGEN ([facility]) Body weight 120 lb 120 lb MEDGEN ([facility]) Systolic blood 110 mm[Hg] 110 mm[Hg] MEDGEN ([facility]) Diastolic blood 60 mm[Hg] 60 mm[Hg] MEDGEN ([facility]) Body mass index 20.6 kg/m2 20.6 kg/m2 MEDGEN ([facility] (BMI) [Ratio] Medical Ser vice) Heart rate 72 /min 72 /min MEDGEN ([facility]) Body height 64 in 64 in MEDGEN ([facility]) Body weight 120 lb 120 lb MEDGEN ([facility]) Systolic blood 110 mm[Hg] 110 mm[Hg] MEDGEN ([facility]) Diastolic blood 60 mm[Hg] 60 mm[Hg] MEDGEN ([facility]) Body mass index 20.6 kg/m2 20.6 kg/m2 MEDGEN ([facility] (BMI) [Ratio] Medical Ser vice) Heart rate 72 /min 72 /min MEDGEN ([facility]) Body height 64 in 64 in [facility]GEN ([facility]) Body weight 120 lb 120 lb MEDGEN ([facility]) Systolic blood 110 mm[Hg] 110 mm[Hg] MEDGEN ([facility]) Diastolic blood 60 mm[Hg] 60 mm[Hg] MEDGEN ([facility]) Body mass index 20.6 kg/m2 20.6 kg/m2 MEDGEN ([facility] (BMI) [Ratio] Medical Ser vice) Heart rate 72 /min 72 /min MEDGEN ([facility]) Body height 64 in 64 in [facility] ([facility]) Body weight 124 lb 124 lb MED[facility] ([facility]) Systolic blood 120 mm[Hg] 120 mm[Hg] MEDGEN ([facility]) Diastolic blood 50 mm[Hg] 50 mm[Hg] MEDGEN ([facility]) Body mass index 21.3 kg/m2 21.3 kg/m2 MEDGEN ([facility] (BMI) [Ratio] Medical Ser vice) Heart rate 72 /min 72 /min [facility] ([facility]) Body height 64 in 64 in [facility] ([facility]) Body weight 124 lb 124 lb MED[facility] ([facility]) Systolic blood 120 mm[Hg] 120 mm[Hg] MEDGEN ([facility]) Diastolic blood 50 mm[Hg] 50 mm[Hg] MEDGEN ([facility]) Body mass index 21.3 kg/m2 21.3 kg/m2 MEDGEN ([facility] (BMI) [Ratio] Medical Ser vice) Heart rate 72 /min 72 /min MEDGEN ([facility]) Body height 64 in 64 in MEDGEN ([facility]) Body weight 124 lb 124 lb MEDGEN ([facility]) Systolic blood 120 mm[Hg] 120 mm[Hg] MEDGEN ([facility]) Diastolic blood 50 mm[Hg] 50 mm[Hg] MEDGEN ([facility]) Body mass index 21.3 kg/m2 21.3 kg/m2 MEDGEN ([facility] (BMI) [Ratio] Medical Ser vice) Heart rate 72 /min 72 /min MEDGEN ([facility]) Body height 64 in 64 in MEDGEN ([facility]) Body weight 124 lb 124 lb MEDGEN ([facility]) Systolic blood 120 mm[Hg] 120 mm[Hg] MEDGEN ([facility]) Diastolic blood 50 mm[Hg] 50 mm[Hg] MEDGEN ([facility]) Body mass index 21.3 kg/m2 21.3 kg/m2 MEDGEN ([facility] (BMI) [Ratio] Medical Ser vice) Heart rate 72 /min 72 /min MEDGEN ([facility]) Body height 64 in 64 in MEDGEN ([facility]) Body weight 124 lb 124 lb MED[facility] ([facility]) Systolic blood 120 mm[Hg] 120 mm[Hg] MEDGEN ([facility]) Diastolic blood 80 mm[Hg] 80 mm[Hg] MEDGEN ([facility]) Body mass index 21.3 kg/m2 21.3 kg/m2 MEDGEN ([facility] (BMI) [Ratio] Medical Ser vice) Heart rate 72 /min 72 /min MEDGEN ([facility]) Body height 64 in 64 in MEDGEN ([facility]) Body weight 124 lb 124 lb MEDGEN ([facility]) Systolic blood 120 mm[Hg] 120 mm[Hg] MEDGEN ([facility]) Diastolic blood 80 mm[Hg] 80 mm[Hg] MEDGEN ([facility]) Body mass index 21.3 kg/m2 21.3 kg/m2 MEDGEN ([facility] (BMI) [Ratio] Medical Ser vice) Heart rate 72 /min 72 /min MEDGEN ([facility]) Body height 64 in 64 in MEDGEN ([facility]) Body weight 124 lb 124 lb MED[facility] ([facility]) Systolic blood 120 mm[Hg] 120 mm[Hg] MEDGEN ([facility]) Diastolic blood 80 mm[Hg] 80 mm[Hg] MEDGEN ([facility]) Body mass index 21.3 kg/m2 21.3 kg/m2 MEDGEN ([facility] (BMI) [Ratio] Medical Ser vice) Heart rate 72 /min 72 /min MEDGEN ([facility]) Body height 64 in 64 in MEDGEN ([facility]) Body weight 124 lb 124 lb MEDGEN ([facility]) Systolic blood 120 mm[Hg] 120 mm[Hg] MEDGEN ([facility]) Diastolic blood 80 mm[Hg] 80 mm[Hg] MEDGEN ([facility]) Body mass index 21.3 kg/m2 21.3 kg/m2 MEDGEN ([facility] (BMI) [Ratio] Medical Ser vice) Heart rate 72 /min 72 /min MEDGEN ([facility]) Body height 64 in 64 in MEDGEN ([facility]) Body weight 138 lb 138 lb MEDGEN ([facility]) Systolic blood 140 mm[Hg] 140 mm[Hg] MEDGEN ([facility]) Diastolic blood 80 mm[Hg] 80 mm[Hg] MEDGEN ([facility]) Body mass index 23.7 kg/m2 23.7 kg/m2 MEDGEN ([facility] (BMI) [Ratio] Medical Ser vice) Heart rate 72 /min 72 /min MEDGEN ([facility]) Body height 64 in 64 in MEDGEN ([facility]) Body weight 138 lb 138 lb MEDGEN ([facility]) Systolic blood 140 mm[Hg] 140 mm[Hg] MEDGEN ([facility]) Diastolic blood 80 mm[Hg] 80 mm[Hg] MEDGEN ([facility]) Body mass index 23.7 kg/m2 23.7 kg/m2 MEDGEN ([facility] (BMI) [Ratio] Medical Ser vice) Heart rate 72 /min 72 /min MEDGEN ([facility]) Body height 64 in 64 in MEDGEN ([facility]) Body weight 138 lb 138 lb MEDGEN ([facility]) Systolic blood 140 mm[Hg] 140 mm[Hg] MEDGEN ([facility]) Diastolic blood 80 mm[Hg] 80 mm[Hg] MEDGEN ([facility]) Body mass index 23.7 kg/m2 23.7 kg/m2 MEDGEN ([facility] (BMI) [Ratio] Medical Ser vice) Heart rate 72 /min 72 /min MEDGEN ([facility]) Body height 64 in 64 in MEDGEN ([facility]) Body weight 138 lb 138 lb MEDGEN ([facility]) Systolic blood 140 mm[Hg] 140 mm[Hg] MEDGEN ([facility]) Diastolic blood 80 mm[Hg] 80 mm[Hg] MEDGEN ([facility]) Body mass index 23.7 kg/m2 23.7 kg/m2 MEDGEN ([facility] (BMI) [Ratio] Medical Ser vice) Heart rate 72 /min 72 /min MEDGEN ([facility]) Body height 64 in 64 in MEDGEN ([facility]) Body weight 138 lb 138 lb MEDGEN ([facility]) Systolic blood 125 mm[Hg] 125 mm[Hg] MEDGEN ([facility]) Diastolic blood 45 mm[Hg] 45 mm[Hg] MEDGEN ([facility]) Body mass index 23.7 kg/m2 23.7 kg/m2 MEDGEN ([facility] (BMI) [Ratio] Medical Ser vice) Heart rate 72 /min 72 /min MEDGEN ([facility]) Body height 64 in 64 in MEDGEN ([facility]) Body weight 138 lb 138 lb MEDGEN ([facility]) Systolic blood 125 mm[Hg] 125 mm[Hg] MEDGEN ([facility]) Diastolic blood 45 mm[Hg] 45 mm[Hg] MEDGEN ([facility]) Body mass index 23.7 kg/m2 23.7 kg/m2 MEDGEN ([facility] (BMI) [Ratio] Medical Ser vice) Heart rate 72 /min 72 /min MED[facility] ([facility]) Body height 64 in 64 in MEDGEN ([facility]) Body weight 138 lb 138 lb MEDGEN ([facility]) Systolic blood 125 mm[Hg] 125 mm[Hg] MEDGEN ([facility]) Diastolic blood 45 mm[Hg] 45 mm[Hg] MEDGEN ([facility]) Body mass index 23.7 kg/m2 23.7 kg/m2 MEDGEN ([facility] (BMI) [Ratio] Medical Ser vice) Heart rate 72 /min 72 /min MEDGEN ([facility]) Body height 64 in 64 in MEDGEN ([facility]) Body weight 138 lb 138 lb MEDGEN ([facility]) Systolic blood 125 mm[Hg] 125 mm[Hg] MEDGEN ([facility]) Diastolic blood 45 mm[Hg] 45 mm[Hg] MEDGEN ([facility]) Body mass index 23.7 kg/m2 23.7 kg/m2 MEDGEN ([facility] (BMI) [Ratio] Medical Ser vice) Heart rate 72 /min 72 /min MED[facility] ([facility]) Body height 64 in 64 in MEDGEN ([facility]) Body weight 141 lb 141 lb MEDGEN ([facility]) Systolic blood 130 mm[Hg] 130 mm[Hg] MEDGEN ([facility]) Diastolic blood 60 mm[Hg] 60 mm[Hg] MEDGEN ([facility]) Body mass index 24.2 kg/m2 24.2 kg/m2 MEDGEN ([facility] (BMI) [Ratio] Medical Ser vice) Body height 64 in 64 in MEDGEN ([facility]) Body weight 141 lb 141 lb MEDGEN ([facility]) Systolic blood 130 mm[Hg] 130 mm[Hg] MEDGEN ([facility]) Diastolic blood 60 mm[Hg] 60 mm[Hg] MEDGEN ([facility]) Body mass index 24.2 kg/m2 24.2 kg/m2 MEDGEN ([facility] (BMI) [Ratio] Medical Ser vice) Body height 64 in 64 in MEDGEN ([facility]) Body weight 141 lb 141 lb MED[facility] ([facility]) Systolic blood 130 mm[Hg] 130 mm[Hg] MEDGEN ([facility]) Diastolic blood 60 mm[Hg] 60 mm[Hg] MEDGEN ([facility]) Body mass index 24.2 kg/m2 24.2 kg/m2 MEDGEN ([facility] (BMI) [Ratio] Medical Ser vice) Body height 64 in 64 in MEDGEN ([facility]) Body weight 141 lb 141 lb MEDGEN ([facility]) Systolic blood 130 mm[Hg] 130 mm[Hg] MEDGEN ([facility]) Diastolic blood 60 mm[Hg] 60 mm[Hg] MEDGEN ([facility]) Body mass index 24.2 kg/m2 24.2 kg/m2 MEDGEN ([facility] (BMI) [Ratio] Medical Ser vice) Body height 64 in 64 in MEDGEN ([facility]) Body weight 141 lb 141 lb MEDGEN ([facility]) Systolic blood 150 mm[Hg] 150 mm[Hg] MEDGEN ([facility]) Diastolic blood 80 mm[Hg] 80 mm[Hg] MEDGEN ([facility]) Body mass index 24.2 kg/m2 24.2 kg/m2 MEDGEN ([facility] (BMI) [Ratio] Medical Ser vice) Body height 64 in 64 in MEDGEN ([facility]) Body weight 141 lb 141 lb MEDGEN ([facility]) Systolic blood 150 mm[Hg] 150 mm[Hg] MEDGEN ([facility]) Diastolic blood 80 mm[Hg] 80 mm[Hg] MEDGEN ([facility]) Body mass index 24.2 kg/m2 24.2 kg/m2 MEDGEN ([facility] (BMI) [Ratio] Medical Ser vice) Body height 64 in 64 in MEDGEN ([facility]) Body weight 141 lb 141 lb MEDGEN ([facility]) Systolic blood 150 mm[Hg] 150 mm[Hg] MEDGEN ([facility]) Diastolic blood 80 mm[Hg] 80 mm[Hg] MEDGEN ([facility]) Body mass index 24.2 kg/m2 24.2 kg/m2 MEDGEN ([facility] (BMI) [Ratio] Medical Ser vice) Body height 64 in 64 in MEDGEN ([facility]) Body weight 141 lb 141 lb MEDGEN ([facility]) Systolic blood 150 mm[Hg] 150 mm[Hg] MEDGEN ([facility] [facility] Diastolic blood 80 mm[Hg] 80 mm[Hg] [facility] ([facility] Body mass index 24.2 kg/m2 24.2 kg/m2 [facility] ([facility] (BMI) [Ratio] Medical [facility]) Body height 64 in 64 in [facility] ([facility]) Body weight 141 lb 141 lb [facility] ([facility]) Systolic blood 130 mm[Hg] 130 mm[Hg] [facility] Diastolic blood 80 mm[Hg] 80 mm[Hg] [facility] Body mass index 24.2 kg/m2 24.2 kg/m2 [facility] ([facility] (BMI) [Ratio] [facility]) Body height 64 in 64 in [facility] ([facility] Body weight 141 lb 141 lb [facility] ([facility] Systolic blood 130 mm[Hg] 130 mm[Hg] [facility] Diastolic blood 80 mm[Hg] 80 mm[Hg] [facility] Body mass index 24.2 kg/m2 24.2 kg/m2 [facility] ([facility] (BMI) [Ratio] [facility]) Body height 64 in 64 in [facility] ([facility] Body weight 141 lb 141 lb [facility] ([facility] Systolic blood 130 mm[Hg] 130 mm[Hg] [facility] Diastolic blood 80 mm[Hg] 80 mm[Hg] [facility] ([facility] Body mass index 24.2 kg/m2 24.2 kg/m2 [facility] ([facility] (BMI) [Ratio] [facility]) Body height 64 in 64 in [facility] ([facility] Body weight 141 lb 141 lb [facility] ([facility] Systolic blood 130 mm[Hg] 130 mm[Hg] [facility] Diastolic blood 80 mm[Hg] 80 mm[Hg] [facility] ([facility] Body mass index 24.2 kg/m2 24.2 kg/m2 [facility] ([facility] (BMI) [Ratio] [facility]) Body mass index 24.2 kg/m2 24.2 kg/m2 [facility] ([facility] (BMI) [Ratio] Medical [facility]) Body height 64 in 64 in [facility] ([facility] Body weight 140 lb 140 lb [facility] Systolic blood 140 mm[Hg] 140 mm[Hg] [facility] Diastolic blood 80 mm[Hg] 80 mm[Hg] [facility] ([facility] Body mass index 24 kg/m2 24 kg/m2 [facility] ([facility] (BMI) [Ratio] [facility]) Heart rate 90 /min 90 /min [facility] Body height 64 in 64 in [facility] Body weight 141 lb 141 lb [facility] ([facility] Systolic blood 140 mm[Hg] 140 mm[Hg] [facility] Diastolic blood 80 mm[Hg] 80 mm[Hg] [facility] ([facility] Body height 64 in 64 in [facility] Body weight 140 lb 140 lb [facility] Systolic blood 140 mm[Hg] 140 mm[Hg] [facility] Diastolic blood 80 mm[Hg] 80 mm[Hg] [facility] ([facility] Body mass index 24 kg/m2 24 kg/m2 [facility] ([facility] (BMI) [Ratio] [facility]) Heart rate 90 /min 90 /min [facility] Body height 64 in 64 in [facility] ([facility]) Body weight 141 lb 141 lb [facility] Systolic blood 140 mm[Hg] 140 mm[Hg] [facility] Diastolic blood 80 mm[Hg] 80 mm[Hg] [facility] Body mass index 24.2 kg/m2 24.2 kg/m2 [facility] ([facility] (BMI) [Ratio] Medical [facility]) Body height 64 in 64 in [facility] Body weight 140 lb 140 lb [facility] Systolic blood 140 mm[Hg] 140 mm[Hg] [facility] Diastolic blood 80 mm[Hg] 80 mm[Hg] [facility] Body mass index 24 kg/m2 24 kg/m2 [facility] ([facility] (BMI) [Ratio] [facility]) Heart rate 90 /min 90 /min [facility] ([facility]) Body height 64 in 64 in [facility] ([facility]) Body weight 141 lb 141 lb [facility] ([facility]) Systolic blood 140 mm[Hg] 140 mm[Hg] [facility] Diastolic blood 80 mm[Hg] 80 mm[Hg] [facility] Body mass index 24.2 kg/m2 24.2 kg/m2 [facility] ([facility] (BMI) [Ratio] Medical [facility]) Systolic blood 140 mm[Hg] 140 mm[Hg] [facility] Diastolic blood 80 mm[Hg] 80 mm[Hg] [facility] ([facility] Body mass index 24.2 kg/m2 24.2 kg/m2 [facility] ([facility] (BMI) [Ratio] Medical [facility]) Body height 64 in 64 in [facility] Body weight 140 lb 140 lb [facility] ([facility]) Systolic blood 140 mm[Hg] 140 mm[Hg] [facility] Diastolic blood 80 mm[Hg] 80 mm[Hg] [facility] ([facility] Body mass index 24 kg/m2 24 kg/m2 [facility] ([facility] (BMI) [Ratio] Medical [facility]) Heart rate 90 /min 90 /min [facility] Body height 64 in 64 in [facility]) Body weight 141 lb 141 lb [facility] ([facility]) Body height 64 in 64 in [facility] Body weight 141 lb 141 lb [facility]) Systolic blood 170 mm[Hg] 170 mm[Hg] [facility] ([facility] Diastolic blood 80 mm[Hg] 80 mm[Hg] [facility] Body mass index 24.2 kg/m2 24.2 kg/m2 [facility] ([facility] (BMI) [Ratio] Medical [facility]) Body height 64 in 64 in [facility] ([facility]) Body weight 141 lb 141 lb [facility] ([facility]) Systolic blood 170 mm[Hg] 170 mm[Hg] [facility] ([facility] Diastolic blood 80 mm[Hg] 80 mm[Hg] [facility] ([facility] Body mass index 24.2 kg/m2 24.2 kg/m2 [facility] ([facility] (BMI) [Ratio] Medical [facility]) Body height 64 in 64 in [facility] ([facility]) Body weight 141 lb 141 lb [facility] ([facility]) Systolic blood 170 mm[Hg] 170 mm[Hg] [facility] ([facility] Diastolic blood 80 mm[Hg] 80 mm[Hg] [facility] ([facility] Body mass index 24.2 kg/m2 24.2 kg/m2 [facility] ([facility] (BMI) [Ratio] [facility]) Body height 64 in 64 in [facility] Body weight 141 lb 141 lb [facility]) Systolic blood 170 mm[Hg] 170 mm[Hg] [facility] Diastolic blood 80 mm[Hg] 80 mm[Hg] [facility] ([facility] Body mass index 24.2 kg/m2 24.2 kg/m2 [facility] ([facility] (BMI) [Ratio] Medical [facility]) Body height 64 in 64 in [facility] Body weight 141 lb 141 lb [facility] ([facility]) Systolic blood 130 mm[Hg] 130 mm[Hg] [facility] ([facility] Diastolic blood 80 mm[Hg] 80 mm[Hg] [facility] Body mass index 24.2 kg/m2 24.2 kg/m2 [facility] ([facility] (BMI) [Ratio] Medical [facility]) Body height 64 in 64 in [facility] ([facility]) Body weight 141 lb 141 lb [facility] ([facility]) Systolic blood 130 mm[Hg] 130 mm[Hg] [facility] ([facility] Diastolic blood 80 mm[Hg] 80 mm[Hg] [facility] Body mass index 24.2 kg/m2 24.2 kg/m2 [facility] ([facility] (BMI) [Ratio] Medical [facility]) Body height 64 in 64 in [facility] Body weight 141 lb 141 lb [facility]) Systolic blood 130 mm[Hg] 130 mm[Hg] [facility] Diastolic blood 80 mm[Hg] 80 mm[Hg] [facility] Body mass index 24.2 kg/m2 24.2 kg/m2 [facility] ([facility] (BMI) [Ratio] Medical [facility]) Body height 64 in 64 in [facility] Body weight 141 lb 141 lb [facility]) Systolic blood 130 mm[Hg] 130 mm[Hg] [facility] Diastolic blood 80 mm[Hg] 80 mm[Hg] [facility] ([facility] Body mass index 24.2 kg/m2 24.2 kg/m2 [facility] ([facility] (BMI) [Ratio] Medical [facility]) Body height 64 in 64 in [facility]) Body weight 141 lb 141 lb [facility] ([facility]) Systolic blood 160 mm[Hg] 160 mm[Hg] [facility] ([facility] Diastolic blood 80 mm[Hg] 80 mm[Hg] [facility] Body mass index 24.2 kg/m2 24.2 kg/m2 [facility] ([facility] (BMI) [Ratio] Medical [facility]) Body height 64 in 64 in [facility] Body weight 141 lb 141 lb [facility]) Systolic blood 160 mm[Hg] 160 mm[Hg] [facility] ([facility] Diastolic blood 80 mm[Hg] 80 mm[Hg] [facility] ([facility] Body mass index 24.2 kg/m2 24.2 kg/m2 [facility] ([facility] (BMI) [Ratio] Medical [facility]) Body height 64 in 64 in [facility]) Body weight 141 lb 141 lb [facility]) Systolic blood 160 mm[Hg] 160 mm[Hg] [facility] ([facility] Diastolic blood 80 mm[Hg] 80 mm[Hg] [facility] ([facility] Body mass index 24.2 kg/m2 24.2 kg/m2 [facility] ([facility] (BMI) [Ratio] Medical [facility]) Body height 64 in 64 in [facility] ([facility]) Body weight 141 lb 141 lb [facility]) Systolic blood 160 mm[Hg] 160 mm[Hg] [facility] ([facility] Diastolic blood 80 mm[Hg] 80 mm[Hg] [facility] ([facility] Body mass index 24.2 kg/m2 24.2 kg/m2 [facility] ([facility] (BMI) [Ratio] Medical Ser [facility]) Patient Treatment Plan of Care Planned Activity Planned Date Details Description Data Source (s) 24 HR quetiapine 200 MG 07/29/2020 NEXT GEN ([facility] Extended Release Oral Tablet 12:00:00 AM [facility] [[facility]] [place]) Escitalopram 10 MG Oral 07/29/2020 NEXT GEN ([facility] Tablet [Lexapro] 12:00:00 AM [facility]) Clonazepam 0.5 MG Oral Tablet 07/29/2020 NEXTGEN ([facility] [Klonopin] 12:00:00 AM [facility]) 24 HR quetiapine 200 MG 07/07/2020 NEXT GEN ([facility] Extended Release Oral Tablet 12:00:00 AM [facility]] [place]) Escitalopram 10 MG Oral 07/07/2020 NEXT GEN ([facility] Tablet [Lexapro] 12:00:00 AM [facility]) Clonazepam 0.5 MG Oral Tablet 07/07/2020 NEXTGEN ([facility] [Klonopin] 12:00:00 AM [facility]) Clonazepam 0.5 MG Oral Tablet 06/09/2020 NEXTGEN ([facility] [Klonopin] 12:00:00 AM [facility]) Escitalopram 10 MG Oral 06/09/2020 NEXT GEN ([facility] Tablet [Lexapro] 12:00:00 AM [facility]) 24 HR quetiapine 200 MG 06/09/2020 NEXT GEN ([facility] Extended Release Oral Tablet 12:00:00 AM [facility]] [place]) Clonazepam 0.5 MG Oral Tablet 05/12/2020 NEXTGEN ([facility] [Klonopin] 12:00:00 AM [facility]) Escitalopram 10 MG Oral 05/12/2020 NEXT GEN ([facility] Tablet [Lexapro] 12:00:00 AM [facility]) 24 HR quetiapine 200 MG 05/12/2020 NEXT GEN ([facility] Extended Release Oral Tablet 12:00:00 AM [facility] [[facility]] [place]) 24 HR quetiapine 200 MG 04/13/2020 NEXT GEN ([facility] Extended Release Oral Tablet 12:00:00 AM [facility]] [place]) Escitalopram 10 MG Oral 04/13/2020 NEXT GEN ([facility] Tablet [Lexapro] 12:00:00 AM [facility]) Clonazepam 0.5 MG Oral Tablet 04/13/2020 NEXTGEN ([facility] [Klonopin] 12:00:00 AM [facility]) 24 HR quetiapine 200 MG 03/15/2020 NEXT GEN ([facility] Extended Release Oral Tablet 12:00:00 AM [facility]) Escitalopram 10 MG Oral 03/15/2020 NEXT GEN ([facility] Tablet [Lexapro] 12:00:00 AM [facility]) Clonazepam 0.5 MG Oral Tablet 03/15/2020 NEXTGEN ([facility] [Klonopin] 12:00:00 AM [facility]) 24 HR quetiapine 200 MG 02/11/2020 NEXT GEN ([facility] Extended Release Oral Tablet 12:00:00 AM [facility]] [place]) Escitalopram 10 MG Oral 02/11/2020 NEXT GEN ([facility] Tablet [Lexapro] 12:00:00 AM [facility]) Clonazepam 0.5 MG Oral Tablet 02/11/2020 NEXTGEN ([facility] [Klonopin] 12:00:00 AM [facility]) 24 HR quetiapine 200 MG 01/14/2020 NEXT GEN ([facility] Extended Release Oral Tablet 12:00:[address] [facility]) Escitalopram 10 MG Oral 01/14/2020 NEXT GEN ([facility] Tablet [Lexapro] 12:00:00 AM [facility]) Clonazepam 0.5 MG Oral Tablet 01/14/2020 NEXTGEN ([facility] [Klonopin] 12:00:00 AM [facility]) Clonazepam 0.5 MG Oral Tablet 12/17/2019 NEXTGEN ([facility] [Klonopin] 12:00:00 AM [facility]) Escitalopram 10 MG Oral 12/17/2019 NEXT GEN ([facility] Tablet [Lexapro] 12:00:00 AM [facility]) 24 HR quetiapine 200 MG 12/17/2019 NEXT GEN ([facility] Release Oral Tablet 12:00:[address] [facility]) Clonazepam 0.5 MG Oral Tablet 11/19/2019 NEXTGEN ([facility] [Klonopin] 12:00:00 AM [facility]) Escitalopram 10 MG Oral 11/19/2019 NEXT GEN ([facility] Tablet [Lexapro] 12:00:00 AM [facility]) 24 HR quetiapine 200 MG 11/19/2019 NEXT GEN ([facility] Oral Tablet 12:00:[address] [facility]) 24 HR quetiapine 200 MG 10/15/2019 NEXT GEN ([facility] Extended Release Oral Tablet 12:00:[address] [facility]) Escitalopram 10 MG Oral 10/15/2019 NEXT GEN ([facility] Tablet [Lexapro] 12:00:00 AM [facility]) Clonazepam 0.5 MG Oral Tablet 10/15/2019 NEXTGEN ([facility] [Klonopin] 12:00:00 AM [facility]) Clonazepam 0.5 MG Oral Tablet 09/16/2019 NEXTGEN ([facility] [Klonopin] 12:00:00 AM [facility]) Escitalopram 10 MG Oral 09/16/2019 NEXT GEN ([facility] Tablet [Lexapro] 12:00:00 AM [facility]) 24 HR quetiapine 200 MG 09/16/2019 NEXT GEN ([facility] Extended Release Oral Tablet 12:00:00 AM [facility]) Clonazepam 0.5 MG Oral Tablet 08/19/2019 NEXTGEN ([facility] [Klonopin] 12:00:00 AM [facility]) Escitalopram 10 MG Oral 08/19/2019 NEXT GEN ([facility] Tablet [Lexapro] 12:00:00 AM [facility]) 24 HR quetiapine 200 MG 08/19/2019 NEXT GEN ([facility] Extended Release Oral Tablet 12:00:00 AM [facility]) Clonazepam 0.5 MG Oral Tablet 07/22/2019 NEXTGEN ([facility] [Klonopin] 12:00:00 AM [facility]) Escitalopram 10 MG Oral 07/22/2019 NEXT GEN ([facility] Tablet [Lexapro] 12:00:00 AM [facility]) 24 HR quetiapine 200 MG 07/22/2019 NEXT GEN ([facility] Extended Release Oral Tablet 12:00:00 AM [facility]] [place]) 24 HR quetiapine 200 MG 06/15/2019 NEXT GEN ([facility] Extended Release Oral Tablet 12:00:00 AM [facility]] [place]) Escitalopram 10 MG Oral 06/15/2019 NEXT GEN ([facility] Tablet [Lexapro] 12:00:00 AM [facility]) Clonazepam 0.5 MG Oral Tablet 06/15/2019 NEXTGEN ([facility] [Klonopin] 12:00:00 AM [facility]) 24 HR quetiapine 200 MG 05/18/2019 NEXT GEN ([facility] Extended Release Oral Tablet 12:00:00 AM [facility]] [place]) Escitalopram 10 MG Oral 05/18/2019 NEXT GEN ([facility] Tablet [Lexapro] 12:00:00 AM [facility]) Clonazepam 0.5 MG Oral Tablet 05/18/2019 NEXTGEN ([facility] [Klonopin] 12:00:00 AM [facility]) 24 HR quetiapine 200 MG 04/19/2019 NEXT GEN ([facility] Extended Release Oral Tablet 12:00:00 AM [facility]) Escitalopram 10 MG Oral 04/19/2019 NEXT GEN ([facility] Tablet [Lexapro] 12:00:00 AM [facility]) Clonazepam 0.5 MG Oral Tablet 04/19/2019 NEXTGEN ([facility] [Klonopin] 12:00:00 AM [facility]) 24 HR quetiapine 200 MG 03/22/2019 NEXT GEN ([facility] Extended Release Oral Tablet 12:00:00 AM [facility]] [place]) Escitalopram 10 MG Oral 03/22/2019 NEXT GEN ([facility] Tablet [Lexapro] 12:00:00 AM [facility]) Clonazepam 0.5 MG Oral Tablet 03/22/2019 NEXTGEN ([facility] [Klonopin] 12:00:00 AM [facility]) 24 HR quetiapine 200 MG 02/22/2019 NEXT GEN ([facility] Extended Release Oral Tablet 12:00:00 AM [facility]] [place]) Escitalopram 10 MG Oral 02/22/2019 NEXT GEN ([facility] Tablet [Lexapro] 12:00:00 AM [facility]) Clonazepam 0.5 MG Oral Tablet 02/22/2019 NEXTGEN ([facility] [Klonopin] 12:00:00 AM [facility]) 24 HR quetiapine 200 MG 01/21/2019 NEXT GEN ([facility] Extended Release Oral Tablet 12:00:00 AM [facility] [[facility]] [place]) Escitalopram 10 MG Oral 01/21/2019 NEXT GEN ([facility] Tablet [Lexapro] 12:00:00 AM [facility]) Clonazepam 0.5 MG Oral Tablet 01/21/2019 NEXTGEN ([facility] [Klonopin] 12:00:00 AM [facility]) Clonazepam 0.5 MG Oral Tablet 12/23/2018 NEXTGEN ([facility] [Klonopin] 12:00:00 AM [facility]) Escitalopram 10 MG Oral 12/23/2018 NEXT GEN ([facility] Tablet [Lexapro] 12:00:00 AM [facility]) 24 HR quetiapine 200 MG 12/23/2018 NEXT GEN ([facility] Extended Release Oral Tablet 12:00:00 AM [facility]] [place]) 24 HR Nicotine 0.583 MG/HR 04/12/2015 N EXTGEN ([facility] Transdermal Patch [Nicoderm 12:00:00 AM [facility] C-Q] [place]) Calcium 500 + D 500 mg (1,250 02/27/2015 NEXTGEN ([facility] mg)-400 unit tablet 12:00:00 AM [facility]) Amlodipine 5 MG Oral Tablet 02/27/2015 NEXTGEN ([facility] 12:00:00 AM [facility]) clopidogrel 75 MG Oral Tablet 02/27/2015 NEXTGEN ([facility] 12:00:00 AM [facility]) multivitamin tablet 02/27/2015 NEXTGEN ([facility] 12:00:00 AM [facility]) Levothyroxine Sodium 0.05 MG 02/27/2015 NEXTGEN ([facility] Oral Tablet [Synthroid] 12:00:00 AM [facility]) Aspirin 81 MG Delayed Release 02/27/2015 NEXTGEN ([facility] Oral Tablet 12:00:00 AM [facility]) 24 HR quetiapine 300 MG 02/27/2015 NEXT GEN ([facility] Extended Release Oral Tablet 12:00:00 AM [facility] [[facility]] [place]) Amoxicillin 500 MG Oral 12/27/2014 NEXT GEN ([facility] Tablet 12:00:00 AM [facility]) hydrochlorothiazide 25 mg 12/01/2014 NE XTGEN ([facility] tablet 12:00:00 AM [facility])
[2020-08-18] MEDS ORDERED: PROPOFOL 20 ML ONE (11:13)
[2020-08-18] MEDS ORDERED: ceFAZolin SODIUM 1 GM VIAL ONE (11:36)
[2020-08-18] MEDS ORDERED: DEXAMETHASONE SOD PHOSPHATE 4 MG/1 ML VIAL ONE (11:42)
[2020-08-18] MEDS ORDERED: ceFAZolin SODIUM 1 GM VIAL IVPB ONE (11:52)
[2020-08-18] MEDS ORDERED: ACETAMINOPHEN 325 MG TABLET (FP) PO PRN (11:56)
[2020-08-18] MEDS ORDERED: MIDAZOLAM HCL 2 MG/2 ML SINGLE DOSE VIAL ONE (12:00)
--- NOTE | 2020-08-18 12:00 | OP ---
Operative Note - Note: Operative Date: 08/18/20 Pre-Operative Diagnosis: rt. renal stone, hematuria, renal colick Operation: rull with jj stent Findings: rt. hydro. rt. upper ureteral stone Post-Operative Diagnosis: Same as Pre-op Surgeon: Jordin Morgan Anesthesia: General Specimens Removed: urine, stones Estimated Blood Loss (mls): 0 Instrument used (Debridements only): 0 Drains & Tubes with Location: 22cm-6f rt. jj stent Drains, Volume Out (mls): 0 Blood Volume Replaced (mls): 0 Fluid Volume Replaced (mls): 0 Operative Report Dictated: Yes
[2020-08-18] MEDS ORDERED: ONDANSETRON 4 MG/2 ML VIAL IVPUSH PRN (13:59)
[2020-08-18] MEDS ORDERED: LACTATED RINGERS SOLUTION 1,000 ML IV SCH (14:00)
[2020-08-18 17:37] VITALS: BP 152/64; PULSE 98; TEMP 97.8
--- NOTE | 2020-08-18 19:06 | OP ---
DATE OF OPERATION: 08/18/2020 PREOPERATIVE DIAGNOSIS: Right colic, right renal stone, hematuria. POSTOPERATIVE DIAGNOSIS: Right colic, right renal stone, hematuria. OPERATIVE PROCEDURE: Cystourethroscopy, right retrograde pyelogram, right ureteroscopy, right stone retrieval and placement of a right Double J stent. ANESTHESIA: General. DESCRIPTION OF PROCEDURE: Under above stated anesthesia, patient was prepped and draped in the usual sterile manner. She was placed in the dorsal lithotomy position. 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 The bladder was entered. Urine was collected for C&S. Inspection of the bladder revealed squamous metaplasia of the trigone. Ureteral orifices were within normal limits. Efflux of clear urine was noted from the left side, and 10 mL of contrast was injected. This revealed a filling defect in the right upper ureter with proximal hydronephrosis. A glidewire was passed up the right renal unit . The scope was removed. The semirigid ureteroscope was inserted. Ureteroscopy was performed in the usual fashion. The lower ureter was normal. Two small stones were found in the upper ureter; they were removed with a basket. No other stones were seen. Therefore, the ureteroscope was removed. A 22-cm 6-Hungarian right JJ stent was placed. X-rays confirmed good position of the stent. The patient tolerated the procedure well. She returned to the recovery room in good condition. Lacho [id number]
--- NOTE | 2020-08-21 18:26 | PATH ---
Cytology Non-Gynecological Report Patient Name: JACKIE MARTINEZ Med. Rec. #: [id number] /Age/Gender: 1945 (Age: 75) / F Account: [id number] Location: [facility] Taken: 08/18/2020 Received: 08/18/2020 Reported: 08/21/2020 Physicians: Jordin Morgan M.D. Specimen(s) Received URINE Clinical History Right kidney stone Final Diagnosis URINE FOR CYTOLOGY: SATISFACTORY FOR EVALUATION. NEGATIVE FOR HIGH GRADE UROTHELIAL CARCINOMA. SCATTERED UROTHELIAL CELLS AND SQUAMOUS EPITHELIAL CELLS PRESENT. RARE RED BLOOD CELLS PRESENT. Comment: See concurrent material ([id number]). Electronically Signed Jackie Cheng M.D. Gross Description Approximately 10 cc of yellow cloudy fluid received fresh. One cytofunnel prepared and Pap stained.
--- NOTE | 2020-08-21 19:02 | PATH ---
Surgical Pathology Report Patient Name: JACKIE MARTINEZ [facility]. Rec. #: [id number] /Age/Gender: 1945 (Age: 75) / F Account: [id number] Location: [facility] Taken: 08/18/2020 Received: 08/18/2020 Reported: 08/21/2020 Physicians: Jordin Morgan M.D. Specimen(s) Received RIGHT RENAL STONE Clinical History Right kidney stone Final Diagnosis RENAL STONE, RIGHT, REMOVAL: RENAL CALCULI. MACROSCOPIC DIAGNOSIS. Electronically Signed Jackie Cheng M.D. Gross Description Received in formalin labeled "right renal stone," are 2 shay and black, irregular calculi averaging 0.3 cm in greatest dimension. The formalin is drained and the specimen is dried and sent for chemical analysis. /08/18/2020 saudi/08/18/2020
--- NOTE | 2020-08-22 08:40 | CONS ---
DATE OF CONSULTATION: 08/18/2020 Patient is a 75-year-old female who presented for ambulatory surgery on August 18, 2020. Patient was seen in the office with low back pain, left greater than right. She does have history of high blood pressure as well as dyslipidemia. Recently underwent pulmonary resection for cancer of the lung. The patient is G3, P3, postmenopausal. An ultrasound of her kidneys revealed right renal stone. Her urinalysis was positive for blood. She was followed for several weeks, and a repeat ultrasound revealed a 5- to 7-mm stone in the right lower lobe of the kidney. The urine remained heme positive. The patient is also a diabetic and dyslipidemic. She is on insulin, metformin, lisinopril, and Norvasc. She will undergo a cystoscopy, right laser lithotripsy, and placement of a stent. She will then undergo a stone workup in the office. Will follow. BLAYNE WHEELER M.D. [id number]
== END 2020-08-18 16:30 | disposition home or self-care (01) ==
LOC: JASU-SURG 04:32
PROVIDERS: ATTEND Urology
PROC: 0TC38ZZ Extirpation of Matter from Right Kidney Pelvis, Via Natural or Artificial Opening Endoscopic (ICD-10-PCS; principal; 2020-08-18 10:00)
PROC: 0T9680Z Drainage of Right Ureter with Drainage Device, Via Natural or Artificial Opening Endoscopic (ICD-10-PCS; 2020-08-18 10:00)
DX: N20.0 Calculus of kidney (principal); R31.9 Hematuria, unspecified
CPT/HCPCS: 36415; 76000-TC-FY; 82360; 87086; 88108; 88300-TC; 94760